=== PATIENT | male | born 1950 | race Hispanic/Latino ===

== ENCOUNTER 2019-08-28 11:42 | Inpatient (IN) | payer OTHER ==
[~2019-08-28] VITALS: Ht 180.3 cm; Wt 104.3 kg
--- OUTSIDE RECORDS SUMMARY | 2019-08-28 11:45 | XMS REPORT ---
[facility] Address Unknown Phone Unavailable Care Team Providers Care [employer] Supervisor Name Role Phone Unavailable Unavailable Payers Payer Name Policy Type Policy Number Effective Date Expiration Date Problems This patient has no known problems. Allergies, Adverse Reactions, Alerts Allergy Name Allergy Type Status Severity Reaction(s) Onset Date Inactive Date Treating Clinician Comments No Known Allergies DA Active U 2018-10-13 00:00:00 No Known Allergies DA Active U 2017-11-03 00:00:00 Medications This patient has no known medications. Encounters Start Date/Time End Date/Time Encounter Type Admission Type Attending Clinicians Care Facility Care Department Encounter ID 2019-06-16 07:40:00 2019-06-16 07:40:00 [place] [facility] [id number] 2019-02-12 07:07:00 2019-02-12 07:07:00 Outpatient [facility] [id number] Results Test Description Test Time Test Comments Text Results Atomic Results Result Comments CBC W/MANUAL DIFF 2018-10-20 21:42:00 WHITE BLOOD CELL (test code=WBC) 4.0 K/mm3 4.5-12.5 RED BLOOD CELL (test code=RBC) 3.63 mill/mm3 4.0-5.8 HEMOGLOBIN (test code=HGB) 11.3 gram/dL 13.0-17.5 HEMATOCRIT (test code=HCT) 34.0 % 42.0-52.0 MEAN CELL VOLUME (test code=MCV) 93.7 fL 80-98 MEAN CELL HGB (test code=MCH) 31.1 picogram 27.0-33.0 MEAN CELL HGB CONCETRATION (test code=MCHC) 33.2 gram/dL 33.0-36.0 RED CELL DISTRIBUTION WIDTH (test code=RDW) 17.5 % 11.6-16.2 RED CELL DISTRIBUTION WIDTH SD (test code=RDW-SD) 59.5 fL 37.0-51.0 PLATELET COUNT (test code=PLT) 57 K/mm3 150-450 MEAN PLATELET VOLUME (test code=MPV) 13.3 fL 6.7-11.0 IMMATURE GRANULOCYTE % (test code=IG%) 3.2 % 0.0-5.0 NUCLEATED RBC % (test code=NRBC%) 0.0 % 0-0 NEUTROPHIL # (test code=NT#) 2.45 K/mm3 1.8-7.7 IMMATURE GRANULOCYTE # (test code=IG#) 0.13 x10 3/uL 0-0.03 LYMPHOCYTE # (test code=LY#) 0.93 K/mm3 1.0-5.0 MONOCYTE # (test code=MO#) 0.45 K/mm3 0-0.8 EOSINOPHIL # (test code=EO#) 0.05 K/mm3 0.0-0.5 BASOPHIL # (test code=BA#) 0.02 K/mm3 0.0-0.2 NUCLEATED RBC # (test code=NRBC#) 0.00 K/mm3 0.0-0.1 MANUAL DIFF REQUIRED (test code=MDIFF) YES STAIN ACCEPTABILITY (test code=STN ACCEPTABLE) STAIN ACCEPTABLE TOTAL CELLS COUNTED (test code=TCC) 115 #CELLS SEGMENTED NEUTROPHILS (test code=SEG) 71.3 % 39-69 BAND NEUTROPHIL (test code=BAND) 5.2 % 0-10 LYMPHOCYTE (test code=LYMPH) 11.3 % 25-55 REACTIVE LYMPH (test code=RELYMPH) 0 % MONOCYTE (test code=MON) 6.9 % 0-10 EOSINOPHIL (test code=EOS) 0 % 0.0-5.0 BASOPHIL (test code=BASO) 0 % 0-1.0 METAMYELOCYTE (test code=META) 2.6 % 0-0 MYELOCYTE (test code=MYELO) 0.9 % 0.0-0.0 PROMYELOCYTE (test code=PROM) 0.9 % 0-0 PLASMA CELL (test code=LELE) 0.9 0.0-0.0 POLYCHROMASIA (test code=POLC) 1+ ANISOCYTOSIS (test code=ANISO) 1+ MACROCYTOSIS (test code=MACR) 1+ PLATELET ESTIMATE (test code=PLTEST) DECREASED PLATELET MORPHOLOGY (test code=PLTMORPH) NORMAL IMMATURE FORMS (test code=IMMAT) 0 % 0-0 PATHOLOGISTS [id number] 21:42:00* Test Item Value Reference Range Comments PATHOLOGISTS FINDINGS (test code=PATH) PATH NOTES LEFT SHIFT GRANULOCYTES, LYMPHOPENIA WITH A FEW REACTIVE LYPHOCYTES SEEN. NORMOCYTIC ANEMIA, THRMBOCYTOPENIA.REVIEWED BY OSMAN HOOPER M.D.10/20/18 CBC W/MANUAL [id number] 05:37:00* Test Item Value Reference Range Comments WHITE BLOOD CELL (test code=WBC) 4.0 K/mm3 4.5-12.5 RED BLOOD CELL (test code=RBC) 3.63 mill/mm3 4.0-5.8 HEMOGLOBIN (test code=HGB) 11.3 gram/dL 13.0-17.5 HEMATOCRIT (test code=HCT) 34.0 % 42.0-52.0 MEAN CELL VOLUME (test code=MCV) 93.7 fL 80-98 MEAN CELL HGB (test code=MCH) 31.1 picogram 27.0-33.0 MEAN CELL HGB CONCETRATION (test code=MCHC) 33.2 gram/dL 33.0-36.0 RED CELL DISTRIBUTION WIDTH (test code=RDW) 17.5 % 11.6-16.2 RED CELL DISTRIBUTION WIDTH SD (test code=RDW-SD) 59.5 fL 37.0-51.0 PLATELET COUNT (test code=PLT) 57 K/mm3 150-450 MEAN PLATELET VOLUME (test code=MPV) 13.3 fL 6.7-11.0 IMMATURE GRANULOCYTE % (test code=IG%) 3.2 % 0.0-5.0 NUCLEATED RBC % (test code=NRBC%) 0.0 % 0-0 NEUTROPHIL # (test code=NT#) 2.45 K/mm3 1.8-7.7 IMMATURE GRANULOCYTE # (test code=IG#) 0.13 x10 3/uL 0-0.03 LYMPHOCYTE # (test code=LY#) 0.93 K/mm3 1.0-5.0 MONOCYTE # (test code=MO#) 0.45 K/mm3 0-0.8 EOSINOPHIL # (test code=EO#) 0.05 K/mm3 0.0-0.5 BASOPHIL # (test code=BA#) 0.02 K/mm3 0.0-0.2 NUCLEATED RBC # (test code=NRBC#) 0.00 K/mm3 0.0-0.1 MANUAL DIFF REQUIRED (test code=MDIFF) YES STAIN ACCEPTABILITY (test code=STN ACCEPTABLE) STAIN ACCEPTABLE TOTAL CELLS COUNTED (test code=TCC) 115 #CELLS SEGMENTED NEUTROPHILS (test code=SEG) 71.3 % 39-69 BAND NEUTROPHIL (test code=BAND) 5.2 % 0-10 LYMPHOCYTE (test code=LYMPH) 11.3 % 25-55 REACTIVE LYMPH (test code=RELYMPH) 0 % MONOCYTE (test code=MON) 6.9 % 0-10 EOSINOPHIL (test code=EOS) 0 % 0.0-5.0 BASOPHIL (test code=BASO) 0 % 0-1.0 METAMYELOCYTE (test code=META) 2.6 % 0-0 MYELOCYTE (test code=MYELO) 0.9 % 0.0-0.0 PROMYELOCYTE (test code=PROM) 0.9 % 0-0 PLASMA CELL (test code=LELE) 0.9 0.0-0.0 POLYCHROMASIA (test code=POLC) 1+ ANISOCYTOSIS (test code=ANISO) 1+ MACROCYTOSIS (test code=MACR) 1+ PLATELET ESTIMATE (test code=PLTEST) DECREASED PLATELET MORPHOLOGY (test code=PLTMORPH) NORMAL IMMATURE FORMS (test code=IMMAT) 0 % 0-0 PATHOLOGISTS [id number] 05:37:00* Test Item Value Reference Range Comments PATHOLOGISTS FINDINGS (test code=PATH) PATH NOTES CBC W/MANUAL [id number] 05:33:00* Test Item Value Reference Range Comments WHITE BLOOD CELL (test code=WBC) 4.0 K/mm3 4.5-12.5 RED BLOOD CELL (test code=RBC) 3.63 mill/mm3 4.0-5.8 HEMOGLOBIN (test code=HGB) 11.3 gram/dL 13.0-17.5 HEMATOCRIT (test code=HCT) 34.0 % 42.0-52.0 MEAN CELL VOLUME (test code=MCV) 93.7 fL 80-98 MEAN CELL HGB (test code=MCH) 31.1 picogram 27.0-33.0 MEAN CELL HGB CONCETRATION (test code=MCHC) 33.2 gram/dL 33.0-36.0 RED CELL DISTRIBUTION WIDTH (test code=RDW) 17.5 % 11.6-16.2 RED CELL DISTRIBUTION WIDTH SD (test code=RDW-SD) 59.5 fL 37.0-51.0 PLATELET COUNT (test code=PLT) 57 K/mm3 150-450 MEAN PLATELET VOLUME (test code=MPV) 13.3 fL 6.7-11.0 IMMATURE GRANULOCYTE % (test code=IG%) 3.2 % 0.0-5.0 NUCLEATED RBC % (test code=NRBC%) 0.0 % 0-0 NEUTROPHIL # (test code=NT#) 2.45 K/mm3 1.8-7.7 IMMATURE GRANULOCYTE # (test code=IG#) 0.13 x10 3/uL 0-0.03 LYMPHOCYTE # (test code=LY#) 0.93 K/mm3 1.0-5.0 MONOCYTE # (test code=MO#) 0.45 K/mm3 0-0.8 EOSINOPHIL # (test code=EO#) 0.05 K/mm3 0.0-0.5 BASOPHIL # (test code=BA#) 0.02 K/mm3 0.0-0.2 NUCLEATED RBC # (test code=NRBC#) 0.00 K/mm3 0.0-0.1 MANUAL DIFF REQUIRED (test code=MDIFF) YES STAIN ACCEPTABILITY (test code=STN ACCEPTABLE) TOTAL CELLS COUNTED (test code=TCC) #CELLS SEGMENTED NEUTROPHILS (test code=SEG) % 39-69 LYMPHOCYTE (test code=LYMPH) % 25-55 MONOCYTE (test code=MON) % 0-10 MORPHOLOGY COMMENT (test code=MOC) PLATELET ESTIMATE (test code=PLTEST) PLATELET MORPHOLOGY (test code=PLTMORPH) PATHOLOGISTS [id number] 05:33:00* Test Item Value Reference Range Comments PATHOLOGISTS FINDINGS (test code=PATH) PATH NOTES CBC W/MANUAL [id number] 05:03:00* Test Item Value Reference Range Comments WHITE BLOOD CELL (test code=WBC) 4.0 K/mm3 4.5-12.5 RED BLOOD CELL (test code=RBC) 3.63 mill/mm3 4.0-5.8 HEMOGLOBIN (test code=HGB) 11.3 gram/dL 13.0-17.5 HEMATOCRIT (test code=HCT) 34.0 % 42.0-52.0 MEAN CELL VOLUME (test code=MCV) 93.7 fL 80-98 MEAN CELL HGB (test code=MCH) 31.1 picogram 27.0-33.0 MEAN CELL HGB CONCETRATION (test code=MCHC) 33.2 gram/dL 33.0-36.0 RED CELL DISTRIBUTION WIDTH (test code=RDW) 17.5 % 11.6-16.2 RED CELL DISTRIBUTION WIDTH SD (test code=RDW-SD) 59.5 fL 37.0-51.0 PLATELET COUNT (test code=PLT) 57 K/mm3 150-450 MEAN PLATELET VOLUME (test code=MPV) 13.3 fL 6.7-11.0 IMMATURE GRANULOCYTE % (test code=IG%) 3.2 % 0.0-5.0 NUCLEATED RBC % (test code=NRBC%) 0.0 % 0-0 NEUTROPHIL # (test code=NT#) 2.45 K/mm3 1.8-7.7 IMMATURE GRANULOCYTE # (test code=IG#) 0.13 x10 3/uL 0-0.03 LYMPHOCYTE # (test code=LY#) 0.93 K/mm3 1.0-5.0 MONOCYTE # (test code=MO#) 0.45 K/mm3 0-0.8 EOSINOPHIL # (test code=EO#) 0.05 K/mm3 0.0-0.5 BASOPHIL # (test code=BA#) 0.02 K/mm3 0.0-0.2 NUCLEATED RBC # (test code=NRBC#) 0.00 K/mm3 0.0-0.1 MANUAL DIFF REQUIRED (test code=MDIFF) YES STAIN ACCEPTABILITY (test code=STN ACCEPTABLE) TOTAL CELLS COUNTED (test code=TCC) #CELLS SEGMENTED NEUTROPHILS (test code=SEG) % 39-69 LYMPHOCYTE (test code=LYMPH) % 25-55 MONOCYTE (test code=MON) % 0-10 EOSINOPHIL (test code=EOS) % 0.0-5.0 CABOT RINGS (test code=CAB) MORPHOLOGY COMMENT (test code=MOC) PLATELET ESTIMATE (test code=PLTEST) PLATELET MORPHOLOGY (test code=PLTMORPH) CBC W/MANUAL [id number] 05:03:00* Test Item Value Reference Range Comments WHITE BLOOD CELL (test code=WBC) 4.0 K/mm3 4.5-12.5 RED BLOOD CELL (test code=RBC) 3.63 mill/mm3 4.0-5.8 HEMOGLOBIN (test code=HGB) 11.3 gram/dL 13.0-17.5 HEMATOCRIT (test code=HCT) 34.0 % 42.0-52.0 MEAN CELL VOLUME (test code=MCV) 93.7 fL 80-98 MEAN CELL HGB (test code=MCH) 31.1 picogram 27.0-33.0 MEAN CELL HGB CONCETRATION (test code=MCHC) 33.2 gram/dL 33.0-36.0 RED CELL DISTRIBUTION WIDTH (test code=RDW) 17.5 % 11.6-16.2 RED CELL DISTRIBUTION WIDTH SD (test code=RDW-SD) 59.5 fL 37.0-51.0 PLATELET COUNT (test code=PLT) 57 K/mm3 150-450 MEAN PLATELET VOLUME (test code=MPV) 13.3 fL 6.7-11.0 IMMATURE GRANULOCYTE % (test code=IG%) 3.2 % 0.0-5.0 NUCLEATED RBC % (test code=NRBC%) 0.0 % 0-0 NEUTROPHIL # (test code=NT#) 2.45 K/mm3 1.8-7.7 IMMATURE GRANULOCYTE # (test code=IG#) 0.13 x10 3/uL 0-0.03 LYMPHOCYTE # (test code=LY#) 0.93 K/mm3 1.0-5.0 MONOCYTE # (test code=MO#) 0.45 K/mm3 0-0.8 EOSINOPHIL # (test code=EO#) 0.05 K/mm3 0.0-0.5 BASOPHIL # (test code=BA#) 0.02 K/mm3 0.0-0.2 NUCLEATED RBC # (test code=NRBC#) 0.00 K/mm3 0.0-0.1 MANUAL DIFF REQUIRED (test code=MDIFF) YES STAIN ACCEPTABILITY (test code=STN ACCEPTABLE) TOTAL CELLS COUNTED (test code=TCC) #CELLS SEGMENTED NEUTROPHILS (test code=SEG) % 39-69 LYMPHOCYTE (test code=LYMPH) % 25-55 MONOCYTE (test code=MON) % 0-10 EOSINOPHIL (test code=EOS) % 0.0-5.0 MORPHOLOGY COMMENT (test code=MOC) PLATELET ESTIMATE (test code=PLTEST) PLATELET MORPHOLOGY (test code=PLTMORPH) CBC W/MANUAL [id number] 05:03:00* Test Item Value Reference Range Comments WHITE BLOOD CELL (test code=WBC) 4.0 K/mm3 4.5-12.5 RED BLOOD CELL (test code=RBC) 3.63 mill/mm3 4.0-5.8 HEMOGLOBIN (test code=HGB) 11.3 gram/dL 13.0-17.5 HEMATOCRIT (test code=HCT) 34.0 % 42.0-52.0 MEAN CELL VOLUME (test code=MCV) 93.7 fL 80-98 MEAN CELL HGB (test code=MCH) 31.1 picogram 27.0-33.0 MEAN CELL HGB CONCETRATION (test code=MCHC) 33.2 gram/dL 33.0-36.0 RED CELL DISTRIBUTION WIDTH (test code=RDW) 17.5 % 11.6-16.2 RED CELL DISTRIBUTION WIDTH SD (test code=RDW-SD) 59.5 fL 37.0-51.0 PLATELET COUNT (test code=PLT) 57 K/mm3 150-450 MEAN PLATELET VOLUME (test code=MPV) 13.3 fL 6.7-11.0 IMMATURE GRANULOCYTE % (test code=IG%) 3.2 % 0.0-5.0 NUCLEATED RBC % (test code=NRBC%) 0.0 % 0-0 NEUTROPHIL # (test code=NT#) 2.45 K/mm3 1.8-7.7 IMMATURE GRANULOCYTE # (test code=IG#) 0.13 x10 3/uL 0-0.03 LYMPHOCYTE # (test code=LY#) 0.93 K/mm3 1.0-5.0 MONOCYTE # (test code=MO#) 0.45 K/mm3 0-0.8 EOSINOPHIL # (test code=EO#) 0.05 K/mm3 0.0-0.5 BASOPHIL # (test code=BA#) 0.02 K/mm3 0.0-0.2 NUCLEATED RBC # (test code=NRBC#) 0.00 K/mm3 0.0-0.1 MANUAL DIFF REQUIRED (test code=MDIFF) YES STAIN ACCEPTABILITY (test code=STN ACCEPTABLE) TOTAL CELLS COUNTED (test code=TCC) #CELLS SEGMENTED NEUTROPHILS (test code=SEG) % 39-69 LYMPHOCYTE (test code=LYMPH) % 25-55 MONOCYTE (test code=MON) % 0-10 MORPHOLOGY COMMENT (test code=MOC) PLATELET ESTIMATE (test code=PLTEST) PLATELET MORPHOLOGY (test code=PLTMORPH) CBC W/MANUAL [id number] 05:02:00* Test Item Value Reference Range Comments WHITE BLOOD CELL (test code=WBC) 4.0 K/mm3 4.5-12.5 RED BLOOD CELL (test code=RBC) 3.63 mill/mm3 4.0-5.8 HEMOGLOBIN (test code=HGB) 11.3 gram/dL 13.0-17.5 HEMATOCRIT (test code=HCT) 34.0 % 42.0-52.0 MEAN CELL VOLUME (test code=MCV) 93.7 fL 80-98 MEAN CELL HGB (test code=MCH) 31.1 picogram 27.0-33.0 MEAN CELL HGB CONCETRATION (test code=MCHC) 33.2 gram/dL 33.0-36.0 RED CELL DISTRIBUTION WIDTH (test code=RDW) 17.5 % 11.6-16.2 RED CELL DISTRIBUTION WIDTH SD (test code=RDW-SD) 59.5 fL 37.0-51.0 PLATELET COUNT (test code=PLT) 57 K/mm3 150-450 MEAN PLATELET VOLUME (test code=MPV) 13.3 fL 6.7-11.0 IMMATURE GRANULOCYTE % (test code=IG%) 3.2 % 0.0-5.0 NUCLEATED RBC % (test code=NRBC%) 0.0 % 0-0 NEUTROPHIL # (test code=NT#) 2.45 K/mm3 1.8-7.7 IMMATURE GRANULOCYTE # (test code=IG#) 0.13 x10 3/uL 0-0.03 LYMPHOCYTE # (test code=LY#) 0.93 K/mm3 1.0-5.0 MONOCYTE # (test code=MO#) 0.45 K/mm3 0-0.8 EOSINOPHIL # (test code=EO#) 0.05 K/mm3 0.0-0.5 BASOPHIL # (test code=BA#) 0.02 K/mm3 0.0-0.2 NUCLEATED RBC # (test code=NRBC#) 0.00 K/mm3 0.0-0.1 MANUAL DIFF REQUIRED (test code=MDIFF) YES STAIN ACCEPTABILITY (test code=STN ACCEPTABLE) TOTAL CELLS COUNTED (test code=TCC) #CELLS SEGMENTED NEUTROPHILS (test code=SEG) % 39-69 LYMPHOCYTE (test code=LYMPH) % 25-55 MONOCYTE (test code=MON) % 0-10 EOSINOPHIL (test code=EOS) % 0.0-5.0 CABOT RINGS (test code=CAB) MORPHOLOGY COMMENT (test code=MOC) PLATELET ESTIMATE (test code=PLTEST) PLATELET MORPHOLOGY (test code=PLTMORPH) CBC W/MANUAL [id number] 05:02:00* Test Item Value Reference Range Comments WHITE BLOOD CELL (test code=WBC) 4.0 K/mm3 4.5-12.5 RED BLOOD CELL (test code=RBC) 3.63 mill/mm3 4.0-5.8 HEMOGLOBIN (test code=HGB) 11.3 gram/dL 13.0-17.5 HEMATOCRIT (test code=HCT) 34.0 % 42.0-52.0 MEAN CELL VOLUME (test code=MCV) 93.7 fL 80-98 MEAN CELL HGB (test code=MCH) 31.1 picogram 27.0-33.0 MEAN CELL HGB CONCETRATION (test code=MCHC) 33.2 gram/dL 33.0-36.0 RED CELL DISTRIBUTION WIDTH (test code=RDW) 17.5 % 11.6-16.2 RED CELL DISTRIBUTION WIDTH SD (test code=RDW-SD) 59.5 fL 37.0-51.0 PLATELET COUNT (test code=PLT) 57 K/mm3 150-450 MEAN PLATELET VOLUME (test code=MPV) 13.3 fL 6.7-11.0 IMMATURE GRANULOCYTE % (test code=IG%) 3.2 % 0.0-5.0 NUCLEATED RBC % (test code=NRBC%) 0.0 % 0-0 NEUTROPHIL # (test code=NT#) 2.45 K/mm3 1.8-7.7 IMMATURE GRANULOCYTE # (test code=IG#) 0.13 x10 3/uL 0-0.03 LYMPHOCYTE # (test code=LY#) 0.93 K/mm3 1.0-5.0 MONOCYTE # (test code=MO#) 0.45 K/mm3 0-0.8 EOSINOPHIL # (test code=EO#) 0.05 K/mm3 0.0-0.5 BASOPHIL # (test code=BA#) 0.02 K/mm3 0.0-0.2 NUCLEATED RBC # (test code=NRBC#) 0.00 K/mm3 0.0-0.1 MANUAL DIFF REQUIRED (test code=MDIFF) YES STAIN ACCEPTABILITY (test code=STN ACCEPTABLE) TOTAL CELLS COUNTED (test code=TCC) #CELLS SEGMENTED NEUTROPHILS (test code=SEG) % 39-69 LYMPHOCYTE (test code=LYMPH) % 25-55 MONOCYTE (test code=MON) % 0-10 EOSINOPHIL (test code=EOS) % 0.0-5.0 CABOT RINGS (test code=CAB) MORPHOLOGY COMMENT (test code=MOC) PLATELET ESTIMATE (test code=PLTEST) PLATELET MORPHOLOGY (test code=PLTMORPH) PROCALCITONIN (PCT)2018-10-19 20:00:00* Test Item Value Reference Range Comments PROCALCITONIN (PCT) (test code=PROCAL) 2.75 ng/ml Concentration Interpretation (ng/mL) <0.51 Sepsis is not likely. Local bacterial infection is possible. (LOW RISK for progression to Sepsis) 0.51 - 2.00 Sepsis is possible, but other conditions are known to elevate PCT as well. (MODERATE RISK for progression to Sepsis) > 2.00 Sepsis is likely, unless other causes are known. (HIGH RISK for progression to Severe Sepsis or Septic Shock) 10.00 High likelihood of Severe Sepsis or Septic or higher Shock. *Increased PCT levels may not always be related to systemic bacterial infection.*Low PCT levels do not automatically exclude the presence of bacterial infection.*All results should be interpreted taking into account the patients history. CBC W/MANUAL [id number] 05:03:00* Test Item Value Reference Range Comments WHITE BLOOD CELL (test code=WBC) 2.7 K/mm3 4.5-12.5 RED BLOOD CELL (test code=RBC) 3.78 mill/mm3 4.0-5.8 HEMOGLOBIN (test code=HGB) 12.0 gram/dL 13.0-17.5 HEMATOCRIT (test code=HCT) 35.7 % 42.0-52.0 MEAN CELL VOLUME (test code=MCV) 94.4 fL 80-98 MEAN CELL HGB (test code=MCH) 31.7 picogram 27.0-33.0 MEAN CELL HGB CONCETRATION (test code=MCHC) 33.6 gram/dL 33.0-36.0 RED CELL DISTRIBUTION WIDTH (test code=RDW) 17.5 % 11.6-16.2 RED CELL DISTRIBUTION WIDTH SD (test code=RDW-SD) 61.1 fL 37.0-51.0 PLATELET COUNT (test code=PLT) 35 K/mm3 150-450 Results called to [id number] by MALIA 10/17/18 [id number] results verified and read back by Nurse? YPREVIOUS HISTORY MEAN PLATELET VOLUME (test code=MPV) 13.7 fL 6.7-11.0 IMMATURE GRANULOCYTE % (test code=IG%) 1.9 % 0.0-5.0 NUCLEATED RBC % (test code=NRBC%) 0.0 % 0-0 NEUTROPHIL # (test code=NT#) 2.00 K/mm3 1.8-7.7 IMMATURE GRANULOCYTE # (test code=IG#) 0.05 x10 3/uL 0-0.03 LYMPHOCYTE # (test code=LY#) 0.42 K/mm3 1.0-5.0 MONOCYTE # (test code=MO#) 0.18 K/mm3 0-0.8 EOSINOPHIL # (test code=EO#) 0.03 K/mm3 0.0-0.5 BASOPHIL # (test code=BA#) 0.01 K/mm3 0.0-0.2 NUCLEATED RBC # (test code=NRBC#) 0.00 K/mm3 0.0-0.1 MANUAL DIFF REQUIRED (test code=MDIFF) YES STAIN ACCEPTABILITY (test code=STN ACCEPTABLE) STAIN ACCEPTABLE TOTAL CELLS COUNTED (test code=TCC) 113 #CELLS SEGMENTED NEUTROPHILS (test code=SEG) 75.2 % 39-69 BAND NEUTROPHIL (test code=BAND) 4.4 % 0-10 LYMPHOCYTE (test code=LYMPH) 6.2 % 25-55 REACTIVE LYMPH (test code=RELYMPH) 7.1 % MONOCYTE (test code=MON) 4.4 % 0-10 EOSINOPHIL (test code=EOS) 0 % 0.0-5.0 BASOPHIL (test code=BASO) 2.7 % 0-1.0 METAMYELOCYTE (test code=META) 0 % 0-0 MYELOCYTE (test code=MYELO) 0 % 0.0-0.0 PROMYELOCYTE (test code=PROM) 0 % 0-0 ANISOCYTOSIS (test code=ANISO) 1+ PLATELET ESTIMATE (test code=PLTEST) DECREASED PLATELET MORPHOLOGY (test code=PLTMORPH) NORMAL IMMATURE FORMS (test code=IMMAT) 0 % 0-0 BASIC METABOLIC [id number] 04:54:00* Test Item Value Reference Range Comments SODIUM (test code=NA) 133 mmol/L 136-145 POTASSIUM (test code=K) 3.9 mmol/L 3.5-5.1 CHLORIDE (test code=CL) 101.0 mmol/L 98-107 CARBON DIOXIDE (test code=CO2) 23.0 mmol/L 21-32 ANION GAP (test code=GAP) 12.9 10-20 GLUCOSE (test code=GLU) 104 mg/dL 74-106 BLOOD UREA NITROGEN (test code=BUN) 24 mg/dL 7-18 GLOMERULAR FILTRATION RATE (test code=GFR) 55 mL/min >=60 Estimated GFR by using Modified MDRD formula.Chronic kidney disease is defined as either kidney damageor GFR <60 mL/min/1.73 m2 for >3 months. CREATININE (test code=CREAT) 1.30 mg/dL 0.7-1.3 BUN/CREATININE RATIO (test code=BUN/CREA) 18.5 10-20 CALCIUM (test code=CA) 7.6 mg/dL 8.5-10.1 CBC W/MANUAL [id number] 04:44:00* Test Item Value Reference Range Comments WHITE BLOOD CELL (test code=WBC) 2.7 K/mm3 4.5-12.5 RED BLOOD CELL (test code=RBC) 3.78 mill/mm3 4.0-5.8 HEMOGLOBIN (test code=HGB) 12.0 gram/dL 13.0-17.5 HEMATOCRIT (test code=HCT) 35.7 % 42.0-52.0 MEAN CELL VOLUME (test code=MCV) 94.4 fL 80-98 MEAN CELL HGB (test code=MCH) 31.7 picogram 27.0-33.0 MEAN CELL HGB CONCETRATION (test code=MCHC) 33.6 gram/dL 33.0-36.0 RED CELL DISTRIBUTION WIDTH (test code=RDW) 17.5 % 11.6-16.2 RED CELL DISTRIBUTION WIDTH SD (test code=RDW-SD) 61.1 fL 37.0-51.0 PLATELET COUNT (test code=PLT) 35 K/mm3 150-450 Results called to [id number] by MALIA 10/17/18 0441Critical results verified and read back by Nurse? YPREVIOUS HISTORY MEAN PLATELET VOLUME (test code=MPV) 13.7 fL 6.7-11.0 IMMATURE GRANULOCYTE % (test code=IG%) 1.9 % 0.0-5.0 NUCLEATED RBC % (test code=NRBC%) 0.0 % 0-0 NEUTROPHIL # (test code=NT#) 2.00 K/mm3 1.8-7.7 IMMATURE GRANULOCYTE # (test code=IG#) 0.05 x10 3/uL 0-0.03 LYMPHOCYTE # (test code=LY#) 0.42 K/mm3 1.0-5.0 MONOCYTE # (test code=MO#) 0.18 K/mm3 0-0.8 EOSINOPHIL # (test code=EO#) 0.03 K/mm3 0.0-0.5 BASOPHIL # (test code=BA#) 0.01 K/mm3 0.0-0.2 NUCLEATED RBC # (test code=NRBC#) 0.00 K/mm3 0.0-0.1 MANUAL DIFF REQUIRED (test code=MDIFF) YES STAIN ACCEPTABILITY (test code=STN ACCEPTABLE) TOTAL CELLS COUNTED (test code=TCC) #CELLS SEGMENTED NEUTROPHILS (test code=SEG) % 39-69 LYMPHOCYTE (test code=LYMPH) % 25-55 MONOCYTE (test code=MON) % 0-10 EOSINOPHIL (test code=EOS) % 0.0-5.0 CABOT RINGS (test code=CAB) MORPHOLOGY COMMENT (test code=MOC) PLATELET ESTIMATE (test code=PLTEST) PLATELET MORPHOLOGY (test code=PLTMORPH) CBC W/MANUAL [id number] 04:44:00* Test Item Value Reference Range Comments WHITE BLOOD CELL (test code=WBC) 2.7 K/mm3 4.5-12.5 RED BLOOD CELL (test code=RBC) 3.78 mill/mm3 4.0-5.8 HEMOGLOBIN (test code=HGB) 12.0 gram/dL 13.0-17.5 HEMATOCRIT (test code=HCT) 35.7 % 42.0-52.0 MEAN CELL VOLUME (test code=MCV) 94.4 fL 80-98 MEAN CELL HGB (test code=MCH) 31.7 picogram 27.0-33.0 MEAN CELL HGB CONCETRATION (test code=MCHC) 33.6 gram/dL 33.0-36.0 RED CELL DISTRIBUTION WIDTH (test code=RDW) 17.5 % 11.6-16.2 RED CELL DISTRIBUTION WIDTH SD (test code=RDW-SD) 61.1 fL 37.0-51.0 PLATELET COUNT (test code=PLT) 35 K/mm3 150-450 Results called to LEELEE/[id number] by MALIA 10/17/18 0441Critical results verified and read back by Nurse? YPREVIOUS HISTORY MEAN PLATELET VOLUME (test code=MPV) 13.7 fL 6.7-11.0 IMMATURE GRANULOCYTE % (test code=IG%) 1.9 % 0.0-5.0 NUCLEATED RBC % (test code=NRBC%) 0.0 % 0-0 NEUTROPHIL # (test code=NT#) 2.00 K/mm3 1.8-7.7 IMMATURE GRANULOCYTE # (test code=IG#) 0.05 x10 3/uL 0-0.03 LYMPHOCYTE # (test code=LY#) 0.42 K/mm3 1.0-5.0 MONOCYTE # (test code=MO#) 0.18 K/mm3 0-0.8 EOSINOPHIL # (test code=EO#) 0.03 K/mm3 0.0-0.5 BASOPHIL # (test code=BA#) 0.01 K/mm3 0.0-0.2 NUCLEATED RBC # (test code=NRBC#) 0.00 K/mm3 0.0-0.1 MANUAL DIFF REQUIRED (test code=MDIFF) YES STAIN ACCEPTABILITY (test code=STN ACCEPTABLE) TOTAL CELLS COUNTED (test code=TCC) #CELLS SEGMENTED NEUTROPHILS (test code=SEG) % 39-69 LYMPHOCYTE (test code=LYMPH) % 25-55 MONOCYTE (test code=MON) % 0-10 EOSINOPHIL (test code=EOS) % 0.0-5.0 CABOT RINGS (test code=CAB) MORPHOLOGY COMMENT (test code=MOC) PLATELET ESTIMATE (test code=PLTEST) PLATELET MORPHOLOGY (test code=PLTMORPH) CBC W/MANUAL [id number] 04:44:00* Test Item Value Reference Range Comments WHITE BLOOD CELL (test code=WBC) 2.7 K/mm3 4.5-12.5 RED BLOOD CELL (test code=RBC) 3.78 mill/mm3 4.0-5.8 HEMOGLOBIN (test code=HGB) 12.0 gram/dL 13.0-17.5 HEMATOCRIT (test code=HCT) 35.7 % 42.0-52.0 MEAN CELL VOLUME (test code=MCV) 94.4 fL 80-98 MEAN CELL HGB (test code=MCH) 31.7 picogram 27.0-33.0 MEAN CELL HGB CONCETRATION (test code=MCHC) 33.6 gram/dL 33.0-36.0 RED CELL DISTRIBUTION WIDTH (test code=RDW) 17.5 % 11.6-16.2 RED CELL DISTRIBUTION WIDTH SD (test code=RDW-SD) 61.1 fL 37.0-51.0 PLATELET COUNT (test code=PLT) 35 K/mm3 150-450 Results called to LEELEE/[id number] by [email or web address] 10/17/18 0441Critical results verified and read back by Nurse? YPREVIOUS HISTORY MEAN PLATELET VOLUME (test code=MPV) 13.7 fL 6.7-11.0 IMMATURE GRANULOCYTE % (test code=IG%) 1.9 % 0.0-5.0 NUCLEATED RBC % (test code=NRBC%) 0.0 % 0-0 NEUTROPHIL # (test code=NT#) 2.00 K/mm3 1.8-7.7 IMMATURE GRANULOCYTE # (test code=IG#) 0.05 x10 3/uL 0-0.03 LYMPHOCYTE # (test code=LY#) 0.42 K/mm3 1.0-5.0 MONOCYTE # (test code=MO#) 0.18 K/mm3 0-0.8 EOSINOPHIL # (test code=EO#) 0.03 K/mm3 0.0-0.5 BASOPHIL # (test code=BA#) 0.01 K/mm3 0.0-0.2 NUCLEATED RBC # (test code=NRBC#) 0.00 K/mm3 0.0-0.1 MANUAL DIFF REQUIRED (test code=MDIFF) YES STAIN ACCEPTABILITY (test code=STN ACCEPTABLE) TOTAL CELLS COUNTED (test code=TCC) #CELLS SEGMENTED NEUTROPHILS (test code=SEG) % 39-69 LYMPHOCYTE (test code=LYMPH) % 25-55 MONOCYTE (test code=MON) % 0-10 EOSINOPHIL (test code=EOS) % 0.0-5.0 MORPHOLOGY COMMENT (test code=MOC) PLATELET ESTIMATE (test code=PLTEST) PLATELET MORPHOLOGY (test code=PLTMORPH) CBC W/MANUAL [id number] 04:44:00* Test Item Value Reference Range Comments WHITE BLOOD CELL (test code=WBC) 2.7 K/mm3 4.5-12.5 RED BLOOD CELL (test code=RBC) 3.78 mill/mm3 4.0-5.8 HEMOGLOBIN (test code=HGB) 12.0 gram/dL 13.0-17.5 HEMATOCRIT (test code=HCT) 35.7 % 42.0-52.0 MEAN CELL VOLUME (test code=MCV) 94.4 fL 80-98 MEAN CELL HGB (test code=MCH) 31.7 picogram 27.0-33.0 MEAN CELL HGB CONCETRATION (test code=MCHC) 33.6 gram/dL 33.0-36.0 RED CELL DISTRIBUTION WIDTH (test code=RDW) 17.5 % 11.6-16.2 RED CELL DISTRIBUTION WIDTH SD (test code=RDW-SD) 61.1 fL 37.0-51.0 PLATELET COUNT (test code=PLT) 35 K/mm3 150-450 Results called to LEELEE/[id number] by MALIA 10/17/18 0441Critical results verified and read back by Nurse? YPREVIOUS HISTORY MEAN PLATELET VOLUME (test code=MPV) 13.7 fL 6.7-11.0 IMMATURE GRANULOCYTE % (test code=IG%) 1.9 % 0.0-5.0 NUCLEATED RBC % (test code=NRBC%) 0.0 % 0-0 NEUTROPHIL # (test code=NT#) 2.00 K/mm3 1.8-7.7 IMMATURE GRANULOCYTE # (test code=IG#) 0.05 x10 3/uL 0-0.03 LYMPHOCYTE # (test code=LY#) 0.42 K/mm3 1.0-5.0 MONOCYTE # (test code=MO#) 0.18 K/mm3 0-0.8 EOSINOPHIL # (test code=EO#) 0.03 K/mm3 0.0-0.5 BASOPHIL # (test code=BA#) 0.01 K/mm3 0.0-0.2 NUCLEATED RBC # (test code=NRBC#) 0.00 K/mm3 0.0-0.1 MANUAL DIFF REQUIRED (test code=MDIFF) YES STAIN ACCEPTABILITY (test code=STN ACCEPTABLE) TOTAL CELLS COUNTED (test code=TCC) #CELLS SEGMENTED NEUTROPHILS (test code=SEG) % 39-69 LYMPHOCYTE (test code=LYMPH) % 25-55 MONOCYTE (test code=MON) % 0-10 MORPHOLOGY COMMENT (test code=MOC) PLATELET ESTIMATE (test code=PLTEST) PLATELET MORPHOLOGY (test code=PLTMORPH) CBC W/MANUAL [id number] 04:44:00* Test Item Value Reference Range Comments WHITE BLOOD CELL (test code=WBC) 2.7 K/mm3 4.5-12.5 RED BLOOD CELL (test code=RBC) 3.78 mill/mm3 4.0-5.8 HEMOGLOBIN (test code=HGB) 12.0 gram/dL 13.0-17.5 HEMATOCRIT (test code=HCT) 35.7 % 42.0-52.0 MEAN CELL VOLUME (test code=MCV) 94.4 fL 80-98 MEAN CELL HGB (test code=MCH) 31.7 picogram 27.0-33.0 MEAN CELL HGB CONCETRATION (test code=MCHC) 33.6 gram/dL 33.0-36.0 RED CELL DISTRIBUTION WIDTH (test code=RDW) 17.5 % 11.6-16.2 RED CELL DISTRIBUTION WIDTH SD (test code=RDW-SD) 61.1 fL 37.0-51.0 PLATELET COUNT (test code=PLT) 35 K/mm3 150-450 Results called to [id number] by MALIA 10/17/18 0441Critical results verified and read back by Nurse? YPREVIOUS HISTORY MEAN PLATELET VOLUME (test code=MPV) 13.7 fL 6.7-11.0 IMMATURE GRANULOCYTE % (test code=IG%) 1.9 % 0.0-5.0 NUCLEATED RBC % (test code=NRBC%) 0.0 % 0-0 NEUTROPHIL # (test code=NT#) 2.00 K/mm3 1.8-7.7 IMMATURE GRANULOCYTE # (test code=IG#) 0.05 x10 3/uL 0-0.03 LYMPHOCYTE # (test code=LY#) 0.42 K/mm3 1.0-5.0 MONOCYTE # (test code=MO#) 0.18 K/mm3 0-0.8 EOSINOPHIL # (test code=EO#) 0.03 K/mm3 0.0-0.5 BASOPHIL # (test code=BA#) 0.01 K/mm3 0.0-0.2 NUCLEATED RBC # (test code=NRBC#) 0.00 K/mm3 0.0-0.1 MANUAL DIFF REQUIRED (test code=MDIFF) YES STAIN ACCEPTABILITY (test code=STN ACCEPTABLE) TOTAL CELLS COUNTED (test code=TCC) #CELLS SEGMENTED NEUTROPHILS (test code=SEG) % 39-69 LYMPHOCYTE (test code=LYMPH) % 25-55 MONOCYTE (test code=MON) % 0-10 EOSINOPHIL (test code=EOS) % 0.0-5.0 CABOT RINGS (test code=CAB) MORPHOLOGY COMMENT (test code=MOC) PLATELET ESTIMATE (test code=PLTEST) PLATELET MORPHOLOGY (test code=PLTMORPH) PROCALCITONIN (PCT)2018-10-17 01:28:00* Test Item Value Reference Range Comments PROCALCITONIN (PCT) (test code=PROCAL) 1.61 ng/ml Concentration Interpretation (ng/mL) <0.51 Sepsis is not likely. Local bacterial infection is possible. (LOW RISK for progression to Sepsis) 0.51 - 2.00 Sepsis is possible, but other conditions are known to elevate PCT as well. (MODERATE RISK for progression to Sepsis) > 2.00 Sepsis is likely, unless other causes are known. (HIGH RISK for progression to Severe Sepsis or Septic Shock) 10.00 High likelihood of Severe Sepsis or Septic or higher Shock. *Increased PCT levels may not always be related to systemic bacterial infection.*Low PCT levels do not automatically exclude the presence of bacterial infection.*All results should be interpreted taking into account the patients history. BASIC METABOLIC [id number] 15:57:00* Test Item Value Reference Range Comments SODIUM (test code=NA) 133 mmol/L 136-145 POTASSIUM (test code=K) 4.0 mmol/L 3.5-5.1 CHLORIDE (test code=CL) 100.0 mmol/L 98-107 CARBON DIOXIDE (test code=CO2) 25.0 mmol/L 21-32 ANION GAP (test code=GAP) 12.0 10-20 GLUCOSE (test code=GLU) 112 mg/dL 74-106 BLOOD UREA NITROGEN (test code=BUN) 21 mg/dL 7-18 GLOMERULAR FILTRATION RATE (test code=GFR) > 60 mL/min >=60 Estimated GFR by using Modified MDRD formula.Chronic kidney disease is defined as either kidney damageor GFR <60 mL/min/1.73 m2 for >3 months. CREATININE (test code=CREAT) 1.10 mg/dL 0.7-1.3 BUN/CREATININE RATIO (test code=BUN/CREA) 19.1 10-20 CALCIUM (test code=CA) 8.1 mg/dL 8.5-10.1 BASIC METABOLIC [id number] 15:51:00* Test Item Value Reference Range Comments SODIUM (test code=NA) 133 mmol/L 136-145 POTASSIUM (test code=K) 4.0 mmol/L 3.5-5.1 CHLORIDE (test code=CL) 100.0 mmol/L 98-107 CARBON DIOXIDE (test code=CO2) mmol/L 21-32 ANION GAP (test code=GAP) 10-20 GLUCOSE (test code=GLU) mg/dL 74-106 BLOOD UREA NITROGEN (test code=BUN) mg/dL 7-18 GLOMERULAR FILTRATION RATE (test code=GFR) mL/min >=60 CREATININE (test code=CREAT) mg/dL 0.7-1.3 BUN/CREATININE RATIO (test code=BUN/CREA) 10-20 CALCIUM (test code=CA) 8.1 mg/dL 8.5-10.1 VANCOMYCIN [id number] 05:46:00* Test Item Value Reference Range Comments VANCOMYCIN TROUGH (test code=VANCT) 10.7 ug/mL 10-20 SPECIMEN COMMENTS: PLEASE DRAW AT 04:30 TIMED STUDYPROCALCITONIN (PCT)2018-10-15 15:22:00* Test Item Value Reference Range Comments PROCALCITONIN (PCT) (test code=PROCAL) 0.78 ng/ml Concentration Interpretation (ng/mL) <0.51 Sepsis is not likely. Local bacterial infection is possible. (LOW RISK for progression to Sepsis) 0.51 - 2.00 Sepsis is possible, but other conditions are known to elevate PCT as well. (MODERATE RISK for progression to Sepsis) > 2.00 Sepsis is likely, unless other causes are known. (HIGH RISK for progression to Severe Sepsis or Septic Shock) 10.00 High likelihood of Severe Sepsis or Septic or higher Shock. *Increased PCT levels may not always be related to systemic bacterial infection.*Low PCT levels do not automatically exclude the presence of bacterial infection.*All results should be interpreted taking into account the patients history. CREATININE W ESTIMATED [id number] 15:16:00* Test Item Value Reference Range Comments GLOMERULAR FILTRATION RATE (test code=GFR) 60 mL/min >=60 Estimated GFR by using Modified MDRD formula.Chronic kidney disease is defined as either kidney damageor GFR <60 mL/min/1.73 m2 for >3 months. CREATININE (test code=CREAT) 1.20 mg/dL 0.7-1.3 - CT ABD PELVIS W/O [id number] 18:51:00 Name: CRISTOPHER WALTON [facility] : 1950 Age/S: 68 / M [address] Unit #: [id number] Loc: [place] [address] Phys: Jason Singleton MD Acct: [id number] Dis Date: Status: ADM IN PHONE #: [phone] Exam Date: 10/14/2018 1756 FAX #: [phone] Reason: fever EXAMS: CPT CODE: [id number] CT ABD PELVIS W/O CONT 12277 HISTORY: Pneumonia and metastatic cancer and fever. COMPARISON: CT abdomen and pelvis from November 03, 2017. CT abdomen and pelvis: Stone protocol. Automated exposure control. CT ABDOMEN: Noncontrast liver is without discrete mass or lesions. The liver is measuring 17 cm in length. Gallbladder is contracted and without radiopaque stones. Contour of the liver is small. No splenomegaly. No varices. Stomach distends incompletely however it is normal in appearance. Wall is thickened in the gastric antrum region. Mild thickening of the duodenum as well. Correlate for gastritis and duodenitis. Noncontrast pancreas and adrenals are unremarkable. Kidneys are free from hydroureteronephrosis and calyceal stones. No pathologic adenopathy. Unremarkable unopacified vasculature with atherosclerotic change. No bowel obstruction. Right hemicolectomy with anastomotic sutures at the proximal transverse colon and the small bowel which appears unremarkable. Small bowel loops unremarkable. Alexa mesentery with nonspecific inflammation along the root of the mesentery. CT PELVIS: Pelvic bowel loops are unobstructed. Patient is post right hemicolectomy. Unremarkable urinary bladder. The prostate is not enlarged. Patulous fa t-containing inguinal canals bilaterally. No free fluid or free air. No pelvic pathologic adenopathy. Subcutaneous tissues and the muscula ture are normal in appearance. No lytic or blastic lesions are noted with in the bony skeleton. Posterior central disc osteophyte at L4-5 level wit h moderate canal and foraminal stenosis. IMPRESSION: PAGE 1 Signed Report (CONTINU ED) Name: CRISTOPHER WALTON [facility] : 1950 Age/S: 68 / M [address] Unit #: [id number] Loc: [place] [address] Phys: Jason Singleton MD Acct: [id number] Dis Date: Status: ADM IN PHONE #: [phone] Exam Date: 10/14/20181755 FAX #: Reason: fever EXAMS: CPT CODE: [id number] CT ABD PE LVIS W/O CONT 09936 <Continued> Patient is post right hemicolectomy with anastomotic sutures of the small bowel which appears unremarkable and unchanged from previous exam. No intra-abdominal metastatic disease visible. Alexa m esentery noted with nonspecific inflammation along the root of the mesen desmond. Mild thickening of the duodenum and the gastric antrum is nonspec ific. Correlate for gastritis and duodenitis. at 1851 Reported and signed by: Zacarias Fernandez M.D. CC: Jason Singleton MD; Huong De Anda MD Technologist:Maria Esther Saeed RT(R),CT; CTDI: DLP: Trnscb Date/Time: 10/14/2018 (1850) [email or web address] Orig Print D/T: S: 10/14/2018 (1854) PAGE 2 Signed Report - CT CHEST W/O CONTRAST 2018-10-14 18:24:00 Name: CRISTOPHER WALTON [facility] : 1950 Age/S: 68 / M [address] [facility] Unit #: [id number] Loc: [place] [address] Phys: Jason Singleton MD Acct: [id number] Dis Date: Status: ADM IN PHONE #: [phone] Exam Date: 10/14/2018 175 FAX #: [phone] Reason: fever EXAMS: CPT CODE: [id number] CT CHEST W/O CONTRAST 51614 HISTORY: Fever. COMPARISON: Chest CT from March 10, 2007. CT chest without contrast: Automated exposure control. Innumerable noncalcified lung nodules are new from 2006 measuring up to 2 cm, greater on the right side. These are suspicious for malignancy. Metastases should be considered. No effusion or congestion is noted. Ill-defined mass as well in the left apex measuring 3.8 cm. No infiltrates either. No bronchiectasis, honeycombing or fibrosis or endobronchial lesions. Lingular subsegmental atelectasis. Aneurysmal ascending aorta at 3.7 cm. Descending aorta is aneurysmal at 3 cm. Normal caliber unopacified pulmonary arteries. The thyroid glands are unremarkable. No pathologic adenopathy. Esophageal wall is not thickened. Cardiac silhouette is mildly enlarged. No pericardial effusion. Visualized upper abdomen is unremarkable. The subcutaneous tissues and the musculature are normal in appearance. No lytic or blastic lesions are noted within the bony skeleton. IMPRESSION: Innumerable bilateral noncalcified lung nodules, greater on the right. The largest nodule measured up to 2 cm in the right lower lobe anteriorly. Ill-defined mass in the left apex measuri ng 3.8 cm. Biopsy recommended for tissue diagnosis. Malignancy/metasta ses suspected. Aneurysmal ascending aorta at 3.7 cm an d descending aorta is borderline aneurysmal at 3 cm. N o acute infiltrates, effusion or congestion. at 1823 Reported and s igned by: Zacarias Fernandez M.D. PAGE 1 Signed Repor t (CONTINUED) Name: CRISTOPHER WALTON [facility] : 1950 Age/S: 68 / M [address] Unit #: [id number] Loc: [place], [place] [address] Phys: Jason Singleton MD Acct: [id number] Dis Date: Status: ADM IN PHONE #: [phone] Exam Date: 10/14/2018 1756 FAX #: [phone] Reason: fever EXAMS: CPT CODE: [id number] CT CHEST W/O CONTRAST 40822 < Continued> CC: Jason Singleton MD; Huong De Anda MD Technologist:Maria Esther Saeed RT(R),CT; CTDI: DLP: Trnscb Date/Time: 10/14/2018 (1823) [email or web address] Orig Print D/T: S: 10/14/2018 (1827) PAGE 2 Signed Report URINALYSIS [id number] 17:21:00* Test Item Value Reference Range Comments UA COLOR (test code=COLU) YELLOW YELLOW UA APPEARANCE (test code=APPU) CLEAR CLEAR UA GLUCOSE DIPSTICK (test code=DGLUU) NEGATIVE mg/dL NEGATIVE UA BILIRUBIN DIPSTICK (test code=BILU) NEGATIVE mg/dL NEGATIVE UA KETONE DIPSTICK (test code=KETU) NEGATIVE mg/dL NEGATIVE UA SPECIFIC GRAVITY (test code=SGU) 1.034 1.001-1.035 UA BLOOD DIPSTICK (test code=NIGHAT) Negative mg/dL NEGATIVE UA PH DIPSTICK (test code=DEON) 6.5 5.0-8.0 UA PROTEIN DIPSTICK (test code=PROU) 30 (1+) mg/dL NEGATIVE UA UROBILINIOGEN DIPSTICK (test code=URO) 4.0 (2+) mg/dL NEGATIVE UA NITRITE DIPSTICK (test code=CHARLES) NEGATIVE NEGATIVE UA LEUKOCYTE ESTERASE W REFLEX (test code=LEUUR) NEGATIVE Yariel/uL NEGATIVE UA WBC (test code=WBCU) 0-5 per HPF 0-5 UA RBC (test code=RBCU) 0-2 #/HPF 0-5 UA EPITHELIAL CELLS (test code=EPIU) FEW per HPF FEW UA BACTERIA (test code=BACU) FEW #/HPF NONE UA MUCUS (test code=MUCU) FEW #/LPF FEW Urine Source? Clean CatchURINALYSIS [id number] 17:20:00* Test Item Value Reference Range Comments UA COLOR (test code=COLU) YELLOW YELLOW UA APPEARANCE (test code=APPU) CLEAR CLEAR UA GLUCOSE DIPSTICK (test code=DGLUU) NEGATIVE mg/dL NEGATIVE UA BILIRUBIN DIPSTICK (test code=BILU) NEGATIVE mg/dL NEGATIVE UA KETONE DIPSTICK (test code=KETU) NEGATIVE mg/dL NEGATIVE UA SPECIFIC GRAVITY (test code=SGU) 1.034 1.001-1.035 UA BLOOD DIPSTICK (test code=NIGHAT) Negative mg/dL NEGATIVE UA PH DIPSTICK (test code=DEON) 6.5 5.0-8.0 UA PROTEIN DIPSTICK (test code=PROU) 30 (1+) mg/dL NEGATIVE UA UROBILINIOGEN DIPSTICK (test code=URO) 4.0 (2+) mg/dL NEGATIVE UA NITRITE DIPSTICK (test code=CHARLES) NEGATIVE NEGATIVE UA LEUKOCYTE ESTERASE W REFLEX (test code=LEUUR) NEGATIVE Yariel/uL NEGATIVE UA WBC (test code=WBCU) per HPF 0-5 UA RBC (test code=RBCU) per HPF 0-5 UA EPITHELIAL CELLS (test code=EPIU) per HPF Few UA BACTERIA (test code=BACU) per HPF NONE Urine Source? Clean CatchPROCALCITONIN (PCT)2018-10-13 17:10:00* Test Item Value Reference Range Comments PROCALCITONIN (PCT) (test code=PROCAL) 0.27 ng/ml Concentration Interpretation (ng/mL) <0.51 Sepsis is not likely. Local bacterial infection is possible. (LOW RISK for progression to Sepsis) 0.51 - 2.00 Sepsis is possible, but other conditions are known to elevate PCT as well. (MODERATE RISK for progression to Sepsis) > 2.00 Sepsis is likely, unless other causes are known. (HIGH RISK for progression to Severe Sepsis or Septic Shock) 10.00 High likelihood of Severe Sepsis or Septic or higher Shock. *Increased PCT levels may not always be related to systemic bacterial infection.*Low PCT levels do not automatically exclude the presence of bacterial infection.*All results should be interpreted taking into account the patients history. - XR CHEST 1 [id number] 16:28:00 FAX: Judd Ryan DO [place]: B St: REG Name: CRISTOPHER SCHNEIDER [facility] : [birth year] Age/S: 68/M [address] [facility] Unit #: [id number] Loc: [place] [address] Phys: Judd Ryan DO Acct: [id number] Dis Date: Status: REG ER PHONE #: [phone] Exam Date: 10/13/2018 1606 FAX #: [phone] Reason: CODE SEPSIS EXAMS: CPT CODE: [id number] XR CHEST 1 V 97087 REASON FOR EXAM: CODE SEPSIS EXAM ORDER DATE: 10/13/2018 3:39 PM Ordering Carey.: Judd Ryan DO PROCEDURE: - XR CHEST 1 V COMPAR JAYNE: 11/03/2017 FINDINGS: Portable AP frontal view of the chest o btained at 4:06 PM shows patchy opacity of the right base. There is no leighton dence of effusion. The heart size is minimally enlarged. Stable appearanc e of the right IJ Port-A-Cath. Pulmonary vasculatures are unremarkable. IMPRESSION: Patchy right lower lobe atelectasis Elect ronically Signed by Sharon Ross on 10/13/2018 at 1409 R eported and signed by: Umair Ross M.D. CC: Judd Ryan DO Technologist: Jesse Mcallister(R; ... Trnscrd Date/Time/By: 10/13/2018 (0882) : By: Mara VTL Orig Print D/T: S: 10/13/2018 (0513) PAGE 1 Signed Report LACTIC ACID 2018-10-13 16:24:00* Test Item Value Reference Range Comments LACTIC ACID (test code=LACT) 1.8 mmol/L 0.4-1.9 BASIC METABOLIC [id number] 16:07:00* Test Item Value Reference Range Comments SODIUM (test code=NA) 135 mmol/L 136-145 POTASSIUM (test code=K) 4.0 mmol/L 3.5-5.1 CHLORIDE (test code=CL) 100.0 mmol/L 98-107 CARBON DIOXIDE (test code=CO2) 26.0 mmol/L 21-32 ANION GAP (test code=GAP) 13.0 10-20 GLUCOSE (test code=GLU) 130 mg/dL 74-106 BLOOD UREA NITROGEN (test code=BUN) 16 mg/dL 7-18 GLOMERULAR FILTRATION RATE (test code=GFR) 50 mL/min >=60 Estimated GFR by using Modified MDRD formula.Chronic kidney disease is defined as either kidney damageor GFR <60 mL/min/1.73 m2 for >3 months. CREATININE (test code=CREAT) 1.40 mg/dL 0.7-1.3 BUN/CREATININE RATIO (test code=BUN/CREA) 11.4 10-20 CALCIUM (test code=CA) 8.2 mg/dL 8.5-10.1 HEPATIC FUNCTION [id number] 16:07:00* Test Item Value Reference Range Comments TOTAL PROTEIN (test code=PROT) 6.6 gram/dL 6.4-8.2 ALBUMIN (test code=ALB) 3.9 g/dL 3.4-5.0 GLOBULIN (test code=GLOB) 2.7 gram/dL 2.7-4.2 ALBUMIN/GLOBULIN RATIO (test code=A/G) 1.4 0.75-1.50 BILIRUBIN TOTAL (test code=BILT) 1.60 mg/dL 0.0-1.0 BILIRUBIN DIRECT (test code=BILD) 0.45 mg/dL 0.0-0.20 SGOT/AST (test code=AST) 34 IUnit/L 15-37 SGPT/ALT (test code=ALT) 36 IUnit/L 12-78 ALKALINE PHOSPHATASE TOTAL (test code=ALKP) 82 IUnit/L 45-117 Note change in reference range due to change in reagent. CBC W/AUTO [id number] 16:07:00* Test Item Value Reference Range Comments WHITE BLOOD CELL (test code=WBC) 3.5 K/mm3 4.5-12.5 RED BLOOD CELL (test code=RBC) 4.45 mill/mm3 4.0-5.8 HEMOGLOBIN (test code=HGB) 14.1 gram/dL 13.0-17.5 HEMATOCRIT (test code=HCT) 42.8 % 42.0-52.0 MEAN CELL VOLUME (test code=MCV) 96.2 fL 80-98 MEAN CELL HGB (test code=MCH) 31.7 picogram 27.0-33.0 MEAN CELL HGB CONCETRATION (test code=MCHC) 32.9 gram/dL 33.0-36.0 RED CELL DISTRIBUTION WIDTH (test code=RDW) 16.8 % 11.6-16.2 RED CELL DISTRIBUTION WIDTH SD (test code=RDW-SD) 58.9 fL 37.0-51.0 PLATELET COUNT (test code=PLT) 102 K/mm3 150-450 MEAN PLATELET VOLUME (test code=MPV) 10.0 fL 6.7-11.0 NEUTROPHIL % (test code=NT%) 78.5 % 39.0-69.0 IMMATURE GRANULOCYTE % (test code=IG%) 2.3 % 0.0-5.0 LYMPHOCYTE % (test code=LY%) 8.7 % 25.0-55.0 MONOCYTE % (test code=MO%) 9.6 % 0.0-10.0 EOSINOPHIL % (test code=EO%) 0.0 % 0.0-5.0 BASOPHIL % (test code=BA%) 0.9 % 0.0-1.0 NUCLEATED RBC % (test code=NRBC%) 0.0 % 0-0 NEUTROPHIL # (test code=NT#) 2.71 K/mm3 1.8-7.7 IMMATURE GRANULOCYTE # (test code=IG#) 0.08 x10 3/uL 0-0.03 LYMPHOCYTE # (test code=LY#) 0.30 K/mm3 1.0-5.0 MONOCYTE # (test code=MO#) 0.33 K/mm3 0-0.8 EOSINOPHIL # (test code=EO#) 0.00 K/mm3 0.0-0.5 BASOPHIL # (test code=BA#) 0.03 K/mm3 0.0-0.2 NUCLEATED RBC # (test code=NRBC#) 0.00 K/mm3 0.0-0.1 MANUAL DIFF REQUIRED (test code=MDIFF) NO
[2019-08-28] MEDS ORDERED: SODIUM CHLORIDE 0.9% 1000ML 1,000 ML IV STA (11:53)
[2019-08-28] MEDS ORDERED: PANTOPRAZOLE 40 MG 10ML VIAL IV STA (11:53)
[2019-08-28] MEDS ORDERED: ONDANSETRON HCL INJ 2MG/ML 2ML 2 MG/ML VIAL IV STA (11:53)
[2019-08-28 12:21] LABS: BASOPHILS % 0.5 % (0.0-1.0); EOSINOPHILS # (AUTO) 0.2 (0.0-0.4); EOSINOPHILS % 3.4 % (0.0-6.0); HEMATOCRIT 36.2 % (38.2-49.6); HEMOGLOBIN 11.3 g/dL (14.0-18.0); LYMPHOCYTES % 22.3 % (18.0-39.1); MEAN CORPUSCULAR HEMOGLOBIN 28.8 pg (28-32); MEAN CORPUSCULAR HGB CONC 31.2 g/dL (31-35); MEAN CORPUSCULAR VOLUME 92.3 fL (81-99); MONOCYTES # (AUTO) 0.6 (0.2-0.8); MONOCYTES % 12.6 % (4.4-11.3); NEUTROPHILS # (AUTO) 2.7 (2.1-6.9); NEUTROPHILS % 60.7 % (38.7-80.0); PLATELET COUNT 129 x10e3/uL (140-360); RED BLOOD COUNT 3.92 x10e6/uL (4.3-5.7); RED CELL DISTRIBUTION WIDTH 19.1 % (11.7-14.4)
[2019-08-28 12:44] LABS: ALANINE AMINOTRANSFERASE 12 IU/L (0-55); ALBUMIN/GLOBULIN RATIO 1.4 (0.8-2.0); ALKALINE PHOSPHATASE 85 IU/L (40-150); ANION GAP 10.2 mmol/L (8-16); BLOOD UREA NITROGEN 11 mg/dL (7-26); BUN/CREATININE RATIO 11 (6-25); CALCIUM 8.6 mg/dL (8.4-10.2); CARBON DIOXIDE 27 mmol/L (22-29); CHLORIDE 105 mmol/L (98-107); CREATINE KINASE 42 IU/L (30-200); CREATININE, SERUM 1.01 mg/dL (0.72-1.25); EST GLOMERULAR FILTRATION RATE > 60 ML/MIN (60-); GLUCOSE 109 mg/dL (74-118); LIPASE 4 U/L (8-78); POTASSIUM 4.2 mmol/L (3.5-5.1); SODIUM 138 mmol/L (136-145)
--- NOTE | 2019-08-28 15:06 | Diagnostic Imaging Report ---
EXAMINATION: CT of the abdomen and pelvis with contrast. TECHNIQUE: Spiral CT images of the abdomen and pelvis were performed from the lung bases to the lesser trochanters after the intravenous administration of 100 cc of Isovue 370 and the oral administration of water. Coronal and sagittal reformatted images were obtained. COMPARISON: None. CLINICAL HISTORY:Abdominal bloating, pain and diarrhea for 3 weeks starting after receiving chemotherapy. History of lung cancer DISCUSSION: ABDOMEN/PELVIS: LOWER THORAX:Innumerable bilateral pulmonary nodules are identified in the lung bases, ranging in size from 0.2-2.3 cm. Some of the nodules (for example series 2, image 2, in the right middle lobe) have central lucency, which are suspicious for early cavitation. No pulmonary masses. HEPATOBILIARY: Normal hepatic contour. Linear hypodensity in the left hepatic lobe (series 2, image 22) consistent with portal vein thrombus. No other focal hepatic lesions. No intra or extrahepatic biliary ductal dilation. GALLBLADDER: No radio-opaque stones or sludge. No wall thickening. SPLEEN: Mild to moderate splenomegaly, measuring 16.2 cm in AP diameter PANCREAS: No focal masses or ductal dilatation. ADRENALS: No adrenal nodules. KIDNEYS/URETERS: No hydronephrosis, stones, or solid mass lesions. PELVIC ORGANS/BLADDER: Bladder is unremarkable. Dystrophic calcification in the prostate. Seminal vesicles are normal. PERITONEUM/RETROPERITONEUM: Moderate intra-abdominal and pelvic ascites which measures simple fluid density. No definite peritoneal nodules are identified. LYMPH NODES: Enlarged portacaval/celiac axis node measuring 1.3 cm in short axis (series 2, image 35) disease. No other intra-abdominal or any retroperitoneal, pelvic or inguinal adenopathy. VESSELS: The celiac trunk,superior and inferior mesenteric and bilateral renal arteries are patent . Intraluminal filling defect in the main portal vein extending from the confluence into the right and left portal veins (series 2, images 27-36 and coronal images 71-77 and sagittal image 61). Questionable filling defect in the most proximal aspect of the SMV versus mixing artifact (series 2, image 43 and 44). Splenic vein is patent, without filling defects. GI TRACT: No bowel dilation or evidence of obstruction. Anastomotic sutures in the right abdomen and, with evidence of right hemicolectomy. Mild wall thickening in the distal transverse as well as in the descending colon (for example series 2, images 39-53). Mild wall thickening is also noted in the (series 2, image 53) and multiple jejunal loops (for example series 2, image 40 and coronal image 57) Stomach is grossly unremarkable. BONES AND SOFT TISSUE: No aggressive lytic lesions. No suspicious focal sclerotic lesions. Degenerated disks at L5-S1. Bilateral fat and fluid containing inguinal hernias, right greater than left. IMPRESSION: 1. Portal vein thrombus extending from the confluence to both right and left portal veins. Questionable extension into the most proximal aspect of the SMV. A linear hypodensity in the left hepatic lobe likely represents thrombus in segment II portal vein branch. 2. Mild to moderate splenomegaly, without evidence of collateral circulation or cirrhotic features, and moderate ascites, likely sequela of portal vein thrombus. 3. Mild wall thickening in the duodenum and proximal jejunum, distal transverse as well as in the descending colon may reflect enterotoxicity due to recent chemotherapy. An infectious enteritis is another consideration, particularly the patient is immunocompromised. 4. Enlarged portacaval/celiac axis node, which may be metastatic. 5. Innumerable metastatic pulmonary nodules, some of which have faint central lucency suggesting early cavitation. 6. Findings discussed with Dr. Crawley in the ER August 28, 2019 at 1450 hours Signed by: Dr. Dawson Ribera M.D. on 08/28/2019 3:03 PM
[2019-08-28] MEDS ORDERED: ONDANSETRON HCL INJ 2MG/ML 2ML 2 MG/ML VIAL IV PRN (15:15)
[2019-08-28] MEDS ORDERED: MORPHINE SULFATE INJ 4 MG/ML INJ 1ML IV PRN (15:15)
[2019-08-28] MEDS: ENOXAPARIN SODIUM INJ 100 MG/ML SYR SC SCH (16:07)
[2019-08-28 17:45] LABS: INR 1.31; PROTHROMBIN TIME 17.2 seconds (11.9-14.5)
[2019-08-28] MEDS: WARFARIN SOD 2.5 MG TAB PO SCH (18:25)
--- NOTE | 2019-08-28 19:14 | NUR ---
WALKING ROUNDS PERFORMED, RECEIVED PT LAYING SEMI FOWLERS IN BED, AAOX3, RR EVEN AND NON-LABORED, ON ROOM AIR. NO S/SX OF DISTRESS NOTED. LEFT PT LAYING SEMI FOWLERS IN BED, BED IN LOW LOCKED POSITION, SIDE RAILS UPX2, CALL LIGHT AND PHONE WITHIN REACH.
[2019-08-28 19:29] VITALS: BP 151/75
[2019-08-28 20:00] VITALS: BP 160/85
[2019-08-28] MEDS ORDERED: IOPAMIDOL 370 MG/ML 200 ML INFUS..BTL INJ ONE (20:26)
[2019-08-28] MEDS ORDERED: SODIUM CHLORIDE 0.9% 50ML 50 ML ONE (20:26)
[2019-08-28 21:24] VITALS: BP 160/85
[2019-08-29] VITALS (10 sets, daily range): BP systolic 138–157; BP diastolic 72–79
[2019-08-29] MEDS: ENOXAPARIN SODIUM INJ 100 MG/ML SYR SC SCH ×2 (03:10→16:49)
[2019-08-29 05:47] LABS: BASOPHILS % 0.3 % (0.0-1.0); EOSINOPHILS # (AUTO) 0.2 (0.0-0.4); EOSINOPHILS % 5.7 % (0.0-6.0); HEMATOCRIT 32.3 % (38.2-49.6); HEMOGLOBIN 10.1 g/dL (14.0-18.0); LYMPHOCYTES # (AUTO) 0.9 (1.0-3.2); LYMPHOCYTES % 26.9 % (18.0-39.1); MEAN CORPUSCULAR HEMOGLOBIN 29.1 pg (28-32); MEAN CORPUSCULAR HGB CONC 31.3 g/dL (31-35); MEAN CORPUSCULAR VOLUME 93.1 fL (81-99); MONOCYTES # (AUTO) 0.5 (0.2-0.8); MONOCYTES % 16.1 % (4.4-11.3); NEUTROPHILS # (AUTO) 1.7 (2.1-6.9); NEUTROPHILS % 50.4 % (38.7-80.0); PLATELET COUNT 107 x10e3/uL (140-360); RED BLOOD COUNT 3.47 x10e6/uL (4.3-5.7); RED CELL DISTRIBUTION WIDTH 19.1 % (11.7-14.4)
[2019-08-29 06:02] LABS: INR 1.37; PROTHROMBIN TIME 17.8 seconds (11.9-14.5)
[2019-08-29 06:13] LABS: ALANINE AMINOTRANSFERASE 10 IU/L (0-55); ALBUMIN 2.6 g/dL (3.5-5.0); ALBUMIN/GLOBULIN RATIO 1.2 (0.8-2.0); ALKALINE PHOSPHATASE 72 IU/L (40-150); ANION GAP 10.5 mmol/L (8-16); BLOOD UREA NITROGEN 11 mg/dL (7-26); BUN/CREATININE RATIO 11 (6-25); CALCIUM 8.2 mg/dL (8.4-10.2); CARBON DIOXIDE 26 mmol/L (22-29); CHLORIDE 106 mmol/L (98-107); CREATININE, SERUM 1.04 mg/dL (0.72-1.25); EST GLOMERULAR FILTRATION RATE > 60 ML/MIN (60-); GLUCOSE 85 mg/dL (74-118); POTASSIUM 4.5 mmol/L (3.5-5.1); SODIUM 138 mmol/L (136-145)
--- NOTE | 2019-08-29 11:24 | History and Physical ---
CONSULTANTS: 1. Dr. Gomez. 2. Dr. Sheikh. 3. Dr. Cristobal Panchal. CHIEF COMPLAINT: Abdominal ascites, abdominal pain. HISTORY: A 69-year-old male with advanced colon cancer with metastasis, has an oncologist outpatient, which the patient could not recall the name. His previous primary care physician is Dr. Rene Sepulveda, but recently changed. He could not make an appointment of his new PCP, came to the hospital for abdominal pain and abdominal distention, found to have portal vein thrombosis associated with abdominal ascites and metastatic colon cancer as already known from previously. The patient is otherwise stable. He feels comfortable. No chest pain. No recent shortness of breath. Progressive abdominal pain. PAST MEDICAL HISTORY: Colon cancer with previous surgical intervention and then subsequently chemotherapy, the patient getting every two weeks. Abdominal ascites, abdominal distention, increasing abdominal pain. SOCIAL HISTORY: The patient does not smoke or use alcohol, no regular drug. ALLERGIES: NO KNOWN ALLERGIES. HOME MEDICATIONS: List is reviewed chemotherapy, which the patient is a poor historian overall. PHYSICAL EXAMINATION: VITAL SIGNS: Temperature 98, blood pressure 142/79, pulse rate 69, respirations 18. GENERAL: The patient is not in acute distress. He is ambulatory. No nausea or vomiting. HEENT: Normocephalic and atraumatic. He is anicteric. NECK: Supple grossly. PULMONARY: Clear. CARDIOVASCULAR: Regular rate and rhythm. ABDOMEN: Abdominal ascites and distention with generalized tenderness without any guarding or rebound tenderness. EXTREMITIES: No cyanosis or edema. NEUROLOGIC: No focal deficit. CT scan abdomen showed portal vein thrombosis extending from the confluence of both right and left portal veins. There is moderate splenomegaly. Wall thickening of the duodenum, proximal jejunum, distal transverse as well as descending colon from chemotherapy most likely. Enlarged portal cava, celiac axis note, which consistent with metastasis given patient's history. Innumerable metastatic pulmonary nodules. Left hepatic lobe thrombus. LABORATORY STUDIES: Sodium is 138, potassium 4.5, chloride 106, bicarb 26, BUN 11, creatinine 1.04, glucose 85. WBC 3.5, hemoglobin 10.1, hematocrit 32.3, and platelets 107. IMPRESSION: Portal vein thrombosis secondary to malignancy, metastatic colon cancer, advanced with metastasis abdomen and chest associated with also malignant ascites. PLAN: Continue with anticoagulant therapy. Pain control as needed. Resume home medication. We will get in contact with the patient's spouse to find out patient primary care physician and also his oncologist. MD AXEL Johnson/MODNikolay /[id number]
--- NOTE | 2019-08-29 11:59 | Consultation ---
DATE OF CONSULTATION: 08/28/[address] Crawley. HISTORY OF PRESENT ILLNESS: Mr. Jacob is a 69-year-old male, who presents with abdominal pain. Subsequently, he was found to have portal vein thrombosis, ascites, history of past illness history of being treated for metastatic cancer of the colon by Dr. David Arguelles. I will call her at [phone] to inform her that the patient is here. SOCIAL HISTORY: Noncontributory. FAMILY HISTORY: Noncontributory. ALLERGIES: REPORTED NONE. MEDICATIONS: At this time: 1. Lovenox. 2. Coumadin. 3. Morphine. REVIEW OF SYSTEMS: HEENT: Normal. CARDIAC: Normal. RESPIRATORY: Lung metastases. GI: Colon cancer. : Normal. MUSCULOSKELETAL: Normal. SKIN AND BREASTS: Normal. NEUROENDOCRINE: Normal. PHYSICAL EXAMINATION: GENERAL: A moderately built male. Anemic. LYMPH NODES: No palpable adenopathy. HEART: Within normal limits. LUNGS: Clear. ABDOMEN: Obese. RECTAL: Deferred. CENTRAL NERVOUS SYSTEM: Essentially normal. EXTREMITIES: Essentially normal. LABORATORY DATA: Sodium of 138, potassium 4.2, chloride is 105, CO2 27, BUN 11, and creatinine 1.01. Glucose 109. Hemoglobin 11.3, hematocrit 35.2, white count 4400, platelets 129,000. Bilirubin 1.2, SGOT 18, SGPT 12, and alkaline phosphatase 85. CAT scan of the abdomen shows the patient to have portal vein thrombosis, splenomegaly, ascites, possible SMV thrombosis, and pulmonary nodules. IMPRESSION: 1. Anemia of chronic disease with a hemoglobin of 11.3. 2. Hypoproteinemia of 5.2. 3. Hypoalbuminemia of 3.0. 4. 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 5. 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 6. Portal vein thrombosis. 7. Splenomegaly. 8. Ascites. 9. Portacaval lymphadenopathy. 10. Questionable SMV thrombosis. 11. Pulmonary nodules. 12. Systemic chemotherapy by Dr. David Arguelles, treated for colon cancer. PLAN, COMMENTS AND SUGGESTIONS: Suggest CEA, suggest anticoagulation, and suggest CT scan of the chest. I will personally communicate with Dr. Arguelles for his care here. After seeing him in the emergency room on 08/27, I found out today that the patient has [facility]. I will step down as there is a medical oncologist for [employer]. I have communicated this with Dr. Mckeon. MD SHILOH Mckeon/KRISTAL /[id number] cc: MD DR. ZONIA Hoffmann
--- NOTE | 2019-08-29 12:20 | NUR ---
ASSESSMENT: No concerns Pt dis not express emotions/spiritual concerns at this time. Pt finds enjoyment though fishing. Intervention: Provided hospitality. Provided information on how to reach behavioral geneticist, if needed. Outcome: No need to follow at this time. Pt expressed appreciation for visit. SANDI MARTINEZ [employer] Spiritual Care Department O: [phone]
[2019-08-29] MEDS: WARFARIN SOD 2.5 MG TAB PO SCH (16:49)
--- NOTE | 2019-08-29 19:30 | NUR ---
BSSR RECEIVED FROM MADDISON MCDANIEL PATIENT AWAKE ALERT, NO DISTRESS NOTED, NO C/O PAIN OR DISCOMFORT AT THIS TIME, TOILETING OFFERED AT THIS TIME, REFUSED, CALL LIGHT WITHIN REACH, REEDUCATED [employer] LIGHT USE FOR SAFETY, BED IN LOWEST POSITION, REMAIN ON STANDARD PRECAUTIONS
--- NOTE | 2019-08-29 21:47 | NUR ---
PATIENT USED CALL LIGHT TO REQUEST PAIN MEDICATION, PAIN ASSESSMENT COMPLETED, PATIENT C/O PAIN LEVEL 8/10 IN RIGHT MID QUADRANT OF ABDMEN, PRN PAIN MEDICATION GIVEN VIA IV, TOLERATED WELL, EFFECTIVE RESTING COMFORTABLY
[2019-08-29] MEDS ORDERED: FUROSEMIDE INJ 10 MG/ML 2 ML VIAL IV ONE (22:30)
[2019-08-30] VITALS (11 sets, daily range): BP systolic 126–164; BP diastolic 65–74
--- NOTE | 2019-08-30 04:41 | NUR ---
LAB HAND DELIVERED CEA RESULTS 16.0, RESULT PUT IN CHART, NOTIFIED
[2019-08-30 05:42] LABS: BASOPHILS % 0.6 % (0.0-1.0); EOSINOPHILS # (AUTO) 0.2 (0.0-0.4); EOSINOPHILS % 6.1 % (0.0-6.0); HEMATOCRIT 35.5 % (38.2-49.6); HEMOGLOBIN 11.3 g/dL (14.0-18.0); LYMPHOCYTES # (AUTO) 0.8 (1.0-3.2); LYMPHOCYTES % 22.8 % (18.0-39.1); MEAN CORPUSCULAR HGB CONC 31.8 g/dL (31-35); MEAN CORPUSCULAR VOLUME 91.3 fL (81-99); MONOCYTES # (AUTO) 0.7 (0.2-0.8); MONOCYTES % 19.8 % (4.4-11.3); NEUTROPHILS # (AUTO) 1.7 (2.1-6.9); NEUTROPHILS % 50.1 % (38.7-80.0); PLATELET COUNT 142 x10e3/uL (140-360); RED BLOOD COUNT 3.89 x10e6/uL (4.3-5.7); RED CELL DISTRIBUTION WIDTH 19.6 % (11.7-14.4)
[2019-08-30 06:03] LABS: ALANINE AMINOTRANSFERASE 11 IU/L (0-55); ALBUMIN 2.8 g/dL (3.5-5.0); ALBUMIN/GLOBULIN RATIO 1.2 (0.8-2.0); ALKALINE PHOSPHATASE 85 IU/L (40-150); ANION GAP 7.8 mmol/L (8-16); BLOOD UREA NITROGEN 11 mg/dL (7-26); BUN/CREATININE RATIO 12 (6-25); CALCIUM 8.3 mg/dL (8.4-10.2); CARBON DIOXIDE 27 mmol/L (22-29); CHLORIDE 104 mmol/L (98-107); CREATININE, SERUM 0.91 mg/dL (0.72-1.25); EST GLOMERULAR FILTRATION RATE > 60 ML/MIN (60-); GLUCOSE 89 mg/dL (74-118); POTASSIUM 3.8 mmol/L (3.5-5.1); SODIUM 135 mmol/L (136-145)
--- NOTE | 2019-08-30 08:45 | NUR ---
Patient states "My fluids were stopped yesterday by due to leg swelling." Called Dr.Haddad Cordon for clarification of orders Addendum: 08/30/19 at 1248 by LEATHA MCKINNON RN error
[2019-08-30] MEDS ORDERED: SPIRONOLACTONE 25 MG TAB PO SCH (09:00)
[2019-08-30] MEDS ORDERED: FUROSEMIDE 20 MG TAB PO SCH (09:00)
--- NOTE | 2019-08-30 14:05 | NUR ---
Patient back from paracentesis. Dressing to right abdomen clean, dry, and intact. Denies pain
--- NOTE | 2019-08-30 14:37 | Diagnostic Imaging Report ---
Procedure: Ultrasound-guided paracentesis graining operator: Jayson Arredondo M.D. Pre-operative diagnosis: Ascites Post-operative diagnosis: Ascites Conscious Sedation: None. The patient's heart rate and pulse oximetry were continuously monitored by the IR nurse. Additional Medications: Lidocaine 1% for local anesthesia Estimated blood loss: Less than 1 cc. Specimen: 2500 cc of milky yellow fluid Implants: None TECHNIQUE/FINDINGS: Informed consent was obtained from the patient and documented in the medical record. The patient was placed in the supine position. Initial ultrasound demonstrated ascites. The right lower abdomen was prepped and draped in standard sterile fashion. 1% lidocaine was infiltrated into the skin and subcutaneous tissues for local anesthesia. Then under continuous sonographic guidance, a 5 Fr catheter was advanced into the peritoneal space. The catheter was connected to vacuum bottle with subsequent evacuation of 2500 cc of serous fluid. The catheter was removed and sterile dressing was applied. Sample was sent to the lab. The patient tolerated the procedure well. IMPRESSION: Successful ultrasound-guided paracentesis. Signed by: Jayson Arredondo on 08/30/2019 2:34 PM
[2019-08-30 14:54] LABS: BODY FLUID APPEARANCE TURBID; BODY FLUID TYPE PERITONEAL
[2019-08-30 15:33] LABS: RBC,BODY FLUID 23 cells/uL; WBC,BODY FLUID 86 cells/uL
[2019-08-30 16:56] LABS: LYMPHOCYTES,BODY FLUID 42 %; MONO/MACROPHG,BODY FLUID 21 %; NEUTROPHILS,BODY FLUID 37 %
--- NOTE | 2019-08-30 19:10 | NUR ---
Report given to oncoming nurse of patient's status. Resting in bed, side rails upx2, call light within reach. AAOX3 to time, person, place, situation. Respirations even and unlabored. Dressing to right abdomen clean,dry, and intact.
--- NOTE | 2019-08-30 19:12 | NUR ---
BSSR RECEIVED FROM LEATHA WASHBURN, PATIENT AWAKE ALERT, SITTING IN SEMI-FOWLERS POSITION, PATIENT S/P PARACENTESIS TODAY, DRESSING TO RIGHT LATERAL SIDE OF STOMACH C/D/I , PT Denies pain OR DISCOMFORT AT THIS TIME, STATES " I FEEL SO MUCH BETTER"
[2019-08-31 00:37] VITALS: BP 129/64
[2019-08-31 00:57] VITALS: BP 129/64
[2019-08-31 04:30] VITALS: BP 125/63
[2019-08-31 04:42] VITALS: BP 125/63
[2019-08-31 06:50] LABS: INR 1.22; PROTHROMBIN TIME 16.2 seconds (11.9-14.5)
[2019-08-31 08:04] VITALS: BP 135/63
[2019-08-31 08:17] VITALS: BP 135/63
[2019-08-31] MEDS ORDERED: FUROSEMIDE 40 MG TAB PO SCH (09:00)
[2019-08-31] MEDS ORDERED: SPIRONOLACTONE 25 MG TAB PO SCH (09:00)
[2019-08-31] MEDS ORDERED: ENOXAPARIN SODIUM INJ 100 MG/ML SYR SC SCH (09:30)
[2019-08-31] MEDS ORDERED: ONDANSETRON HCL 4 MG ORAL DISINTEGRATING TAB PO PRN (09:45)
--- NOTE | 2019-08-31 09:48 | Discharge Summary ---
CONSULTANTS: 1. Dr. Karin Boucher. 2. Dr. Cristobal Panchal. FINAL DIAGNOSES: 1. Metastatic colon cancer with lung metastasis, on current chemotherapy. 2. Portal vein thrombosis known, was on aspirin outpatient, started on Lovenox and subsequently now on Eliquis, and discharged due to risk of bleeding. 3. Ascites, had a paracentesis. 4. Baseline liver cirrhosis known, known splenomegaly, portal hypertension, and thrombocytopenia. SUMMARY: The patient is a 69-year-old male, who came in with abdominal pain and distension. He has abdominal ascites. He is status post paracentesis. The patient has extensive chronic multiple medical problem as mentioned above. The patient is stable today. He will go home. Followup with his oncologist as an outpatient. Appreciate Dr. Boucher's consultation and management. The patient will be discharged home with Lasix 40 mg daily, Eliquis 2.5 mg b.i.d., spironolactone 50 mg daily, and pantoprazole 40 mg p.o. daily. Prescriptions already written. The patient is otherwise stable. He will go home today. He will need to follow up with his primary care physician and his oncologist. We will continue to manage his medical problem. The patient is otherwise stable. Discharged home today. MD AXEL Johnson/AMIRAHL /[id number]
[2019-08-31] MEDS ORDERED: FUROSEMIDE40 MG PO (09:55)
[2019-08-31] MEDS ORDERED: ELIQUIS2.5 MG PO (09:56)
[2019-08-31] MEDS ORDERED: SPIRONOLACTONE25 MG PO (09:57)
[2019-08-31] MEDS ORDERED: PANTOPRAZOLE SO40 MG PO (10:04)
--- NOTE | 2019-08-31 10:50 | NUR ---
Left AC IV discontinued. No signs of infiltration noted. 2x2 gauze and coban placed. Refused to be taken via wheelchair to personal car. Accompanied by PCT to personal car. AAOX4 to time, person, place, situation. Respirations even and unlabored. Denies pain. Discharge instructions, rx, and all personal belongings taken with patient.
== END 2019-08-31 10:50 | disposition home or self-care (01) | DRG 374 ==
LOC: ER 11:42 → ERHOLD 15:04 → MED/SURG 17:36
PROVIDERS: ADMIT Internal Medicine; ATTEND Internal Medicine
PROC: 0W9G3ZZ Drainage of Peritoneal Cavity, Percutaneous Approach (ICD-10-PCS; principal; 2019-08-30)
DX: C18.9 Malignant neoplasm of colon, unspecified (principal); I81 Portal vein thrombosis; C78.00 Secondary malignant neoplasm of unspecified lung; K76.6 Portal hypertension; D80.1 Nonfamilial hypogammaglobulinemia; R18.8 Other ascites; K74.60 Unspecified cirrhosis of liver; R16.1 Splenomegaly, not elsewhere classified; D69.6 Thrombocytopenia, unspecified; E77.8 Other disorders of glycoprotein metabolism
CPT/HCPCS: 36415; 49083; 74177; 74470; 80053; 82105; 82150; 82378; 82550; 82553; 83615; 83690; 83880; 84157; 84484; 85025; 85379; 85610; 87070; 87205; 88112; 88305; 89051; 99284; C1729; J1650; J1940; J2405; J7030; Q9967

== ENCOUNTER 2019-11-11 12:05 | Observation (INO) | payer OTHER ==
[~2019-11-11] VITALS: Ht 180.3 cm; Wt 104.3 kg
[~2019-11-11 12:05] MED LIST: ELIQUIS2.5 MG PO; FUROSEMIDE40 MG PO; PANTOPRAZOLE SO40 MG PO; SPIRONOLACTONE25 MG PO
--- OUTSIDE RECORDS SUMMARY | 2019-11-11 12:07 | XMS REPORT | Summary of Care ---
Author Author [facility] Organization [facility] Address Unknown Phone Unavailable Encounter HQ Kelin(FIDEL) [id number] Date(s): 08/07/15 - 08/10/15 [facility] [address] [employer] provided by [facility] [place] [address]- Discharge Disposition: Home Attending Physician: Mercedes Urena MD Admitting Physician: Mercedes Urena MD Referring Physician: Louis Trejo MD Vital Signs 1 2 3 Most recent to oldest [Reference Range]: 177.8 cm (08/07/15 10:36 PM) 177.8 cm (08/07/15 10:48 AM) 177.8 cm (07/28/15 2:42 PM) Height 97.8 DegF (08/10/15 8:07 AM) 98.1 DegF (08/10/15 3:00 AM) 97.9 DegF (08/09/15 11:00 PM) Temperature Oral [96.4-99.1 DegF] 139/66 mmHg (08/10/15 8:07 AM) 160/73 mmHg *HI* (08/10/15 3:00 AM) 149/73 mmHg *HI* (08/09/15 11:00 PM) Blood Pressure [90-140/60-90 mmHg] 16 BRMIN (08/10/15 8:07 AM) 18 BRMIN (08/10/15 3:00 AM) 18 BRMIN (08/09/15 11:00 PM) Respiratory Rate [14-20 BRMIN] 49 bpm *LOW* (08/10/15 8:07 AM) 59 bpm *LOW* (08/10/15 3:00 AM) 63 bpm (08/09/15 11:00 PM) Peripheral Pulse Rate [60-100 bpm] 103.636 kg (08/07/15 10:36 PM) 102.727 kg (08/07/15 10:48 AM) 103.182 kg (07/28/15 2:42 PM) Weight 32.78 m2 (08/07/15 10:36 PM) 32.5 m2 (08/07/15 10:48 AM) 32.64 m2 (07/28/15 2:42 PM) Body Mass Index Problem List Condition Effective Dates Status Health Status Informan t Cancer of Active colon(Confirmed) Allergies, Adverse Reactions, Alerts Substance Reaction Severity Status NKDA Active Medications D5W 1/2NS + KCL 20mEq/L 1000ml (Premix) 1,000 mL 1,000 mL, Rate: 50 ml/hr, Infuse over: 20 hr, Route: IV, Dosing Weight 103.636 k g, Total Volume: 1,000, Start date: 08/09/15 10:18:00, Stop date: 09/08/15 10:17 :00 Notes: PREMIX IV - Do Not AlterWASTE: F/P - Sink; E - Municipal Trash Bin Start Date: 08/09/15 Stop Date: 08/10/15 Status: Discontinued Entereg 12 mg, 1 cap, Route: PO, Drug form: CAP, ONCE, Start date: 08/07/15 10:01:00, St op date: 08/07/15 10:01:00 Notes: Same as: EnteregMaximum of 15 doses Alert Restricted medication Alvimopa n (Entergen) order form must be completed prior to dispensing. Start Date: 08/07/15 Stop Date: 08/07/15 Status: Completed Entereg 12 mg, 1 cap, Route: PO, Drug form: CAP, BID, Start date: 08/08/15 9:00:00, Dura tion: 7 day, Stop date: 08/14/15 17:00:00 Notes: Same as: EnteregMaximum of 15 doses Alert Restricted medication Alvimopa n (Entergen) order form must be completed prior to dispensing. Start Date: 08/08/15 Stop Date: 08/10/15 Status: Discontinued Exparel 20 mL, Route: InFILtration(local), Drug Form: INJ, Dosing Weight 102.727, kg, ON CE, STAT, Start date: 08/07/15 18:42:00, Stop date: 08/07/15 18:42:00 Notes: (Same as: Exparel) NOT FOR IV use Postoperative analgesia: Infi ltration (local): Dose is based on surgical site and volume required to cover th e area (in general, the maximum total dose is 266 mg).Bunionectomy: 7 mL into th e tissues surrounding the osteotomy and 1 mL into the subcutaneous tissue of the surgical site (total dose = 8 mL [106 mg])Hemorrhoidectomy: 30 mL (20 mL vial d iluted with 10 mL NS) divided and administered as 6 injections of 5 mL each (tot al dose = 30 mL [266 mg]) Start Date: 08/07/15 Stop Date: 08/07/15 Status: Ordered famotidine 20 mg, 2 mL, Route: IV, Drug form: INJ, Q12H, Dosing Weight 102.727, kg, Start d ate: 08/07/15 21:00:00, Duration: 30 day, Stop date: 09/06/15 9:00:00 Notes: (Same as: Pepcid)Can be dilute in 5-10cc NS IVP: Slow IV push over at le ast 2 minutes. Start Date: 08/07/15 Stop Date: 08/10/15 Status: Discontinued ferrous sulfate 325 mg oral enteric coated tablet 325 mg = 1 tab, PO, Daily, # 30 tab, 0 Refill(s) Start Date: 07/28/15 Stop Date: 08/10/15 Status: Discontinued Fish Oil PO, Daily, 0 Refill(s) Start Date: 07/28/15 Status: Ordered flumazenil 0.2 mg, 2 mL, Route: IVP, Drug form: INJ, PRN, Dosing Weight 102.727, kg, PRN Be nzodiazepine Reversal, Initial dose, Start date: 08/07/15 17:03:00, Duration: 30 day, Stop date: 09/06/15 18:02:00 Notes: (Same as: Romazicon) Start Date: 08/07/15 Stop Date: 08/10/15 Status: Discontinued hydromorphone 0.5 mg, 0.25 mL, Route: IVP, Drug form: INJ, Q5Min, Dosing Weight 102.727, kg, P RN Pain Score 7-10, Start date: 08/07/15 17:03:00, Duration: 4 doses or times, S top date: 08/08/15 0:00:00 Notes: Same as: Dilaudid Start Date: 08/07/15 Stop Date: 08/07/15 Status: Completed HYDROmorphone 0.5mg/mL FIELD HEALTH OFFICER (15mg/30 mL) 15 mg 15 mg, 30 mL, Route: IV, Initial Loading Dose: 0 mg, FIELD HEALTH OFFICER Dose: 0.2 mg, FIELD HE[employer] OFFICER Locko ut: 12 minutes, Continuous Basal Rate: 0 mg, 4 Hour Limit (In MG): 3, Drug Form: INJ, Continuous, Start date: 08/07/15 17:00:00, Duration: 30 day, Stop date: 17:5... Notes: (Same as: Dilaudid) conc = 0.5 mg/mlHydromorphone FIELD HEALTH OFFICER Dose: ;Tanja y: ;Basal: Start Date: 08/07/15 Stop Date: 08/10/15 Status: Discontinued INVanz 1 gm, Route: IV, Drug form: INJ, PRE OP, Start date: 08/07/15 4:00:00, Duration: 1 day, Stop date: 08/08/15 3:59:00 Notes: (Same as: INVanz) Refrigerate. NOT COMPATIBLE WITH D5W.Stable in refrige rator for 24 hours MEDICATION WASTE Product Size: 1000 mgProduct Wasted : ___ mg Start Date: 08/07/15 Stop Date: 08/10/15 Status: Discontinued ketOROLAC 15 mg/mL injectable solution 15 mg, 1 mL, Route: IV, Drug form: INJ, Q6H, Dosing Weight 103.636, kg, Start da te: 08/08/15 6:00:00, Duration: 3 day, Stop date: 08/11/15 0:00:00 Notes: (Same as:Toradol) IV bolus must be given >15 seconds. Give IM administration slowly and deeply into the muscle. Not for use > 4 days. Start Date: 08/08/15 Stop Date: 08/08/15 Status: Discontinued labetalol 10 mg, 2 mL, Route: IVP, Drug form: INJ, Q5Min, Dosing Weight 102.727, kg, PRN E levated BP, Start date: 08/07/15 17:03:00, Duration: 5 doses or times, Stop date : 08/08/15 0:00:00 Start Date: 08/07/15 Stop Date: 08/08/15 Status: Completed Lactated Ringers Injection IV 1,000 mL 1,000 mL, Rate: 100 ml/hr, Infuse over: 10 hr, Route: IV, Dosing Weight 102.727 kg, Total Volume: 1,000, Start date: 08/07/15 16:59:00, Stop date: 09/06/15 16:5 8:00 Start Date: 08/07/15 Stop Date: 08/09/15 Status: Discontinued Lovenox 40 mg, 0.4 mL, Route: SUB-Q, Drug form: INJ, [id number], Dosing Weight 102.727, kg , Start date: 08/08/15 9:00:00, Duration: 30 day, Stop date: 09/06/15 9:00:00 Notes: (Same as: Lovenox) Start Date: 08/08/15 Stop Date: 08/10/15 Status: Discontinued morphine Sulfate 2 mg, 1 mL, Route: IVP, Drug form: INJ, Q4H, Dosing Weight 103.636, kg, PRN Pain Score 7-10, Start date: 08/10/15 8:09:00, Duration: 30 day, Stop date: 09/09/15 8:08:00 Notes: (Same as:MORPhine Sulfate) Start Date: 08/10/15 Stop Date: 08/10/15 Status: Discontinued naloxone 0.04 mg, 0.1 mL, Route: IVP, Drug form: INJ, Q2MIN, Dosing Weight 102.727, kg, P RN Narcotic Reversal, Start date: 08/07/15 16:59:00, Duration: 30 day, Stop date : 09/06/15 17:58:00 Notes: Same as Narcan Start Date: 08/07/15 Stop Date: 08/10/15 Status: Discontinued naloxone 0.04 mg, 0.1 mL, Route: IVP, Drug form: INJ, Q2MIN, Dosing Weight 102.727, kg, P RN Narcotic Reversal, Start date: 08/07/15 17:03:00, Duration: 8 doses or times, Stop date: 08/08/15 0:00:00 Notes: Same as Narcan Start Date: 08/07/15 Stop Date: 08/08/15 Status: Completed [place] 10/325 oral tablet 1 tab, PO, Q4H, PRN Pain Score 4-6, 0 Refill(s) Start Date: 08/10/15 Status: Ordered [place] 10/325 oral tablet 2 tab, Route: PO, Drug Form: TAB, Dosing Weight 103.636, kg, Q4H, PRN Pain Score 4-6, Start date: 08/10/15 8:08:00, Duration: 30 day, Stop date: 09/09/15 8:07:00 Notes: Do not exceed 4gm/day of acetaminophen. (Same as: [place] 325/10) Start Date: 08/10/15 Stop Date: 08/10/15 Status: Discontinued [place] 10/325 oral tablet 1 tab, Route: PO, Drug Form: TAB, Dosing Weight 103.636, kg, Q4H, PRN Pain Score 1-3, Start date: 08/10/15 8:07:00, Duration: 30 day, Stop date: 09/09/15 8:06:00 Notes: Do not exceed 4gm/day of acetaminophen. (Same as: [place] 325/10) Start Date: 08/10/15 Stop Date: 08/10/15 Status: Discontinued Ofirmev 1,000 mg, 100 mL, Route: IV, Drug form: INJ, Q6H, Dosing Weight 102.727, kg, for > or = 50 kg, Start date: 08/07/15 18:00:00, Duration: 30 day, Stop date: 09/06/15 16:00:00 Notes: Infuse over 15 minutesDo not exceed 4gm/day of acetaminophen MEDICAT ION WASTE Product Size: 1000 mgProduct Wasted: ___ mg Start Date: 08/07/15 Stop Date: 08/10/15 Status: Discontinued ondansetron 4 mg, 2 mL, Route: IVP, Drug form: INJ, Q6H, Dosing Weight 102.727, kg, PRN Naus ea & Vomiting, Start date: 08/07/15 16:59:00, Duration: 30 day, Stop date: 09/06/15 16:58:00 Notes: (Same as: Mando) MEDICATION WASTE Product Size: 4 mgProduct Was ayde: ___ mg Start Date: 08/07/15 Stop Date: 08/10/15 Status: Discontinued ondansetron 4 mg, 2 mL, Route: IVP, Drug form: INJ, ONCE, Dosing Weight 102.727, kg, PRN Aquiles sea & Vomiting, Start date: 08/07/15 17:03:00 Notes: (Same as: Mando) MEDICATION WASTE Product Size: 4 mgProduct Was ayde: ___ mg Start Date: 08/07/15 Stop Date: 08/10/15 Status: Discontinued Vitamin B-12 500 mcg oral tablet 500 microgram = 1 tab, PO, Daily, # 30 tab, 0 Refill(s) Start Date: 07/28/15 Status: Ordered Vitamin D3 2000 intl units oral capsule 2,000 IntlUnit = 1 cap, PO, Daily, # 100 cap, 3 Refill(s) Start Date: 07/28/15 Status: Ordered Results BLOOD BANK RESULTS 1 2 3 Most recent to oldest [Reference Range]: O POS *Unknown* (08/07/15 9:35 AM) ABO/Rh Negative (08/07/15 9:35 AM) Antibody Scrn ELECTROLYTES 1 2 3 Most recent to oldest [Reference Range]: 141 mEq/L (08/08/15 4:51 AM) 141 mEq/L (07/28/15 2:20 PM) Sodium Lvl [135-145 mEq/L] 4.0 mEq/L (08/08/15 4:51 AM) 5.0 mEq/L (07/28/15 2:20 PM) Potassium Lvl [3.5-5.1 mEq/L] 107 mEq/L (08/08/15 4:51 AM) 104 mEq/L (07/28/15 2:20 PM) Chloride Lvl [95-109 mEq/L] 26 mEq/L (08/08/15 4:51 AM) 31 mEq/L (07/28/15 2:20 PM) CO2 [24-32 mEq/L] 12.0 mEq/L (08/08/15 4:51 AM) 11.0 mEq/L (07/28/15 2:20 PM) AGAP [10.0-20.0 mEq/L] CHEM PANEL 1 2 3 Most recent to oldest [Reference Range]: 0.89 mg/dL (08/08/15 4:51 AM) 1.03 mg/dL (07/28/15 2:20 PM) Creatinine Lvl [0.50-1.40 mg/dL] 88 mL/min/1.73m2 1 *NA* (08/08/15 4:51 AM) 75 mL/min/1.73m2 2 *NA* (07/28/15 2:20 PM) eGFR 13 mg/dL (08/08/15 4:51 AM) 14 mg/dL (07/28/15 2:20 PM) BUN [7-22 mg/dL] 14 (07/28/15 2:20 PM) B/C Ratio [6-25] 100 mg/dL *HI* (08/08/15 4:51 AM) 73 mg/dL (07/28/15 2:20 PM) Glucose Lvl [70-99 mg/dL] 7.1 g/dL (07/28/15 2:20 PM) Total Protein [6.4-8.4 g/dL] 4.0 g/dL (07/28/15 2:20 PM) Albumin Lvl [3.5-5.0 g/dL] 3.1 g/dL (07/28/15 2:20 PM) Globulin [2.0-4.0 g/dL] 1.3 (07/28/15 2:20 PM) A/G Ratio [0.7-1.6] 8.4 mg/dL *LOW* (08/08/15 4:51 AM) 8.8 mg/dL (07/28/15 2:20 PM) Calcium Lvl [8.5-10.5 mg/dL] 3.5 mg/dL (08/08/15 4:51 AM) Phosphorus [2.5-4.5 mg/dL] 1.8 mg/dL (08/08/15 4:51 AM) Magnesium Lvl [1.8-2.4 mg/dL] 25 unit/L (07/28/15 2:20 PM) ALT [0-65 unit/L] 17 unit/L (07/28/15 2:20 PM) AST [0-37 unit/L] 95 unit/L (07/28/15 2:20 PM) Alk Phos [39-136 unit/L] 0.9 mg/dL (07/28/15 2:20 PM) Bili Total [0.2-1.3 mg/dL] 1Result Comment: The eGFR is calculated using the CKD-EPI formula. In most young, healthy individuals the eGFR will be >90 mL/min/1.73m2. The eGFR declines with age. An eGFR of 60-89 may be normal in some populations, particularly the elderly, for whom the CKD-EPI formula has not been extensively validated. Use of the eGFR is not recommended in the following populations: Individuals with unstable creatinine concentrations, including patients and those with serious co-morbid conditions. Patients with extremes in muscle mass or diet. The data above are obtained from the National Kidney Disease Education Program ( NKDEP) which additionally recommends that when the eGFR is used in patients with extremes of body mass index for purposes of drug dosing, the eGFR should be mul tiplied by the estimated BMI. 2Result Comment: The eGFR is calculated using the CKD-EPI formula. In most young, healthy individuals the eGFR will be >90 mL/min/1.73m2. The eGFR declines with age. An eGFR of 60-89 may be normal in some populations, particularly the elderly, for whom the CKD-EPI formula has not been extensively validated. Use of the eGFR is not recommended in the following populations: Individuals with unstable creatinine concentrations, including patients and those with serious co-morbid conditions. Patients with extremes in muscle mass or diet. The data above are obtained from the National Kidney Disease Education Program ( NKDEP) which additionally recommends that when the eGFR is used in patients with extremes of body mass index for purposes of drug dosing, the eGFR should be mul tiplied by the estimated BMI. URINE AND STOOL 1 2 3 Most recent to oldest [Reference Range]: Clear (07/28/15 2:20 PM) UA Turbidity [Clear] Yellow *NA* (07/28/15 2:20 PM) UA Color [Yellow] 7.0 (07/28/15 2:20 PM) UA pH [5.0-8.0] 1.015 (07/28/15 2:20 PM) UA Spec Grav [<=1.030] Negative mg/dL *NA* (07/28/15 2:20 PM) UA Glucose [Negative mg/dL] Negative (07/28/15 2:20 PM) UA Blood [Negative] Negative mg/dL *NA* (07/28/15 2:20 PM) UA Ketones [Negative mg/dL] Negative mg/dL (07/28/15 2:20 PM) UA Protein [Negative mg/dL] <=1.0 mg/dL *NA* (07/28/15 2:20 PM) UA Urobilinogen [0.1-1.0 mg/dL] Negative *NA* (07/28/15 2:20 PM) UA Bili [Negative] Negative (07/28/15 2:20 PM) UA Leuk Est [Negative] Negative (07/28/15 2:20 PM) UA Nitrite [Negative] 1 /HPF (07/28/15 2:20 PM) UA WBC [0-5 /HPF] Occasional /HPF *NA* (07/28/15 2:20 PM) UA Bacteria [None Seen /HPF] None Seen *NA* (07/28/15 2:20 PM) UA Sq Epi Few /LPF *NA* (07/28/15 2:20 PM) UA Mucus [None Seen /LPF] HEMATOLOGY 1 2 3 Most recent to oldest [Reference Range]: 10.6 K/CMM *HI* (08/09/15 4:43 AM) 8.5 K/CMM (08/08/15 4:51 AM) 8.4 K/CMM (07/28/15 2:20 PM) WBC [3.7-10.4 K/CMM] 4.17 M/CMM *LOW* (08/09/15 4:43 AM) 4.42 M/CMM *LOW* (08/08/15 4:51 AM) 4.81 M/CMM (07/28/15 2:20 PM) RBC [4.70-6.10 M/CMM] 10.6 g/dL *LOW* (08/09/15 4:43 AM) 11.5 g/dL *LOW* (08/08/15 4:51 AM) 12.2 g/dL *LOW* (07/28/15 2:20 PM) Hgb [14.0-18.0 g/dL] 33.8 % *LOW* (08/09/15 4:43 AM) 35.7 % *LOW* (08/08/15 4:51 AM) 38.1 % *LOW* (07/28/15 2:20 PM) Hct [42.0-54.0 %] 80.9 fL (08/09/15 4:43 AM) 80.6 fL (08/08/15 4:51 AM) 79.1 fL *LOW* (07/28/15 2:20 PM) MCV [80.0-94.0 fL] 25.3 pg *LOW* (08/09/15 4:43 AM) 26.1 pg *LOW* (08/08/15 4:51 AM) 25.3 pg *LOW* (07/28/15 2:20 PM) MCH [27.0-31.0 pg] 31.3 g/dL *LOW* (08/09/15 4:43 AM) 32.3 g/dL (08/08/15 4:51 AM) 32.0 g/dL (07/28/15 2:20 PM) MCHC [32.0-36.0 g/dL] 27.0 % *HI* (08/09/15 4:43 AM) 27.0 % *HI* (08/08/15 4:51 AM) 31.4 % *HI* (07/28/15 2:20 PM) RDW [11.5-14.5 %] 220 K/CMM (08/09/15 4:43 AM) 216 K/CMM (08/08/15 4:51 AM) 232 K/CMM (07/28/15 2:20 PM) Platelet [133-450 K/CMM] 8.6 fL (08/09/15 4:43 AM) 9.0 fL (08/08/15 4:51 AM) 9.3 fL (07/28/15 2:20 PM) MPV [7.4-10.4 fL] 74.1 % (08/09/15 4:43 AM) 70.9 % (08/08/15 4:51 AM) 62.9 % (07/28/15 2:20 PM) Segs [45.0-75.0 %] 12.3 % *LOW* (08/09/15 4:43 AM) 16.3 % *LOW* (08/08/15 4:51 AM) 23.6 % (07/28/15 2:20 PM) Lymphocytes [20.0-40.0 %] 9.4 % (08/09/15 4:43 AM) 11.8 % (08/08/15 4:51 AM) 8.0 % (07/28/15 2:20 PM) Monocytes [2.0-12.0 %] 3.7 % (08/09/15 4:43 AM) 0.6 % (08/08/15 4:51 AM) 5.0 % *HI* (07/28/15 2:20 PM) Eosinophils [0.0-4.0 %] 0.5 % (08/09/15 4:43 AM) 0.4 % (08/08/15 4:51 AM) 0.5 % (07/28/15 2:20 PM) Basophils [0.0-1.0 %] 7.8 K/CMM (08/09/15 4:43 AM) 6.1 K/CMM (08/08/15 4:51 AM) 5.3 K/CMM (07/28/15 2:20 PM) Segs-Bands # [1.5-8.1 K/CMM] 1.3 K/CMM (08/09/15 4:43 AM) 1.4 K/CMM (08/08/15 4:51 AM) 2.0 K/CMM (07/28/15 2:20 PM) Lymphocytes # [1.0-5.5 K/CMM] 1.0 K/CMM *HI* (08/09/15 4:43 AM) 1.0 K/CMM *HI* (08/08/15 4:51 AM) 0.7 K/CMM (07/28/15 2:20 PM) Monocytes # [0.0-0.8 K/CMM] 0.4 K/CMM (08/09/15 4:43 AM) 0.1 K/CMM (08/08/15 4:51 AM) 0.4 K/CMM (07/28/15 2:20 PM) Eosinophils # [0.0-0.5 K/CMM] 0.1 K/CMM (08/09/15 4:43 AM) Basophils # [0.0-0.2 K/CMM] 2+ *ABN* (08/09/15 4:43 AM) 2+ *ABN* (08/08/15 4:51 AM) 3+ *NA* (07/28/15 2:20 PM) Anisocyte [None Seen] 1+ *ABN* (07/28/15 2:20 PM) Microcyte [None Seen] Normal (08/09/15 4:43 AM) Normal (07/28/15 2:20 PM) Plt Morph 15.2 seconds *HI* (07/28/15 2:20 PM) PT [12.0-14.7 seconds] 1.17 (07/28/15 2:20 PM) INR [0.85-1.17] 30.6 seconds (07/28/15 2:20 PM) PTT [22.9-35.8 seconds] Immunizations No data available for this section Procedures Procedure Date Related Diagnosis Body Site Tonsillectomy and adenoidectomy Social History Social History Type Response Smoking Status Former smoker; Exposure to Tobacco Smoke None; Cigarette Smoking Last 365 Days No; Reg Smoking Cessation Counseli ng No Assessment and Plan Extracted from: Title: Colon and Rectal Surgery Author: Andreas Smart MD Date: 08/10/15 Admitting Physician: Mercedes Urena MD Date of Admission: 08/07/15 Date of Discharge: 08/10/15 Admission Diagnosis: Right colon cancer Secondary Diagnosis: Anemia of chronic disease Discharge Diagnosis: Right colon cancer (pathology pending) Anemia of chronic disease Consultations: Physical therapy Operative Procedures: 08/07/15- Robotic assisted laparoscopic ex tended right hemicolectomy History: 65 year old man with recently diagnosed right colon cancer in April 2015, who presented to our clinic for surgical evaluation. This mass was found in the hepatic flexure and biopsied on screening colonoscopy. The biopsy revealed adenocarcinoma. Metastatic disease workup was negative. He was therefore scheduled for surgery. Hospital Course: The patient underwent the above stated procedure and tolerated it well. He had return on bowel function on POD #2, so his diet was advanced slowly. He was weaned off IV pain medications and started on PO medications on POD #3. By day of discharge, he was tolerating a soft diet, ambulating, urinating spontaneously, his pain controlled on PO pain medications, and having bowel function. Physical Exam: AAO x 3, NAD RRR CTAB soft, less tender, mild distention, + bowel sounds x 4, all incisions clean and dry BLE without edema Discharge Instructions Activity: No heavy lifting > 15 lbs x 4 weeks, no driving while taking pain medications, no water immersion x 2 weeks, may shower and wash all incisions with soap and water. Diet: Soft diet Medications (name, dose, route, frequency): [place] 10/325 1 tab PO q 4 hrs prn pain Follow-Up: [address] Urena for a post-operat quan visit Extracted from: Title: Colon and Rectal Surgery Author: Andreas Smart MD Date: 08/10/15 Interval History: No acute events overni ght. Pain controlled with TIANA block and FIELD HE[employer] OFFICER. Denies nausea or vomiting with clear liquids. OOB x 7. Passing some flatus and had two BM's. Physical Exam: Tm: 98.5 General Appearance: AAO x 3, NAD RRR CTAB soft, less TTP, mild distention, positive bowel sounds incisions clean BLE w/o edema Total Outputs: UOP: 825 cc Interval Laboratory Results: None Assessment: POD # 3 s/p robotic assisted laparoscopic extended right hemicolectomy for a right colon adenocarcinoma Plan Advance to soft diet Decrease IVF to 50 cc/hr D/C Entereg and FI[employer] HE[employer] OFFICER Start prn [place] If patient tolerates a soft diet, he could possibly go home later this afternoon or evening
--- OUTSIDE RECORDS SUMMARY | 2019-11-11 12:07 | XMS REPORT | Summary of Care ---
Author Author [facility] Organization [facility] Address Unknown Phone Unavailable Encounter HQ Kelin(FIDEL) [id number] Date(s): 11/12/17 - 11/12/17 [facility] [address] [place] [address]- [phone] Discharge Disposition: Home or Self Care Attending Physician: Lovely Childs MD Referring Physician: Lovely Childs MD Vital Signs No data available for this section Problem List Condition Effective Dates Status Health Status Informan t Cancer of Active colon(Confirmed) Iron deficiency Resolved anemia(Confirmed) Allergies, Adverse Reactions, Alerts Substance Reaction Severity Status NKDA Active Medications No data available for this section Results No data available for this section Immunizations No data available for this section Procedures Procedure Date Related Diagnosis Body Site Status Right hemicolectomy 08/07/15 Completed Tonsillectomy and adenoidectomy Completed Social History Social History Type Response Substance Abuse Use: None. Alcohol Current, Type Beer. Freque ncy: 3-5 times per week. Smoking Status Former smoker; Ready to shahnaz nge: No; Concerns about tobacco use in household: No; Exposure to Tobacco Smok e None; Cigarette Smoking Last 365 Days Yes; Reg Smoking Cessation Padded Products Finisher ing Yes; Stopped at age: 64; entered on: 08/13/16 Assessment and Plan No data available for this section
--- OUTSIDE RECORDS SUMMARY | 2019-11-11 12:07 | XMS REPORT | Summary of Care ---
Author Author [facility] Organization [facility] Address Unknown Phone Unavailable Encounter HQ Nancy_susan(FIN) [id number] Date(s): 05/03/17 - 05/03/17 [facility] [place] [address] [place] [address]- [phone] Discharge Disposition: Home or Self Care Attending Physician: Rene Sepulveda DO Vital Signs No data available for this [...] Procedures Procedure Date Related Diagnosis Body Site Right hemicolectomy 08/07/15 Tonsillectomy and adenoidectomy Social History Social History Type Response Substance Abuse Use: None. Alcohol Current, Type Beer. Freque ncy: 3-5 times per week. Smoking Status Former smoker; Ready to shahnaz nge: No; Concerns about tobacco use in household: No; Exposure to Tobacco Smok e None; Cigarette Smoking Last 365 Days Yes; Reg Smoking Cessation Conflict Resolution Professional ing Yes; Stopped at age: 64; Assessment and Plan No data available for this section
--- OUTSIDE RECORDS SUMMARY | 2019-11-11 12:07 | XMS REPORT | Clinical Summary ---
Author Author [facility] Organization [facility] Address Unknown Phone Unavailable Care Team Providers Care Operational Risk Consultant Name Role Phone Rene Sepulveda DO PCP Allergies No Known Allergies Medications Not on file Active Problems Not on file Family History Medical History Relation Name Comments No Known Problems Father Hypertension Mother Relation Name Status Comments Father Mother Social History Date Tobacco Use Types Packs/Day Years Used Quit: 1999 Former Smoker Cigarettes 0.02 10 Smokeless Tobacco: Never Used Drinks/Week oz/Week Comments Alcohol Use No Sex Assigned at Date Recorded Not on file Industry Job Start Date Occupation Not on file Not on file Not on file Travel End Travel History Travel Start No recent travel history available. 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
--- OUTSIDE RECORDS SUMMARY | 2019-11-11 12:07 | XMS REPORT | Summary of Care ---
Author Author [facility] Organization [facility] Address Unknown Phone Unavailable Encounter HQ Kelin(FIDEL) [id number] Date(s): 04/21/17 - 04/21/[address] 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
--- OUTSIDE RECORDS SUMMARY | 2019-11-11 12:07 | XMS REPORT | Summary of Care ---
Author Author [facility] Organization [facility] Address Unknown Phone Unavailable Encounter MULUGETA Neville(FIDEL) [id number] Date(s): 10/24/19 - 10/24/19 [facility] [address] [place] [address]- Discharge Disposition: Non-Emergent Attending Physician: Ricky Neff MD Vital Signs Most recent to 1 oldest [Reference Range]: Temperature Oral 98 DegF [96.4-99.1 DegF] (10/24/19 4:01 PM) Blood Pressure 133/68 mmHg [90-140/60-90 mmHg] (10/24/19 4:01 PM) Respiratory Rate 20 BRMIN [14-20 BRMIN] (10/24/19 4:01 PM) Peripheral Pulse 85 bpm Rate [60-100 bpm] (10/24/19 4:01 PM) Weight 86.364 kg (10/24/19 4:01 PM) Problem List Condition Effective Dates Status Health Status Informan t Cancer of Active colon(Confirmed) Iron deficiency Resolved anemia(Confirmed) Allergies, Adverse Reactions, Alerts No Known Medication Allergies Medications No data available for this section Results No data available for this section Immunizations No data available for this section Procedures Procedure Date Related Diagnosis Body Site Status Right hemicolectomy 08/07/15 Completed Tonsillectomy and adenoidectomy Completed Social History Social History Type Response Alcohol Current, Type Beer. Freque ncy: 3-5 times per week. Substance Abuse Use: None. 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
--- OUTSIDE RECORDS SUMMARY | 2019-11-11 12:07 | XMS REPORT | Continuity of Care Document ---
Author Author Marika MeshApp CRISTOPHER Dexter [employer] Address Unknown Phone Unavailable Care Team Providers Care Ocean Import Representative Name Role Phone [employer] Unavailable Un available Problems Problem Status Onset Date Classification Date Reported Comments Source TESTICLE PAIN Active 10/24/2019 [facility] DX: C78.02=SECONDARY MALIGNANT NEOPLASM Active 10/22/2019 [facility] C18.2-MALIGNANT NEOPLASM OF ASCENDING CO Active 06/12/2019 [facility] DX: 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 ASCENDIN Active 02/06/2019 [facility] C18.2 Active 10/28/2017 [facility] Malignant neoplasm of ascending colon 07/05/2017 10/06/2017 [facility] 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 Active 04/11/2017 [facility] UNK Active 0 08/04/2016 [facility] BACTERMIA Active 11/19/2015 [facility] MALIGNANT NEOPLASM OF ASCENDING COLON Active 09/10/2015 [facility] COLON CANCER Active 07/08/2015 [facility] N/A Active 0 07/08/2015 [facility] Malignant tumor of colon (disorder) Active Problem [facility], O PID Charlie,[facility] Iron deficiency anemia (disorder) Resolved Problem OPID [place], [place] Other nonspecific abnormal finding of lung field 10/06/2017 [facility] MALIGNANT NEOPLASM OF SIGMOID COLON Active [facility] BACTEREMIA Active [facility] MALIGNANT NEOPLASM OF ASCENDING COLON Active [facility] Medications Medication Details Route Status Patient Instructions Ordering Provider Order Date Source Omnipaque 300 injectable solution Notes: (Same as:Omnipaque 300). WASTE: F/P - Black; E - Municipal Trash Bin No Longer Active 02/12/2019 [facility] cefTRIAXone 2 g injection 2 gm , IV, Q24H, X 28 day, # 28 inj, 0 Refill(s), given to patient Active 11/24/2015 [facility] Fish Oil Notes: (Same as: Case GARCES Ingalls 3 fish oil ) Non-Formulary Drug Inactive 11/24/2015 [facility] Lidocaine 25 MG/ML / Prilocaine 25 MG/ML Topical Cream [EMLA] Notes: Apply to desired area 2 hrs prior to needle insertion. (Same as: Emla) Inactive 11/22/2015 [facility] Vitamin D3 2000 intl units oral tablet Notes: Same as : Vitamin D3 No Longer Active 11/21/2015 [facility] Fish Oil 1,000 mg, PO, Daily, 0 Refill(s) Active 11/21/2015 [facility] Ceftriaxone Notes: (Same As: Jesse branch). Use with 100 mL NS and infuse over 30 min MEDICATION WASTE Product Size: 2000 mg Product Wasted: ___ mg No Longer Active 11/20/2015 [facility] ferrous sulfate Notes: Give wi th food. "Do Not Crush" No Longer Active 11/20/2015 [facility] Vitamin B12 Notes: (Same As: V itamin B12) No Longer Active 11/20/2015 [facility] Protonix Notes: Tablet should not be chewed or crushed. (Same as: Protonix) No Longer Active 11/20/2015 [facility] Fish Oil Notes: (Same as: Case GARCES, Ingalls 3 fish oil ) Non-Formulary Drug No Longer Active 11/20/2015 [facility] Metoprolol Notes: (Same as: Lo pressor) Push over 2 minutes No Longer Active 11/20/2015 [facility] Nitroglycerin 0.4 MG Sublingual Tablet [Nitrostat] Notes: (Same as:Nitroquick, Nitrostat) "Do Not Crush" Sublingual tablet No Longer Active 11/20/2015 [facility] Morphine Notes: (Same as:MORPh ine Sulfate) No Longer Active 11/20/2015 [facility] Hydralazine Notes: (Same as: A presoline) Push over 5 minutes No Longer Active 11/20/2015 [facility] RN-Bring pt's own FISH OIL to pharmacy for label RN-Bring pt's own FISH OIL to pharmacy for label, Attn:RN, Drug form: MISC, Route: MISC, QSHIFT, 11/20/15 11:00:00 CDT, Duration: 30 day, Stop date: 12/20/15 8:00:00 CDT Inactive 11/20/2015 [facility] Enoxaparin Notes: (Same as: Lo venox) No Longer Active 11/20/2015 [facility] Aspirin 325 MG Oral Tablet Not es: Take with food. No Longer Active 11/20/2015 [facility] Zofran Notes: (Same as: Zofran ) MEDICATION WASTE Product Size: 4 mg Product Wasted: ___ mg No Longer Active 11/20/2015 [facility] docusate sodium 100 mg oral capsule Notes: (Same as: Colace) (Do Not Crush) No Longer Active 11/20/2015 [facility] tramadol hydrochloride 50 MG Oral Tablet Notes: Not to exceed 400mg/day. (Same As: Ultram) No Longer Active 11/20/2015 [facility] Acetaminophen Notes: Do not ex ceed 4 gm/day. (Same as: Tylenol) No Longer Active 11/20/2015 [facility] cefpodoxime 200 mg oral tablet 200 mg = 1 tab, PO, BID, 0 Refill(s) No Longer Active 11/20/2015 [facility] Fish Oil 1000 mg oral capsule 1,000 mg = 1 cap, PO, TID, 0 Refill(s) Inactive 11/20/2015 [facility] ferrous sulfate 325 mg oral enteric coated tablet 325 mg = 1 tab, PO, BID, 0 Refill(s) Active 11/20/2015 [facility] Vitamin D3 2000 intl units oral tablet 2,000 IntlUnit = 1 tab, PO, Daily, 0 Refill(s) Active 11/20/2015 [facility] Vitamin B12 500 mcg oral tablet 500 microgram = 1 tab, PO, BID, 0 Refill(s) Active 11/20/2015 [facility] Acetaminophen Notes: Do not ex ceed 4 gm/day. (Same as: Tylenol) No Longer Active 11/20/2015 [facility] Docusate Notes: (Same as: Cola ce) (Do Not Crush) No Longer Active 11/20/2015 [facility] Ondansetron Notes: (Same as: [place]) MEDICATION WASTE Product Size: 4 mg Product Wasted: ___ mg No Longer Active 11/20/2015 [facility] Rocephin Notes: (Same As: Roce phin). Use with 100 mL NS and infuse over 30 min MEDICATION WASTE Product Size: 2000 mg Product Wasted: ___ mg Inactive 11/19/2015 [facility] Aspirin 325 MG Oral Tablet See Instructions, PRN Pain, 1 tab PO Q4H 10 day, 0 Refill(s) Active 09/16/2015 [facility] Acetaminophen 325 MG / Hydrocodone Dusty trate 10 MG Oral Tablet [[place] 10/325] 1 tab, PO, Q4H, PRN Pain Score 4-6, 0 Re fill(s) Active 08/10/2015 [facility] Morphine Notes: (Same as:MORPh ine Sulfate) Inactive 08/10/2015 [facility] Acetaminophen 325 MG / Hydrocodone Dusty trate 10 MG Oral Tablet [[place] 10/325] Notes: Do not exceed 4gm/day of acetamin ophen. (Same as: [place] 325/10) Inactive 08/10/2015 [facility] Acetaminophen 325 MG / Hydrocodone Dusty trate 10 MG Oral Tablet [[place] 10/325] Notes: Do not exceed 4gm/day of acetamin ophen. (Same as: [place] 325/10) Inactive 08/10/2015 [facility] D5W 1/2NS + KCL 20mEq/L 1000ml (Premix) 1,000 mL Notes: PREMIX IV - Do Not Alter WASTE: F/P - Sink; E - Municipal Trash Bin No Longer Active 08/09/2015 [facility] Lovenox Notes: (Same as: Loven ox) No Longer Active 08/08/2015 [facility] Entereg Notes: Same as: Entere g Maximum of 15 doses Alert Restricted medication Alvimopan (Entergen) order form must be completed prior to dispensing. No Longer Active 08/08/2015 [facility] nter ketOROLAC 15 mg/mL injectable solution 4 days. Inactive 08/08/2015 [facility] Famotidine Notes: (Same as: Pe pcid) Can be dilute in 5- 10cc NS IVP: Slow IV push over at least 2 minutes. No Longer Active 08/08/2015 [facility] Exparel Notes: (Same as: Yvonne el) NOT FOR IV use Postoperative analgesia: Infiltration (local): Dose is based on surgical site and volume required to cover the area (in general, the maximum total dose is 266 mg). Bunionectomy: 7 mL into the tissues surrounding the osteotomy and 1 mL into the subcutaneous tissue of the surgical site (total dose = 8 mL [106 mg]) Hemorrhoidectomy: 30 mL (20 mL vial diluted with 10 mL NS) divided and administered as 6 injections of 5 mL each (total dose = 30 mL [266 mg]) Inactive 08/08/2015 [facility] Ofirmev Notes: Infuse over 15 minutes Do not exceed 4gm/day of acetaminophen MEDICATION WASTE Product Size: 1000 mg Product Wasted: ___ mg No Longer Active 08/08/2015 [facility] nter Naloxone Notes: Same as Narcan No Longer Active 08/07/2015 [facility] Flumazenil Notes: (Same as: Ro mazicon) No Longer Active 08/07/2015 [facility] Hydromorphone Notes: Same as: Dilaudid Inactive 08/07/2015 [facility] Ondansetron Notes: (Same as: [place]) MEDICATION WASTE Product Size: 4 mg Product Wasted: ___ mg No Longer Active 08/07/2015 [facility] Labetalol 10 mg, 2 mL, Route: IVP, Drug form: INJ, Q5Min, Dosing Weight 102.727, kg, PRN Elevated BP, Start date: 08/07/15 17:03:00, Duration: 5 doses or times, Stop date: 08/08/15 0:00:00 No Longer Active 08/07/2015 [facility] Hydromorphone Notes: (Same as: Dilaudid) conc = 0.5 mg/ml Hydromorphone TOBACCO [employer] Dose: ;Delay: ;Basal: No Longer Active 08/07/2015 [facility] Naloxone Notes: Same as Narcan No Longer Active 08/07/2015 [facility] Calcium Chloride 0.0014 MEQ/ML / Potassi um Chloride 0.004 MEQ/ML / Sodium Chloride 0.103 MEQ/ML / Sodium Lactate 0.028 MEQ/ML Injectable Solution 1,000 mL, Rate: 100 ml/hr, Infuse over: 10 hr, Route: IV, Dosing Weight 102.727 kg, Total Volume: 1,000, Start date: 08/07/15 16:59:00, Stop date: 09/06/15 16:58:00 No Longer Active 08/07/2015 [facility] nter Ondansetron Notes: (Same as: [place]) MEDICATION WASTE Product Size: 4 mg Product Wasted: ___ mg No Longer Active 08/07/2015 [facility] Entereg Notes: Same as: Marya lemus Maximum of 15 doses Alert Restricted medication Alvimopan (Entergen) order form must be completed prior to dispensing. Inactive 08/07/2015 [facility] INVanz Notes: (Same as: INVanz ) Refrigerate. NOT COMPATIBLE WITH D5W. Stable in refrigerator for 24 hours MEDICATION WASTE Product Size: 1000 mg Product Wasted: ___ mg No Longer Active 08/07/2015 [facility] ferrous sulfate 325 mg oral enteric coated tablet 325 mg = 1 tab, PO, Daily, # 30 tab, 0 Refill(s) No Longer Active 07/28/2015 [facility] nter Vitamin D3 2000 intl units oral capsule 2,000 IntlUnit = 1 cap, PO, Daily, # 100 cap, 3 Refill(s) Active 07/28/2015 [facility] nter Vitamin B-12 500 mcg oral tablet 500 microgram = 1 tab, PO, Daily, # 30 tab, 0 Refill(s) Active 07/28/2015 [facility] nter Fish Oil PO, Daily, 0 Refill(s) Active 07/28/2015 [facility] Allergies, Adverse Reactions, Alerts Substance Category Reaction Severity Reaction type Status Date Reported Comments Source No Known Medication Allergies Assertion Drug aller gy [facility] Immunizations No Data Provided for This Section Results Order Name Results Value Reference Range Date Interpretation Comments Source CHEM PANEL POC Creatinine 1.2 0.5 - 1.4 10/25/2019 [facility] CHEM PANEL eGFR 60 10/25/2019 Result Comment: The eGFR is calculated using the [...] from the National Kidney Disease Education Program (NKDEP) which additionally recommends that when the eGFR is used in patients with extremes of body mass index for purposes of drug dosing, the eGFR should be multiplied by the estimated BMI. [facility] CHEM [facility] POC Creatinine 1.0 0.5 - 1.4 06/16/2019 [facility] CHEM PANEL eGFR 75 06/16/2019 Result Comment: The eGFR is calculated using the [...] from the National Kidney Disease Education Program (NKDEP) which additionally recommends that when the eGFR is used in patients with extremes of body mass index for purposes of drug dosing, the eGFR should be multiplied by the estimated BMI. [facility] CHEM [facility] POC Creatinine 0.9 0.5 - 1.4 02/12/2019 [facility] CHEM [facility] eGFR 86 02/12/2019 Result Comment: The eGFR is calculated using the [...] from the National Kidney Disease Education Program (NKDEP) which additionally recommends that when the eGFR is used in patients with extremes of body mass index for purposes of drug dosing, the eGFR should be multiplied by the estimated BMI. [facility] CHEM PANEL Lipase Lvl 183 73 - 393 11/23/2015 [facility] CHEM PANEL Lipase Lvl 165 73 - 393 11/22/2015 [facility] CHEM PANEL Glucose Lvl 81 70 - 99 11/22/2015 [facility] CHEM PANEL BUN 14 7 - 22 11/22/2015 [facility] CHEM PANEL Calcium Lvl 8.6 8.5 - 10.5 11/22/2015 [facility] CHEM PANEL Creatinine Lvl 0.95 0.50 - 1.40 11/22/2015 [facility] CHEM PANEL Sodium Lvl 137 135 - 145 11/22/2015 [facility] CHEM PANEL Potassium Lvl 3.9 3.5 - 5.1 11/22/2015 [facility] CHEM PANEL Chloride Lvl 103 95 - 109 11/22/2015 [facility] CHEM PANEL CO2 27 24 - 32 11/22/2015 [facility] CHEM PANEL eGFR 82 11/22/2015 Result Comment: The eGFR is calculated using the [...] from the National Kidney Disease Education Program (NKDEP) which additionally recommends that when the eGFR is used in patients with extremes of body mass index for purposes of drug dosing, the eGFR should be multiplied by the estimated BMI. [facility] CHEM PANEL AGAP 10.9 10.0 - 20.0 11/22/2015 [facility] HEMATOLOGY Monocytes # 0.8 0.0 - 0.8 11/22/2015 [facility] HEMATOLOGY Lymphocytes # 1.8 1.0 - 5.5 11/22/2015 [facility] HEMATOLOGY Eosinophils # 0.3 0.0 - 0.5 11/22/2015 [facility] HEMATOLOGY Anisocyte 3+ (11/22/15 4:46 AM) None Seen 11/22/2015 [facility] HEMATOLOGY Basophils # 0.1 0.0 - 0.2 11/22/2015 [facility] HEMATOLOGY Hypochrom 1+ (11/22/15 4:46 AM) None Seen 11/22/2015 [facility] HEMATOLOGY Eosinophils 5.8 0.0 - 4.0 11/22/2015 [facility] HEMATOLOGY Segs-Bands # 2.5 1.5 - 8.1 11/22/2015 [facility] HEMATOLOGY Basophils 1.1 0.0 - 1.0 11/22/2015 [facility] HEMATOLOGY Monocytes 14.8 2.0 - 12.0 11/22/[address] [facility] Lymphocytes 32.8 20.0 - 40.0 11/22/[address] [facility] Plt Morph Dalia l (11/22/15 4:46 AM) 11/22/[address] [facility] RBC Morph See N ote (11/22/15 4:46 AM) 11/22/[address] [facility] Segs 45.5 45.0 - 75.0 11/22/[address] [facility] MCHC 31.6 32.0 - 36.0 11/22/[address] [facility] Platelet 153 133 - 450 11/22/[address] [facility] MPV 8.4 7.4 - 10.4 11/22/[address] [facility] MCH 27.7 27.0 - 31.0 11/22/[address] [facility] RDW 32.6 11.5 - 14.5 11/22/[address] [facility] WBC 5.4 3.7 - 10.4 11/22/[address] [facility] RBC 4.56 4.70 - 6.10 11/22/[address] [facility] Hgb 12.6 14.0 - 18.0 11/22/[address] [facility] Hct 39.9 42.0 - 54.0 11/22/[address] [facility] MCV 87.6 80.0 - 94.0 11/22/2015 [facility] CHEM PANEL Lipase Lvl 168 73 - 393 11/21/2015 [facility] CHEM PANEL Alk Phos 102 39 - 136 11/21/2015 [facility] CHEM PANEL ALT 26 0 - 65 11/21/2015 [facility] CHEM PANEL AST 19 0 - 37 11/21/2015 [facility] CHEM PANEL A/G Ratio 1.0 0.7 - 1.6 11/21/2015 [facility] CHEM PANEL Globulin 3.1 2.0 - 4.0 11/21/2015 [facility] CHEM PANEL Albumin Lvl 3.0 3.5 - 5.0 11/21/2015 [facility] CHEM PANEL Total Protein 6.1 6.4 - 8.4 11/21/2015 [facility] CHEM PANEL Bili Indirect 0.3 0.0 - 1.0 11/21/2015 [facility] CHEM PANEL Bili Total 0.4 0.2 - 1.3 11/21/2015 [facility] CHEM PANEL Bili Direct 0.1 0.0 - 0.3 11/21/2015 [facility] ELECTROLYTES AGAP 14.2 10.0 - 20.0 11/21/2015 [facility] ELECTROLYTES CO2 24 24 - 32 11/21/2015 [facility] ELECTROLYTES Calcium Lvl 8.6 8.5 - 10.5 11/21/2015 [facility] ELECTROLYTES Chloride Lvl 106 95 - 109 11/21/2015 [facility] ELECTROLYTES Sodium Lvl 140 135 - 145 11/21/2015 [facility] ELECTROLYTES Glucose Lvl 91 70 - 99 11/21/2015 [facility] ELECTROLYTES BUN 14 7 - 22 11/21/2015 [facility] ELECTROLYTES Potassium Lvl 4.2 3.5 - 5.1 11/21/2015 [facility] ELECTROLYTES Creatinine Lvl 0.9 9 0.50 - 1.40 11/21/2015 [facility] ELECTROLYTES eGFR 78 11/21/2015 Result Comment: The eGFR is calculated using the [...] from the National Kidney Disease Education Program (NKDEP) which additionally recommends that when the eGFR is used in patients with extremes of body mass index for purposes of drug dosing, the eGFR should be multiplied by the estimated BMI. [facility] HEMATOLOGY Eosinophils # 0.3 0.0 - 0.5 11/21/2015 [facility] HEMATOLOGY Monocytes # 0.8 0.0 - 0.8 11/21/2015 [facility] HEMATOLOGY Lymphocytes # 1.6 1.0 - 5.5 11/21/2015 [facility] HEMATOLOGY Monocytes 15.4 2.0 - 12.0 11/21/2015 [facility] HEMATOLOGY Lymphocytes 29.9 20.0 - 40.0 11/21/2015 [facility] HEMATOLOGY Basophils 0.8 0.0 - 1.0 11/21/2015 [facility] HEMATOLOGY Eosinophils 5.6 0.0 - 4.0 11/21/2015 [facility] HEMATOLOGY Segs 48.3 45.0 - 75.0 11/21/[address] [facility] Segs-Bands # 2.6 1.5 - 8.1 11/21/[address] [facility] Platelet 161 133 - 450 11/21/[address] [facility] Hgb 12.9 14.0 - 18.0 11/21/[address] [facility] RBC 4.63 4.70 - 6.10 11/21/[address] [facility] MCV 87.1 80.0 - 94.0 11/21/[address] [facility] MCH 27.8 27.0 - 31.0 11/21/[address] [facility] MCHC 32.0 32.0 - 36.0 11/21/[address] [facility] RDW 32.9 11.5 - 14.5 11/21/[address] [facility] Hct 40.3 42.0 - 54.0 11/21/[address] [facility] MPV 8.6 7.4 - 10.4 11/21/[address] [facility] WBC 5.5 3.7 - 10.4 11/21/2015 [facility] CARDIAC ENZYMES BNP 52 <=100 pg/mL 11/20/2015 [facility] CHEM PANEL Phosphorus 4.2 2.5 - 4.5 11/20/2015 [facility] CHEM PANEL Magnesium Lvl 2.3 1.8 - 2.4 11/20/2015 [facility] CHEM PANEL Phosphorus 4.0 2.5 - 4.5 11/20/2015 [facility] CHEM PANEL Magnesium Lvl 2.2 1.8 - 2.4 11/20/2015 [facility] CHEM PANEL eGFR 76 11/20/2015 Result Comment: The eGFR is calculated using the [...] from the National Kidney Disease Education Program (NKDEP) which additionally recommends that when the eGFR is used in patients with extremes of body mass index for purposes of drug dosing, the eGFR should be multiplied by the estimated BMI. [facility] CHEM PANEL Bili Total 0.5 0.2 - 1.3 11/20/2015 [facility] CHEM PANEL Alk Phos 93 39 - 136 11/20/2015 [facility] CHEM PANEL Glucose Lvl 79 70 - 99 11/20/2015 [facility] CHEM PANEL Chloride Lvl 103 95 - 109 11/20/2015 [facility] CHEM PANEL BUN 15 7 - 22 11/20/2015 [facility] CHEM PANEL Creatinine Lvl 1.02 0.50 - 1.40 11/20/2015 [facility] CHEM PANEL Sodium Lvl 142 135 - 145 11/20/2015 [facility] CHEM PANEL Potassium Lvl 4.1 3.5 - 5.1 11/20/2015 [facility] CHEM PANEL AGAP 16.1 10.0 - 20.0 11/20/2015 [facility] CHEM PANEL Calcium Lvl 8.8 8.5 - 10.5 11/20/2015 [facility] CHEM PANEL Total Protein 5.9 6.4 - 8.4 11/20/2015 [facility] CHEM PANEL Globulin 2.6 2.0 - 4.0 11/20/2015 [facility] CHEM PANEL CO2 27 24 - 32 11/20/2015 [facility] CHEM PANEL B/C Ratio 15 6 - 25 11/20/2015 [facility] CHEM PANEL Albumin Lvl 3.3 3.5 - 5.0 11/20/2015 [facility] CHEM PANEL AST 20 0 - 37 11/20/2015 [facility] CHEM PANEL A/G Ratio 1.3 0.7 - 1.6 11/20/2015 [facility] CHEM PANEL ALT 27 0 - 65 11/20/2015 [facility] CHEM PANEL Uric Acid 4.9 3.8 - 8.0 11/20/2015 [facility] CHEM PANEL Vitamin D, 25-OH, Total 3 3 30 - 100 11/20/2015 [facility] HEMATOLOGY Eosinophils 5.0 0.0 - 4.0 11/20/2015 [facility] HEMATOLOGY Monocytes 16.9 2.0 - 12.0 11/20/2015 [facility] HEMATOLOGY Lymphocytes 33.4 20.0 - 40.0 11/20/2015 [facility] HEMATOLOGY Lymphocytes # 1.7 1.0 - 5.5 11/20/2015 [facility] HEMATOLOGY Segs-Bands # 2.2 1.5 - 8.1 11/20/2015 [facility] HEMATOLOGY Basophils 0.9 0.0 - 1.0 11/20/2015 [facility] HEMATOLOGY Segs 43.8 45.0 - 75.0 11/20/2015 [facility] HEMATOLOGY Monocytes # 0.9 0.0 - 0.8 11/20/2015 [facility] HEMATOLOGY Eosinophils # 0.3 0.0 - 0.5 11/20/2015 [facility] HEMATOLOGY RDW 33.0 11.5 - 14.5 11/20/2015 [facility] HEMATOLOGY MCHC 31.6 32.0 - 36.0 11/20/2015 [facility] HEMATOLOGY MCH 27.4 27.0 - 31.0 11/20/2015 [facility] HEMATOLOGY MCV 86.5 80.0 - 94.0 11/20/2015 [facility] HEMATOLOGY MPV 8.8 7.4 - 10.4 11/20/2015 [facility] HEMATOLOGY Platelet 165 133 - 450 11/20/2015 [facility] HEMATOLOGY WBC 5.1 3.7 - 10.4 11/20/2015 [facility] HEMATOLOGY Hct 39.9 42.0 - 54.0 11/20/2015 [facility] HEMATOLOGY Hgb 12.6 14.0 - 18.0 11/20/2015 [facility] HEMATOLOGY RBC 4.61 4.70 - 6.10 11/20/2015 [facility] IMMUNOLOGY Homocyst Tot 11.6 3.7 - 13.9 11/20/2015 [facility] LIPIDS VLDL 46 11/20/2015 [facility] LIPIDS LDL (Calculated) 78 <=99 mg/dL 11/20/2015 [facility] LIPIDS HDL 35 >=61 mg/dL 11/20/2015 [facility] LIPIDS Trig 231 <=149 mg/dL 11/20/2015 [facility] LIPIDS Chol 159 <=199 mg/dL 11/20/2015 [facility] LIPIDS CHD Risk 4.54 4.00 - 7.30 11/20/2015 [facility] SPECIAL CHEMISTRY Hgb A1C 5.6 <=5.6 % 11/20/2015 [facility] CHEM PANEL Lactic Acid Lvl 1.8 0.5 - 2.2 11/20/2015 [facility] CHEM PANEL Lactic Acid Lvl 2.1 0.5 - 2.2 11/19/2015 [facility] CHEM PANEL ALT 33 0 - 65 11/19/2015 [facility] CHEM PANEL Albumin Lvl 3.4 3.5 - 5.0 11/19/2015 [facility] CHEM PANEL Total Protein 6.7 6.4 - 8.4 11/19/2015 [facility] CHEM PANEL Bili Total 0.5 0.2 - 1.3 11/19/2015 [facility] CHEM PANEL Alk Phos 98 39 - 136 11/19/2015 [facility] CHEM PANEL AST 23 0 - 37 11/19/2015 [facility] CHEM PANEL A/G Ratio 1.0 0.7 - 1.6 11/19/2015 [facility] CHEM PANEL Globulin 3.3 2.0 - 4.0 11/19/2015 [facility] CHEM PANEL B/C Ratio 13 6 - 25 11/19/2015 [facility] HEMATOLOGY Basophils # 0.1 0.0 - 0.2 11/19/2015 [facility] HEMATOLOGY Macrocyte 1+ *ABN* (11/19/15 6:18 PM) None Seen 11/19/2015 [facility] HEMATOLOGY Hypochrom 2+ (11/19/15 6:18 PM) None Seen 11/19/2015 [facility] HEMATOLOGY Microcyte 2+ *ABN* (11/19/15 6:18 PM) None Seen 11/19/2015 [facility] HEMATOLOGY Anisocyte 3+ (11/19/15 6:18 PM) None Seen 11/19/2015 [facility] HEMATOLOGY Plt Morph Dalia l (11/19/15 6:18 PM) 11/19/2015 [facility] URINE AND STOOL UA Urobilinogen <=1.0 mg/dL 0.1 - 1.0 11/19/2015 [facility] URINE AND STOOL UA Sq Epi None Seen 11/19/2015 [facility] URINE AND STOOL UA pH 5.0 5.0 - 8.0 11/19/2015 [facility] URINE AND STOOL UA Blood Negative (11/19/15 9:14 AM) Negative 11/19/2015 [facility] URINE AND STOOL UA Glucose Negative mg/dL Negative mg/dL 11/19/2015 [facility] URINE AND STOOL UA Protein Negative mg/dL Negative mg/dL 11/19/[address] [facility] [address] URINE AND STOOL UA Ketones Negative mg/dL Negative mg/dL 11/19/2015 [facility] URINE AND STOOL UA Bili Negative *NA* (11/19/15 9:14 AM) Negative 11/19/2015 [facility] URINE AND STOOL UA Spec Grav 1.020 <=1.030 11/19/2015 [facility] URINE AND STOOL UA Leuk Est Negative (11/19/15 9:14 AM) Negative 11/19/2015 [facility] URINE AND STOOL UA Nitrite Negative (11/19/15 9:14 AM) Negative 11/19/2015 [facility] URINE AND STOOL UA RBC <1 0 - 2 11/19/2015 [facility] URINE AND STOOL UA WBC <1 0 - 5 11/19/2015 [facility] URINE AND STOOL UA Turbidity Clear (11/19/15 9:14 AM) Clear 11/19/2015 [facility] URINE AND STOOL UA Color Yellow *NA* (11/19/15 9:14 AM) Yellow 11/19/2015 [facility] HEMATOLOGY MPV 8.6 7.4 - 10.4 08/09/2015 [facility] HEMATOLOGY Platelet 220 133 - 450 08/09/2015 [facility] HEMATOLOGY RDW 27.0 11.5 - 14.5 08/09/2015 [facility] HEMATOLOGY MCHC 31.3 32.0 - 36.0 08/09/2015 [facility] HEMATOLOGY MCH 25.3 27.0 - 31.0 08/09/2015 [facility] HEMATOLOGY MCV 80.9 80.0 - 94.0 08/09/2015 [facility] HEMATOLOGY Hct 33.8 42.0 - 54.0 08/09/2015 [facility] HEMATOLOGY Hgb 10.6 14.0 - 18.0 08/09/2015 [facility] HEMATOLOGY RBC 4.17 4.70 - 6.10 08/09/2015 [facility] HEMATOLOGY WBC 10.6 3.7 - 10.4 08/09/2015 [facility] HEMATOLOGY Eosinophils 3.7 0.0 - 4.0 08/09/2015 [facility] HEMATOLOGY Segs 74.1 45.0 - 75.0 08/09/2015 [facility] HEMATOLOGY Monocytes 9.4 2.0 - 12.0 08/09/2015 [facility] HEMATOLOGY Lymphocytes 12.3 20.0 - 40.0 08/09/2015 [facility] HEMATOLOGY Basophils 0.5 0.0 - 1.0 08/09/2015 [facility] HEMATOLOGY Plt Morph Dalia l (08/09/15 4:43 AM) 08/09/2015 [facility] HEMATOLOGY Basophils # 0.1 0.0 - 0.2 08/09/2015 [facility] HEMATOLOGY Eosinophils # 0.4 0.0 - 0.5 08/09/2015 [facility] HEMATOLOGY Anisocyte 2+ *ABN* (08/09/15 4:43 AM) None Seen 08/09/2015 [facility] HEMATOLOGY Segs-Bands # 7.8 1.5 - 8.1 08/09/2015 [facility] HEMATOLOGY Monocytes # 1.0 0.0 - 0.8 08/09/2015 [facility] HEMATOLOGY Lymphocytes # 1.3 1.0 - 5.5 08/09/2015 [facility] CHEM PANEL Magnesium Lvl 1.8 1.8 - 2.4 08/08/2015 [facility] CHEM PANEL Phosphorus 3.5 2.5 - 4.5 08/08/2015 [facility] ELECTROLYTES AGAP 12.0 10.0 - 20.0 08/08/2015 [facility] ELECTROLYTES eGFR 88 08/08/2015 Result Comment: The eGFR is calculated using the [...] from the National Kidney Disease Education Program (NKDEP) which additionally recommends that when the eGFR is used in patients with extremes of body mass index for purposes of drug dosing, the eGFR should be multiplied by the estimated BMI. [facility] ELECTROLYTES Calcium Lvl 8.4 8.5 - 10.5 08/08/2015 [facility] ELECTROLYTES Potassium Lvl 4.0 3.5 - 5.1 08/08/2015 [facility] ELECTROLYTES Chloride Lvl 107 95 - 109 08/08/2015 [facility] ELECTROLYTES CO2 26 24 - 32 08/08/2015 [facility] ELECTROLYTES BUN 13 7 - 22 08/08/2015 [facility] ELECTROLYTES Creatinine Lvl 0.8 9 0.50 - 1.40 08/08/2015 [facility] ELECTROLYTES Glucose Lvl 100 70 - 99 08/08/2015 [facility] ELECTROLYTES Sodium Lvl 141 135 - 145 08/08/2015 [facility] HEMATOLOGY Eosinophils # 0.1 0.0 - 0.5 08/08/2015 [facility] HEMATOLOGY Anisocyte 2+ *ABN* (08/08/15 4:51 AM) None Seen 08/08/2015 [facility] HEMATOLOGY Monocytes # 1.0 0.0 - 0.8 08/08/2015 [facility] HEMATOLOGY Monocytes 11.8 2.0 - 12.0 08/08/2015 [facility] HEMATOLOGY Lymphocytes 16.3 20.0 - 40.0 08/08/2015 [facility] HEMATOLOGY Segs 70.9 45.0 - 75.0 08/08/2015 [facility] HEMATOLOGY Basophils 0.4 0.0 - 1.0 08/08/2015 [facility] HEMATOLOGY Eosinophils 0.6 0.0 - 4.0 08/08/2015 [facility] HEMATOLOGY Lymphocytes # 1.4 1.0 - 5.5 08/08/2015 [facility] HEMATOLOGY Segs-Bands # 6.1 1.5 - 8.1 08/08/2015 [facility] HEMATOLOGY RBC 4.42 4.70 - 6.10 08/08/2015 [facility] HEMATOLOGY MCH 26.1 27.0 - 31.0 08/08/2015 [facility] HEMATOLOGY MCV 80.6 80.0 - 94.0 08/08/2015 [facility] HEMATOLOGY MCHC 32.3 32.0 - 36.0 08/08/2015 [facility] HEMATOLOGY Hgb 11.5 14.0 - 18.0 08/08/2015 [facility] HEMATOLOGY Hct 35.7 42.0 - 54.0 08/08/2015 [facility] HEMATOLOGY MPV 9.0 7.4 - 10.4 08/08/2015 [facility] HEMATOLOGY Platelet 216 133 - 450 08/08/2015 [facility] HEMATOLOGY RDW 27.0 11.5 - 14.5 08/08/2015 [facility] HEMATOLOGY WBC 8.5 3.7 - 10.4 08/08/2015 [facility] BLOOD BANK RESULTS Antibody Scrn Negative (08/07/15 9:35 AM) 08/07/2015 [facility] BLOOD BANK RESULTS ABO/Rh O POS 08/07/2015 [facility] CHEM PANEL B/C Ratio 14 6 - 25 07/28/2015 [facility] CHEM PANEL Globulin 3.1 2.0 - 4.0 07/28/2015 [facility] CHEM PANEL A/G Ratio 1.3 0.7 - 1.6 07/28/2015 [facility] CHEM PANEL AGAP 11.0 10.0 - 20.0 07/28/2015 [facility] CHEM PANEL eGFR 75 07/28/2015 Result Comment: The eGFR is calculated using the [...] from the National Kidney Disease Education Program (NKDEP) which additionally recommends that when the eGFR is used in patients with extremes of body mass index for purposes of drug dosing, the eGFR should be multiplied by the estimated BMI. [facility] CHEM PANEL AST 17 0 - 37 07/28/2015 [facility] CHEM PANEL Bili Total 0.9 0.2 - 1.3 07/28/2015 [facility] CHEM PANEL Alk Phos 95 39 - 136 07/28/2015 [facility] CHEM PANEL Total Protein 7.1 6.4 - 8.4 07/28/2015 [facility] CHEM PANEL Albumin Lvl 4.0 3.5 - 5.0 07/28/2015 [facility] CHEM PANEL ALT 25 0 - 65 07/28/2015 [facility] CHEM PANEL Calcium Lvl 8.8 8.5 - 10.5 07/28/2015 [facility] CHEM PANEL Chloride Lvl 104 95 - 109 07/28/2015 [facility] CHEM PANEL CO2 31 24 - 32 07/28/2015 [facility] CHEM PANEL Potassium Lvl 5.0 3.5 - 5.1 07/28/2015 [facility] CHEM PANEL Sodium Lvl 141 135 - 145 07/28/2015 [facility] CHEM PANEL Creatinine Lvl 1.03 0.50 - 1.40 07/28/2015 [facility] CHEM PANEL BUN 14 7 - 22 07/28/2015 [facility] CHEM PANEL Glucose Lvl 73 70 - 99 07/28/2015 [facility] HEMATOLOGY WBC 8.4 3.7 - 10.4 07/28/2015 [facility] HEMATOLOGY RBC 4.81 4.70 - 6.10 07/28/2015 [facility] HEMATOLOGY Hgb 12.2 14.0 - 18.0 07/28/2015 [facility] HEMATOLOGY MCV 79.1 80.0 - 94.0 07/28/2015 [facility] HEMATOLOGY MCH 25.3 27.0 - 31.0 07/28/2015 [facility] HEMATOLOGY Hct 38.1 42.0 - 54.0 07/28/2015 [facility] HEMATOLOGY MPV 9.3 7.4 - 10.4 07/28/2015 [facility] HEMATOLOGY RDW 31.4 11.5 - 14.5 07/28/2015 [facility] HEMATOLOGY Platelet 232 133 - 450 07/28/2015 [facility] HEMATOLOGY MCHC 32.0 32.0 - 36.0 07/28/2015 [facility] HEMATOLOGY PTT 30.6 22.9 - 35.8 07/28/2015 [facility] HEMATOLOGY INR 1.17 0.85 - 1.17 07/28/2015 [facility] HEMATOLOGY PT 15.2 12.0 - 14.7 07/28/2015 [facility] HEMATOLOGY Anisocyte 3+ *NA* (07/28/15 2:20 PM) None Seen 07/28/2015 [facility] HEMATOLOGY Monocytes # 0.7 0.0 - 0.8 07/28/2015 [facility] HEMATOLOGY Segs-Bands # 5.3 1.5 - 8.1 07/28/2015 [facility] HEMATOLOGY Eosinophils # 0.4 0.0 - 0.5 07/28/2015 [facility] HEMATOLOGY Lymphocytes # 2.0 1.0 - 5.5 07/28/2015 [facility] HEMATOLOGY Microcyte 1+ *ABN* (07/28/15 2:20 PM) None Seen 07/28/2015 [facility] HEMATOLOGY Basophils 0.5 0.0 - 1.0 07/28/2015 [facility] HEMATOLOGY Monocytes 8.0 2.0 - 12.0 07/28/2015 [facility] HEMATOLOGY Eosinophils 5.0 0.0 - 4.0 07/28/2015 [facility] HEMATOLOGY Segs 62.9 45.0 - 75.0 07/28/2015 [facility] HEMATOLOGY Lymphocytes 23.6 20.0 - 40.0 07/28/2015 [facility] HEMATOLOGY Plt Morph Dalia l (07/28/15 2:20 PM) 07/28/2015 [facility] URINE AND STOOL UA Urobilinogen <=1.0 mg/dL 0.1 - 1.0 07/28/2015 [facility] URINE AND STOOL UA Sq Epi None Seen 07/28/2015 [facility] URINE AND STOOL UA Mucus Few /LPF None Seen /LPF 07/28/2015 [facility] URINE AND STOOL UA Leuk Est Negative (07/28/15 2:20 PM) Negative 07/28/2015 [facility] URINE AND STOOL UA Bacteria Occasional /HPF None Seen /HPF 07/28/2015 [facility] URINE AND STOOL UA WBC 1 0 - 5 07/28/2015 [facility] URINE AND STOOL UA Protein Negative mg/dL Negative mg/dL 07/28/2015 [facility] URINE AND STOOL UA Nitrite Negative (07/28/15 2:20 PM) Negative 07/28/2015 [facility] URINE AND STOOL UA pH 7.0 5.0 - 8.0 07/28/2015 [facility] URINE AND STOOL UA Glucose Negative mg/dL Negative mg/dL 07/28/2015 [facility] URINE AND STOOL UA Ketones Negative mg/dL Negative mg/dL 07/28/2015 [facility] URINE AND STOOL UA Spec Grav 1.015 <=1.030 07/28/2015 [facility] URINE AND STOOL UA Turbidity Clear (07/28/15 2:20 PM) Clear 07/28/2015 [facility] URINE AND STOOL UA Blood Negative (07/28/15 2:20 PM) Negative 07/28/2015 [facility] URINE AND STOOL UA Bili Negative *NA* (07/28/15 2:20 PM) Negative 07/28/2015 [facility] URINE AND STOOL UA Color Yellow *NA* (07/28/15 2:20 PM) Yellow 07/28/2015 [facility] Pathology Reports No Data Provided for This Section Diagnostic Reports Report Value Date Source Chest/Abdomen/Pelvis w IV contrast CT Radiation Dose CTDIVOL = 0 (mGy): DLP = 460.1 (mGy-cm) PROCEDURE INFORMATION: Exam: CT Chest With Contrast Exam date and time: 10/25/2019 10:25 AM Age: 69 years old 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 Radiation optimization: All CT scans at this facility use at least one of these dose optimization techniques: automated exposure control; mA and/or kV adjustment per patient size (includes targeted exams where dose is matched to clinical indication); or iterative reconstruction. Contrast material: OMNI; Contrast volume: 80 ml; Contrast route: IV; Other contrast: Oral, omni, 50; COMPARISON: CHEST ABDOMEN PELVIS W CONTRAST CT 06/16/2019 9:21 AM RADIATION DOSE METRICS: Total DLP: 460.1 mGy-cm FINDINGS: Tubes, catheters and devices: Right internal jugular Port-A-Cath terminates at the caval atrial junction. Lungs: Emphysema with interstitial scarring. Innumerable bilateral pulmonary metastases, many increased in size and many with central cavitation, consistent with metastatic disease. For example, dominant right lower lobe nodule 1.8 x 2.5 cm, increased from 1.6 x 2.2 cm, ser ies 4, image 171. Right lower lobe nodule series 4, image 184, 1 x 1.2 cm as compared with 0.8 x 1 cm previously. No endobronchial obstructing lesion or pneumonia. Pleural space: Chronic pleural and parenchymal scarring anterior left upper lobe. No pleural effusion. Heart: Heart normal. No pericardial effusion. Aorta: Aortic atherosclerosis. Lymph nodes: No hilar or mediastinal adenopathy. Bones/joints: Unremarkable skeleton. Soft tissues: Unremarkable. 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 Radiation optimization: All CT scans at this facility use at least one of these dose optimization techniques: automated exposure control; mA and/or kV adjustment per patient size (includes targeted exams where dose is matched to clinical indication); or iterative reconstruction. Contrast material: OMNI; Contrast volume: 80 ml; Contrast route: IV; Other contrast: Oral, omni, 50; COMPARISON: CHEST ABDOMEN PELVIS W CONTRAST CT 06/16/2019 9:21 AM RADIATION DOSE METRICS: Total DLP: 460.1 mGy-cm FINDINGS: Liver: Cirrhotic liver. Stable small low-attenuation lateral segment left lobe lesion. Gallbladder and bile ducts: Gallbladder and common duct normal. Pancreas: Pancreas normal. Spleen: Splenomegaly. Adrenals: Adrenals normal. Kidneys and ureters: No renal mass, calculus, hydronephrosis or perinephric stranding. Stomach and bowel: Post ascending colectomy with unremarkable anastomosis. No other intestinal lesion. Appendix: No evidence of appendicitis. Intraperitoneal space: Moderate ascites, increased in volume. Vasculature: Portal hypertension with varices. Moderate atherosclerosis. Lymph nodes: Stable mild retroperitoneal adenopathy. Bladder: Small volume urinary bladder not remarkable. Reproductive: Prostate normal. Bones/joints: Minor spondylosis. Soft tissues: Small bilateral fluid-filled inguinal hernias. IMPRESSION: CT Chest With Contrast 1. Progressive bilateral pulmonary metas tases. 2. Emphysema with scarring. CT Abdomen And Pelvis With Contrast 1. Progressive ascites. 2. Cirrhosis with stable small left lobe lesion. 3. Portal hypertension, varices and sple nomegaly unchanged. 4. Post ascending colectomy. 5. Stable mild retroperitoneal adenopath y. 6. Bilateral inguinal hernias now contai collin fluid. Adonay Prieto MD On 10/26/2019 09:21:46; [id number] 10/25/2019 [facility] Chest/Abdomen/Pelvis w IV contrast CT Radiation Dose CTDIVOL = 0 (mGy): DLP = 1132 (mGy-cm) PROCEDURE INFORMATION: Exam: CT Chest With Contrast Exam date and time: 06/16/2019 9:21 AM Age: 69 years old Clinical indication: Condition or disease; Additional info: /colon cancer. Patient states he's been in treatment for his cancer. CT for follow up. TECHNIQUE: Imaging protocol: Computed tomography of the chest with intravenous contrast. Total DLP: 1132 mGy-cm Radiation optimization: All CT scans at this facility use at least one of these dose optimization techniques: automated exposure control; mA and/or kV adjustment per patient size (includes targeted exams where dose is matched to clinical indication); or iterative reconstruction. Contrast material: OMNI; Contrast volume: 100 ml; Contrast route: IV; COMPARISON: CHEST ABDOMEN PELVIS W CONTRAST CT 02/12/2019 8:17 AM FINDINGS: Lungs: Numerous bilateral pulmonary nodules are redemonstrated. Cavitary right upper lobe pulmonary nodule on series 4, image 77 measures 2.2 cm, increased in size compared to prior study (1.2 cm). 8 mm left lower lobe pulmonary nodule on series 4, image 91 measured 5 mm previously. Majority of the pulmonary nodules are however unchanged compared to prior study. No new pulmonary nodules confidently identified. Pleural space: No pneumothorax. No pleural effusion. Heart: No cardiomegaly. No pericardial effusion. Pulmonary arteries: Main pulmonary artery is normal in caliber. Aorta: Within normal limits. No aortic aneurysm. Lymph nodes: No threshold enlarged lymph nodes visualized. Bones/joints: No acute osseous abnormalities. No suspicious lytic or blastic osseous lesions. Soft tissues: No mass or fluid collection. IMPRESSION: The chest impression is included in the impression of the abdomen and pelvis. PROCEDURE INFORMATION: Exam: CT Abdomen And Pelvis With Contrast Exam date and time: 06/16/2019 9:21 AM Age: 69 years old Clinical indication: Condition or disease; Additional info: /colon cancer. Patient states he's been in treatment for his cancer. CT for follow up. TECHNIQUE: Imaging protocol: Computed tomography of the abdomen and pelvis with intravenous contrast. Total DLP: 1132 mGy-cm Radiation optimization: All CT scans at this facility use at least one of these dose optimization techniques: automated exposure control; mA and/or kV adjustment per patient size (includes targeted exams where dose is matched to clinical indication); or iterative reconstruction. Contrast material: OMNI; Contrast volume: 100 ml; Contrast route: IV; COMPARISON: CHEST ABDOMEN PELVIS W CONTRAST CT 02/12/2019 8:17 AM FINDINGS: Liver: Hypodensity in the lower posterior left hepatic lobe on series 3, image 92 measures approximately 1.5 cm, simila r to prior study. No other focal hepatic lesions identified. Liver contour is nodular. There is enlargement of the caudate and left hepatic lobes, suggestive of cirrhosis. Gallbladder and bile ducts: No gross abnormalities. No biliary ductal dilatation. Pancreas: Within normal limits. No ductal dilation. Spleen: Spleen measures up to 13.6 cm in craniocaudal dimension. Adrenals: Within normal limits. No nodule. Kidneys and ureters: No hydroureteronephrosis or urolithiasis. No focal renal lesions. Stomach and bowel: Oral contrast reaches the rectum.Small bowel and colon are nondilated. Appendix: No evidence of appendicitis. Intraperitoneal space: Moderate amount of fat stranding and edema in the central mesenteric root is similar to prior study. Small volume of perihepatic ascites is noted. Vasculature: Portal venous thrombosis extends into the right and left portal veins and branches. No complete occlusion confidently identified. Lymph nodes: Cavoatrial lymph node on series 3, image 124 measures 1.4 cm, similar to prior study. No new or enlarging periaortic, retroperitoneal, or mesenteric lymph nodes identified. Bladder: No gross abnormalities. Reproductive: Unremarkable as visualized. Bones/joints: No acute osseous abnormalities. No suspicious lytic or blastic osseous lesions. Soft tissues: Small bilateral fat containing inguinal hernias are redemonstrated. IMPRESSION: Multiple bilateral pulmonary nodules are consistent with known metastatic disease. A majority of the pulmonary nodules are similar to or slightly increased in size compared to prior study, suggestive of mild disease progression. No new pulmonary nodules confidently identified. Unchanged posterior right hepatic lobe hypodensity is poorly assessed on this single phase contrast-enhanced study. This could represent a metastasis or hepatocellular carcinoma. MRI with IV contrast would be helpful for further assessment of this is of clinical significance. Portal venous thrombosis extending into the right and left intrahepatic portal veins, new compared to prior study. Stable small periaortic/retroperitoneal lymph nodes. Mild splenomegaly. Adonay Falcon MD On 06/16/2019 13:02:08; [id number] 06/16/2019 [facility] Chest/Abdomen/Pelvis w IV contrast CT CT CHEST ABDOMEN PELVIS WITH CONTRAST: HISTORY: Colon carcinoma, follow-up. TECHNIQUE: Multislice axial acquisitions were done through the chest, abdomen and pelvis with IV contrast. Oral contrast was also administered. Sagittal and coronal reformatted images were also obtained. DLP 1136 mGycm. FINDINGS: There are multiple small nodules in both lungs developing since the PET/CT on 11/12/2017, ranging in size from a few millimeters up to 2 cm in the right lower lobe. There is linear stellate opacity in the region of a previously demonstrated right upper lobe nodule which may be due to posttreatment changes, although underlying residual disease is not excluded. There is increased size of the pre-existing nodule in the left upper lobe, also with some linear changes suggesting previous treatment. There are no pleural abnormalities. There is no significant mediastinal or hilar lymph node enlargement. There are some small vague low-attenuation areas in the liver, not definitely seen on the previous PET/CT. Mild cirrhotic morphology of the liver is again noted with splenomegaly, unchanged from the previous CT. There is no evidence of ascites. The portal venous system is patent without visible varices. Right colectomy is again noted. There is no visible mass in the residual colon. There are no other significant gastrointestinal tract abnormalities. There is a mildly enlarged lymph node in the right lower quadrant mesentery not seen on the previous study. There is hazy attenuation in the mesentery without other significant lymph node enlargement. There is mild lymph node enlargement in the left para-aortic region developing since the PET/CT, without other significant lymph node enlargement in the retroperitoneum. Atherosclerotic calcification is noted throughout the regional vasculature without acute vascular abnormalities. A right jugular Port-A-Cath is seen in good position. No definite lytic or blastic osseous lesions are demonstrated. Degenerative changes in the thoracic and lumbar spine. IMPRESSION: 1. Progressive pulmonary metastases sinc e 11/12/2017. 2. Probable liver metastases. 3. Mild mesenteric and retroperitoneal l ymph node enlargement developing since 11/12/2017, consistent with metastatic disease. 4. Cirrhosis with splenomegaly. 5. No other acute CT abnormalities in ch est, abdomen or pelvis. SL [id number] 02/12/[address] [facility] [address] Colorectal CA restaging Patient Name: CRISTOPHER WALTON : 1950; Age: 67 years Male MR: [id number] Study: PET CT Colorectal CA restaging 11/12/2017 11:00 AM CDT Clinical Indication: C18.2 Malignant neoplasm of ascending colon--Restaging. Dose: DLP = 1221.94mGy*cm ; CTDIvol = 11.83 mGy COMPARISON: None PET CT TECHNIQUE: Positron emission tomography imaging is performed 45 minutes after intravenous administration of 15.2 mCi of F-18 labeled FDG, from the skull base to the mid thigh region. PET images were reviewed in the axial, coronal and sagittal orthogonal projections. Non-contrast enhanced CT imaging was for performed for attenuation correction, localization and limited diagnostic purposes. INJECTION SITE: Right hand Serum glucose: 112 mg/dL. FINDINGS: NECK: There are no foci of abnormal metabolic activity. CHEST: Right upper lobe pulmonary nodule, image 87, measures 14 mm x 12 mm. This compares to 10 mm x 9 mm. The SUV measures 3.0 versus 2.3. Left upper lobe pulmonary nodule, image 78, measures 7 mm versus 6 mm. The SUV measures 0.4 versus 0.4. Small bilateral axillary lymph nodes SUVs measure up to 1.1 cm similar to the prior exam. Cardiomegaly with coronary artery calcifications. ABDOMEN: There are no foci of abnormal metabolic activity. Slight gallbladder wall thickening. Splenomegaly. PELVIS: There are no foci of abnormal metabolic activity. Right colonic anastomosis similar to the prior exam. BONES: There are no foci of abnormal metabolic activity. Physiologic F-18 labeled FDG distribution is noted in the brain, heart, liver, spleen, gastrointestinal and genitourinary tracts. IMPRESSION: 1. Increased size and activity to the r ight upper lobe presumed pulmonary metastasis. 2. Increased size to the left upper lob e presumed pulmonary metastasis. 3. Slight gallbladder wall thickening. If there is concern for gallbladder pathology, ultrasound is recommended to further evaluate. 4. Splenomegaly. FDG PET is known to show little to no uptake in malignant disease with low metabolic activity including bronchoalveolar carcinoma (renamed adenocarcinoma in situ, minimally invasive adenocarcinoma) or carcinoid. There are studies showing malignant pleural mesothelioma with SUV values ranging from less than 1 to greater than 12 depending on metabolic activity of the tumor. SL: [id number] 11/12/[address] [facility] PET CT Colorectal CA restaging EXAM: PET CT HISTORY: Colorectal cancer, restaging. Chemotherapy May 2017. No radiation therapy. Right hemicolectomy. COMPARISON: PET/CT 04/21/2017, 07/08/2016 TECHNIQUE: 13 mCi F-18 FDG given intravenously. Images obtained from the mid skull through the thighs approximately [address] is used for anatomic correlation. Blood glucose 81. DLP 2494. CTDIvol 14.5 FINDINGS: HEAD/NECK: No suspicious activity. CHEST: 11 mm lung nodule right upper lobe previously measured 8 mm and has SUV of 1.6. 6 mm lung nodule left upper lobe, image 66 is not hypermetabolic and stable compared with 04/21/2017 but larger compared with 07/08/2016. New mild opacities posterior right upper lobe. ABDOMEN AND PELVIS: No new suspicious activity is seen. Stable right hemicolectomy. Patchy fatty change of the liver. A small hypermetabolic focus in the left hepatic lobe, image 115 has SUV of 4.7 and is new. MUSCULOSKELETAL: No suspicious activity. IMPRESSION: 1. Increased size of two lung nodules co mpatible with metastasis. 2. Small hypermetabolic focus in the lef t hepatic lobe may be physiological, metastasis is not excluded. An MRI abdomen/liver without and with contrast can further evaluate. SL 13 06/30/2017 [facility] Shoulder series DX Exam: Righ t shoulder x-ray, 3 views Reason for Exam: - right shoulder pain Comparison Exam: None Discussion: No acute bony abnormality seen of the right shoulder. The glenohumeral joint is intact. The acromioclavicular joint and visualized portions of the scapula are unremarkable. No suspicious osteoblastic or osteolytic lesions. The visualized portions of the right rib cage and right lung are unremarkable. Right-sided chest port is noted. Impression: 1. Unremarkable right shoulder xray 05/03/2017 [facility] Wrist complete DX Exam: Left w rist x-ray, 3 views Reason for Exam: - left wrist pain Comparison Exam: None Discussion: No acute bony abnormalities seen within the left wrist. The distance between the scaphoid and lunate bones are slightly widened. Correlate for possible scapholunate ligament injury. No intraosseous lesions. No radiopaque foreign bodies. Impression: 1. No acute bony abnormalities seen wit hin the left wrist. The distance between the scaphoid and lunate bones are slightly widened. Correlate for possible scapholunate ligament injury. 05/03/[address] [facility] Colorectal CA restaging PET CT Colorectal CA restaging TECHNIQUE: 15.7 mCis of FDG were administered intravenously and a series of overlapping images were obtained from the skull base to the proximal thighs utilizing a PET/CT hybrid device. The CT was utilized for attenuation correction and anatomic correlation and not as an independent diagnostic study. BLOOD GLUCOSE: 73 mg/dl COMPARISON: 07/08/2016 CLINICAL HISTORY: C18.2 Malignant neoplasm of ascending colon - DLP= 1184.78 mGy-cm, CTDIvol= 11.47 mGy; FINDINGS: HEAD AND NECK: No abnormal activity is visualized. CHEST: 8 mm soft tissue density nodule is visualized in the right upper lobe. On retrospect this small nodule was present on the previous study but smaller in size. The nodule appears to be mildly larger than the previous study but this may be related to slice selection. Maximum SUV is 1.0 on image 87. Stable cardiomegaly. ABDOMEN AND PELVIS: Stable postoperative changes. No abnormal activity is noted at the bowel anastomotic site in the right mid to lower abdomen. Stable hepatosplenomegaly. Physiologic activity is visualized in the solid organs, genitourinary tract and gastrointestinal tract. MUSCULOSKELETAL: No abnormal activity is visualized IMPRESSION: Stable postoperative changes right lower abdomen. No PET/CT evidence to suggest residual or recurrent neoplasm. 8 mm soft tissue density nodule without any significant increase in metabolic activity. Likelihood of metastatic disease is low but this possibility cannot be entirely excluded. If there are any prior CT scans of the chest, these would be helpful in comparison. 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 PET images were reviewed in the axial, coronal and sagittal orthogonal projections. Non- contrast enhanced CT imaging was for performed for attenuation correction, localization and limited diagnostic purposes. Right antecubital injection site. Serum glucose: 91 mg/dL. FINDINGS: NECK: There are no foci of abnormal metabolic activity. CHEST: There are no foci of abnormal metabolic activity. Cardiomegaly with coronary artery calcifications. There is annuloaortic ectasia. Small bilateral axillary lymph nodes without abnormal activity. ABDOMEN: There are no foci of abnormal metabolic activity. The liver and spleen are enlarged. There is physiologic activity in the pancreas, adrenal glands and kidneys. The gallbladder is visualized. PELVIS: There are no foci of abnormal metabolic activity. Right colon anastomosis. No abnormal activity in the visualized small and large bowel. Small bilateral fat-containing inguinal hernias. The bladder is underdistended. Left gluteal sebaceous cyst. BONES: There are no foci of abnormal metabolic activity. IMPRESSION: 1. Postoperative anastomosis of the rig ht colon without abnormal activity. 2. Hepatosplenomegaly. 3. Cardiomegaly with coronary artery ca lcifications. 4. Annuloaortic ectasia. SL: [id number] 07/08/2016 [facility] Ext Upper Venous Doppler Unilat US Study: Right upper extremity Doppler venous ultrasound Clinical Indication: Right upper extremity pain Comparison: None FINDINGS: Multiple sonographic images of the right upper extremity were acquired. The visualized and compressible portions of the right internal jugular, subclavian, axillary, brachial, basilic, and cephalic veins demonstrate normal compressibility and flow without filling defect. IMPRESSION: No evidence of deep venous thrombosis of the right upper extremity. SL: [id number] 11/21/2015 [facility] Chest 2 views DX CHEST RADIOGR [facility] 2 VIEWS INDICATION: Cough and fever, history of colon cancer COMPARISON: Chest radiograph 06/13/2015 IMPRESSION: The lungs are underinflated. A right IJ chest port is in satisfactory position. Cardiac silhouette appears prominent, without radiographic evidence of acute congestive failure. There is stable mild atelectasis or scarring of the left lung base. Grossly, no consolidation, pleural effusion, or pneumothorax are visible. Scalloping of the right hemidiaphragm is incidentally noted. SL:16 11/19/2015 [facility] CVC insert tunnel w/-w/o port/pump age 5+ yrs VR Portacatheter placement, 09/16/2015 9:06 AM CDT Ordering Physician: Nancy Cruz MD CLINICAL HISTORY: Colorectal cancer COMPARISON: None PROCEDURE: Informed consent was obtained from the patient, after which the patient was brought into the examination suite and placed in a supine position on the fluoroscopy table. Right internal jugular vein with scanned with ultrasound and found to be compressible and patent. Right side of the neck and upper chest were prepped and draped utilizing all elements of maximal barrier sterile technique. Lidocaine 1% was injected into the skin and deeper soft tissues overlying the internal jugular vein. 21-gauge micropuncture needle was advanced under sonographic guidance to achieve the tip within the internal jugular vein. Sonographic image of right jugular venipuncture was placed in the patient's EMR. [place] mandril wire was advanced through the needle and into the SVC. Needle was exchanged for a 5-Andorran conversion sheath. Utilizing the cope mandril wire, the right atrial/SVC junction level was fluoroscopically visualized and marked to measure the intravascular length of the catheter. Microguidewire was exchanged for a 0.035 inch J-wire. Lidocaine 1% was injected into the skin in an infraclavicular location and superiorly and linearly up to the venotomy site through the potential tract of the catheter from the port. 3 cm horizontal incision was made in the infraclavicular soft tissues, after which a small subcutaneous pocket created with blunt dissection. The port pocket was irrigated with normal saline. The catheter was tunneled from the port pocket incision site superiorly to exit out of the venotomy site. The port and catheter were connected and the port was buried into the pocket. Catheter was trimmed to the appropriate length. Peel-away sheath was advanced over the J-wire and into the SVC. J-wire was removed.. Catheter was advanced through the peel-away catheter and appropriately positioned within the patient under fluoroscopic visualization. Port catheter was easily aspirateable and flushable. Port catheter was packed with 500 units of heparin. 2-0 Vicryl suture was used to deeply close the port pocket and the venotomy site in an interrupted fashion. 3-0 Vicryl suture was used to close the port pocket incision in a subcuticular fashion. Dermabond and Steri-Strips were used for final closure of the port pocket incision. Final chest radiograph demonstrated appropriately positioned right IJ port catheter with the tip of the right atrial/SVC junction. Patient was taken back to recovery stable fashion. COMPLICATIONS: None ANESTHESIA: Lidocaine 1%, subcutaneous; moderate conscious sedation utilizing intravenous 2 mg Versed and 100 mcg fentanyl, for a total uhwi-ly-kimb sedation time 38 minutes WAGON DRIVER: Dr. Walters FLUOROSCOPY TIME: 0.4 minutes IMPRESSION: Successful right internal jugular venous port catheter placement, which is now ready for use. SL: [id number] 09/16/2015 [facility] Chest 2 views DX CHEST PA AND LATERAL History: 65-year-old physical exam. Comparison: None. Findings: The lungs are partial expanded and no infiltrate, mass or pleural effusion seen. The anterior right hemidiaphragm is mild elevated. Fine densities in lower lung zones are likely atelectasis related to partial lung expansion. The perihilar vessels are mild prominent. The cardiomediastinal structures are within normal limits. Osseous structures show mild shoulder acromioclavicular joint arthritis.. IMPRESSION: There is no active cardio pulmonary abnormality. 06/13/2015 [facility] Consultation Notes No Data Provided for This Section Discharge Summaries No Data Provided for This Section History and Physicals No Data Provided for This Section Vital Signs Vital Sign Value Date Comments Source Weight 86.364 10/24/2019 [facility] Systolic (mm Hg) 133 10/24/2019 [facility] Diastolic (mm Hg) 68 10/24/2019 [facility] Heart Rate 85 10/24/2019 [facility] Respitory Rate 20 10/24/2019 [facility] Temperature Oral (F) 98 F 10/24/2019 [facility] Systolic (mm Hg) 121 11/24/2015 [facility] Diastolic (mm Hg) 63 11/24/2015 [facility] Respitory Rate 18 11/24/2015 [facility] Heart Rate 67 11/24/2015 [facility] Temperature Oral (F) 97.9 F 11/24/2015 [facility] Systolic (mm Hg) 117 11/24/2015 [facility] Diastolic (mm Hg) 77 11/24/2015 [facility] Respitory Rate 18 11/24/2015 [facility] Temperature Oral (F) 97.6 F 11/24/2015 [facility] Heart Rate 66 11/24/2015 [facility] Temperature Oral (F) 97.2 F 11/24/2015 [facility] Respitory Rate 18 11/24/2015 [facility] Systolic (mm Hg) 132 11/24/2015 [facility] Diastolic (mm Hg) 83 11/24/2015 [facility] Heart Rate 56 11/24/2015 [facility] Weight 99.091 11/20/2015 [facility] Height 177.8 cm 11/20/2015 [facility] Height 177.8 cm 11/20/2015 [facility] BMI Calculated 31.63 11/20/2015 [facility] Weight 100 11/20/2015 [facility] Height 177.8 cm 11/19/2015 [facility] BMI Calculated 31.63 11/19/2015 [facility] Weight 100 11/19/2015 [facility] Height 177.8 cm 09/16/2015 [facility] BMI Calculated 31.63 09/16/2015 [facility] Weight 100 09/16/2015 [facility] Systolic (mm Hg) 139 08/10/2015 [facility] Diastolic (mm Hg) 66 08/10/2015 [facility] Temperature Oral (F) 97.8 F 08/10/2015 [facility] Respitory Rate 16 08/10/2015 [facility] Heart Rate 49 08/10/2015 [facility] Temperature Oral (F) 98.1 F 08/10/2015 [facility] Systolic (mm Hg) 160 08/10/2015 [facility] Diastolic (mm Hg) 73 08/10/2015 [facility] Respitory Rate 18 08/10/2015 [facility] Heart Rate 59 08/10/2015 [facility] Temperature Oral (F) 97.9 F 08/10/2015 [facility] Respitory Rate 18 08/10/2015 [facility] Heart Rate 63 08/10/2015 [facility] Systolic (mm Hg) 149 08/10/2015 [facility] Diastolic (mm Hg) 73 08/10/2015 [facility] Weight 103.636 08/08/2015 [facility] BMI Calculated 32.78 08/08/2015 [facility] Height 177.8 cm 08/08/2015 [facility] Height 177.8 cm 08/07/2015 [facility] BMI Calculated 32.5 08/07/2015 [facility] Weight 102.727 08/07/2015 [facility] Height 177.8 cm 07/28/2015 [facility] BMI Calculated 32.64 07/28/2015 [facility] Weight 103.182 07/28/2015 [facility] Encounters Location Location Details Encounter Type Encounter Number Reason For Visit Attending Provider ADM Date DC Date Status Source [facility] [place] [facility] Di[facility] Services [id number] Rene Sepulveda 06/13/2015 06/14/2015 [facility] Inpatient [id number] Louis Marteln 08/07/2015 08/10/2015 [facility] Outpatient [id number] Nancy Gonzalesdanny 09/16/2015 09/17/2015 [facility] Inpatient [id number] Vanessa Cabraliq 11/19/2015 11/24/2015 [facility] Outpatient [id number] Nancy Cruz 07/08/2016 07/09/2016 [facility] Outpatient [id number] David Arguelles 04/21/2017 04/22/2017 [facility] - [place] Out[facility] Diag Services [id number] Rene Sepulveda 05/03/2017 05/04/2017 [facility] Out[facility] [id number] Lovely Childs 06/30/2017 07/01/2017 [facility] Outpatient [id number] Lovely Childs 11/12/2017 11/13/2017 [facility] Outpatient [id number] David Arguelles 02/12/2019 02/13/2019 [facility] Outpatient [id number] David Arguelles 06/16/2019 06/17/2019 [facility] Emergency [id number] Ricky Tawanda 10/24/2019 10/24/2019 [facility] Outpatient [id number] David Arguleles 10/25/2019 10/26/2019 [facility] Procedures Procedure Code Date Perfomer Comments Source Right hemicolectomy [id number] 08/07/2015 [facility] Tonsillectomy and adenoidectomy [id number] [facility], MANOJ Garcia ,[facility] Assessment and Plan Assessment and Plan Date Source Extracted from:Title: Clinical Document Author: Alyssa Wilkerson Date: 11/24/15 Internal Medicine Progress Note [facility] SUBJECTIVE No acute events. Pt denies TREVINO, dizziness, dysphagia, neck stiffness, CP, SOB, hemoptysis, N/V/D/C, hematemesis, hematochezia, hematuria, dysuria, skin rash. OBJECTIVE Vital Signs (last 24 hrs) Last Charted Temp Oral 97.9 DegF (NOV 23 16:00) Heart Rate Peripheral 67 bpm (NOV 23 16:00) Resp Rate 18 BRMIN (NOV 23 16:00) SBP 121 mmHg (NOV 23 16:00) DBP 63 mmHg (NOV 23 16:00) SpO2 98 % (NOV 23 16:00) Labs (Last four charted values) WBC 5.4 (MARIAH 18) 5.5 (MARIAH 17) 5.1 (MARIAH 16) 6.0 (MARIAH 15) Hgb L 12.6 (MARIAH 18) L 12.9 (MARIAH 17) L 12.6 (MARIAH 16) L 13.1 (MARIAH 15) Hct L 39.9 (MARIAH 18) L 40.3 (MARIAH 17) L 39.9 (MARIAH 16) L 40.3 (MARIAH 15) Plt 153 (MARIAH 18) 161 (MARIAH 17) 165 (MARIAH 16) 177 (MARIAH 15) Na 137 (MARIAH 18) 140 (MARIAH 17) 142 (MARIAH 16) 140 (MARIAH 15) K 3.9 (MARIAH 18) 4.2 (MARIAH 17) 4.1 (MARIAH 16) 4.2 (MARIAH 15) CO2 27 (MARIAH 18) 24 (MARIAH 17) 27 (MARIAH 16) 28 (MARIAH 15) Cl 103 (MARIAH 18) 106 (MARIAH 17) 103 (MARIAH 16) 104 (MARIAH 15) Cr 0.95 (MARIAH 18) 0.99 (MARIAH 17) 1.02 (MARIAH 16) 1.26 (MARIAH 15) BUN 14 (MARIAH 18) 14 (MARIAH 17) 15 (MARIAH 16) 17 (MARIAH 15) Glucose Random 81 (MARIAH 18) 91 (MARIAH 17) 79 (MARIAH 16) H 120 (MARIAH 15) Mg 2.2 (MARIAH 16) 2.3 (MARIAH 16) Phos 4.0 (MARIAH 16) 4.2 (MARIAH 16) Ca 8.6 (MARIAH 18) 8.6 (MARIAH 17) 8.8 (MARIAH 16) 8.7 (MARIAH 15) Medications (19) Active Scheduled Meds (8): 11/20/15 aspirin (aspirin buffered 325 m g oral tablet) 325 mg PO Daily 11/20/15 cefTRIAXone + sodium chloride 0 .9% INJ 100 mL 2 gm IVPB [id number] 200 ml/hr 11/21/15 cholecalciferol (Vitamin D3 200 0 intl units oral tablet) 2,000 IntlUnit PO Daily 11/20/15 cyanocobalamin (Vitamin B12) 50 0 microgram PO BID 11/20/15 enoxaparin 40 mg SUB-Q [id number] 11/20/15 ferrous sulfate 325 mg PO BID-M eals 11/24/15 omega-3 polyunsaturated fatty a cids (Fish Oil) 1,000 mg PO Daily 11/20/15 pantoprazole (Protonix) 40 mg P O Before Dinner Unscheduled Meds: None PRN Meds (11): 11/20/15 acetaminophen 650 mg PO Q4H 11/20/15 acetaminophen 650 mg PO Q6H 11/20/15 docusate 100 mg PO BID 11/20/15 docusate (docusate sodium 100 m g oral capsule) 100 mg PO BID 11/20/15 hydrALAZINE 10 mg IV Q4H 11/20/15 metoprolol (metoprolol 5 mg/5 m l INJ) 5 mg IV Q2H 11/20/15 morphine Sulfate 2 mg IVP Q2H 11/20/15 nitroglycerin (Nitrostat 0.4 mg sublingual tablet) 0.4 mg SL Q5Min 11/20/15 ondansetron 4 mg IVP Q6H 11/20/15 ondansetron (Zofran) 4 mg IV Q8 H 11/20/15 tramadol (tramadol 50 mg oral t ablet) 50 mg PO Q6H One Time Meds: None Continuous Infusions: None Physical Exam Gen: Pt resting comfortably, A&Ox3, NAD HEENT: PERRLA, EOMI, normocephalic, atraumatic, no thyromegaly, no neck stiffness Chest: RRR, no M/R/G, CTAB, no rhonchi wheezes or rales Abd: Bowel sounds present in 4 quads, soft, ND, NTTP Ext: No cyanosis or edema Skin: No rash noted ASSESSMENT and PLAN 1. Bacteremia - Per the emergency room note, the outside cultures were positive for strep gordonii. 2. Adenocarcinoma of the right colon, s tage IIIB, Hx hemicolectomy. 3. 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 4. Anemia of chronic disease and chemot herapy. 5. Obesity, BMI 31. 11/18 - CXR without significant findings 11/19 - TTE without significant findings 11/19 - Dopp UE neg for DVT 11/23 - Blood Cx neg x 4 days Blood Cx still neg. Ok to d/c on IV abx, f/u with PCP and onc next week. 11/24/2015 [facility] Extracted from:Title: Colon and Rectal S urgery Author: Andreas Smart MD Date: 08/10/15 Admitting [...] Soft diet Medications (name, dose, route, frequency): [place] 10/325 1 tab PO q 4 hrs prn pain Follow-Up: [address] Urena for a post-operat quan visit Extracted from:Title: Colon and Rectal Surgery Author: Andreas Smart MD Date: 3/6/16 Interval History: No acute events overnight. Pain controlled with TIANA block and TOBACCO WAREHOUSE AGENT. Denies nausea or vomiting with clear liquids. [...] IVF to 50 cc/hr D/C Entereg and TOBACCO WAREHOUSE AGENT Start prn [place] If patient tolerates a soft diet, he could possibly go home later this afternoon or evening 08/10/2015 [facility] Plan of Care No Data Provided for This Section Social History Social History Date Source Social History TypeResponse Substance Abuse Use: None. Alcohol Current, Type Beer. Frequency: 3-5 times per week. Smoking Status Former smoker; Ready to change: No; Concerns about tobacco use in household: No; Exposure to Tobacco Smoke None; Cigarette Smoking Last 365 Days Yes; Reg Smoking Cessation Counseling Yes; Stopped at age: 64; 08/09/2016 [facility] Social History TypeResponse Alcohol Current, Type Beer. Frequency: 3-5 times per week. Substance Abuse Use: None. Smoking Status Former smoker; Ready to change: No; Concerns about tobacco use in household: No; Exposure to Tobacco Smoke None; Cigarette Smoking Last 365 Days Yes; Reg Smoking Cessation Counseling Yes; Stopped at age: 64; entered on: 08/13/16 08/09/2016 [place] Social History TypeResponse Smoking Status Former smoker; Exposure to Tobacco Smoke None; Cigarette Smoking Last 365 Days No; Reg Smoking Cessation Counseling No 08/08/2015 [facility] Family History No Data Provided for This Section Advance Directives No Data Provided for This Section Functional Status No Data Provided for This Section
--- OUTSIDE RECORDS SUMMARY | 2019-11-11 12:07 | XMS REPORT | Summary of Care ---
Author Author [facility] Organization [facility] Address Unknown Phone Unavailable Encounter MULUGETA Neville(FIDEL) [id number] Date(s): 11/19/15 - 11/24/15 [facility] [address] [place] [address]- Discharge Disposition: Home Attending Physician: Vanessa Vicente MD Admitting Physician: Vanessa Vicente MD Vital Signs 1 2 3 Most recent to oldest [Reference Range]: 177.8 cm (11/20/15 3:30 AM) 177.8 cm (11/20/15 3:23 AM) 177.8 cm (11/19/15 5:59 PM) Height 99.176 kg (11/20/15 3:30 AM) Current Weight 97.9 DegF (11/24/15 4:00 PM) 97.6 DegF (11/24/15 11:00 AM) 97.2 DegF (11/24/15 8:00 AM) Temperature Oral [96.4-99.1 DegF] 121/63 mmHg (11/24/15 4:00 PM) 117/77 mmHg (11/24/15 11:00 AM) 132/83 mmHg (11/24/15 8:00 AM) Blood Pressure [90-140/60-90 mmHg] 18 BRMIN (11/24/15 4:00 PM) 18 BRMIN (11/24/15 11:00 AM) 18 BRMIN (11/24/15 8:00 AM) Respiratory Rate [14-20 BRMIN] 67 bpm (11/24/15 4:00 PM) 66 bpm (11/24/15 11:00 AM) 56 bpm *LOW* (11/24/15 8:00 AM) Peripheral Pulse Rate [60-100 bpm] 99.091 kg (6/16/16 11:25 AM) 100 kg (11/20/15 3:23 AM) 100 kg (11/19/15 5:59 PM) Weight 31.63 m2 (11/20/15 3:23 AM) 31.63 m2 (11/19/15 5:59 PM) Body Mass Index Problem List Condition Effective Dates Status Health Status Informan t Cancer of Active colon(Confirmed) Iron deficiency Resolved anemia(Confirmed) Allergies, Adverse Reactions, Alerts Substance Reaction Severity Status NKDA Active Medications RN-Bring pt's own FISH OIL to pharmacy for label RN-Bring pt's own FISH OIL to pharmacy for label, Attn:RN, Drug form: MISC, Route: MISC, QSHIFT, 11/20/15 11:00:00 CDT, Duration: 30 day, Stop date: 8:00:00 CDT Start Date: 11/20/15 Stop Date: 11/20/15 Status: Deleted acetaminophen 650 mg, 2 tab, Route: PO, Drug form: TAB, Q4H, Dosing Weight 100, kg, PRN Pain 1 -3/Temp > 100.4 F, Start date: 11/20/15 2:40:00 CDT, Duration: 30 day, Stop date: 12/20/15 2:39:00 CDT Notes: Do not exceed 4 gm/day. (Same as: Tylenol) Start Date: 11/20/15 Stop Date: 11/24/15 Status: Discontinued acetaminophen 650 mg, 2 tab, Route: PO, Drug form: TAB, Q6H, Dosing Weight 100, kg, PRN Pain 1 -3/Temp > 99.5 F, Start date: 11/20/15 10:11:00 CDT, Duration: 30 day, Stop date: 12/20/15 10:10:00 CDT Notes: Do not exceed 4 gm/day. (Same as: Tylenol) Start Date: 11/20/15 Stop Date: 11/24/15 Status: Discontinued aspirin buffered 325 mg oral tablet 325 mg, 1 tab, Route: PO, Drug form: TAB, Daily, Dosing Weight 100, kg, Start da te: 11/20/15 10:30:00 CDT, Duration: 30 day, Stop date: 12/20/15 9:00:00 CDT Notes: Take with food. Start Date: 11/20/15 Stop Date: 11/24/15 Status: Discontinued cefpodoxime 200 mg oral tablet 200 mg = 1 tab, PO, BID, 0 Refill(s) Start Date: 11/20/15 Stop Date: 11/24/15 Status: Discontinued cefTRIAXone + sodium chloride 0.9% INJ 100 mL 2 gm, Route: IVPB, [id number], Dosing Weight 99.091, kg, Start date: 11/20/15 17:00 :00 CDT, Duration: 30 day, Stop date: 12/19/15 21:00:00 CDT Notes: (Same As: Rocephin).Use with 100 mL NS and infuse over 30 min MEDICA TION WASTE Product Size: 2000 mgProduct Wasted: ___ mg Start Date: 11/20/15 Stop Date: 11/24/15 Status: Discontinued cefTRIAXone 2 g injection 2 gm, IV, Q24H, X 28 day, # 28 inj, 0 Refill(s), given to patient Start Date: 11/24/15 Stop Date: 12/22/15 Status: Ordered docusate 100 mg, 1 cap, Route: PO, Drug form: CAP, BID, Dosing Weight 100, kg, PRN Consti pation, Start date: 11/20/15 2:40:00 CDT, Duration: 30 day, Stop date: 12/20/15 2:39:00 CDT Notes: (Same as: Colace) (Do Not Crush) Start Date: 11/20/15 Stop Date: 11/24/15 Status: Discontinued docusate sodium 100 mg oral capsule 100 mg, 1 cap, Route: PO, Drug form: CAP, BID, Dosing Weight 100, kg, PRN Consti pation, Start date: 11/20/15 10:12:00 CDT, Duration: 30 day, Stop date: 12/20/15 10:11:00 CDT Notes: (Same as: Colace) (Do Not Crush) Start Date: 11/20/15 Stop Date: 11/24/15 Status: Discontinued Emla topical cream 1 appl, Route: TOP, ONCE, Drug form: CRM, Start date: 11/21/15 22:00:00 CDT, Sto p date: 11/21/15 22:00:00 CDT Notes: Apply to desired area 2 hrs prior to needle insertion. (Same as: Emla) Start Date: 11/21/15 Stop Date: 11/21/15 Status: Completed enoxaparin 40 mg, 0.4 mL, Route: SUB-Q, Drug form: INJ, [id number], Dosing Weight 100, kg, St art date: 11/20/15 11:00:00 CDT, Duration: 30 day, Stop date: 12/19/15 11:00:00 CDT Notes: (Same as: Lovenox) Start Date: 11/20/15 Stop Date: 11/24/15 Status: Discontinued ferrous sulfate 325 mg, 1 tab, Route: PO, Drug form: ECTAB, BID-Meals, Dosing Weight 100, kg, St art date: 11/20/15 17:00:00 CDT, Duration: 30 day, Stop date: 12/20/15 8:00:00 C DT Notes: Give with food. "Do Not Crush" Start Date: 11/20/15 Stop Date: 11/24/15 Status: Discontinued ferrous sulfate 325 mg oral enteric coated tablet 325 mg = 1 tab, PO, BID, 0 Refill(s) Start Date: 11/20/15 Status: Ordered Fish Oil 1,000 mg, PO, Daily, 0 Refill(s) Start Date: 11/20/15 Status: Ordered Fish Oil 1,000 mg, 1 cap, Route: PO, Drug form: CAP, TID, Dosing Weight 100, kg, Start da te: 11/20/15 13:00:00 CDT, Duration: 30 day, Stop date: 12/20/15 9:00:00 CDT Notes: (Same as: MaxEPA, [place] 3 fish oil )Non-Formulary Drug Start Date: 11/20/15 Stop Date: 11/23/15 Status: Discontinued Fish Oil 1,000 mg, 1 cap, Route: PO, Drug form: CAP, Daily, Dosing Weight 99.091, kg, Sta rt date: 11/24/15 9:00:00 CDT, Duration: 30 day, Stop date: 12/23/15 9:00:00 CDT Notes: (Same as: MaxEPA, [place] 3 fish oil )Non-Formulary Drug Start Date: 11/24/15 Stop Date: 11/24/15 Status: Discontinued Fish Oil 1000 mg oral capsule 1,000 mg = 1 cap, PO, TID, 0 Refill(s) Start Date: 11/20/15 Stop Date: 11/20/15 Status: Discontinued hydrALAZINE 10 mg, 0.5 mL, Route: IV, Drug form: INJ, Q4H, Dosing Weight 100, kg, PRN Hypert ension, Start date: 11/20/15 11:22:00 CDT, Duration: 30 day, Stop date: 12/20/15 11:21:00 CDT Notes: (Same as: Apresoline)Push over 5 minutes Start Date: 11/20/15 Stop Date: 11/24/15 Status: Discontinued metoprolol 5 mg/5 ml INJ 5 mg, 5 mL, Route: IV, Drug form: INJ, Q2H, Dosing Weight 100, kg, PRN Tachycard ia, Start date: 11/20/15 11:22:00 CDT, Duration: 30 day, Stop date: 12/20/15 11: 21:00 CDT Notes: (Same as: Lopressor)Push over 2 minutes Start Date: 11/20/15 Stop Date: 11/24/15 Status: Discontinued morphine Sulfate 2 mg, 1 mL, Route: IVP, Drug form: INJ, Q2H, Dosing Weight 100, kg, PRN Chest Pa in, Start date: 11/20/15 11:22:00 CDT, Duration: 30 day, Stop date: 12/20/15 11: 21:00 CDT Notes: (Same as:MORPhine Sulfate) Start Date: 11/20/15 Stop Date: 11/24/15 Status: Discontinued Nitrostat 0.4 mg sublingual tablet 0.4 mg, 1 tab, Route: SL, Drug form: TAB, Q5Min, Dosing Weight 100, kg, PRN Ches t Pain, Start date: 11/20/15 11:22:00 CDT, Duration: 3 doses or times, Stop date : Limited # of times Notes: (Same as:Nitroquick, Nitrostat)"Do Not Crush" Sublingual tablet Start Date: 11/20/15 Stop Date: 11/24/15 Status: Discontinued ondansetron 4 mg, 2 mL, Route: IVP, Drug form: INJ, Q6H, Dosing Weight 100, kg, PRN Nausea & Vomiting, Start date: 11/20/15 2:40:00 CDT, Duration: 30 day, Stop date: 2:39:00 CDT Notes: (Same as: Mando) MEDICATION WASTE Product Size: 4 mgProduct Was ayde: ___ mg Start Date: 11/20/15 Stop Date: 11/24/15 Status: Discontinued Protonix 40 mg, 1 tab, Route: PO, Drug form: ECTAB, Before Dinner, Dosing Weight 100, kg, Start date: 11/20/15 16:30:00 CDT, Duration: 30 day, Stop date: 12/19/15 16:30: 00 CDT Notes: Tablet should not be chewed or crushed.(Same as: Protonix) Start Date: 11/20/15 Stop Date: 11/24/15 Status: Discontinued Rocephin + sodium chloride 0.9% INJ 100 mL 2 gm, Route: IVPB, ONCE, Dosing Weight 100, kg, Priority: STAT, Start date: 11/04 10/19 17:52:00 CDT, Stop date: 11/19/15 17:52:00 CDT Notes: (Same As: Rocephin).Use with 100 mL NS and infuse over 30 min MEDICA TION WASTE Product Size: 2000 mgProduct Wasted: ___ mg Start Date: 11/19/15 Stop Date: 11/19/15 Status: Completed tramadol 50 mg oral tablet 50 mg, 1 tab, Route: PO, Drug form: TAB, Q6H, Dosing Weight 100, kg, PRN Pain Sc ore 4-6, Start date: 11/20/15 10:11:00 CDT, Duration: 30 day, Stop date: 6 10:10:00 CDT Notes: Not to exceed 400mg/day. (Same As: Ultram) Start Date: 11/20/15 Stop Date: 11/24/15 Status: Discontinued Vitamin B12 500 microgram, 1 tab, Route: PO, Drug form: TAB, BID, Dosing Weight 100, kg, Sta rt date: 11/20/15 17:00:00 CDT, Duration: 30 day, Stop date: 12/20/15 9:00:00 CD T Notes: (Same As: Vitamin B12) Start Date: 11/20/15 Stop Date: 11/24/15 Status: Discontinued Vitamin B12 500 mcg oral tablet 500 microgram = 1 tab, PO, BID, 0 Refill(s) Start Date: 11/20/15 Status: Ordered Vitamin D3 2000 intl units oral tablet 2,000 IntlUnit, 2 tab, Route: PO, Drug form: TAB, Daily, Dosing Weight 100, kg, Start date: 11/21/15 9:00:00 CDT, Duration: 30 day, Stop date: 12/20/15 9:00:00 CDT Notes: Same as : Vitamin D3 Start Date: 11/21/15 Stop Date: 11/24/15 Status: Discontinued Vitamin D3 2000 intl units oral tablet 2,000 IntlUnit = 1 tab, PO, Daily, 0 Refill(s) Start Date: 11/20/15 Status: Ordered Zofran 4 mg, 2 mL, Route: IV, Drug form: INJ, Q8H, Dosing Weight 100, kg, PRN Nausea, S tart date: 11/20/15 10:12:00 CDT, Duration: 30 day, Stop date: 12/20/15 10:11:00 CDT Notes: (Same as: Zofran) MEDICATION WASTE Product Size: 4 mgProduct Was ayde: ___ mg Start Date: 11/20/15 Stop Date: 11/24/15 Status: Discontinued Results ELECTROLYTES 1 2 3 Most recent to oldest [Reference Range]: 137 mEq/L (11/22/15 4:46 AM) 140 mEq/L (11/21/15 4:06 AM) 142 mEq/L (11/20/15 4:33 AM) Sodium Lvl [135-145 mEq/L] 3.9 mEq/L (11/22/15 4:46 AM) 4.2 mEq/L (11/21/15 4:06 AM) 4.1 mEq/L (11/20/15 4:33 AM) Potassium Lvl [3.5-5.1 mEq/L] 103 mEq/L (11/22/15 4:46 AM) 106 mEq/L (11/21/15 4:06 AM) 103 mEq/L (11/20/15 4:33 AM) Chloride Lvl [95-109 mEq/L] 27 mEq/L (11/22/15 4:46 AM) 24 mEq/L (11/21/15 4:06 AM) 27 mEq/L (11/20/15 4:33 AM) CO2 [24-32 mEq/L] 10.9 mEq/L (11/22/15 4:46 AM) 14.2 mEq/L (11/21/15 4:06 AM) 16.1 mEq/L (11/20/15 4:33 AM) AGAP [10.0-20.0 mEq/L] CHEM PANEL 1 2 3 Most recent to oldest [Reference Range]: 0.95 mg/dL (11/22/15 4:46 AM) 0.99 mg/dL (11/21/15 4:06 AM) 1.02 mg/dL (11/20/15 4:33 AM) Creatinine Lvl [0.50-1.40 mg/dL] 82 mL/min/1.73m2 1 *NA* (11/22/15 4:46 AM) 78 mL/min/1.73m2 2 *NA* (11/21/15 4:06 AM) 76 mL/min/1.73m2 3 *NA* (11/20/15 4:33 AM) eGFR 14 mg/dL (11/22/15 4:46 AM) 14 mg/dL (11/21/15 4:06 AM) 15 mg/dL (11/20/15 4:33 AM) BUN [7-22 mg/dL] 15 (11/20/15 4:33 AM) 13 (11/19/15 6:18 PM) B/C Ratio [6-25] 81 mg/dL (11/22/15 4:46 AM) 91 mg/dL (11/21/15 4:06 AM) 79 mg/dL (11/20/15 4:33 AM) Glucose Lvl [70-99 mg/dL] 4.9 mg/dL (11/20/15 4:33 AM) Uric Acid [3.8-8.0 mg/dL] 6.1 g/dL *LOW* (11/21/15 4:06 AM) 5.9 g/dL *LOW* (11/20/15 4:33 AM) 6.7 g/dL (11/19/15 6:18 PM) Total Protein [6.4-8.4 g/dL] 3.0 g/dL *LOW* (11/21/15 4:06 AM) 3.3 g/dL *LOW* (11/20/15 4:33 AM) 3.4 g/dL *LOW* (11/19/15 6:18 PM) Albumin Lvl [3.5-5.0 g/dL] 3.1 g/dL (11/21/15 4:06 AM) 2.6 g/dL (11/20/15 4:33 AM) 3.3 g/dL (11/19/15 6:18 PM) Globulin [2.0-4.0 g/dL] 1.0 (11/21/15 4:06 AM) 1.3 (11/20/15 4:33 AM) 1.0 (11/19/15 6:18 PM) A/G Ratio [0.7-1.6] 8.6 mg/dL (11/22/15 4:46 AM) 8.6 mg/dL (11/21/15 4:06 AM) 8.8 mg/dL (11/20/15 4:33 AM) Calcium Lvl [8.5-10.5 mg/dL] 4.2 mg/dL (11/20/15 4:33 AM) 4.0 mg/dL (11/20/15 4:33 AM) Phosphorus [2.5-4.5 mg/dL] 2.3 mg/dL (11/20/15 4:33 AM) 2.2 mg/dL (11/20/15 4:33 AM) Magnesium Lvl [1.8-2.4 mg/dL] 26 unit/L (11/21/15 4:06 AM) 27 unit/L (11/20/15 4:33 AM) 33 unit/L (11/19/15 6:18 PM) ALT [0-65 unit/L] 19 unit/L (11/21/15 4:06 AM) 20 unit/L (11/20/15 4:33 AM) 23 unit/L (11/19/15 6:18 PM) AST [0-37 unit/L] 102 unit/L (11/21/15 4:06 AM) 93 unit/L (11/20/15 4:33 AM) 98 unit/L (11/19/15 6:18 PM) Alk Phos [39-136 unit/L] 0.4 mg/dL (11/21/15 4:06 AM) 0.5 mg/dL (11/20/15 4:33 AM) 0.5 mg/dL (11/19/15 6:18 PM) Bili Total [0.2-1.3 mg/dL] 0.1 mg/dL (11/21/15 4:06 AM) Bili Direct [0.0-0.3 mg/dL] 0.3 mg/dL (11/21/15 4:06 AM) Bili Indirect [0.0-1.0 mg/dL] 183 unit/L (11/23/15 6:26 AM) 165 unit/L (11/22/15 4:46 AM) 168 unit/L (11/21/15 4:06 AM) Lipase Lvl [73-393 unit/L] 1.8 mMol/L (11/20/15 3:00 AM) 2.1 mMol/L (11/19/15 6:18 PM) Lactic Acid Lvl [0.5-2.2 mMol/L] 33 ng/mL (11/20/15 4:33 AM) Vitamin D, 25-OH, Total [30-100 ng/mL] 1Result Comment: The eGFR is calculated using [...] be mul tiplied by the estimated BMI. 3Result Comment: The eGFR is calculated using the [...] be mul tiplied by the estimated BMI. CARDIAC ENZYMES 1 2 3 Most recent to oldest [Reference Range]: 52 pg/mL (11/20/15 4:33 AM) BNP [<=100 pg/mL] LIPIDS 1 2 3 Most recent to oldest [Reference Range]: 4.54 (11/20/15 4:33 AM) CHD Risk [4.00-7.30] 159 mg/dL (11/20/15 4:33 AM) Chol [<=199 mg/dL] 231 mg/dL *HI* (11/20/15 4:33 AM) Trig [<=149 mg/dL] 35 mg/dL *LOW* (11/20/15 4:33 AM) HDL [>=61 mg/dL] 78 mg/dL (11/20/15 4:33 AM) LDL (Calculated) [<=99 mg/dL] 46 *NA* (11/20/15 4:33 AM) VLDL SPECIAL CHEMISTRY 1 2 3 Most recent to oldest [Reference Range]: 5.6 % (11/20/15 4:33 AM) Hgb A1C [<=5.6 %] URINE AND STOOL 1 2 3 Most recent to oldest [Reference Range]: Clear (11/19/15 9:14 AM) UA Turbidity [Clear] Yellow *NA* (11/19/15 9:14 AM) UA Color [Yellow] 5.0 (11/19/15 9:14 AM) UA pH [5.0-8.0] 1.020 (11/19/15 9:14 AM) UA Spec Grav [<=1.030] Negative mg/dL *NA* (11/19/15 9:14 AM) UA Glucose [Negative mg/dL] Negative (11/19/15 9:14 AM) UA Blood [Negative] Negative mg/dL *NA* (11/19/15 9:14 AM) UA Ketones [Negative mg/dL] Negative mg/dL (11/19/15 9:14 AM) UA Protein [Negative mg/dL] <=1.0 mg/dL *NA* (11/19/15 9:14 AM) UA Urobilinogen [0.1-1.0 mg/dL] Negative *NA* (11/19/15 9:14 AM) UA Bili [Negative] Negative (11/19/15 9:14 AM) UA Leuk Est [Negative] Negative (11/19/15 9:14 AM) UA Nitrite [Negative] <1 /HPF (11/19/15 9:14 AM) UA WBC [0-5 /HPF] <1 /HPF (11/19/15 9:14 AM) UA RBC [0-2 /HPF] None Seen *NA* (11/19/15 9:14 AM) UA Sq Epi IMMUNOLOGY 1 2 3 Most recent to oldest [Reference Range]: 11.6 uMol/L (11/20/15 4:33 AM) Homocyst Tot [3.7-13.9 uMol/L] HEMATOLOGY 1 2 3 Most recent to oldest [Reference Range]: 5.4 K/CMM (11/22/15 4:46 AM) 5.5 K/CMM (11/21/15 4:06 AM) 5.1 K/CMM (11/20/15 4:33 AM) WBC [3.7-10.4 K/CMM] 4.56 M/CMM *LOW* (11/22/15 4:46 AM) 4.63 M/CMM *LOW* (11/21/15 4:06 AM) 4.61 M/CMM *LOW* (11/20/15 4:33 AM) RBC [4.70-6.10 M/CMM] 12.6 g/dL *LOW* (11/22/15 4:46 AM) 12.9 g/dL *LOW* (11/21/15 4:06 AM) 12.6 g/dL *LOW* (11/20/15 4:33 AM) Hgb [14.0-18.0 g/dL] 39.9 % *LOW* (11/22/15 4:46 AM) 40.3 % *LOW* (11/21/15 4:06 AM) 39.9 % *LOW* (11/20/15 4:33 AM) Hct [42.0-54.0 %] 87.6 fL (11/22/15 4:46 AM) 87.1 fL (11/21/15 4:06 AM) 86.5 fL (11/20/15 4:33 AM) MCV [80.0-94.0 fL] 27.7 pg (11/22/15 4:46 AM) 27.8 pg (11/21/15 4:06 AM) 27.4 pg (11/20/15 4:33 AM) MCH [27.0-31.0 pg] 31.6 g/dL *LOW* (11/22/15 4:46 AM) 32.0 g/dL (11/21/15 4:06 AM) 31.6 g/dL *LOW* (11/20/15 4:33 AM) MCHC [32.0-36.0 g/dL] 32.6 % *HI* (11/22/15 4:46 AM) 32.9 % *HI* (11/21/15 4:06 AM) 33.0 % *HI* (11/20/15 4:33 AM) RDW [11.5-14.5 %] 153 K/CMM (11/22/15 4:46 AM) 161 K/CMM (11/21/15 4:06 AM) 165 K/CMM (11/20/15 4:33 AM) Platelet [133-450 K/CMM] 8.4 fL (11/22/15 4:46 AM) 8.6 fL (11/21/15 4:06 AM) 8.8 fL (11/20/15 4:33 AM) MPV [7.4-10.4 fL] 45.5 % (11/22/15 4:46 AM) 48.3 % (11/21/15 4:06 AM) 43.8 % *LOW* (11/20/15 4:33 AM) Segs [45.0-75.0 %] 32.8 % (11/22/15 4:46 AM) 29.9 % (11/21/15 4:06 AM) 33.4 % (11/20/15 4:33 AM) Lymphocytes [20.0-40.0 %] 14.8 % *HI* (11/22/15 4:46 AM) 15.4 % *HI* (11/21/15 4:06 AM) 16.9 % *HI* (11/20/15 4:33 AM) Monocytes [2.0-12.0 %] 5.8 % *HI* (11/22/15 4:46 AM) 5.6 % *HI* (11/21/15 4:06 AM) 5.0 % *HI* (11/20/15 4:33 AM) Eosinophils [0.0-4.0 %] 1.1 % *HI* (11/22/15 4:46 AM) 0.8 % (11/21/15 4:06 AM) 0.9 % (11/20/15 4:33 AM) Basophils [0.0-1.0 %] 2.5 K/CMM (11/22/15 4:46 AM) 2.6 K/CMM (11/21/15 4:06 AM) 2.2 K/CMM (11/20/15 4:33 AM) Segs-Bands # [1.5-8.1 K/CMM] 1.8 K/CMM (11/22/15 4:46 AM) 1.6 K/CMM (11/21/15 4:06 AM) 1.7 K/CMM (11/20/15 4:33 AM) Lymphocytes # [1.0-5.5 K/CMM] 0.8 K/CMM (11/22/15 4:46 AM) 0.8 K/CMM (11/21/15 4:06 AM) 0.9 K/CMM *HI* (11/20/15 4:33 AM) Monocytes # [0.0-0.8 K/CMM] 0.3 K/CMM (11/22/15 4:46 AM) 0.3 K/CMM (11/21/15 4:06 AM) 0.3 K/CMM (11/20/15 4:33 AM) Eosinophils # [0.0-0.5 K/CMM] 0.1 K/CMM (11/22/15 4:46 AM) 0.1 K/CMM (11/19/15 6:18 PM) Basophils # [0.0-0.2 K/CMM] See Note (11/22/15 4:46 AM) RBC Morph 3+ (11/22/15 4:46 AM) 3+ (11/19/15 6:18 PM) Anisocyte [None Seen] 1+ (11/22/15 4:46 AM) 2+ (11/19/15 6:18 PM) Hypochrom [None Seen] 1+ *ABN* (11/19/15 6:18 PM) Macrocyte [None Seen] 2+ *ABN* (11/19/15 6:18 PM) Microcyte [None Seen] Normal (11/22/15 4:46 AM) Normal (11/19/15 6:18 PM) Plt Morph Immunizations No data available for this section Procedures Procedure Date Related Diagnosis Body Site Right hemicolectomy 08/07/15 Tonsillectomy and adenoidectomy Social History Social History Type Response Alcohol Past Smoking Status Former smoker; Stopped at a ge: 64; Ready to change: No; Concerns about tobacco use in household: No; Exposure to Tobacco Smoke None; Cigarette Smoking Last 365 Days Yes; Reg Smoking Cessation Counseling Yes Assessment and Plan Extracted from: Title: Clinical Document Author: Alyssa Wilkerson Date: 11/24/15 [facility] Internal Medicine Progress Note [facility] SUBJECTIVE No acute events. Pt denies TREVINO, dizziness, dysphagia, neck stiffness, CP, SOB, hemoptysis, N/V/D/C, hematemesis, hematochezia, hematuria, dysuria, skin rash. OBJECTIVE Vital Signs (last 24 hrs) Last Charted Temp Oral97.9 DegF (NOV 23 16:00) Heart Rate [id number] bpm (NOV 23 16:00) Resp Rate 18 BRMIN (NOV 23 16:00) MEY358 mmHg (NOV 23 16:00) DBP63 mmHg (NOV 23 16:00) TzN230 % (NOV 23 16:00) Labs (Last four charted values) WBC 5.4(MARIAH 18)5.5(MARIAH 17)5.1(MARIAH 16)6.0(MARIAH 15) Hgb L 12.6(MARIAH 18)L 12.9(MARIAH 17)L 12.6(MARIAH 16)L 13.1(MARIAH 15) Hct L 39.9(MARIAH 18)L 40.3(MARIAH 17)L 39.9(MARIAH 16)L 40.3(MARIAH 15) Plt 153(MARIAH 18)161(MARIAH 17)165(MARIAH 16)177(MARIAH 15) Na 137(MARIAH 18)140(MARIAH 17)142(MARIAH 16)140(MARIAH 15) K 3.9(MARIAH 18)4.2(MARIAH 17)4.1(MARIAH 16)4.2(MARIAH 15) CO2 27(MARIAH 18)24(MARIAH 17)27(MARIAH 16)28(MARIAH 15) Cl 103(MARIAH 18)106(MARIAH 17)103(MARIAH 16)104(MARIAH 15) Cr 0.95(MARIAH 18)0.99(MARIAH 17)1.02(MARIAH 16)1.26(MARIAH 15) BUN 14(MARIAH 18)14(MARIAH 17)15(MARIAH 16)17(MARIAH 15) Glucose Random 81(MARIAH 18)91(MARIAH 17)79(MARIAH 16)H 120(MARIAH 15) Mg 2.2(NOV 19)2.3(NOV 19) Phos 4.0(NOV 19)4.2(NOV 19) Ca 8.6(NOV 21)8.6(NOV 20)8.8(NOV 19)8.7(NOV 18) Medications (19) Active Scheduled Meds (8): 11/20/15 aspirin (aspirin buffered 325 m g oral tablet) 325 mg PO Daily 11/20/15 cefTRIAXone + sodium chloride 0 .9% INJ 100 mL 2 gm IVPB [id number] 200 ml/hr 11/21/15 cholecalciferol (Vitamin D3 200 0 intl units oral tablet) 2,000 IntlUnit PO Daily 11/20/15 cyanocobalamin (Vitamin B12) 50 0 microgram PO BID 11/20/15 enoxaparin 40 mg SUB-Q [id number] 11/20/15 ferrous sulfate 325 mg PO BID-M [...] or edema Skin: No rash noted ASSESSMENT & PLAN 1. Bacteremia - Per the emergency [...]
--- OUTSIDE RECORDS SUMMARY | 2019-11-11 12:07 | XMS REPORT | Summary of Care ---
Author Author [facility] Address Unknown Phone Unavailable Encounter HQ Kelin(FIDEL) [id number] Date(s): 07/08/16 - 07/08/16 [facility] [address] [place] [address]- Discharge Disposition: Home or Self Care Attending Physician: Nancy Cruz MD Referring Physician: Nancy Cruz MD Vital Signs No data available for [...] Smoking Cessation Counseling Yes Assessment and Plan No data available for this section
--- OUTSIDE RECORDS SUMMARY | 2019-11-11 12:07 | XMS REPORT | Summary of Care ---
Author Author [facility] Organization [facility] Address Unknown Phone Unavailable Encounter HQ Encntr_alias(FIN) [id number] Date(s): 06/13/15 - 06/13/15 [facility] - [place] [address] [place] [address]- [facility] [phone] Discharge Disposition: Home Attending Physician: Rene Sepulveda DO Vital Signs No data available for this section Problem List No data available for this section Allergies, Adverse Reactions, Alerts No data available for this section Medications No data available for this section Results No data available for this section Immunizations No data available for this section Procedures No data available for this section Social History No data available for this section Assessment and Plan No data available for this section
--- OUTSIDE RECORDS SUMMARY | 2019-11-11 12:07 | XMS REPORT | Summary of Care ---
Author Author [facility] Organization [facility] Address Unknown Phone Unavailable Encounter MULUGETA Neville(FIDEL) [id number] Date(s): 06/16/19 - 06/16/19 [facility] [address] [place] [address]- Discharge Disposition: Home or Self Care Attending Physician: David Arguelles MD Referring Physician: David Arguelles MD Vital Signs No data available for this section Problem List Condition Effective Dates Status Health Status Informan t Cancer of Active colon(Confirmed) Iron deficiency Resolved anemia(Confirmed) Allergies, Adverse Reactions, Alerts No Known Medication Allergies Medications No data available for this section Results Most recent to 1 oldest [Reference Range]: eGFR 75 mL/min/1.73m2 1 *NA* (06/16/19 9:10 AM) POC Creatinine 1.0 mg/dL [0.5-1.4 mg/dL] (06/16/19 9:10 AM) 1Result Comment: The eGFR is calculated using [...] be mul tiplied by the estimated BMI. 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
--- OUTSIDE RECORDS SUMMARY | 2019-11-11 12:07 | XMS REPORT | Summary of Care ---
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
--- OUTSIDE RECORDS SUMMARY | 2019-11-11 12:07 | XMS REPORT | Summary of Care ---
Author Author [facility] Organization [facility] Address Unknown Phone Unavailable Encounter MULUGETA Neville(FIDEL) [id number] Date(s): 09/16/15 - 09/16/15 [facility] [address] [place] [address]- [phone] Discharge Disposition: Home Attending Physician: Nancy Cruz MD Referring Physician: Nancy Cruz MD Vital Signs Most recent to 1 oldest [Reference Range]: Height 177.8 cm (09/16/15 9:51 AM) Weight 100 kg (09/16/15 9:51 AM) Body Mass Index 31.63 m2 (09/16/15 9:51 AM) Problem List Condition Effective Dates Status Health Status Informan t Cancer of Active colon(Confirmed) Iron deficiency Resolved anemia(Confirmed) Allergies, Adverse Reactions, Alerts Substance Reaction Severity Status NKDA Active Medications aspirin buffered 325 mg oral tablet See Instructions, PRN Pain, 1 tab PO Q4H 10 day, 0 Refill(s) Start Date: 09/16/15 Status: Ordered Results No data available for this section Immunizations No data available for this section Procedures Procedure Date Related Diagnosis Body Site Right hemicolectomy 08/07/15 Tonsillectomy and adenoidectomy Social History Social History Type Response Smoking Status Former smoker; Stopped at a ge: 64; Ready to change: No; Concerns about tobacco use in household: No; Exposure to Tobacco Smoke None; Cigarette Smoking Last 365 Days Yes; Reg Smoking Cessation Counseling Yes Assessment and Plan No data available for this section
--- OUTSIDE RECORDS SUMMARY | 2019-11-11 12:08 | XMS REPORT | Continuity of Care Document ---
Author Author [facility] t Organization [facility] Address [facility] [place] [address] Phone Unavailable Care Team Providers Care Dry Heat Cabinet Attendant Name Role Phone NO, PCP PCP Unavailable David Arguelles Attphys Ricky Neff Attphys WILSON MONREAL Attphys Unavailable Celso Childs Attphys Clint Sepulveda Attphys Tosha Cruz Attphys Jules, Severino Adnan Attphys Andreea Urena Attphys [phone] WILSON MONREAL Admphys Unavailable Jules, Severino Adnan Admphys Andreea Urena Admphys [phone] Payers Payer Name Policy Type Policy Number Effective Date Expiration Date Celso Hector Plus [id number] 2019 00:00:00 JOY Hilliard [facility] Problems Condition Name Condition Details Condition Category Status Onset Date Resolution Date Last Treatment Date Treating Clinician Comments Source TESTICLE PAIN TEST ICLE PAIN Active 10/24/2019 [facility] Active 2019-10-24 00:00:00 2019-10-24 16:12:00 Marika Garay DX: C78.02=SECONDARY MALIGNANT NEOPLASM DX: C78.02=SECONDARY MALIGNANT NEOPLASM Active 10/22/2019 [facility] Active 2019-10-22 00:00:00 2019-10-25 08:20:00 [facility] C18.2-MALIGNANT NEOPLASM OF ASCENDING CO C18.2-MALIGNANT NEOPLASM OF ASCENDING CO Active 06/12/2019 [facility] Ac tive 2019-06-12 00:00:00 2019-06-16 07:49[facility] DX: 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 ASCENDIN DX: 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 ASCENDIN Active 02/06/2019 [facility] Active 2019-02-06 00:00:00 2019-02-12 07:17:00 [facility] C18.2 C18. 2 Active 10/28/2017 [facility] Active 2017-10-28 00:00:00 2017-11-12 09:53:00 [facility] Jarrod 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 Active 04/11/2017 [facility] Ac tive 2017-04-11 00:00:00 2017-04-21 13:06:00 [facility] UNK UNK Active 08/04/2016 [facility] Active 2016-08-04 00:00:00 2016-08-13 07:14:00 [facility] BACTERMIA BACT ERMIA Active 11/19/2015 [facility] Active 2015-11-19 00:00:00 2015-11-28 22:05:00 [facility] COLON CANCER COLO N CANCER Active 07/08/2015 [facility] Diagnosis Active 2015-07-08 00:00:00 2015-08-08 12:39:00 [facility] N/A N/A Active 07/08/2015 [facility] Diagnosis Active 2015-07-08 00:00:00 2015-07-16 15:49:00 [facility] Jarrod Other nonspecific abnormal finding of lung field Other nonspecific abnormal finding of lung field 10/06/2017 [facility] Problem 2017-10-06 16:16:07 Marika [facility] catrina Iron deficiency anemia (disorder) Iron deficiency anemia (disorder) Resolved Problem 10/27/2019 MANOJ Gacria [facility] Problem Resolved 2019-10-27 22:33:44 Ariadna Garay Malignant tumor of colon (disorder) Malignant tumor of colon (disorder) Active Problem 10/27/2019 [facility], OPID [place], [place] Problem Active 2019-10-27 22:33:44 Marika Garay 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 Active [facility] Active 201 11-08-11 08:52:00 Marika Garay BACTEREMIA BACT EREMIA Active [facility] Active 2015-11-28 22:05:00 Memor destiny Garay MALIGNANT NEOPLASM OF ASCENDING COLON MALIGNANT NEOPLASM OF ASCENDING COLON Active [facility], [facility] Diagnosis Active 2017-06-30 09:16:00 Marika Garay Malignant neoplasm of ascending colon Malignant neoplasm of ascending colon 07/05/2017 10/06/2017 [facility] Problem 2017-07-05 05:12:57 2017-10-06 16:16:07 2017-10-06 16:16:07 Neris Garay Allergies, Adverse Reactions, Alerts Allergy Name Allergy Type Status Severity Reaction(s) Onset Date Inacti ve Date Treating Clinician Comments Source No Known Allergies DA Active U 2018-10-13 00:00:00 [facility] No Known Allergies DA Active U 2017-11-03 00:00:00 [facility] No Known Medication Allergies No Known Medication Allergies Active Marika Garay Family History Family Member Diagnosis Comments Start Date Stop Date Source Natural father No Known Problems Jovanna Singh Natural mother Hypertension Jamarcus Singh Social History Social Habit Start Date Stop Date Quantity Comments Source History of tobacco use Current smoker Jamarcus Singh Sex Assigned At Jovanna Singh Cigarettes smoked current (pack per day) - Reported 00:00:00 2017-08-10 00:00:00 Jamarcus Singh Cigarette pack-years 2017-08-10 00:00:00 2017-08-10 00:00:00 Jamarcus Singh Alcohol intake 2017-08-10 00:00:00 2017-08-10 00:00:00 Current non-drinker of alcohol (finding) Jamarcus Jew Social History 2016-08-09 20:26:27 2016-08-09 20:26:27 Marika Garay Smoking Status Start Date Stop Date Source Social History 2015-08-08 04:43:59 2015-08-08 04:43:59 Marika Garay Medications Ordered Medication Name Filled Medication Name Start Date Stop Da te Current Medication? Ordering Clinician Indication Dosage Frequency Signature (SIG) Comments Components Source Omnipaque 300 injectable solution 2019-02-12 15:00:00 No Notes: (Same as:Omnipaque 300). WASTE: F/P - Black; E - Municipal Trash Bin Marika Garay cefTRIAXone 2 g injection 2015-11-24 20:49:00 Yes 2 gm, IV, Q24H, X 28 day, # 28 inj, 0 Refill(s), given to patient Marika Garay Fish Oil 2015-11-24 14:00:00 No Notes: (Same as: MaxEPA, [place] 3 fish oil ) Non-Formulary Drug Marika Garay Lidocaine 25 MG/ML / Prilocaine 25 MG/ML Topical Cream [EMLA ] 2015-11-22 03:00:00 No Notes: Eun ly to desired area 2 hrs prior to needle insertion. (Same as: Emla) Marika fritz Vitamin D3 2000 intl units oral tablet 2015-11-21 14:00:00 No Notes: Same as : Vitamin D3 Marika Garay Fish Oil 2015-11-21 00:20:00 Yes 1,0 00 mg, PO, Daily, 0 Refill(s) Marika Garay Ceftriaxone 2015-11-20 22:00:00 No Notes: (Same As: Rocephin). Use with 100 mL NS and infuse over 30 min MEDICATION WASTE Product Size: 2000 mg Product Wasted: ___ mg Marika Garay ferrous sulfate 2015-11-20 22:00:00 No Notes: Give with food. "Do Not Crush" Marika Garay Vitamin B12 2015-11-20 22:00:00 No Notes: (Same As: Vitamin B12) Marika Garay Protonix 2015-11-20 21:30:00 No Notes: Tablet should not be chewed or crushed. (Same as: Protonix) Marika Garay Fish Oil 2015-11-20 18:00:00 No Notes: (Same as: MaxEPA, [place] 3 fish oil ) Non-Formulary Drug Marika Garay Metoprolol 2015-11-20 16:22:00 No Notes: (Same as: Lopressor) Push over 2 minutes Marika Garay Nitroglycerin 0.4 MG Sublingual Tablet [Nitrostat] 2015-11-05 6 16:22:00 No Notes: (Same as:Nitroquick, Nitr ostat) "Do Not Crush" Sublingual tablet [facility] Morphine 2015-11-20 16:22:00 No Not es: (Same as:MORPhine Sulfate) [facility] Jarrod Hydralazine 2015-11-20 16:22:00 No Notes: (Same as: Apresoline) Push over 5 minutes [facility] [place] RN-Bring pt's own FISH OIL to pharmacy for label 2015-11-20 16:00:00 No RN-Bring pt's own FISH OIL to pharmacy for label, Attn:RN, Drug form: MISC, Route: MISC, QSHIFT, 11/20/15 11:00:00 CDT, Duration: 30 day, Stop date: 12/20/15 8:00:00 CDT [facility] Neftaly velasco Enoxaparin 2015-11-20 16:00:00 No Notes: (S cara as: Lovenox) Marika [facility]amann Aspirin 325 MG Oral Tablet 2015-11-20 15:30:00 No Notes: Take with food. Marika Higginbothamann Zofran 2015-11-20 15:12:00 No Notes: (Same as: Zofran) MEDICATION WASTE Product Size: 4 mg Product Wasted: ___ mg Marika Garay docusate sodium 100 mg oral capsule 2015-11-20 15:12:00 No Notes: (Same as: Colace) (Do Not Crush) Cheli flynn Jarrod tramadol hydrochloride 50 MG Oral Tablet 2015-11-20 15:11:00 No Notes: Not to exceed 400mg/day. (Same As: Ultram) [facility] Acetaminophen 2015-11-20 15:11:00 No Notes: Do not exceed 4 gm/day. (Same as: Tylenol) [facility] [place] cefpodoxime 200 mg oral tablet 2015-11-20 08:46:00 No 200 mg = 1 tab, PO, BID, 0 Refill(s) Marika Higginbothammarvin grimes Fish Oil 1000 mg oral capsule 2015-11-20 08:46:00 No 1,000 mg = 1 cap, PO, TID, 0 Refill(s) [facility] Jennifer nn ferrous sulfate 325 mg oral enteric coated tablet 2015-11-20 08:46:00 Yes 325 mg = 1 tab, PO, BID, 0 Refill(s) Marika Garay Vitamin D3 2000 intl units oral tablet 2015-11-20 08:46:00 Yes 2,000 IntlUnit = 1 tab, PO, Daily, 0 Refill(s) Marika Garay Vitamin B12 500 mcg oral tablet 2015-11-20 08:46:00 Yes 500 microgram = 1 tab, PO, BID, 0 Refill(s) Marika Garay Acetaminophen 2015-11-20 07:40:00 No Notes: Do not exceed 4 gm/day. (Same as: Tylenol) Marika Garay Docusate 2015-11-20 07:40:00 No Notes: (Same as: Colace) (Do Not Crush) Marika Garay Ondansetron 2015-11-20 07:40:00 No Notes: (Same as: Zofran) MEDICATION WASTE Product Size: 4 mg Product Wasted: ___ mg Marika Garay Rocephin 2015-11-19 22:52:00 No Notes: (Same As: Rocephin). Use with 100 mL NS and infuse over 30 min MEDICATION WASTE Product Size: 2000 mg Product Wasted: ___ mg Marika Garay Aspirin 325 MG Oral Tablet 2015-09-16 14:07:00 Yes See Instructions, PRN Pain, 1 tab PO Q4H 10 day, 0 Refill(s) Marika Garay Acetaminophen 325 MG / Hydrocodone Bitartrate 10 MG Or al Tablet [Bryce 10/325] 2015-08-10 15:58:00 Yes 1 ta b, PO, Q4H, PRN Pain Score 4-6, 0 Refill(s) Marika Garay Morphine 2015-08-10 14:09:00 No Not es: (Same as:MORPhine Sulfate) [facility] Jarrod Acetaminophen 325 MG / Hydrocodone Bitartrate 10 MG Or al Tablet [Bryce 10/325] 2015-08-10 14:08:00 No Note s: Do not exceed 4gm/day of acetaminophen. (Same as: Bryce 325/10) [facility] Acetaminophen 325 MG / Hydrocodone Bitartrate 10 MG Or al Tablet [Bryce 10/325] 2015-08-10 14:07:00 No Note s: Do not exceed 4gm/day of acetaminophen. (Same as: Bryce 325/10) Marika Garay D5W 1/2NS + KCL 20mEq/L 1000ml (Premix) 1,000 mL 2015-08-09 16:1 8:00 No Notes: PREMIX IV - Do Not Alter WASTE: F/P - Sink; E - Municipal Trash Bin Marika Garay Lovenox 2015-08-08 15:00:00 No Notes: (Same as: Lovenox) Marika Garay Entereg 2015-08-08 15:00:00 No Notes: Same as: Entereg Maximum of 15 doses Alert Restricted medication Alvimopan (Entergen) order form must be completed prior to dispensing. Marika Garay ketOROLAC 15 mg/mL injectable solution 2015-08-08 12:00:00 No 4 days. Marika Garay Famotidine 2015-08-08 03:00:00 No Notes: (Same as: Pepcid) Can be dilute in 5-10cc NS IVP: Slow IV push over at least 2 minutes. Marika Garay Exparel 2015-08-08 00:42:00 Yes Notes: (Same as: Exparel) NOT FOR IV use Postoperative analgesia: Infiltration [...] (total dose = 30 mL [266 mg]) Marika Garay [facility] 2015-08-08 00:00:00 No Notes: Infuse over 15 minutes Do not exceed 4gm/day of acetaminophen MEDICATION WASTE Product Size: 1000 mg Product Wasted: ___ mg [facility] Naloxone 2015-08-07 23:03:00 No Notes: Same as Narcan [facility] Jarrod Flumazenil 2015-08-07 23:03:00 No Notes: (S cara as: Romazicon) [facility] Hydromorphone 2015-08-07 23:03:00 No Notes: Same as: Dilaudid [facility] Ondansetron 2015-08-07 23:03:00 No Notes: (Same as: Mando) MEDICATION WASTE Product Size: 4 mg Product Wasted: ___ mg Marika Garay Labetalol 2015-08-07 23:03:00 No 10 mg, 2 mL, Route: IVP, Drug form: INJ, Q5Min, Dosing Weight 102.727, kg, PRN Elevated BP, Start date: 08/07/15 17:03:00, Duration: 5 doses or times, Stop date: 08/08/15 0:00:00 [facility] Hydromorphone 2015-08-07 23:00:00 No Notes: (Same as: Dilaudid) conc = 0.5 mg/ml Hydromorphone PROCUREMENT FORESTER Dose: ;Delay: ;Basal: Marika Garay Naloxone 2015-08-07 22:59:00 No Notes: Same as Cindy Garay Calcium Chloride 0.0014 MEQ/ML / Potassi um Chloride 0.004 MEQ/ML / Sodium Chloride 0.103 MEQ/ML / Sodium Lactate 0.028 MEQ/ML Injectable Solution 2015-08-07 22:59:00 No 1,000 mL, Rate: 100 ml/hr, Infuse over: 10 hr, Route: IV, Dosing Weight 102.727 kg, Total Volume: 1,000, Start date: 08/07/15 16:59:00, Stop date: 09/06/15 16:58:00 M emorihoracio Jarrod Ondansetron 2015-08-07 22:59:00 No Notes: (Same as: Mando) MEDICATION WASTE Product Size: 4 mg Product Wasted: ___ mg [facility] Entereg 2015-08-07 16:01:00 No Notes: Same as: Entereg Maximum of 15 doses Alert Restricted medication Alvimopan (Entergen) order form must be completed prior to dispensing. Marika Garay INVanz 2015-08-07 10:00:00 No Notes: (Same as: Breana) Refrigerate. NOT COMPATIBLE WITH D5W. Stable in refrigerator for 24 hours MEDICATION WASTE Product Size: 1000 mg Product Wasted: ___ mg [facility] ferrous sulfate 325 mg oral enteric coated tablet 2015-07-28 19:08:00 No 325 mg = 1 tab, PO, Daily, # 30 tab, 0 Refill(s ) Marika Garay Vitamin D3 2000 intl units oral capsule 2015-07-28 19:08:00 Yes 2,000 IntlUnit = 1 cap, PO, Daily, # 100 cap, 3 Refill(s) Marika Garay Vitamin B-12 500 mcg oral tablet 2015-07-28 19:08:00 Yes 500 microgram = 1 tab, PO, Daily, # 30 tab, 0 Refill(s) Marika Garay Fish Oil 2015-07-28 19:08:00 Yes PO, Daily, 0 Refill(s) [facility] [place] Apixaban (Eliquis) 2.5 Mg Tablet Apixaban (Eliquis) 2.5 Mg Tablet Yes 2.5 Twice A Day [facility] Furosemide 40 Mg Tablet Furosemide 40 Mg Tablet Yes 40 Daily [facility] Pantoprazole Sodium (Protonix) 40 Mg Tablet. Pantopr azole Sodium (Protonix) 40 Mg Tablet. Yes 40 Daily [facility] Spironolactone 25 Mg Tablet Spironolactone 25 Mg Tablet Yes 50 Daily [facility] Vital Signs Vital Name Observation Time Observation Value Comments Source Weight 2019-10-24 21:01:00 [facility] [place] [facility] Systolic (mm Hg) 2019-10-24 21:01:00 [facility] [place] Diastolic (mm Hg) 2019-10-24 21:01:00 Mem [facility] Heart Rate 2019-10-24 21:01:00 [facility] [place] Respitory Rate 2019-10-24 21:01:00 Memori al [place] Temperature Oral (F) 2019-10-24 21:01:00 98 F [facility] Systolic (mm Hg) 2015-11-24 21:00:00 [facility] [place] Diastolic (mm Hg) 2015-11-24 21:00:00 [facility] [place] Respitory Rate 2015-11-24 21:00:00 Memori al [facility] Heart Rate 2015-11-24 21:00:00 [facility] Temperature Oral (F) 2015-11-24 21:00:00 97.9 F [facility] [place] Systolic (mm Hg) 2015-11-24 16:00:00 [facility] [place] Diastolic (mm Hg) 2015-11-24 16:00:00 Mem orial [place] Respitory Rate 2015-11-24 16:00:00 [facility] [place] Temperature Oral (F) 2015-11-24 16:00:00 97.6 F [facility] Heart Rate 2015-11-24 16:00:00 [facility] Temperature Oral (F) 2015-11-24 13:00:00 97.2 F [facility] [place] Respitory Rate 2015-11-24 13:00:00 Memori al [place] Systolic (mm Hg) 2015-11-24 13:00:00 [facility] [place] Diastolic (mm Hg) 2015-11-24 13:00:00 Mem [facility] [place] Heart Rate 2015-11-24 13:00:00 [facility] [place] Weight 2015-11-20 16:25:00 [facility] [place] Height 2015-11-20 08:30:00 177.8 cm [facility] Height 2015-11-20 08:23:00 177.8 cm [facility] [place] BMI Calculated 2015-11-20 08:23:00 Memori al [place] Weight 2015-11-20 08:23:00 [facility] [place] Height 2015-11-19 22:59:00 177.8 cm [facility] [place] BMI Calculated 2015-11-19 22:59:00 [facility] [place] Weight 2015-11-19 22:59:00 [facility] [place] Height 2015-09-16 14:51:00 177.8 cm [facility] [place] BMI Calculated 2015-09-16 14:51:00 [facility] [place] Weight 2015-09-16 14:51:00 [facility] [place] Systolic (mm Hg) 2015-08-10 14:07:00 [facility] [place] Diastolic (mm Hg) 2015-08-10 14:07:00 Mem [facility] [place] Temperature Oral (F) 2015-08-10 14:07:00 97.8 F [facility] [place] Respitory Rate 2015-08-10 14:07:00 [facility] [place] Heart Rate 2015-08-10 14:07:00 [facility] [place] Temperature Oral (F) 2015-08-10 09:00:00 98.1 F [facility] [place] Systolic (mm Hg) 2015-08-10 09:00:00 [facility] [place] Diastolic (mm Hg) 2015-08-10 09:00:00 Mem [facility] [place] Respitory Rate 2015-08-10 09:00:00 Memori al [place] Heart Rate 2015-08-10 09:00:00 [facility] [place] Temperature Oral (F) 2015-08-10 05:00:00 97.9 F [facility] [place] Respitory Rate 2015-08-10 05:00:00 Memori al [place] Heart Rate 2015-08-10 05:00:00 [facility] [place] Systolic (mm Hg) 2015-08-10 05:00:00 [facility] [place] Diastolic (mm Hg) 2015-08-10 05:00:00 [facility] [place] Weight 2015-08-08 04:36:00 [facility] [place] BMI Calculated 2015-08-08 04:36:00 Memori al [place] Height 2015-08-08 04:36:00 177.8 cm [facility] [place] Height 2015-08-07 16:48:00 177.8 cm [facility] BMI Calculated 2015-08-07 16:48:00 Memori al [place] Weight 2015-08-07 16:48:00 [facility] [place] Height 2015-07-28 20:42:00 177.8 cm [facility] [place] BMI Calculated 2015-07-28 20:42:00 [facility] [place] Weight 2015-07-28 20:42:00 [facility] [place] Procedures Procedure Date / Time Performed Performing Clinician [facility] US guided paracentesis 2019-08-30 00:00:00 WILSON MONREAL [facility] Computed tomography of abdomen and pelvis with contrast 2019 00:00:00 JAYSON KUMAR [facility] Right hemicolectomy 2015-08-07 06:00:00 [facility] adenoide[facility] Plan of Care Planned Activity Planned Date Details Comments Source Future Scheduled Test 2026-08-13 00:00:00 COLONOSCOPY SCREEN ING [code = COLONOSCOPY SCREENING] [facility] Scheduled Test 2020-01-05 00:00:00 INFLUENZA VACCINE [code = INFLUENZA VACCINE] [facility] Scheduled Test 2013-01-19 00:00:00 65+ PNEUMOCOCCAL V ACCINE (1 of 2 - PCV13) [code = 65+ PNEUMOCOCCAL VACCINE (1 of 2 - PCV13)] [facility] Scheduled Test 1998-01-19 00:00:00 SHINGLES VACCINES (#1) [code = SHINGLES VACCINES (#1)] [facility] Encounters Start Date/Time End Date/Time Encounter Type Admission Type Attendi [facility] Care Department Encounter ID Source 2019-10-25 08:12:00 2019-10-25 23:59:00 Outpatient David Arguelles [facility] [id number] 2019-10-25 08:12:00 2019-10-25 08:12:00 Outpatient MHSE [id number] 2019-10-24 15:56:05 2019-10-24 16:08:00 Outpatient Radha Neff [facility] [id number] 2019-08-28 15:04:00 2019-08-31 10:50:00 Discharged Inpatient 1 WILSON MONREAL [facility] [id number] [facility] 2019-06-16 07:40:00 2019-06-16 23:59:00 Outpatient David Arguelles [facility] [id number] 2019-06-16 07:40:00 2019-06-16 07:40:00 Outpatient MHSE [facility] [id number] [facility] 2019-02-12 07:07:00 2019-02-12 23:59:00 Outpatient David Arguelles [facility] [id number] 2019-02-12 07:07:00 2019-02-12 07:07:00 Outpatient MHSE [id number] [facility] 2017-11-12 09:53:00 2017-11-12 23:59:00 Outpatient Lovely Childs HSE [facility] [id number] 2017-06-30 09:14:00 2017-06-30 23:59:00 Outpatient Lovely Childs HSE [facility] [id number] 2017-05-03 12:27:00 2017-05-03 23:59:00 Outpatient Adam Sepulveda [facility]IP [facility] [id number] 2017-04-21 12:59:00 2017-04-21 23:59:00 Outpatient David Arguelles [facility] [id number] 2016-07-08 09:37:00 2016-07-08 23:59:00 Outpatient Nancy Cruz [facility] [id number] 2015-11-19 17:48:00 2015-11-24 18:30:00 Outpatient Irwin Vicente [facility] [id number] 2015-09-16 08:52:00 2015-09-16 23:59:00 Outpatient Nancy Cruz [facility] [id number] 2015-08-07 07:42:00 2015-08-10 14:40:[address] [facility] [id number] 2015-06-13 10:27:00 2015-06-13 23:59:00 [facility] [id number] Results Test Description Test Time Test Comments Results Result Comments Source CHEM PANEL 2019-10-25 14:12:00 1.2 Memor destiny Garay CHEM PANEL 2019-10-25 14:12:00 60 Memkin Garay Prothrombin Time 2019-08-31 06:52:00 Test Item Prothrombin Time (test code = 5902-2) 16.2 [facility].5 [facility] International Ratio 2019-08-31 06:52:00* Test Item Value Reference Range Interpretation Comments Prothromb Time International Ratio (test code = 6301-6) 1.22 Oral Anticoagulant Therapy INR Values:1. Low Intensity Therapy 1.5 - 2.02 . Moderate Intensity Therapy 2.0 - 3.03. High Intensity Therapy(1) 2.5 - 3. 54. High Intensity Therapy(2) 3.0 - 4.05. Panic Value INR > 5.0 [facility] [id number] 16:56:00 * Test Item Value Reference Range Interpretation Comments Body Fluid Neutrophils (test code = 08814-1) 37 [facility] [id number] 16:56:00 * Test Item Value Reference Range Interpretation Comments Body Fluid Lymphocytes (test code = 87324665) 42 [facility] [id number] 16:56:00* Test Item Value Reference Range Interpretation Comments Body Fluid Monocytes (test code = 42966-1) 21 [facility] Total Cells [id number] 16:56:00* Test Item Value Reference Range Interpretation Comments Body Fluid Total Cells Counted (test code = 92499-1) 100 [facility] Fluid Total [id number] 15:45:00* Test Item Value Reference Range Interpretation Comments Body Fluid Total Protein (test code = 2881-1) 1.8 [facility] Lactate Dehydrogenase 2019-08-30 15:45:00* Test Item Value Reference Range Interpretation Comments Body Fluid Lactate Dehydrogenase (test code = 298487318) 52 No reference range has been established for this specimen type.[facility] [id number] 15:33:00* Test Item Value Reference Range Interpretation Comments Body Fluid WBC (test code = 6743-9) 86 [facility] [id number] 15:33:00* Test Item Value Reference Range Interpretation Comments Body Fluid RBC (test code = 6741-3) 23 [facility] [id number] 14:54:00* Test Item Value Reference Range Interpretation Comments Body Fluid Type (test code = 38829-0) PERITONEAL [facility] [id number] 14:54:00* Test Item Value Reference Range Interpretation Comments Body Fluid Color (test code = 6824-7) WHITE [facility] [id number] 14:54:00 * Test Item Value Reference Range Interpretation Comments Body Fluid Appearance (test code = 9335-1) TURBID [facility] G[facility] [id number] 14:33:00 [facility] [address] [address] Patient Name: CRISTOPHER JACOB MR #: [id number] : 1950 Age/Sex: 69/M Req #: [id number] Adm Physician: WILSON MONREAL MD Ordered by: WILSON MONREAL MD Report #: [id number] Location: MED/SURG R oom/Bed: 107-1 Procedure: [id number] US/US G UIDED PARACENTESIS Exam Date: 08/30/19 Exam Time: 13 52 REPORT STATUS: Signed Procedu re: Ultrasound-guided paracentesis dicer operator: Jayson Arredondo M.D. Pre-operative diagnosis: Ascites Post-operative diagnosis: Ascites Con scious Sedation: None. The patient's heart rate and pulse oximetry were contin uously monitored by the IR nurse. Additional Medications: Lidocaine 1% f or local anesthesia Estimated blood loss: Less than 1 cc. Specimen: 25 00 cc of milky yellow fluid Implants: None TECHNIQUE/FINDINGS: Infor med consent was obtained from the patient and documented in the medical record . The patient was placed in the supine position. Initial ultrasound demonstrat ed ascites. The right lower abdomen was prepped and draped in standard steril e fashion. 1% lidocaine was infiltrated into the skin and subcutaneous tissues for local anesthesia. Then under continuous sonographic guidance, a 5 Fr cath eter was advanced into the peritoneal space. The catheter was connected to vac uum bottle with subsequent evacuation of 2500 cc of serous fluid. The cathete r was removed and sterile dressing was applied. Sample was sent to the lab. Th e patient tolerated the procedure well. IMPRESSION: Successful ultrasound -guided paracentesis. Signed by: Jayson Arredondo on 08/30/2019 2:34 PM Dictated By: JAYSON ARREDONDO MD 33 COPY TO: WILSON MONREAL MD Lactate Wnqjnibsnijdc4634-01-87 06:25:00* Test Item Value Reference Range Interpretation Comments Lactate Dehydrogenase (test code = 161525573) 168 125-220 [facility]odium Hfnyu9083-33-43 06:10:00* Test Item Value Reference Range Interpretation Comments Sodium Level (test code = 2951-2) 135 136-145 L [facility]viewPotassium Ybzeh6181-27-32 06:10:00* Test Item Value Reference Range Interpretation Comments Potassium Level (test code = 2823-3) 3.8 3.5-5.1 [facility]viewChloride Prqkm6115-97-13 06:10:00* Test Item Value Reference Range Interpretation Comments Chloride Level (test code = 2075-0) 104 98-107 [facility]viewCarbon Dioxide Zwhxu7262-63-04 06:10:00* Test Item Value Reference Range Interpretation Comments Carbon Dioxide Level (test code = 2028-9) 27 22-29 [facility]viewAnion Kzr4996-70-04 06:10:00* Test Item Value Reference Range Interpretation Comments Anion Gap (test code = 56114-7) 7.8 8-16 L [facility]viewBlood Urea Vjrefbsu3981-25-30 06:10:00* Test Item Value Reference Range Interpretation Comments Blood Urea Nitrogen (test code = 3094-0) 11 - [facility]viewCreatinine2020-03-26 06:10:00* Test Item Value Reference Range Interpretation Comments Creatinine (test code = 2160-0) 0.91 0.72-1.25 [facility]viewBUN/Creatinine Pefrs9165-20-41 06:10:00* Test Item Value Reference Range Interpretation Comments BUN/Creatinine Ratio (test code = 3097-3) 12 - [facility] PlainviewEstimat Glomerular Filtration Rate 2019-08-30 06:10:00* Test Item Value Reference Range Interpretation Comments Estimat Glomerular Filtration Rate (test code = 751516205) > 60 >60 Ranges were taken from the National Kidney Disease Education Program and the [employer] literature.Reference ranges:60 or greater: Csvhla61-95 ( for 3 consecutive months): Chronic kidney disease 15 or less: Kidney failureCovenant Health PlainviewGlucose Hybgr9303-17-01 06:10:00* Test Item Value Reference Range Interpretation Comments Glucose Level (test code = NQL2571) 89 74-118 [facility]viewCalcium Vjaew3862-55-72 06:10:00* Test Item Value Reference Range Interpretation Comments Calcium Level (test code = 81733-9) 8.3 8.4-10.2 L [facility]viewTotal Ncqybwtch6487-37-67 06:10:00* Test Item Value Reference Range Interpretation Comments Total Bilirubin (test code = 1975-2) 1.0 0.2-1.2 [facility]viewAspartate Amino Transf (AST/SGOT) 2019-08-30 06:10:00* Test Item Value Reference Range Interpretation Comments Aspartate Amino Transf (AST/SGOT) (test code = Aspartate Amino Transf (AST/SGOT)) 16 5-34 [facility]viewAlanine Aminotransferase (ALT/SGPT) 2019-08-30 06:10:00* Test Item Value Reference Range Interpretation Comments Alanine Aminotransferase (ALT/SGPT) (test code = 1742-6) 11 0-55 [facility]viewTotal Chrjhwt6546-32-02 06:10:00* Test Item Value Reference Range Interpretation Comments Total Protein (test code = 2885-2) 5.2 6.5-8.1 L [facility]viewAlbumin2020-03-26 06:10:00* Test Item Value Reference Range Interpretation Comments Albumin (test code = 1751-7) 2.8 3.5-5.0 L [facility]viewGlobulin2020-03-26 06:10:00* Test Item Value Reference Range Interpretation Comments Globulin (test code = 02310-2) 2.4 2.3-3.5 [facility]viewAlbumin/Globulin Gxaez9315-72-87 06:10:00 * Test Item Value Reference Range Interpretation Comments Albumin/Globulin Ratio (test code = 1759-0) 1.2 0.8-2.0 [facility]viewAlkaline Tncdozlmnqg3919-70-34 06:10:00* Test Item Value Reference Range Interpretation Comments Alkaline Phosphatase (test code = 6768-6) 85 40-150 [facility]viewWhite Blood Kadwy8411-37-47 05:45:00* Test Item Value Reference Range Interpretation Comments White Blood Count (test code = 6690-2) 3.29 4.8-10.8 L [facility]viewRed Blood Rdksq2535-10-32 05:45:00* Test Item Value Reference Range Interpretation Comments Red Blood Count (test code = 789-8) 3.89 4.3-5.7 L [facility]viewHemoglobin2020-03-26 05:45:00* Test Item Value Reference Range Interpretation Comments Hemoglobin (test code = 42367-2) 11.3 14.0-18.0 L [facility]viewHematocrit2020-03-26 05:45:00* Test Item Value Reference Range Interpretation Comments Hematocrit (test code = 4544-3) 35.5 38.2-49.6 L [facility]viewMean Corpuscular Auhcgp6837-22-50 05:45:00* Test Item Value Reference Range Interpretation Comments Mean Corpuscular Volume (test code = 787-2) 91.3 81-99 [facility]viewMean Corpuscular Dqvelxqjeq3186-85-59 05:45:00* Test Item Value Reference Range Interpretation Comments Mean Corpuscular Hemoglobin (test code = 785-6) 29.0 28-32 [facility]viewMean Corpuscular Hemoglobin Concent 2019-08-30 05:45:00* Test Item Value Reference Range Interpretation Comments Mean Corpuscular Hemoglobin Concent (test code = 786-4) 31.8 31-35 [facility]viewRed Cell Distribution Dyqqj5903-77-96 05:45:00* Test Item Value Reference Range Interpretation Comments Red Cell Distribution Width (test code = 42205-0) 19.6 11.7 -14.4 H [facility]viewPlatelet Vzuyo2555-55-02 05:45:00* Test Item Value Reference Range Interpretation Comments Platelet Count (test code = 777-3) 142 140-360 [facility]viewNeutrophils (%) (Auto)2019-08-30 05:45:00 * Test Item Value Reference Range Interpretation Comments Neutrophils (%) (Auto) (test code = 16254-9) 50.1 38.7-80.0 [facility]viewLymphocytes (%) (Auto)2019-08-30 05:45:00 * Test Item Value Reference Range Interpretation Comments Lymphocytes (%) (Auto) (test code = 736-9) 22.8 18.0-39.1 [facility]viewMonocytes (%) (Auto)2019-08-30 05:45:00* Test Item Value Reference Range Interpretation Comments Monocytes (%) (Auto) (test code = 5905-5) 19.8 4.4-11.3 H [facility]viewEosinophils (%) (Auto)2019-08-30 05:45:00 * Test Item Value Reference Range Interpretation Comments Eosinophils (%) (Auto) (test code = 713-8) 6.1 0.0-6.0 H [facility]viewBasophils (%) (Auto)2019-08-30 05:45:00* Test Item Value Reference Range Interpretation Comments Basophils (%) (Auto) (test code = 706-2) 0.6 0.0-1.0 [facility]viewIM GRANULOCYTES %2019-08-30 05:45:00* Test Item Value Reference Range Interpretation Comments IM GRANULOCYTES % (test code = IM GRANULOCYTES %) 0.6 0.0- 1.0 [facility]viewNeutrophils # (Auto)2019-08-30 05:45:00* Test Item Value Reference Range Interpretation Comments Neutrophils # (Auto) (test code = 751-8) 1.7 2.1-6.9 L [facility]viewLymphocytes # (Auto)2019-08-30 05:45:00* Test Item Value Reference Range Interpretation Comments Lymphocytes # (Auto) (test code = 83118-8) 0.8 1.0-3.2 L [facility]viewMonocytes # (Auto)2019-08-30 05:45:00* Test Item Value Reference Range Interpretation Comments Monocytes # (Auto) (test code = 742-7) 0.7 0.2-0.8 [facility]viewEosinophils # (Auto)2019-08-30 05:45:00* Test Item Value Reference Range Interpretation Comments Eosinophils # (Auto) (test code = 711-2) 0.2 0.0-0.4 [facility]viewBasophils # (Auto)2019-08-30 05:45:00* Test Item Value Reference Range Interpretation Comments Basophils # (Auto) (test code = 704-7) 0.0 0.0-0.1 [facility] PlainviewAbsolute Immature Granulocyte (auto 2019-08-30 05:45:00* Test Item Value Reference Range Interpretation Comments Absolute Immature Granulocyte (auto (salazar t code = Absolute Immature Granulocyte (auto) 0.02 0-0.1 [facility] PlainviewCarcinoembryonic Rmqxors0131-45-76 05:08:00* Test Item Value Reference Range Interpretation Comments Carcinoembryonic Antigen (test code = 2039-6) 16.0 0.0-4.7 H Nonsmokers <3.9 Smokers <5.6[employer] Electrochemiluminescence Immunoassay(ECLIA)Values obtained with different assay methods or kitscannot be used interchangeably. Results cannot beinterpreted as absolute evidence of the presence orabsence of malignant disease.Performed at: [facility] [address] [id number] Director: Anderson Reich MD, Phone: [phone] Health PlainviewAlpha Bdyjxuewbpa4933-16-10 13:53:00* Test Item Value Reference Range Interpretation Comments Alpha Fetoprotein (test code = 30250-3) 2.0 0.0-8.3 [employer] Electrochemiluminescence Immunoassay(ECLIA)Values obtained wit h different assay methods or kits cannotbe used interchangeably. Results cannot be interpreted asabsolute evidence of the presence or absence of malignantdisea se.This test is not interpretable in females.Performed at: [facility] [address] [id number] Director: Anderson Reich MD, Phone: [phone] [facility] HospitalD-Dimer Quantitative (PE/DVT)2019-08-28 18:01:00* Test Item Value Reference Range Interpretation Comments D-Dimer Quantitative (PE/DVT) (test code = 48333-2) 3.37 0. 00-0.45 H [facility] PlainviewAmylase Fgfuc4396-48-60 17:43:00* Test Item Value Reference Range Interpretation Comments Amylase Level (test code = 1798-8) 24 25-125 L [facility] PlainviewCT ABDOMEN/PELVIS [id number] 14:32:00 [facility] [address] [address] Patient Name: CRISTOPHER JACOB MR #: [id number] : 1950 Age/Sex: 69/M Req #: [id number] Adm Physician: Ordered by: JAYSON KUMAR TITLE [employer] Report #: [id number] Location: ER Room/Bed: Procedure: [id number] CT /CT ABDOMEN/PELVIS W Exam Date: 08/28/19 Exam Time: 1400 REPORT STATUS: Signed EXAMI NATION: CT of the abdomen and pelvis with contrast. TECHNIQUE: Spiral CT images of the abdomen and pelvis were performed from the lung bases to the le sser trochanters after the intravenous administration of 100 cc of Isovue 370 and the oral administration of water. Coronal and sagittal reformatted images were obtained. COMPARISON: None. CLINICAL HISTORY:Abdominal bloating, pain and diarrhea for 3 weeks starting after receiving chemotherapy. History of lung cancer DISCUSSION: ABDOMEN/PELVIS: LOWER THORAX:Inn umerable bilateral pulmonary nodules are identified in the lung bases, ranging in size from 0.2-2.3 cm. Some of the nodules (for example series 2, image 2, in the right middle lobe) have central lucency, which are suspicious for early cavitation. No pulmonary masses. HEPATOBILIARY: Normal hepatic contour. Linear hypodensity in the left hepatic lobe (series 2, image 22) consistent wi th portal vein thrombus. No other focal hepatic lesions. No intra or extrahep atic biliary ductal dilation. GALLBLADDER: No radio-opaque stones or sludge . No wall thickening. SPLEEN: Mild to moderate splenomegaly, measuring 16. 2 cm in AP diameter PANCREAS: No focal masses or ductal dilatation. A DRENALS: No adrenal nodules. KIDNEYS/URETERS: No hydronephrosis, stones, or solid mass lesions. PELVIC ORGANS/BLADDER: Bladder is unremarkable. Dystro phic calcification in the prostate. Seminal vesicles are normal. PERITONE UM/RETROPERITONEUM: Moderate intra-abdominal and pelvic ascites which measures simple fluid density. No definite peritoneal nodules are identified. LYMPH NODES: Enlarged portacaval/celiac axis node measuring 1.3 cm in short axis (s eries 2, image 35) disease. No other intra-abdominal or any retroperitoneal, p elvic or inguinal adenopathy. VESSELS: The celiac trunk,superior and inferi or mesenteric and bilateral renal arteries are patent . Intraluminal fillin g defect in the main portal vein extending from the confluence into the right and left portal veins (series 2, images 27-36 and coronal images 71-77 and sag ittal image 61). Questionable filling defect in the most proximal aspect of th e SMV versus mixing artifact (series 2, image 43 and 44). Splenic vein is pa tent, without filling defects. GI TRACT: No bowel dilation or evidence of o bstruction. Anastomotic sutures in the right abdomen and, with evidence of rig ht hemicolectomy. Mild wall thickening in the distal transverse as well as in the descending colon (for example series 2, images 39-53). Mild wall thickenin g is also noted in the (series 2, image 53) and multiple jejunal loops (for ex ample series 2, image 40 and coronal image 57) Stomach is grossly unremarkable . BONES AND SOFT TISSUE: No aggressive lytic lesions. No suspicious focal sclerotic lesions. Degenerated disks at L5-S1. Bilateral fat and fluid conta ining inguinal hernias, right greater than left. IMPRESSION: 1. 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 Questionable extension into the most proximal aspect of the SMV. A linear hypodensity in the left hepatic lobe likely represents thrombus in segment II portal vein branch. 2. Mild to moderate splenomegaly, without evidence of c ollateral circulation or cirrhotic features, and moderate ascites, likely sequ martinez of portal vein thrombus. 3. Mild wall thickening in the duodenum and proximal jejunum, distal transverse as well as in the descending colon may ref lect enterotoxicity due to recent chemotherapy. An infectious enteritis is ano ther consideration, particularly the patient is immunocompromised. 4. Enl arged portacaval/celiac axis node, which may be metastatic. 5. Innumerable metastatic pulmonary nodules, some of which have faint central lucency suggest ing early cavitation. 6. Findings discussed with Dr. Monreal in the ER August 052019 at 1450 hours Signed by: Dr. Dawson Dalton M.D. on 08/28/2019 3 :03 PM Dictated By: DAWSON DALTON MD 1503 Transcribed By: HERIBERTO on 08/28/19 1503 COPY TO: JAYSON KUMAR NP B-Type Natriuretic Cjjpgah4996-67-58 12:56:00* Test Item Value Reference Range Interpretation Comments B-Type Natriuretic Peptide (test code = 92140-5) 56.2 0-100 [facility]viewCreatine Kinase [id number] 12:56:00* Test Item Value Reference Range Interpretation Comments Creatine Kinase MB (test code = 43295-5) 1.10 0-5.0 [facility]viewTroponin [id number] 12:56:00* Test Item Value Reference Range Interpretation Comments Troponin I (test code = CID9172) 0.001 0-0.300 [facility]viewCreatine Phiriu4468-74-98 12:47:00* Test Item Value Reference Range Interpretation Comments Creatine Kinase (test code = 2157-6) 42 30-200 [facility] PlainviewLipase2020-03-24 12:47:00* Test Item Value Reference Range Interpretation Comments Lipase (test code = 3040-3) 4 8-78 L [facility] HospitalCHEM [id number] 15:10:001.0[facility]annCHEM [id number] 15:10:0075[facility]annCHEM GJIKE6684-84-67 13:54:000.9[facility]annCHEM [id number] 13:54:0086[facility]annCBC W/MANUAL [id number] 21:42:00* Test Item Value Reference Range Interpretation Comments WHITE BLOOD CELL (test code = WBC) 4.0 K/mm3 4.5-12.5 L RED BLOOD CELL (test code = RBC) 3.63 mill/mm3 4.0-5.8 L HEMOGLOBIN (test code = HGB) 11.3 gram/dL 13.0-17.5 L HEMATOCRIT (test code = HCT) 34.0 % 42.0-52.0 L MEAN CELL VOLUME (test code = MCV) 93.7 fL 80-98 N MEAN CELL HGB (test code = MCH) 31.1 picogram 27.0-33.0 N MEAN CELL HGB CONCETRATION (test code = MCHC) 33.2 gram/dL 33.0-36. 0 N RED CELL DISTRIBUTION WIDTH (test code = RDW) 17.5 % 11.6-16. 2 H RED CELL DISTRIBUTION WIDTH SD (test code = RDW-SD) 59.5 fL 37 .0-51.0 H PLATELET COUNT (test code = PLT) 57 K/mm3 150-450 L MEAN PLATELET VOLUME (test code = MPV) 13.3 fL 6.7-11.0 H IMMATURE GRANULOCYTE % (test code = IG%) 3.2 % 0.0-5.0 N NUCLEATED RBC % (test code = NRBC%) 0.0 % 0-0 N NEUTROPHIL # (test code = NT#) 2.45 K/mm3 1.8-7.7 N IMMATURE GRANULOCYTE # (test code = IG#) 0.13 x10 3/uL 0-0.03 H LYMPHOCYTE # (test code = LY#) 0.93 K/mm3 1.0-5.0 L MONOCYTE # (test code = MO#) 0.45 K/mm3 0-0.8 N EOSINOPHIL # (test code = EO#) 0.05 K/mm3 0.0-0.5 N BASOPHIL # (test code = BA#) 0.02 K/mm3 0.0-0.2 N NUCLEATED RBC # (test code = NRBC#) 0.00 K/mm3 0.0-0.1 N MANUAL DIFF REQUIRED (test code = MDIFF) YES STAIN ACCEPTABILITY (test code = STN ACCEPTABLE) STAIN ACCEPTABLE TOTAL CELLS COUNTED (test code = TCC) 115 #CELLS SEGMENTED NEUTROPHILS (test code = SEG) 71.3 % 39-69 H BAND NEUTROPHIL (test code = BAND) 5.2 % 0-10 N LYMPHOCYTE (test code = LYMPH) 11.3 % 25-55 L REACTIVE LYMPH (test code = RELYMPH) 0 % MONOCYTE (test code = MON) 6.9 % 0-10 N EOSINOPHIL (test code = EOS) 0 % 0.0-5.0 N BASOPHIL (test code = BASO) 0 % 0-1.0 N METAMYELOCYTE (test code = META) 2.6 % 0-0 H MYELOCYTE (test code = MYELO) 0.9 % 0.0-0.0 H PROMYELOCYTE (test code = PROM) 0.9 % 0-0 H PLASMA CELL (test code = LELE) 0.9 0.0-0.0 H POLYCHROMASIA (test code = POLC) 1+ ANISOCYTOSIS (test code = ANISO) 1+ MACROCYTOSIS (test code = MACR) 1+ PLATELET ESTIMATE (test code = PLTEST) DECREASED PLATELET MORPHOLOGY (test code = PLTMORPH) NORMAL IMMATURE FORMS (test code = IMMAT) 0 % 0-0 N PATHOLOGISTS [id number] 21:42:00* Test Item Value Reference Range Interpretation Comments PATHOLOGISTS FINDINGS (test code = PATH) PATH NOTES LEFT SHIFT GRANULOCYTES, LYMPHOPENIA WITH A FEW REACTIVE LYPHOCYTES SEEN. NORMOCYTIC ANEMIA, THRMBOCYTOPENIA.REVIEWED BY OSMAN HOOPER M.D.10/20/18 CBC W/MANUAL [id number] 05:37:00* Test Item Value Reference Range Interpretation Comments WHITE BLOOD CELL (test code = WBC) 4.0 K/mm3 4.5-12.5 L RED BLOOD CELL (test code = RBC) 3.63 mill/mm3 4.0-5.8 L HEMOGLOBIN (test code = HGB) 11.3 gram/dL 13.0-17.5 L HEMATOCRIT (test code = HCT) 34.0 % 42.0-52.0 L MEAN CELL VOLUME (test code = MCV) 93.7 fL 80-98 N MEAN CELL HGB (test code = MCH) 31.1 picogram 27.0-33.0 N MEAN CELL HGB CONCETRATION (test code = MCHC) 33.2 gram/dL 33.0-36. 0 N RED CELL DISTRIBUTION WIDTH (test code = RDW) 17.5 % 11.6-16. 2 H RED CELL DISTRIBUTION WIDTH SD (test code = RDW-SD) 59.5 fL 37 .0-51.0 H PLATELET COUNT (test code = PLT) 57 K/mm3 150-450 L MEAN PLATELET VOLUME (test code = MPV) 13.3 fL 6.7-11.0 H IMMATURE GRANULOCYTE % (test code = IG%) 3.2 % 0.0-5.0 N NUCLEATED RBC % (test code = NRBC%) 0.0 % 0-0 N NEUTROPHIL # (test code = NT#) 2.45 K/mm3 1.8-7.7 N IMMATURE GRANULOCYTE # (test code = IG#) 0.13 x10 3/uL 0-0.03 H LYMPHOCYTE # (test code = LY#) 0.93 K/mm3 1.0-5.0 L MONOCYTE # (test code = MO#) 0.45 K/mm3 0-0.8 N EOSINOPHIL # (test code = EO#) 0.05 K/mm3 0.0-0.5 N BASOPHIL # (test code = BA#) 0.02 K/mm3 0.0-0.2 N NUCLEATED RBC # (test code = NRBC#) 0.00 K/mm3 0.0-0.1 N MANUAL DIFF REQUIRED (test code = MDIFF) YES STAIN ACCEPTABILITY (test code = STN ACCEPTABLE) STAIN ACCEPTABLE TOTAL CELLS COUNTED (test code = TCC) 115 #CELLS SEGMENTED NEUTROPHILS (test code = SEG) 71.3 % 39-69 H BAND NEUTROPHIL (test code = BAND) 5.2 % 0-10 N LYMPHOCYTE (test code = LYMPH) 11.3 % 25-55 L REACTIVE LYMPH (test code = RELYMPH) 0 % MONOCYTE (test code = MON) 6.9 % 0-10 N EOSINOPHIL (test code = EOS) 0 % 0.0-5.0 N BASOPHIL (test code = BASO) 0 % 0-1.0 N METAMYELOCYTE (test code = META) 2.6 % 0-0 H MYELOCYTE (test code = MYELO) 0.9 % 0.0-0.0 H PROMYELOCYTE (test code = PROM) 0.9 % 0-0 H PLASMA CELL (test code = LELE) 0.9 0.0-0.0 H POLYCHROMASIA (test code = POLC) 1+ ANISOCYTOSIS (test code = ANISO) 1+ MACROCYTOSIS (test code = MACR) 1+ PLATELET ESTIMATE (test code = PLTEST) DECREASED PLATELET MORPHOLOGY (test code = PLTMORPH) NORMAL IMMATURE FORMS (test code = IMMAT) 0 % 0-0 N PATHOLOGISTS [id number] 05:37:00* Test Item Value Reference Range Interpretation Comments PATHOLOGISTS FINDINGS (test code = PATH) PATH NOTES CBC W/MANUAL [id number] 05:33:00* Test Item Value Reference Range Interpretation Comments WHITE BLOOD CELL (test code = WBC) 4.0 K/mm3 4.5-12.5 L RED BLOOD CELL (test code = RBC) 3.63 mill/mm3 4.0-5.8 L HEMOGLOBIN (test code = HGB) 11.3 gram/dL 13.0-17.5 L HEMATOCRIT (test code = HCT) 34.0 % 42.0-52.0 L MEAN CELL VOLUME (test code = MCV) 93.7 fL 80-98 N MEAN CELL HGB (test code = MCH) 31.1 picogram 27.0-33.0 N MEAN CELL HGB CONCETRATION (test code = MCHC) 33.2 gram/dL 33.0-36. 0 N RED CELL DISTRIBUTION WIDTH (test code = RDW) 17.5 % 11.6-16. 2 H RED CELL DISTRIBUTION WIDTH SD (test code = RDW-SD) 59.5 fL 37 .0-51.0 H PLATELET COUNT (test code = PLT) 57 K/mm3 150-450 L MEAN PLATELET VOLUME (test code = MPV) 13.3 fL 6.7-11.0 H IMMATURE GRANULOCYTE % (test code = IG%) 3.2 % 0.0-5.0 N NUCLEATED RBC % (test code = NRBC%) 0.0 % 0-0 N NEUTROPHIL # (test code = NT#) 2.45 K/mm3 1.8-7.7 N IMMATURE GRANULOCYTE # (test code = IG#) 0.13 x10 3/uL 0-0.03 H LYMPHOCYTE # (test code = LY#) 0.93 K/mm3 1.0-5.0 L MONOCYTE # (test code = MO#) 0.45 K/mm3 0-0.8 N EOSINOPHIL # (test code = EO#) 0.05 K/mm3 0.0-0.5 N BASOPHIL # (test code = BA#) 0.02 K/mm3 0.0-0.2 N NUCLEATED RBC # (test code = NRBC#) 0.00 K/mm3 0.0-0.1 N MANUAL DIFF REQUIRED (test code = MDIFF) YES STAIN ACCEPTABILITY (test code = STN ACCEPTABLE) TOTAL CELLS COUNTED (test code = TCC) #CELLS SEGMENTED NEUTROPHILS (test code = SEG) % 39-69 LYMPHOCYTE (test code = LYMPH) % 25-55 MONOCYTE (test code = MON) % 0-10 MORPHOLOGY COMMENT (test code = MOC) PLATELET ESTIMATE (test code = PLTEST) PLATELET MORPHOLOGY (test code = PLTMORPH) PATHOLOGISTS [id number] 05:33:00* Test Item Value Reference Range Interpretation Comments PATHOLOGISTS FINDINGS (test code = PATH) PATH NOTES CBC W/MANUAL [id number] 05:03:00* Test Item Value Reference Range Interpretation Comments WHITE BLOOD CELL (test code = WBC) 4.0 K/mm3 4.5-12.5 L RED BLOOD CELL (test code = RBC) 3.63 mill/mm3 4.0-5.8 L HEMOGLOBIN (test code = HGB) 11.3 gram/dL 13.0-17.5 L HEMATOCRIT (test code = HCT) 34.0 % 42.0-52.0 L MEAN CELL VOLUME (test code = MCV) 93.7 fL 80-98 N MEAN CELL HGB (test code = MCH) 31.1 picogram 27.0-33.0 N MEAN CELL HGB CONCETRATION (test code = MCHC) 33.2 gram/dL 33.0-36. 0 N RED CELL DISTRIBUTION WIDTH (test code = RDW) 17.5 % 11.6-16. 2 H RED CELL DISTRIBUTION WIDTH SD (test code = RDW-SD) 59.5 fL 37 .0-51.0 H PLATELET COUNT (test code = PLT) 57 K/mm3 150-450 L MEAN PLATELET VOLUME (test code = MPV) 13.3 fL 6.7-11.0 H IMMATURE GRANULOCYTE % (test code = IG%) 3.2 % 0.0-5.0 N NUCLEATED RBC % (test code = NRBC%) 0.0 % 0-0 N NEUTROPHIL # (test code = NT#) 2.45 K/mm3 1.8-7.7 N IMMATURE GRANULOCYTE # (test code = IG#) 0.13 x10 3/uL 0-0.03 H LYMPHOCYTE # (test code = LY#) 0.93 K/mm3 1.0-5.0 L MONOCYTE # (test code = MO#) 0.45 K/mm3 0-0.8 N EOSINOPHIL # (test code = EO#) 0.05 K/mm3 0.0-0.5 N BASOPHIL # (test code = BA#) 0.02 K/mm3 0.0-0.2 N NUCLEATED RBC # (test code = NRBC#) 0.00 K/mm3 0.0-0.1 N MANUAL DIFF REQUIRED (test code = MDIFF) YES STAIN ACCEPTABILITY (test code = STN ACCEPTABLE) TOTAL CELLS COUNTED (test code = TCC) #CELLS SEGMENTED NEUTROPHILS (test code = SEG) % 39-69 LYMPHOCYTE (test code = LYMPH) % 25-55 MONOCYTE (test code = MON) % 0-10 EOSINOPHIL (test code = EOS) % 0.0-5.0 CABOT RINGS (test code = CAB) MORPHOLOGY COMMENT (test code = MOC) PLATELET ESTIMATE (test code = PLTEST) PLATELET MORPHOLOGY (test code = PLTMORPH) CBC W/MANUAL [id number] 05:03:00* Test Item Value Reference Range Interpretation Comments WHITE BLOOD CELL (test code = WBC) 4.0 K/mm3 4.5-12.5 L RED BLOOD CELL (test code = RBC) 3.63 mill/mm3 4.0-5.8 L HEMOGLOBIN (test code = HGB) 11.3 gram/dL 13.0-17.5 L HEMATOCRIT (test code = HCT) 34.0 % 42.0-52.0 L MEAN CELL VOLUME (test code = MCV) 93.7 fL 80-98 N MEAN CELL HGB (test code = MCH) 31.1 picogram 27.0-33.0 N MEAN CELL HGB CONCETRATION (test code = MCHC) 33.2 gram/dL 33.0-36. 0 N RED CELL DISTRIBUTION WIDTH (test code = RDW) 17.5 % 11.6-16. 2 H RED CELL DISTRIBUTION WIDTH SD (test code = RDW-SD) 59.5 fL 37 .0-51.0 H PLATELET COUNT (test code = PLT) 57 K/mm3 150-450 L MEAN PLATELET VOLUME (test code = MPV) 13.3 fL 6.7-11.0 H IMMATURE GRANULOCYTE % (test code = IG%) 3.2 % 0.0-5.0 N NUCLEATED RBC % (test code = NRBC%) 0.0 % 0-0 N NEUTROPHIL # (test code = NT#) 2.45 K/mm3 1.8-7.7 N IMMATURE GRANULOCYTE # (test code = IG#) 0.13 x10 3/uL 0-0.03 H LYMPHOCYTE # (test code = LY#) 0.93 K/mm3 1.0-5.0 L MONOCYTE # (test code = MO#) 0.45 K/mm3 0-0.8 N EOSINOPHIL # (test code = EO#) 0.05 K/mm3 0.0-0.5 N BASOPHIL # (test code = BA#) 0.02 K/mm3 0.0-0.2 N NUCLEATED RBC # (test code = NRBC#) 0.00 K/mm3 0.0-0.1 N MANUAL DIFF REQUIRED (test code = MDIFF) YES STAIN ACCEPTABILITY (test code = STN ACCEPTABLE) TOTAL CELLS COUNTED (test code = TCC) #CELLS SEGMENTED NEUTROPHILS (test code = SEG) % 39-69 LYMPHOCYTE (test code = LYMPH) % 25-55 MONOCYTE (test code = MON) % 0-10 EOSINOPHIL (test code = EOS) % 0.0-5.0 MORPHOLOGY COMMENT (test code = MOC) PLATELET ESTIMATE (test code = PLTEST) PLATELET MORPHOLOGY (test code = PLTMORPH) CBC W/MANUAL [id number] 05:03:00* Test Item Value Reference Range Interpretation Comments WHITE BLOOD CELL (test code = WBC) 4.0 K/mm3 4.5-12.5 L RED BLOOD CELL (test code = RBC) 3.63 mill/mm3 4.0-5.8 L HEMOGLOBIN (test code = HGB) 11.3 gram/dL 13.0-17.5 L HEMATOCRIT (test code = HCT) 34.0 % 42.0-52.0 L MEAN CELL VOLUME (test code = MCV) 93.7 fL 80-98 N MEAN CELL HGB (test code = MCH) 31.1 picogram 27.0-33.0 N MEAN CELL HGB CONCETRATION (test code = MCHC) 33.2 gram/dL 33.0-36. 0 N RED CELL DISTRIBUTION WIDTH (test code = RDW) 17.5 % 11.6-16. 2 H RED CELL DISTRIBUTION WIDTH SD (test code = RDW-SD) 59.5 fL 37 .0-51.0 H PLATELET COUNT (test code = PLT) 57 K/mm3 150-450 L MEAN PLATELET VOLUME (test code = MPV) 13.3 fL 6.7-11.0 H IMMATURE GRANULOCYTE % (test code = IG%) 3.2 % 0.0-5.0 N NUCLEATED RBC % (test code = NRBC%) 0.0 % 0-0 N NEUTROPHIL # (test code = NT#) 2.45 K/mm3 1.8-7.7 N IMMATURE GRANULOCYTE # (test code = IG#) 0.13 x10 3/uL 0-0.03 H LYMPHOCYTE # (test code = LY#) 0.93 K/mm3 1.0-5.0 L MONOCYTE # (test code = MO#) 0.45 K/mm3 0-0.8 N EOSINOPHIL # (test code = EO#) 0.05 K/mm3 0.0-0.5 N BASOPHIL # (test code = BA#) 0.02 K/mm3 0.0-0.2 N NUCLEATED RBC # (test code = NRBC#) 0.00 K/mm3 0.0-0.1 N MANUAL DIFF REQUIRED (test code = MDIFF) YES STAIN ACCEPTABILITY (test code = STN ACCEPTABLE) TOTAL CELLS COUNTED (test code = TCC) #CELLS SEGMENTED NEUTROPHILS (test code = SEG) % 39-69 LYMPHOCYTE (test code = LYMPH) % 25-55 MONOCYTE (test code = MON) % 0-10 MORPHOLOGY COMMENT (test code = MOC) PLATELET ESTIMATE (test code = PLTEST) PLATELET MORPHOLOGY (test code = PLTMORPH) CBC W/MANUAL [id number] 05:02:00* Test Item Value Reference Range Interpretation Comments WHITE BLOOD CELL (test code = WBC) 4.0 K/mm3 4.5-12.5 L RED BLOOD CELL (test code = RBC) 3.63 mill/mm3 4.0-5.8 L HEMOGLOBIN (test code = HGB) 11.3 gram/dL 13.0-17.5 L HEMATOCRIT (test code = HCT) 34.0 % 42.0-52.0 L MEAN CELL VOLUME (test code = MCV) 93.7 fL 80-98 N MEAN CELL HGB (test code = MCH) 31.1 picogram 27.0-33.0 N MEAN CELL HGB CONCETRATION (test code = MCHC) 33.2 gram/dL 33.0-36. 0 N RED CELL DISTRIBUTION WIDTH (test code = RDW) 17.5 % 11.6-16. 2 H RED CELL DISTRIBUTION WIDTH SD (test code = RDW-SD) 59.5 fL 37 .0-51.0 H PLATELET COUNT (test code = PLT) 57 K/mm3 150-450 L MEAN PLATELET VOLUME (test code = MPV) 13.3 fL 6.7-11.0 H IMMATURE GRANULOCYTE % (test code = IG%) 3.2 % 0.0-5.0 N NUCLEATED RBC % (test code = NRBC%) 0.0 % 0-0 N NEUTROPHIL # (test code = NT#) 2.45 K/mm3 1.8-7.7 N IMMATURE GRANULOCYTE # (test code = IG#) 0.13 x10 3/uL 0-0.03 H LYMPHOCYTE # (test code = LY#) 0.93 K/mm3 1.0-5.0 L MONOCYTE # (test code = MO#) 0.45 K/mm3 0-0.8 N EOSINOPHIL # (test code = EO#) 0.05 K/mm3 0.0-0.5 N BASOPHIL # (test code = BA#) 0.02 K/mm3 0.0-0.2 N NUCLEATED RBC # (test code = NRBC#) 0.00 K/mm3 0.0-0.1 N MANUAL DIFF REQUIRED (test code = MDIFF) YES STAIN ACCEPTABILITY (test code = STN ACCEPTABLE) TOTAL CELLS COUNTED (test code = TCC) #CELLS SEGMENTED NEUTROPHILS (test code = SEG) % 39-69 LYMPHOCYTE (test code = LYMPH) % 25-55 MONOCYTE (test code = MON) % 0-10 EOSINOPHIL (test code = EOS) % 0.0-5.0 CABOT RINGS (test code = CAB) MORPHOLOGY COMMENT (test code = MOC) PLATELET ESTIMATE (test code = PLTEST) PLATELET MORPHOLOGY (test code = PLTMORPH) CBC W/MANUAL [id number] 05:02:00* Test Item Value Reference Range Interpretation Comments WHITE BLOOD CELL (test code = WBC) 4.0 K/mm3 4.5-12.5 L RED BLOOD CELL (test code = RBC) 3.63 mill/mm3 4.0-5.8 L HEMOGLOBIN (test code = HGB) 11.3 gram/dL 13.0-17.5 L HEMATOCRIT (test code = HCT) 34.0 % 42.0-52.0 L MEAN CELL VOLUME (test code = MCV) 93.7 fL 80-98 N MEAN CELL HGB (test code = MCH) 31.1 picogram 27.0-33.0 N MEAN CELL HGB CONCETRATION (test code = MCHC) 33.2 gram/dL 33.0-36. 0 N RED CELL DISTRIBUTION WIDTH (test code = RDW) 17.5 % 11.6-16. 2 H RED CELL DISTRIBUTION WIDTH SD (test code = RDW-SD) 59.5 fL 37 .0-51.0 H PLATELET COUNT (test code = PLT) 57 K/mm3 150-450 L MEAN PLATELET VOLUME (test code = MPV) 13.3 fL 6.7-11.0 H IMMATURE GRANULOCYTE % (test code = IG%) 3.2 % 0.0-5.0 N NUCLEATED RBC % (test code = NRBC%) 0.0 % 0-0 N NEUTROPHIL # (test code = NT#) 2.45 K/mm3 1.8-7.7 N IMMATURE GRANULOCYTE # (test code = IG#) 0.13 x10 3/uL 0-0.03 H LYMPHOCYTE # (test code = LY#) 0.93 K/mm3 1.0-5.0 L MONOCYTE # (test code = MO#) 0.45 K/mm3 0-0.8 N EOSINOPHIL # (test code = EO#) 0.05 K/mm3 0.0-0.5 N BASOPHIL # (test code = BA#) 0.02 K/mm3 0.0-0.2 N NUCLEATED RBC # (test code = NRBC#) 0.00 K/mm3 0.0-0.1 N MANUAL DIFF REQUIRED (test code = MDIFF) YES STAIN ACCEPTABILITY (test code = STN ACCEPTABLE) TOTAL CELLS COUNTED (test code = TCC) #CELLS SEGMENTED NEUTROPHILS (test code = SEG) % 39-69 LYMPHOCYTE (test code = LYMPH) % 25-55 MONOCYTE (test code = MON) % 0-10 EOSINOPHIL (test code = EOS) % 0.0-5.0 CABOT RINGS (test code = CAB) MORPHOLOGY COMMENT (test code = MOC) PLATELET ESTIMATE (test code = PLTEST) PLATELET MORPHOLOGY (test code = PLTMORPH) PROCALCITONIN (PCT)2018-10-19 20:00:00* Test Item Value Reference Range Interpretation Comments PROCALCITONIN (PCT) (test code = PROCAL) 2.75 ng/ml Concentration Interpretation (ng/mL) <0.51 Sepsis [...] into account the patients history. CBC W/MANUAL [id number] 05:03:00* Test Item Value Reference Range Interpretation Comments WHITE BLOOD CELL (test code = WBC) 2.7 K/mm3 4.5-12.5 L RED BLOOD CELL (test code = RBC) 3.78 mill/mm3 4.0-5.8 L HEMOGLOBIN (test code = HGB) 12.0 gram/dL 13.0-17.5 L HEMATOCRIT (test code = HCT) 35.7 % 42.0-52.0 L MEAN CELL VOLUME (test code = MCV) 94.4 fL 80-98 N MEAN CELL HGB (test code = MCH) 31.7 picogram 27.0-33.0 N MEAN CELL HGB CONCETRATION (test code = MCHC) 33.6 gram/dL 33.0-36. 0 N RED CELL DISTRIBUTION WIDTH (test code = RDW) 17.5 % 11.6-16. 2 H RED CELL DISTRIBUTION WIDTH SD (test code = RDW-SD) 61.1 fL 37 .0-51.0 H PLATELET COUNT (test code = PLT) 35 K/mm3 150-450 LL Results called to [id number] by ARIELKNPayton 10/17/18 0441Critical results verified and read back by Nurse? YPREVIOUS HISTORY MEAN PLATELET VOLUME (test code = MPV) 13.7 fL 6.7-11.0 H IMMATURE GRANULOCYTE % (test code = IG%) 1.9 % 0.0-5.0 N NUCLEATED RBC % (test code = NRBC%) 0.0 % 0-0 N NEUTROPHIL # (test code = NT#) 2.00 K/mm3 1.8-7.7 N IMMATURE GRANULOCYTE # (test code = IG#) 0.05 x10 3/uL 0-0.03 H LYMPHOCYTE # (test code = LY#) 0.42 K/mm3 1.0-5.0 L MONOCYTE # (test code = MO#) 0.18 K/mm3 0-0.8 N EOSINOPHIL # (test code = EO#) 0.03 K/mm3 0.0-0.5 N BASOPHIL # (test code = BA#) 0.01 K/mm3 0.0-0.2 N NUCLEATED RBC # (test code = NRBC#) 0.00 K/mm3 0.0-0.1 N MANUAL DIFF REQUIRED (test code = MDIFF) YES STAIN ACCEPTABILITY (test code = STN ACCEPTABLE) STAIN ACCEPTABLE TOTAL CELLS COUNTED (test code = TCC) 113 #CELLS SEGMENTED NEUTROPHILS (test code = SEG) 75.2 % 39-69 H BAND NEUTROPHIL (test code = BAND) 4.4 % 0-10 N LYMPHOCYTE (test code = LYMPH) 6.2 % 25-55 L REACTIVE LYMPH (test code = RELYMPH) 7.1 % MONOCYTE (test code = MON) 4.4 % 0-10 N EOSINOPHIL (test code = EOS) 0 % 0.0-5.0 N BASOPHIL (test code = BASO) 2.7 % 0-1.0 H METAMYELOCYTE (test code = META) 0 % 0-0 N MYELOCYTE (test code = MYELO) 0 % 0.0-0.0 N PROMYELOCYTE (test code = PROM) 0 % 0-0 N ANISOCYTOSIS (test code = ANISO) 1+ PLATELET ESTIMATE (test code = PLTEST) DECREASED PLATELET MORPHOLOGY (test code = PLTMORPH) NORMAL IMMATURE FORMS (test code = IMMAT) 0 % 0-0 N BASIC METABOLIC [id number] 04:54:00* Test Item Value Reference Range Interpretation Comments SODIUM (test code = NA) 133 mmol/L 136-145 L POTASSIUM (test code = K) 3.9 mmol/L 3.5-5.1 N CHLORIDE (test code = CL) 101.0 mmol/L 98-107 N CARBON DIOXIDE (test code = CO2) 23.0 mmol/L 21-32 N ANION GAP (test code = GAP) 12.9 10-20 N GLUCOSE (test code = GLU) 104 mg/dL 74-106 N BLOOD UREA NITROGEN (test code = BUN) 24 mg/dL 7-18 H GLOMERULAR FILTRATION RATE (test code = GFR) 55 mL/min >=60 Estimated GFR by using Modified MDRD formula.Chronic kidney disease is defined as either kidney damageor GFR <60 mL/min/1.73 m2 for >3 months. CREATININE (test code = CREAT) 1.30 mg/dL 0.7-1.3 N BUN/CREATININE RATIO (test code = BUN/CREA) 18.5 10-20 N CALCIUM (test code = CA) 7.6 mg/dL 8.5-10.1 L CBC W/MANUAL [id number] 04:44:00* Test Item Value Reference Range Interpretation Comments WHITE BLOOD CELL (test code = WBC) 2.7 K/mm3 4.5-12.5 L RED BLOOD CELL (test code = RBC) 3.78 mill/mm3 4.0-5.8 L HEMOGLOBIN (test code = HGB) 12.0 gram/dL 13.0-17.5 L HEMATOCRIT (test code = HCT) 35.7 % 42.0-52.0 L MEAN CELL VOLUME (test code = MCV) 94.4 fL 80-98 N MEAN CELL HGB (test code = MCH) 31.7 picogram 27.0-33.0 N MEAN CELL HGB CONCETRATION (test code = MCHC) 33.6 gram/dL 33.0-36. 0 N RED CELL DISTRIBUTION WIDTH (test code = RDW) 17.5 % 11.6-16. 2 H RED CELL DISTRIBUTION WIDTH SD (test code = RDW-SD) 61.1 fL 37 .0-51.0 H PLATELET COUNT (test code = PLT) 35 K/mm3 150-450 LL Results called to [id number] by ARIELKNPayton 10/17/18 0441Critical results verified and read back by Nurse? YPREVIOUS HISTORY MEAN PLATELET VOLUME (test code = MPV) 13.7 fL 6.7-11.0 H IMMATURE GRANULOCYTE % (test code = IG%) 1.9 % 0.0-5.0 N NUCLEATED RBC % (test code = NRBC%) 0.0 % 0-0 N NEUTROPHIL # (test code = NT#) 2.00 K/mm3 1.8-7.7 N IMMATURE GRANULOCYTE # (test code = IG#) 0.05 x10 3/uL 0-0.03 H LYMPHOCYTE # (test code = LY#) 0.42 K/mm3 1.0-5.0 L MONOCYTE # (test code = MO#) 0.18 K/mm3 0-0.8 N EOSINOPHIL # (test code = EO#) 0.03 K/mm3 0.0-0.5 N BASOPHIL # (test code = BA#) 0.01 K/mm3 0.0-0.2 N NUCLEATED RBC # (test code = NRBC#) 0.00 K/mm3 0.0-0.1 N MANUAL DIFF REQUIRED (test code = MDIFF) YES STAIN ACCEPTABILITY (test code = STN ACCEPTABLE) TOTAL CELLS COUNTED (test code = TCC) #CELLS SEGMENTED NEUTROPHILS (test code = SEG) % 39-69 LYMPHOCYTE (test code = LYMPH) % 25-55 MONOCYTE (test code = MON) % 0-10 EOSINOPHIL (test code = EOS) % 0.0-5.0 CABOT RINGS (test code = CAB) MORPHOLOGY COMMENT (test code = MOC) PLATELET ESTIMATE (test code = PLTEST) PLATELET MORPHOLOGY (test code = PLTMORPH) CBC W/MANUAL [id number] 04:44:00* Test Item Value Reference Range Interpretation Comments WHITE BLOOD CELL (test code = WBC) 2.7 K/mm3 4.5-12.5 L RED BLOOD CELL (test code = RBC) 3.78 mill/mm3 4.0-5.8 L HEMOGLOBIN (test code = HGB) 12.0 gram/dL 13.0-17.5 L HEMATOCRIT (test code = HCT) 35.7 % 42.0-52.0 L MEAN CELL VOLUME (test code = MCV) 94.4 fL 80-98 N MEAN CELL HGB (test code = MCH) 31.7 picogram 27.0-33.0 N MEAN CELL HGB CONCETRATION (test code = MCHC) 33.6 gram/dL 33.0-36. 0 N RED CELL DISTRIBUTION WIDTH (test code = RDW) 17.5 % 11.6-16. 2 H RED CELL DISTRIBUTION WIDTH SD (test code = RDW-SD) 61.1 fL 37 .0-51.0 H PLATELET COUNT (test code = PLT) 35 K/mm3 150-450 LL Results called to [id number] by ARIELKNG1 10/17/18 0441Critical results verified and read back by Nurse? YPREVIOUS HISTORY MEAN PLATELET VOLUME (test code = MPV) 13.7 fL 6.7-11.0 H IMMATURE GRANULOCYTE % (test code = IG%) 1.9 % 0.0-5.0 N NUCLEATED RBC % (test code = NRBC%) 0.0 % 0-0 N NEUTROPHIL # (test code = NT#) 2.00 K/mm3 1.8-7.7 N IMMATURE GRANULOCYTE # (test code = IG#) 0.05 x10 3/uL 0-0.03 H LYMPHOCYTE # (test code = LY#) 0.42 K/mm3 1.0-5.0 L MONOCYTE # (test code = MO#) 0.18 K/mm3 0-0.8 N EOSINOPHIL # (test code = EO#) 0.03 K/mm3 0.0-0.5 N BASOPHIL # (test code = BA#) 0.01 K/mm3 0.0-0.2 N NUCLEATED RBC # (test code = NRBC#) 0.00 K/mm3 0.0-0.1 N MANUAL DIFF REQUIRED (test code = MDIFF) YES STAIN ACCEPTABILITY (test code = STN ACCEPTABLE) TOTAL CELLS COUNTED (test code = TCC) #CELLS SEGMENTED NEUTROPHILS (test code = SEG) % 39-69 LYMPHOCYTE (test code = LYMPH) % 25-55 MONOCYTE (test code = MON) % 0-10 EOSINOPHIL (test code = EOS) % 0.0-5.0 CABOT RINGS (test code = CAB) MORPHOLOGY COMMENT (test code = MOC) PLATELET ESTIMATE (test code = PLTEST) PLATELET MORPHOLOGY (test code = PLTMORPH) CBC W/MANUAL [id number] 04:44:00* Test Item Value Reference Range Interpretation Comments WHITE BLOOD CELL (test code = WBC) 2.7 K/mm3 4.5-12.5 L RED BLOOD CELL (test code = RBC) 3.78 mill/mm3 4.0-5.8 L HEMOGLOBIN (test code = HGB) 12.0 gram/dL 13.0-17.5 L HEMATOCRIT (test code = HCT) 35.7 % 42.0-52.0 L MEAN CELL VOLUME (test code = MCV) 94.4 fL 80-98 N MEAN CELL HGB (test code = MCH) 31.7 picogram 27.0-33.0 N MEAN CELL HGB CONCETRATION (test code = MCHC) 33.6 gram/dL 33.0-36. 0 N RED CELL DISTRIBUTION WIDTH (test code = RDW) 17.5 % 11.6-16. 2 H RED CELL DISTRIBUTION WIDTH SD (test code = RDW-SD) 61.1 fL 37 .0-51.0 H PLATELET COUNT (test code = PLT) 35 K/mm3 150-450 LL Results called to [id number] by ARIELKNPayton 10/17/18 0441Critical results verified and read back by Nurse? YPREVIOUS HISTORY MEAN PLATELET VOLUME (test code = MPV) 13.7 fL 6.7-11.0 H IMMATURE GRANULOCYTE % (test code = IG%) 1.9 % 0.0-5.0 N NUCLEATED RBC % (test code = NRBC%) 0.0 % 0-0 N NEUTROPHIL # (test code = NT#) 2.00 K/mm3 1.8-7.7 N IMMATURE GRANULOCYTE # (test code = IG#) 0.05 x10 3/uL 0-0.03 H LYMPHOCYTE # (test code = LY#) 0.42 K/mm3 1.0-5.0 L MONOCYTE # (test code = MO#) 0.18 K/mm3 0-0.8 N EOSINOPHIL # (test code = EO#) 0.03 K/mm3 0.0-0.5 N BASOPHIL # (test code = BA#) 0.01 K/mm3 0.0-0.2 N NUCLEATED RBC # (test code = NRBC#) 0.00 K/mm3 0.0-0.1 N MANUAL DIFF REQUIRED (test code = MDIFF) YES STAIN ACCEPTABILITY (test code = STN ACCEPTABLE) TOTAL CELLS COUNTED (test code = TCC) #CELLS SEGMENTED NEUTROPHILS (test code = SEG) % 39-69 LYMPHOCYTE (test code = LYMPH) % 25-55 MONOCYTE (test code = MON) % 0-10 EOSINOPHIL (test code = EOS) % 0.0-5.0 MORPHOLOGY COMMENT (test code = MOC) PLATELET ESTIMATE (test code = PLTEST) PLATELET MORPHOLOGY (test code = PLTMORPH) CBC W/MANUAL [id number] 04:44:00* Test Item Value Reference Range Interpretation Comments WHITE BLOOD CELL (test code = WBC) 2.7 K/mm3 4.5-12.5 L RED BLOOD CELL (test code = RBC) 3.78 mill/mm3 4.0-5.8 L HEMOGLOBIN (test code = HGB) 12.0 gram/dL 13.0-17.5 L HEMATOCRIT (test code = HCT) 35.7 % 42.0-52.0 L MEAN CELL VOLUME (test code = MCV) 94.4 fL 80-98 N MEAN CELL HGB (test code = MCH) 31.7 picogram 27.0-33.0 N MEAN CELL HGB CONCETRATION (test code = MCHC) 33.6 gram/dL 33.0-36. 0 N RED CELL DISTRIBUTION WIDTH (test code = RDW) 17.5 % 11.6-16. 2 H RED CELL DISTRIBUTION WIDTH SD (test code = RDW-SD) 61.1 fL 37 .0-51.0 H PLATELET COUNT (test code = PLT) 35 K/mm3 150-450 LL Results called to LEELEE/[id number] by MALIA 10/17/18 0441Critical results verified and read back by Nurse? YPREVIOUS HISTORY MEAN PLATELET VOLUME (test code = MPV) 13.7 fL 6.7-11.0 H IMMATURE GRANULOCYTE % (test code = IG%) 1.9 % 0.0-5.0 N NUCLEATED RBC % (test code = NRBC%) 0.0 % 0-0 N NEUTROPHIL # (test code = NT#) 2.00 K/mm3 1.8-7.7 N IMMATURE GRANULOCYTE # (test code = IG#) 0.05 x10 3/uL 0-0.03 H LYMPHOCYTE # (test code = LY#) 0.42 K/mm3 1.0-5.0 L MONOCYTE # (test code = MO#) 0.18 K/mm3 0-0.8 N EOSINOPHIL # (test code = EO#) 0.03 K/mm3 0.0-0.5 N BASOPHIL # (test code = BA#) 0.01 K/mm3 0.0-0.2 N NUCLEATED RBC # (test code = NRBC#) 0.00 K/mm3 0.0-0.1 N MANUAL DIFF REQUIRED (test code = MDIFF) YES STAIN ACCEPTABILITY (test code = STN ACCEPTABLE) TOTAL CELLS COUNTED (test code = TCC) #CELLS SEGMENTED NEUTROPHILS (test code = SEG) % 39-69 LYMPHOCYTE (test code = LYMPH) % 25-55 MONOCYTE (test code = MON) % 0-10 MORPHOLOGY COMMENT (test code = MOC) PLATELET ESTIMATE (test code = PLTEST) PLATELET MORPHOLOGY (test code = PLTMORPH) CBC W/MANUAL [id number] 04:44:00* Test Item Value Reference Range Interpretation Comments WHITE BLOOD CELL (test code = WBC) 2.7 K/mm3 4.5-12.5 L RED BLOOD CELL (test code = RBC) 3.78 mill/mm3 4.0-5.8 L HEMOGLOBIN (test code = HGB) 12.0 gram/dL 13.0-17.5 L HEMATOCRIT (test code = HCT) 35.7 % 42.0-52.0 L MEAN CELL VOLUME (test code = MCV) 94.4 fL 80-98 N MEAN CELL HGB (test code = MCH) 31.7 picogram 27.0-33.0 N MEAN CELL HGB CONCETRATION (test code = MCHC) 33.6 gram/dL 33.0-36. 0 N RED CELL DISTRIBUTION WIDTH (test code = RDW) 17.5 % 11.6-16. 2 H RED CELL DISTRIBUTION WIDTH SD (test code = RDW-SD) 61.1 fL 37 .0-51.0 H PLATELET COUNT (test code = PLT) 35 K/mm3 150-450 LL Results called to LEELEE/[id number] by MALIA 10/17/18 0441Critical results verified and read back by Nurse? YPREVIOUS HISTORY MEAN PLATELET VOLUME (test code = MPV) 13.7 fL 6.7-11.0 H IMMATURE GRANULOCYTE % (test code = IG%) 1.9 % 0.0-5.0 N NUCLEATED RBC % (test code = NRBC%) 0.0 % 0-0 N NEUTROPHIL # (test code = NT#) 2.00 K/mm3 1.8-7.7 N IMMATURE GRANULOCYTE # (test code = IG#) 0.05 x10 3/uL 0-0.03 H LYMPHOCYTE # (test code = LY#) 0.42 K/mm3 1.0-5.0 L MONOCYTE # (test code = MO#) 0.18 K/mm3 0-0.8 N EOSINOPHIL # (test code = EO#) 0.03 K/mm3 0.0-0.5 N BASOPHIL # (test code = BA#) 0.01 K/mm3 0.0-0.2 N NUCLEATED RBC # (test code = NRBC#) 0.00 K/mm3 0.0-0.1 N MANUAL DIFF REQUIRED (test code = MDIFF) YES STAIN ACCEPTABILITY (test code = STN ACCEPTABLE) TOTAL CELLS COUNTED (test code = TCC) #CELLS SEGMENTED NEUTROPHILS (test code = SEG) % 39-69 LYMPHOCYTE (test code = LYMPH) % 25-55 MONOCYTE (test code = MON) % 0-10 EOSINOPHIL (test code = EOS) % 0.0-5.0 CABOT RINGS (test code = CAB) MORPHOLOGY COMMENT (test code = MOC) PLATELET ESTIMATE (test code = PLTEST) PLATELET MORPHOLOGY (test code = PLTMORPH) PROCALCITONIN (PCT)2018-10-17 01:28:00* Test Item Value Reference Range Interpretation Comments PROCALCITONIN (PCT) (test code = PROCAL) 1.61 ng/ml Concentration Interpretation (ng/mL) <0.51 Sepsis [...] into account the patients history. BASIC METABOLIC [id number] 15:57:00* Test Item Value Reference Range Interpretation Comments SODIUM (test code = NA) 133 mmol/L 136-145 L POTASSIUM (test code = K) 4.0 mmol/L 3.5-5.1 N CHLORIDE (test code = CL) 100.0 mmol/L 98-107 N CARBON DIOXIDE (test code = CO2) 25.0 mmol/L 21-32 N ANION GAP (test code = GAP) 12.0 10-20 N GLUCOSE (test code = GLU) 112 mg/dL 74-106 H BLOOD UREA NITROGEN (test code = BUN) 21 mg/dL 7-18 H GLOMERULAR FILTRATION RATE (test code = GFR) > 60 mL/min >=60 Estimated GFR by using Modified MDRD formula.Chronic kidney disease is defined as either kidney damageor GFR <60 mL/min/1.73 m2 for >3 months. CREATININE (test code = CREAT) 1.10 mg/dL 0.7-1.3 N BUN/CREATININE RATIO (test code = BUN/CREA) 19.1 10-20 N CALCIUM (test code = CA) 8.1 mg/dL 8.5-10.1 L BASIC METABOLIC [id number] 15:51:00* Test Item Value Reference Range Interpretation Comments SODIUM (test code = NA) 133 mmol/L 136-145 L POTASSIUM (test code = K) 4.0 mmol/L 3.5-5.1 N CHLORIDE (test code = CL) 100.0 mmol/L 98-107 N CARBON DIOXIDE (test code = CO2) mmol/L 21-32 ANION GAP (test code = GAP) 10-20 GLUCOSE (test code = GLU) mg/dL 74-106 BLOOD UREA NITROGEN (test code = BUN) mg/dL 7-18 GLOMERULAR FILTRATION RATE (test code = GFR) mL/min >=60 CREATININE (test code = CREAT) mg/dL 0.7-1.3 BUN/CREATININE RATIO (test code = BUN/CREA) 10-20 CALCIUM (test code = CA) 8.1 mg/dL 8.5-10.1 L VANCOMYCIN [id number] 05:46:00* Test Item Value Reference Range Interpretation Comments VANCOMYCIN TROUGH (test code = VANCT) 10.7 ug/mL 10-20 N SPECIMEN COMMENTS: PLEASE DRAW AT 04:30 TIMED STUDYPROCALCITONIN (PCT)2018-10-15 15:22:00* Test Item Value Reference Range Interpretation Comments PROCALCITONIN (PCT) (test code = PROCAL) 0.78 ng/ml Concentration Interpretation (ng/mL) <0.51 Sepsis [...] account the patients history. CREATININE W ESTIMATED [id number] 15:16:00* Test Item Value Reference Range Interpretation Comments GLOMERULAR FILTRATION RATE (test code = GFR) 60 mL/min >=60 Estimated GFR by using Modified MDRD formula.Chronic kidney disease is defined as either kidney damageor GFR <60 mL/min/1.73 m2 for >3 months. CREATININE (test code = CREAT) 1.20 mg/dL 0.7-1.3 N - CT ABD PELVIS W/O [id number] 18:51:00 Name: CRISTOPHER JACOB [facility] : 1950 Age/S: 68 / M [address] [facility] Unit #: [id number] Loc: [place] [address] Phys: Jason Singleton MD Acct: [id number] Dis Date: Status: ADM IN PHONE #: [phone] Exam Date: 10/14/2018 1756 FAX #: [phone] Reason: fever EXAMS: CPT CODE: [id number] CT ABD PELVIS W/O CONT 74946 HISTORY: Pneumonia and metastatic cancer and fever. [...] 1 Signed Report (CONTINU ED) Name: CRISTOPHER JACOB [facility] : 1950 Age/S: 68 / M [address] [facility] Unit #: [id number] Loc: [place] [address] Phys: Jason Singleton MD Acct: [id number] Dis Date: Status: ADM IN PHONE #: [phone] Exam Date: 10/14/2018 175 FAX #: Reason: fever EXAMS: CPT CODE: [id number] CT ABD PE LVIS W/O CONT 43387 <Continued> Patient is post right hemicolectomy with [...] CT CHEST W/O CONTRAST 2018-10-14 18:24:00 Name: RCISTOPHER JACOB [facility] : 1950 Age/S: 68 / M [address] [facility]: [id number] Loc: [place] [address] Phys: Jason Singleton MD Acct: [id number] Dis Date: Status: ADM IN PHONE #: [phone] Exam Date: 10/14/2018 1756 FAX #: [phone] Reason: fever EXAMS: CPT CODE: [id number] CT CHEST W/O CONTRAST 23887 HISTORY: Fever. COMPARISON: Chest CT from March [...] o acute infiltrates, effusion or congestion. at 1824 Reported and s igned by: Zacarias Fernandez M.D. PAGE 1 Signed Repor t (CONTINUED) Name: CRISTOPHER JACOB [facility] : 1950 Age/S: 68 / M [address] Unit #: [id number] Loc: [place] [address] Phys: Jason Singleton MD Acct: [id number] Dis Date: Status: ADM IN PHONE #: [phone] Exam Date: 10/14/2018 1751 FAX #: [phone] Reason: fever EXAMS: CPT CODE: [id number] CT CHEST W/O CONTRAST 65082 < Continued> CC: Jason Singleton MD; Huong De Anda MD Technologist:Maria Esther Saeed RT(R),CT; CTDI: DLP: Trnscb Date/Time: 10/14/2018 (1823) [email or web address] Orig Print D/T: S: 10/14/2018 (1827) PAGE 2 Signed Report URINALYSIS [id number] 17:21:00* Test Item Value Reference Range Interpretation Comments UA COLOR (test code = COLU) YELLOW YELLOW UA APPEARANCE (test code = APPU) CLEAR CLEAR UA GLUCOSE DIPSTICK (test code = DGLUU) NEGATIVE mg/dL NEGATIVE UA BILIRUBIN DIPSTICK (test code = BILU) NEGATIVE mg/dL NEGATIVE UA KETONE DIPSTICK (test code = KETU) NEGATIVE mg/dL NEGATIVE UA SPECIFIC GRAVITY (test code = SGU) 1.034 1.001-1.035 UA BLOOD DIPSTICK (test code = NIGHAT) Negative mg/dL NEGATIVE UA PH DIPSTICK (test code = DEON) 6.5 5.0-8.0 UA PROTEIN DIPSTICK (test code = PROU) 30 (1+) mg/dL NEGATIVE A UA UROBILINIOGEN DIPSTICK (test code = URO) 4.0 (2+) mg/dL NEGATIVE A UA NITRITE DIPSTICK (test code = CHARLES) NEGATIVE NEGATIVE UA LEUKOCYTE ESTERASE W REFLEX (test code = LEUUR) NEGATIVE Yariel/uL NEGATIVE UA WBC (test code = WBCU) 0-5 per HPF 0-5 UA RBC (test code = RBCU) 0-2 #/HPF 0-5 UA EPITHELIAL CELLS (test code = EPIU) FEW per HPF FEW UA BACTERIA (test code = BACU) FEW #/HPF NONE A UA MUCUS (test code = MUCU) FEW #/LPF FEW Urine Source? Clean CatchURINALYSIS [id number] 17:20:00* Test Item Value Reference Range Interpretation Comments UA COLOR (test code = COLU) YELLOW YELLOW UA APPEARANCE (test code = APPU) CLEAR CLEAR UA GLUCOSE DIPSTICK (test code = DGLUU) NEGATIVE mg/dL NEGATIVE UA BILIRUBIN DIPSTICK (test code = BILU) NEGATIVE mg/dL NEGATIVE UA KETONE DIPSTICK (test code = KETU) NEGATIVE mg/dL NEGATIVE UA SPECIFIC GRAVITY (test code = SGU) 1.034 1.001-1.035 UA BLOOD DIPSTICK (test code = NIGHAT) Negative mg/dL NEGATIVE UA PH DIPSTICK (test code = DEON) 6.5 5.0-8.0 UA PROTEIN DIPSTICK (test code = PROU) 30 (1+) mg/dL NEGATIVE A UA UROBILINIOGEN DIPSTICK (test code = URO) 4.0 (2+) mg/dL NEGATIVE A UA NITRITE DIPSTICK (test code = CHARLES) NEGATIVE NEGATIVE UA LEUKOCYTE ESTERASE W REFLEX (test code = LEUUR) NEGATIVE Yariel/uL NEGATIVE UA WBC (test code = WBCU) per HPF 0-5 UA RBC (test code = RBCU) per HPF 0-5 UA EPITHELIAL CELLS (test code = EPIU) per HPF Few UA BACTERIA (test code = BACU) per HPF NONE Urine Source? Clean CatchPROCALCITONIN (PCT)2018-10-13 17:10:00* Test Item Value Reference Range Interpretation Comments PROCALCITONIN (PCT) (test code = PROCAL) 0.27 ng/ml Concentration Interpretation (ng/mL) <0.51 Sepsis [...] the patients history. - XR CHEST 1 [id number] 16:28:00 FAX: Judd Ryan DO [place]: B St: REG Name: [facility] : [birth year] Age/S: 68/M [address] [facility] Unit #: [id number] Loc: [place] [address] Phys: Judd Ryan DO Acct: [id number] Dis Date: Status: REG ER PHONE #: [phone] Exam Date: 10/13/2018 1606 FAX #: [phone] Reason: CODE SEPSIS EXAMS: CPT CODE: [id number] XR CHEST 1 V 44385 REASON FOR EXAM: CODE SEPSIS EXAM ORDER DATE: 10/13/2018 3:39 PM Ordering MSwetha: Judd Ryan DO PROCEDURE: - XR CHEST [...] Signed by Sharon Ross on 10/13/2018 at 8100 R eported and signed by: Umair Ross M.D. CC: Judd Ryan DO Technologist: Jesse McallisterR; ... Trnscrd Date/Time/By: 10/13/2018 (8198) : By: Mara QURESHI Orig Print D/T: S: 10/13/2018 (2279) PAGE 1 Signed Report LACTIC ACID 2018-10-13 16:24:00* Test Item Value Reference Range Interpretation Comments LACTIC ACID (test code = LACT) 1.8 mmol/L 0.4-1.9 N BASIC METABOLIC [id number] 16:07:00* Test Item Value Reference Range Interpretation Comments SODIUM (test code = NA) 135 mmol/L 136-145 L POTASSIUM (test code = K) 4.0 mmol/L 3.5-5.1 N CHLORIDE (test code = CL) 100.0 mmol/L 98-107 N CARBON DIOXIDE (test code = CO2) 26.0 mmol/L 21-32 N ANION GAP (test code = GAP) 13.0 10-20 N GLUCOSE (test code = GLU) 130 mg/dL 74-106 H BLOOD UREA NITROGEN (test code = BUN) 16 mg/dL 7-18 N GLOMERULAR FILTRATION RATE (test code = GFR) 50 mL/min >=60 Estimated GFR by using Modified MDRD formula.Chronic kidney disease is defined as either kidney damageor GFR <60 mL/min/1.73 m2 for >3 months. CREATININE (test code = CREAT) 1.40 mg/dL 0.7-1.3 H BUN/CREATININE RATIO (test code = BUN/CREA) 11.4 10-20 N CALCIUM (test code = CA) 8.2 mg/dL 8.5-10.1 L HEPATIC FUNCTION [id number] 16:07:00* Test Item Value Reference Range Interpretation Comments TOTAL PROTEIN (test code = PROT) 6.6 gram/dL 6.4-8.2 N ALBUMIN (test code = ALB) 3.9 g/dL 3.4-5.0 N GLOBULIN (test code = GLOB) 2.7 gram/dL 2.7-4.2 N ALBUMIN/GLOBULIN RATIO (test code = A/G) 1.4 0.75-1.50 N BILIRUBIN TOTAL (test code = BILT) 1.60 mg/dL 0.0-1.0 H BILIRUBIN DIRECT (test code = BILD) 0.45 mg/dL 0.0-0.20 H SGOT/AST (test code = AST) 34 IUnit/L 15-37 N SGPT/ALT (test code = ALT) 36 IUnit/L 12-78 N ALKALINE PHOSPHATASE TOTAL (test code = ALKP) 82 IUnit/L 45-117 N Note change in reference range due to change in reagent. CBC W/AUTO [id number] 16:07:00* Test Item Value Reference Range Interpretation Comments WHITE BLOOD CELL (test code = WBC) 3.5 K/mm3 4.5-12.5 L RED BLOOD CELL (test code = RBC) 4.45 mill/mm3 4.0-5.8 N HEMOGLOBIN (test code = HGB) 14.1 gram/dL 13.0-17.5 N HEMATOCRIT (test code = HCT) 42.8 % 42.0-52.0 N MEAN CELL VOLUME (test code = MCV) 96.2 fL 80-98 N MEAN CELL HGB (test code = MCH) 31.7 picogram 27.0-33.0 N MEAN CELL HGB CONCETRATION (test code = MCHC) 32.9 gram/dL 33.0-36. 0 L RED CELL DISTRIBUTION WIDTH (test code = RDW) 16.8 % 11.6-16. 2 H RED CELL DISTRIBUTION WIDTH SD (test code = RDW-SD) 58.9 fL 37 .0-51.0 H PLATELET COUNT (test code = PLT) 102 K/mm3 150-450 L MEAN PLATELET VOLUME (test code = MPV) 10.0 fL 6.7-11.0 N NEUTROPHIL % (test code = NT%) 78.5 % 39.0-69.0 H IMMATURE GRANULOCYTE % (test code = IG%) 2.3 % 0.0-5.0 N LYMPHOCYTE % (test code = LY%) 8.7 % 25.0-55.0 L MONOCYTE % (test code = MO%) 9.6 % 0.0-10.0 N EOSINOPHIL % (test code = EO%) 0.0 % 0.0-5.0 N BASOPHIL % (test code = BA%) 0.9 % 0.0-1.0 N NUCLEATED RBC % (test code = NRBC%) 0.0 % 0-0 N NEUTROPHIL # (test code = NT#) 2.71 K/mm3 1.8-7.7 N IMMATURE GRANULOCYTE # (test code = IG#) 0.08 x10 3/uL 0-0.03 H LYMPHOCYTE # (test code = LY#) 0.30 K/mm3 1.0-5.0 L MONOCYTE # (test code = MO#) 0.33 K/mm3 0-0.8 N EOSINOPHIL # (test code = EO#) 0.00 K/mm3 0.0-0.5 N BASOPHIL # (test code = BA#) 0.03 K/mm3 0.0-0.2 N NUCLEATED RBC # (test code = NRBC#) 0.00 K/mm3 0.0-0.1 N MANUAL DIFF REQUIRED (test code = MDIFF) NO CHEM OPIDS1897-87-56 11:26:10859Opwdyhrb HermannCHEM CGLJF2074-14-93 09:46:63218 [facility] KOHVM4846-23-01 09:46:0081[facility]annCHEM PANEL 2015-11-22 09:46:0014[facility]annCHE[facility] HNUJJ3231-98-12 09:46:008.6[facility]annCHEM TRQDU3082-13-69 09:46:000.95[facility]annCHEM NRJPE3265-19-16 09:46:62786Zkhuyovh HermannCHEM NYIFC8266-13-17 09:46:003.9[facility]annCHEM KWLKA5483-50-45 09:46:13738Nzzmfudb HermannCHEM UQCAV1701-90-13 09:46:0027 [facility]annCHE[facility] PDGTO7155-31-07 09:46:0082[facility]annCHEM PANEL 2015-11-22 09:46:0010.9[facility] LqynhwlWSCCWPZLOO0887-64-18 09:46:000.8[facility] AkfzdhfTZWOOTOHGY2116-70-80 09:46:001.8[facility] MgiegldRKLCUDLYXW7354-68-67 09:46:000.3[facility] DiibyidIYRKPABSNA5877-04-30 09:46:003+ (11/22/15 4:46 AM) [facility] PqhlnziCBKXFOTCUI3397-67-89 09:46:000.1[facility] HermannHEMATOLOGY 2015-11-22 09:46:001+ (11/22/15 4:46 AM)[facility] FatqtdfIEVKTEKCRA7505-72-30 09:46:005.8[facility] IpdgcrsFFZXVGHYSA8673-79-72 09:46:002.5[facility] GIBUAFKKZE7938-52-45 09:46:001.1[facility] DwywhopZMCZODPHRJ9257-28-07 09:46:00 14.8[facility] RsbvmbjSQFVVLQOKV1941-90-05 09:46:0032.8[facility] HermannHEMATOLOGY 2015-11-22 09:46:00Normal (11/22/15 4:46 AM)[facility] RzpespkXHYWDVOLJL8018-43-65 09:46:00See Note (11/22/15 4:46 AM)[facility] YnsixuxPYURJVMNMW0758-72-29 09:46:00 45.5[facility] FfpzpiuSERAYUSQSQ1292-03-00 09:46:0031.6[facility] HermannHEMATOLOGY 2015-11-22 09:46:42565Xrafqcxp OqmkpmwNDBKFHYKXR8543-08-28 09:46:008.4[facility] HuejqnmMXKPXUYABV8510-86-83 09:46:00* Test Item Value Reference Range Interpretation Comments MCH (test code = MCH) 27.7 pg 27.0-31.0 [facility] LhtfkbxGPLRTIWEJG3583-61-32 09:46:0032.6[facility] HermannHEMATOLOGY 2015-11-22 09:46:005.4[facility] FglkfifWXMCBVRKXT5298-50-99 09:46:004.56[facility] IidqkbgYAIQFRSJRZ6330-84-59 09:46:0012.6[facility] YrprvdbGEXAQMTQBI9079-60-83 09:46:0039.9[facility] IwysacrGJUDAPMEDL6656-39-06 09:46:0087.6[facility] [place] CHEM JNTCC6729-99-36 09:06:44694Cadwhyzg HermannCHEM QTWFH7969-29-91 09:06:04483 [facility]annCHEM PEHWI2143-77-17 09:06:0026[facility]annCHEM PANEL 2015-11-21 09:06:0019[facility]annCHEM PZVNB2120-10-21 09:06:001.0[facility]annCHEM AOLFL3194-63-26 09:06:003.1[facility]annCHEM WGOCS5838-45-30 09:06:003.0[facility]annCHEM HGGAK2233-48-11 09:06:006.1[facility]annCHEM IGWYE8673-44-48 09:06:000.3[facility]annCHEM CJXUE4981-28-84 09:06:000.4 [facility]annCHEM KOJEH1688-35-97 09:06:000.1[facility] HermannELECTROLYTES 2015-11-21 09:06:0014.2[facility] VysqwreLTXFZLCIVXGX0697-49-34 09:06:0024[facility] AtqkjnwPUNKJZVKHXSN4208-88-19 09:06:008.6[facility] WkwcrjySMVDOFBVXINL4117-91-02 09:06:43998Rwzzfvje HnoytmhXVJGNRPPWSNH0341-37-31 09:06:17173Bwqhxvxj [place] WCRAOXMOQJAO8868-93-07 09:06:0091[facility] VndicpdCMGVCUKAEWIW6047-54-20 09:06:00 14[facility] IystpmpLPQYADJGXRUM1418-25-40 09:06:004.2[facility] HermannELECTROLYTES 2015-11-21 09:06:000.99[facility] GqgqymgXFYDDLELTIYL4535-24-71 09:06:0078[facility] QahwwqgQDAIVMXZCI5406-34-09 09:06:000.3[facility] HljcqngOMAKMSMIUO8376-26-41 09:06:000.8[facility] UeunwtbATJXFXPIMX4374-84-61 09:06:001.6[facility] [place] ZVWGPOIXNE8794-14-02 09:06:0015.4[facility] XgqydxlLLOXNGMWJZ3593-41-87 09:06:00 29.9[facility] KeeebukEPCNRKXNWG1946-54-65 09:06:000.8[facility] HermannHEMATOLOGY 2015-11-21 09:06:005.6[facility] WrbblggMWOIFAFLIQ4727-06-44 09:06:0048.3[facility] KgmruntDIUIMROFSI8448-88-56 09:06:002.emorial BluiriyPRDDLHNZJW7400-61-74 09:06:43684Jiuhlktq XsaauirUVPIQLHNBU4339-29-06 09:06:0012.9[facility] [place] LKIBJSTGMT1096-56-12 09:06:004.63[facility] GddxugxSFKSIOUQHE8969-71-55 09:06:00 87.1[facility] EgdxubbITTMEDECVJ1277-76-78 09:06:00* Test Item Value Reference Range Interpretation Comments MCH (test code = MCH) 27.8 pg 27.0-31.0 [facility] XiynomqHDRFIMPMLQ5365-88-89 09:06:0032.0[facility] HermannHEMATOLOGY 2015-11-21 09:06:0032.9[facility] DuatmkaSKCEEBGLIW9377-37-04 09:06:0040.3[facility] CykavwcLDVAJHKPCV6476-56-33 09:06:008.6[facility] TcgtyqvSZTZVPNVDP6035-14-98 09:06:005.5[facility] HermannCARDIAC LREGXQN4531-72-90 09:33:0052[facility] [place] CHEM CLDIE1341-97-85 09:33:004.2[facility] HermannCHEM IGEYK9697-75-47 09:33:002.3 [facility]annCHEM QTIXM0189-12-20 09:33:004.0[facility] HermannCHEM PANEL 2015-11-20 09:33:002.2[facility] HermannCHEM HAPBL5493-02-08 09:33:0076[facility]annCHEM ERZPN2431-31-54 09:33:000.5[facility] HermannCHEM SHVLI5292-71-04 09:33:0093[facility]annCHEM NVEXE7313-20-16 09:33:0079[facility] HermannCHEM BOAUO3046-90-76 09:33:11055Deethmbo HermannCHEM HYBQT7716-95-97 09:33:0015 [facility]annCHEM KDGLB6096-81-67 09:33:001.02[facility] HermannCHEM PANEL 2015-11-20 09:33:13172Wrrwxrcf HermannCHEM YZZGZ8254-17-33 09:33:004.1[facility]annCHEM QTQHP2757-54-76 09:33:0016.1[facility]annCHEM DTMVB2788-58-49 09:33:008.8[facility] HermannCHEM RZJVD7505-49-64 09:33:005.9[facility]annCHEM WWWTM2125-74-93 09:33:002.6[facility] HermannCHEM FCULJ6200-66-20 09:33:0027 [facility]annCHEM DZMRP5508-17-67 09:33:0015[facility] HermannCHEM PANEL 2015-11-20 09:33:003.3[facility] HermannCHEM VDDUD0350-98-48 09:33:0020[facility]annCHEM CJGKK0182-03-28 09:33:001.3[facility] HermannCHEM IQDEQ1032-51-90 09:33:0027[facility] HermannCHEM BTJED9309-35-30 09:33:004.9[facility] HermannCHEM KWDKI3245-46-32 09:33:0033[facility] GyblmwsFICYCAXYRE0781-71-44 09:33:005.0 [facility] GutcajbIAWBPEHMRK1055-65-92 09:33:0016.9[facility] HermannHEMATOLOGY 2015-11-20 09:33:0033.4[facility] GuadgwoZCSUQCCXGS8471-83-37 09:33:001.7[facility] PbphecxZATMFPBYMK4651-81-16 09:33:002.2[facility] IimrlmqSYOHXNBROS6582-68-59 09:33:000.9[facility] WajrjeqPHUOAUFERN7015-31-60 09:33:0043.8[facility] [place] XHCQLVUEGL8734-48-14 09:33:000.9[facility] BbkdghbYNQDBODHSM6288-00-84 09:33:000.3 [facility] DspvzeaLNQDQZWUZK5705-21-15 09:33:0033.0[facility] HermannHEMATOLOGY 2015-11-20 09:33:0031.6[facility] AdvizlnHNVXACTUGM5772-97-32 09:33:00* Test Item Value Reference Range Interpretation Comments MCH (test code = MCH) 27.4 pg 27.0-31.0 [facility] JsgnbbtIUXWVQSVMI4767-14-77 09:33:0086.5[facility] HermannHEMATOLOGY 2015-11-20 09:33:008.8[facility] VatjxpsCWWRWKHYOP1517-31-05 09:33:72381Edqgjhmg YdpsknsCTLIZQYQZG2355-96-75 09:33:005.1[facility] DgbpfmfVMMEBQPZVV0130-76-94 09:33:0039.9[facility] HssluhoAZLALONAFA5237-31-66 09:33:0012.6[facility] WRRBGXMZJL2767-02-55 09:33:004.61[facility] ChwhyqaDKPZWFMLXC8047-30-59 09:33:00 11.6[facility] DqpxrefAEFMRO3402-15-97 09:33:0046[facility] ItnjkxuCTSYFX5007-07-02 09:33:0078[facility] FymhwpsICUTCX0292-35-12 09:33:0035[facility] HermannLIPIDS 2015-11-20 09:33:70646Xseoxfts NlmrkmnVPWTXY3061-97-07 09:33:83667Aidvkiod XoyzjwiQMYCRC7002-16-72 09:33:004.54[facility] HermannSPECIAL CEKANAYDH1998-73-56 09:33:005.6[facility] HermannCHEM QNHQS1369-46-07 08:00:001.8[facility] HermannCHEM GBDIH7981-27-21 23:18:002.1[facility] HermannCHEM IQFMG4014-22-52 23:18:0033 [facility]annCHEM BNFXO8943-77-47 23:18:003.4[facility] HermannCHEM PANEL 2015-11-19 23:18:006.7[facility] HermannCHEM SXSTG8963-76-12 23:18:000.5[facility] HermannCHEM COPXV5150-10-90 23:18:0098[facility] HermannCHEM UDWRY0318-70-96 23:18:0023[facility]annCHEM IDCQP3300-68-39 23:18:001.0[facility] HermannCHEM KYYJM2339-23-06 23:18:003.3[facility] HermannCHEM LLFXB9477-60-58 23:18:0013 [facility] OcbukqhZFGWVYOMXF5383-68-99 23:18:000.1[facility] HermannHEMATOLOGY 2015-11-19 23:18:001+ *ABN*(11/19/15 6:18 PM)[facility] FglklioQMCJOPRZRP2677-76-07 23:18:002+ (11/19/15 6:18 PM)[facility] WjlwvdwNFMDTIOJWN8928-10-85 23:18:002+ *ABN*(11/19/15 6:18 PM)[facility] BfobkknXRPIOSPPCS2035-69-16 23:18:003+ (11/19/15 6:18 PM)[facility] EvsrsxaEDJQESTDZI1281-32-06 23:18:00Normal (11/19/15 6:18 PM) [facility]annUR[facility] AND WAHVH7650-41-18 14:14:285.0[facility]annUR[facility] AND EPLFN3057-48-95 14:14:28Negative (11/19/15 9:14 AM)[facility] YRBQP1119-81-65 14:14:28Negative *NA*(11/19/15 9:14 AM)[facility] KJAEI0677-11-36 14:14:281.020[facility] AND KGKUY8853-57-80 14:14:28 Negative (11/19/15 9:14 AM)[facility] XVDEU3516-42-61 14:14:28 Negative (11/19/15 9:14 AM)[facility] BVXAG2668-72-04 14:14:28<1 [facility] WAGRP5107-10-53 14:14:28<1[facility] KEJGY6739-37-36 14:14:28Clear (11/19/15 9:14 AM)[facility] STOOL 2015-11-19 14:14:28Yellow *NA*(11/19/15 9:14 AM)[facility]annHEMATOLOGY 2015-08-09 10:43:008.6[facility] MdnrjooLIEBVXHFTO9358-81-03 10:43:24062Tbtmxhcq OjrkysaCYDUKLJUXI1402-90-20 10:43:0027.0[facility] EvwdlqsDAAYRKBWIS6104-96-10 10:43:0031.3[facility] NtsbdncYWMXEXPRZH1064-60-48 10:43:00* Test Item Value Reference Range Interpretation Comments MCH (test code = MCH) 25.3 pg 27.0-31.0 [facility] LyynhueFMHMFEQVKI1284-26-75 10:43:0080.9[facility] HermannHEMATOLOGY 2015-08-09 10:43:0033.8[facility] GqycmjsFFCSVVDCQI0600-45-80 10:43:0010.6[facility] AryphfcONYSLLTPIR2460-53-05 10:43:004.17[facility] DclqectQFOEXDYJKK6794-33-87 10:43:0010.6[facility] ZfcizpaWXYZCFCHKV3600-78-31 10:43:003.7[facility] GTDXXARRLG7704-64-73 10:43:0074.1[facility] SmxmuuqCLRPFPTNNC3324-07-76 10:43:00 9.4[facility] LmzdoddETCGJGWVNV1995-18-13 10:43:0012.3[facility] HermannHEMATOLOGY 2015-08-09 10:43:000.5[facility] PbjhtbdZQTUGESHYI9140-56-24 10:43:00Normal (08/09/15 4:43 AM)[facility] KydqwalGSTEZYDTWB6199-59-53 10:43:000.1[facility] ICCXURHVCG0033-57-24 10:43:000.4[facility] BybfgrhJXTZEAAIEJ5244-64-19 10:43:002+ *ABN*(08/09/15 4:43 AM)[facility] ArqroceCEKABWCGJU5515-16-08 10:43:007.8[facility] DdixexjLPENLCWXOM6807-45-17 10:43:001.0[facility] PfsaueyJBQNXZGKOK5499-30-37 10:43:001.3[facility] HermannCHEM HYJUA4315-81-06 10:51:001.8[facility] HermannCHEM WWKTM9546-27-57 10:51:003.5[facility] DdrxihsSVBOTSQECZEY7239-90-53 10:51:0012.0 [facility] TjcfljnIIENKQCKZJRQ3555-69-36 10:51:0088[facility] HermannELECTROLYTES 2015-08-08 10:51:008.4[facility] IxqnctcUVVEVWCVQDLQ7300-00-34 10:51:004.0[facility] AnxwzraKXROAJBQOKPA6676-61-42 10:51:13188Lnkmwtuv EcxoisxFLNMMIXLPYZV9482-94-66 10:51:0026[facility] PsnjkvpTAFZFTNSYWKI6613-65-58 10:51:0013[facility] HJTYSRGVNWKV5957-26-99 10:51:000.89[facility] CrxvzfrXHBJRNPEZKSV5387-79-71 10:51:27018Ycmlyexm CoocrbdQFYSVAJPIAYZ6138-60-68 10:51:66727Rxoprbfy [place] SLKFEAIWGA7307-38-43 10:51:000.1[facility] DbjfrafAMSEKOVUNH7913-12-19 10:51:002+ *ABN*(08/08/15 4:51 AM)[facility] PpynsljJBHDDLZOMD0495-19-50 10:51:001.0[facility] EanzcjdZQYJUDGJOL5428-16-35 10:51:0011.8[facility] McngqyjZCZAXQRQRY5982-68-76 10:51:0016.3[facility] RivytyuBDHEDNRYEH4105-36-99 10:51:0070.9[facility] [place] IMVVLLMXOP0518-97-66 10:51:000.4[facility] AfwzxhiTDWRJYJFZB1803-06-40 10:51:000.6 [facility] QjnureeZWLGZTUDTG7610-77-32 10:51:001.4[facility] HermannHEMATOLOGY 2015-08-08 10:51:006.1[facility] QmnuuixQTDCUYDJCD5041-26-45 10:51:004.42[facility] PckkjipZDJLVMBJUP8094-90-22 10:51:00* Test Item Value Reference Range Interpretation Comments MCH (test code = MCH) 26.1 pg 27.0-31.0 [facility] NisophkNWEHTWDVIV8371-68-34 10:51:0080.6[facility] HermannHEMATOLOGY 2015-08-08 10:51:0032.3[facility] AykemoiKGZRBFPAYX6885-41-46 10:51:0011.5[facility] AhqhalvHSVIEOQWOI7727-42-27 10:51:0035.7[facility] WlxlzvcRTPQGRLULF0940-10-41 10:51:009.0[facility] XqyboauDDMCAIXKSO0359-37-77 10:51:09137Tbxgqrde [place] IHCXMDLICD8262-97-34 10:51:0027.0[facility] RfvqoutCEEPWHMNEJ9155-55-18 10:51:00 8.5[facility] HermannBLOOD BANK AKOUOEE4558-04-08 15:35:00Negative (08/07/15 9:35 AM)[facility] HermannCHEM YWKID9901-92-07 20:20:0014[facility] HermannCHEM PANEL 2015-07-28 20:20:003.1[facility] HermannCHEM GBDAM1822-00-21 20:20:001.3[facility] HermannCHEM XUUCZ1884-99-75 20:20:0011.0[facility] HermannCHEM XZCAI3425-74-23 20:20:0075[facility]annCHEM SAXFT1806-27-96 20:20:0017[facility]annCHEM PUWTF4824-43-63 20:20:000.9[facility]annCHEM JMUBP6436-31-00 20:20:0095 [facility]annCHEM FNAKK7225-83-14 20:20:007.1[facility] HermannCHEM PANEL 2015-07-28 20:20:004.0[facility] HermannCHEM LWCVO1851-25-39 20:20:0025[facility]annCHEM GKNAC6458-84-59 20:20:008.8[facility] HermannCHEM LLZDR3287-54-61 20:20:79451Hlqmxsqw HermannCHEM ZLMDM6405-09-98 20:20:0031[facility]annCHEM UDVSR4323-48-47 20:20:005.0[facility] HermannCHEM XXDAF1403-10-29 20:20:92258 [facility]annCHEM NKWJN3237-55-02 20:20:001.03[facility] HermannCHEM PANEL 2015-07-28 20:20:0014[facility] HermannCHEM FWZZM7963-64-13 20:20:0073[facility] VmpiqymFKQMUTTGWA0715-98-27 20:20:008.4[facility] ZleplfoMNCNPAHGTS4699-26-33 20:20:004.81[facility] UjlqjwxKNLKXJBQRW6839-18-10 20:20:0012.2[facility] XQWHISTCFH7272-85-28 20:20:0079.1[facility] CfzkmnlOVOPMOMHDA2905-51-69 20:20:00* Test Item Value Reference Range Interpretation Comments MCH (test code = MCH) 25.3 pg 27.0-31.0 [facility] NxjnklpRLIZEQUWAD8806-63-73 20:20:0038.1[facility] HermannHEMATOLOGY 2015-07-28 20:20:009.3[facility] ZmseinuKYWVSLDMQU0151-94-45 20:20:0031.4[facility] QhbyuwxIOJVPQCKPX3093-51-42 20:20:54629Ljacrsrf TuehjguJHVDYQFLRL5553-26-56 20:20:0032.0[facility] NyshlaeWFPJPSKMKD2333-48-00 20:20:00* Test Item Value Reference Range Interpretation Comments PTT (test code = PTT) 30.6 s 22.9-35.8 [facility] PwcwaiiMGOHFWDBDA6836-15-62 20:20:001.17[facility] HermannHEMATOLOGY 2015-07-28 20:20:00* Test Item Value Reference Range Interpretation Comments PT (test code = PT) 15.2 s 12.0-14.7 [facility] MiwclsaKPHHCVZOKH9444-84-29 20:20:003+ *NA*(07/28/15 2:20 PM)[facility] ItrvsbzTFIMHLMVUE0281-70-34 20:20:000.7[facility] HiizpphXVWNGZZZDP9653-86-35 20:20:005.3[facility] SilgtewAAWDDZKYTF4251-99-16 20:20:000.4[facility] [place] VCLQTLRGBR9709-36-41 20:20:002.0[facility] CrrrilpOZHZOQWCNJ9411-44-79 20:20:001+ *ABN*(07/28/15 2:20 PM)[facility] DvlvzyvCDMPUTSRQZ3322-51-88 20:20:000.5[facility] SgfatlmPSKTNJKGDL3797-06-93 20:20:008.0[facility] QroxgqhRFDPCMGSKE1460-78-19 20:20:005.0[facility] DcywgwcCVZWPEZGMF2601-21-57 20:20:0062.9[facility] [id number] 20:20:0023.6[facility] LrxpppoKVUZWKAVCF1019-64-89 20:20:00 Normal (07/28/15 2:20 PM)[facility] [id number] 20:20:00 Negative (07/28/15 2:20 PM)[facility] [id number] 20:20:001 [facility] [id number] 20:20:00Negative (07/28/15 2:20 PM) [facility] [id number] 20:20:007.0[facility] [id number] 20:20:001.015[facility] [id number] 20:20:00 Clear (07/28/15 2:20 PM)[facility] [id number] 20:20:00 Negative (07/28/15 2:20 PM)[facility] [id number] 20:20:00 Negative *NA*(07/28/15 2:20 PM)[facility] [id number] 20:20:00 Yellow *NA*(07/28/15 2:20 PM)[facility]
[2019-11-11] MEDS ORDERED: PANTOPRAZOLE 40 MG 10ML VIAL IV STA (12:25)
[2019-11-11] MEDS ORDERED: DIATRIZOATE MEGL/DIATRIZOA SOD 30 ML BTL PO ONE (12:52)
[2019-11-11 13:09] LABS: BASOPHILS # (AUTO) 0.1 (0.0-0.1); BASOPHILS % 0.9 % (0.0-1.0); EOSINOPHILS # (AUTO) 0.3 (0.0-0.4); EOSINOPHILS % 2.3 % (0.0-6.0); HEMATOCRIT 41.5 % (38.2-49.6); HEMOGLOBIN 13.1 g/dL (14.0-18.0); LYMPHOCYTES # (AUTO) 1.3 (1.0-3.2); LYMPHOCYTES % 11.4 % (18.0-39.1); MEAN CORPUSCULAR HEMOGLOBIN 27.1 pg (28-32); MEAN CORPUSCULAR HGB CONC 31.6 g/dL (31-35); MEAN CORPUSCULAR VOLUME 85.9 fL (81-99); NEUTROPHILS # (AUTO) 8.2 (2.1-6.9); NEUTROPHILS % 73.3 % (38.7-80.0); PLATELET COUNT 262 x10e3/uL (140-360); RED BLOOD COUNT 4.83 x10e6/uL (4.3-5.7); RED CELL DISTRIBUTION WIDTH 17.4 % (11.7-14.4)
[2019-11-11 13:11] LABS: BILIRUBIN,URINE SMALL (NEGATIVE); CLARITY,URINE CLEAR (CLEAR); COLOR,URINE YELLOW (YELLOW); KETONES,URINE NEGATIVE (NEGATIVE); LEUKOCYTE ESTERASE ,URINE NEGATIVE (NEGATIVE); NITRITE,URINE NEGATIVE (NEGATIVE); PROTEIN,URINE DIPSTICK TRACE (NEGATIVE)
[2019-11-11 13:12] LABS: EPITHELIAL CELLS,URINE FEW /LPF; MUCUS,URINE FEW (RARE); RBC,URINE 0-5 /HPF (0-5); WBC,URINE (MAN) 0-5 /HPF (0-5)
[2019-11-11 13:18] LABS: INR 1.16; PROTHROMBIN TIME 15.6 seconds (11.9-14.5)
[2019-11-11 13:19] LABS: PARTIAL THROMBOPLASTIN TIME 33.3 seconds (23.8-35.5)
[2019-11-11 13:30] LABS: ALBUMIN/GLOBULIN RATIO 0.9 (0.8-2.0); ALKALINE PHOSPHATASE 100 IU/L (40-150); AMYLASE 33 U/L (25-125); ANION GAP 13.3 mmol/L (8-16); BLOOD UREA NITROGEN 15 mg/dL (7-26); BUN/CREATININE RATIO 14 (6-25); CALCIUM 9.2 mg/dL (8.4-10.2); CARBON DIOXIDE 29 mmol/L (22-29); CHLORIDE 98 mmol/L (98-107); CREATINE KINASE 28 IU/L (30-200); CREATININE, SERUM 1.08 mg/dL (0.72-1.25); EST GLOMERULAR FILTRATION RATE > 60 ML/MIN (60-); GLUCOSE 106 mg/dL (74-118); LIPASE 8 U/L (8-78); POTASSIUM 4.3 mmol/L (3.5-5.1); SODIUM 136 mmol/L (136-145)
[2019-11-11 13:32] LABS: ALANINE AMINOTRANSFERASE < 6 IU/L (0-55)
[2019-11-11] MEDS ORDERED: IOPAMIDOL 370 MG/ML 200 ML INFUS..BTL INJ ONE (14:52)
[2019-11-11] MEDS ORDERED: SODIUM CHLORIDE 0.9% 50ML 50 ML ONE (14:52)
--- NOTE | 2019-11-11 15:38 | Diagnostic Imaging Report ---
EXAMINATION: CT of the abdomen and pelvis with contrast. TECHNIQUE: Spiral CT images of the abdomen and pelvis were performed from the lung bases to the lesser trochanters after the intravenous administration of 100 cc of Isovue 370 and oral Gastrografin. Coronal and sagittal reformatted images were obtained. COMPARISON: CT abdomen/pelvis 07-30-2019. CLINICAL HISTORY: Abdominal pain, loss of appetite, history of metastatic colon cancer the lung. DISCUSSION: LOWER THORAX:Innumerable bilateral pulmonary nodules are identified in the lung bases. The largest nodules in the right lower lobe, measuring up to 2.5 cm, previously 2.3 cm. There is evolution of cavitation of some of the nodules, for example a 1.1 cm left lower lobe nodule on series 2, image 8. HEPATOBILIARY: Cirrhotic morphology to the liver. Somewhat linear hypodensity within the left hepatic lobe, measuring up to 1.1 cm, unchanged, compatible with intrahepatic portal venous thrombus. No definite mass. No evidence of bony ductal dilatation. GALLBLADDER: No radio-opaque stones or sludge. No wall thickening. SPLEEN: Mild splenomegaly, measuring up to 14 cm. PANCREAS: No focal masses or ductal dilatation. ADRENALS: No adrenal nodules. KIDNEYS/URETERS: No hydronephrosis, stones, or solid mass lesions. PELVIC ORGANS/BLADDER: Bladder is unremarkable. Dystrophic calcification in the prostate. PERITONEUM/RETROPERITONEUM: Moderate free fluid. No free air. LYMPH NODES: Unchanged 1.2 cm portacaval/celiac axis lymph node. Unchanged prominent 1.1 cm left paraaortic lymph node. VESSELS: Again noted is nonocclusive thrombus extending from the main portal vein into the left portal vein. The overall extent of thrombus is slightly decreased from the prior study. Interval clearing of thrombus within the right portal vein. Persistent filling defect in the SMV proximally, suspicious for thrombus. Splenic vein is patent, without filling defects. Moderate atherosclerotic calcifications of the abdominal aorta and branch vessels. GI TRACT: No evidence of bowel obstruction. Status post right hemicolectomy. Interval development of a soft tissue lesion which may be extrinsic or possibly within the right esophageal wall, measuring up to to 0.1 x 1.9 x 3.5 cm (series 2, image 19 and coronal series 301, image 89). There appears to be mass effect on the esophagus which is deviated leftward. Decreased mild wall thickening within the distal transverse and descending colon. Mild wall thickening in the jejunum. Moderate amount of stool in the distal colon. BONES AND SOFT TISSUE: No acute osseous abnormality. No suspicious lytic or blastic lesions. Bilateral fat and fluid containing inguinal hernias, right greater than left. IMPRESSION: Main and left portal venous thrombosis, with slightly decreased extent of thrombus compared to prior study. Persistent somewhat linear hypodensity in the left hepatic lobe likely represents thrombus in segment II portal vein branch. Interval resolution of thrombus within the right portal vein. Persistent filling defect within the proximal SMV, suspicious for thrombus. Cirrhosis with sequela of portal hypertension including splenomegaly, findings of portal enteropathy/colopathy, and ascites. Infectious or inflammatory enteritis is possible in the appropriate clinical setting. Interval development of a soft tissue lesion, measuring up to 3.5 cm along the right aspect of the distal esophagus which deviates the esophagus to the left. This may represent lymphadenopathy or possibly an esophageal mass. Recommend clinical correlation. EGD may be considered. Unchanged mildly enlarged portacaval/celiac axis lymph node and para-aortic lymph node, which may be metastatic. Innumerable metastatic pulmonary nodules, with slight interval enlargement of some nodules and cavitation of others. Signed by: Dr. Tigre Ta MD on 11/11/2019 3:35 PM
--- NOTE | 2019-11-11 15:44 | Diagnostic Imaging Report ---
EXAMINATION: CHEST SINGLE (PORTABLE) INDICATION: Abdominal pain. COMPARISON: CT abdomen/pelvis 11/11/2019. FINDINGS: TUBES and LINES: Right-sided chest port with catheter tip in the proximal right atrium. LUNGS: Lungs are hypoinflated. Bilateral nodular opacities, corresponding to metastatic disease, better seen on prior CT. No evidence of pulmonary edema. Linear opacity in the right upper lung. No evidence of lobar consolidation or pulmonary edema. PLEURA: No pleural effusion or pneumothorax. HEART AND MEDIASTINUM: The cardiomediastinal silhouette is unremarkable. There are atherosclerotic calcifications within the aorta. BONES AND SOFT TISSUES: No acute osseous lesion. Soft tissues are unremarkable. UPPER ABDOMEN: No free air under the diaphragm. IMPRESSION: Bilateral nodular opacities, corresponding to metastatic disease, better seen on prior CT. Signed by: Dr. Tigre Ta MD on 11/11/2019 3:40 PM
--- NOTE | 2019-11-11 16:19 | Emergency Department Note ---
History of Present Illnes History of Present Illness Chief Complaint: Abdominal Complaints History of Present Illness This is a 69 year old male PATIENT IN FROM HOME WITH COMPLAINTS OF ABDOMINAL PAIN AND SWELLING OVER THE LAST 10 DAYS; STATES WAS HERE A MONTH AGO AND NEEDED A PARACENTESIS. PATIENT RATES PAIN 5/10, STATES LAST BOWEL MOVEMENT WAS 2 DAYS AGO, PATIENT WITH HISTORY OF CIRRHOSIS AND COLON CANCER. Historian: Patient Arrival Mode: Car Director Medical Writing Required: No Onset (how long ago): day(s) (10) Location: ABDOMEN Quality: PAIN AND DISTENSION Radiation: non-radiation Severity: moderate Onset quality: gradual Timing of current episode: constant Progression: worsening Chronicity: recurrent Context: recent illness Relieving factors: none Exacerbating factors: none Associated symptoms: denies other symptoms Treatments prior to arrival: none Past Medical/Family History Physician Review I have reviewed the patient's past medical and family history. Any updates have been documented here. Past Medical History Recent Fever: No Clinical Suspicion of Infectio: No New/Unexplained Change in Ment: No Past Medical History: Cancer, Liver Disease Other Medical History: colon cancer mets to lungs CIRRHOSIS Past Surgical History: Colon Resection Social History Smoking Cessation: Never Smoker Counseling Performed: No Alcohol Use: Occasional Any Illegal Drug Use: No TB Exposure/Symptoms: No Physically hurt or threatened: No Family History Family history of heart diseas: No Other Last Tetanus: UNKNOWN Any Pre-Existing Lines (PICC,: No Is patient up to date on immun: Yes Last Flu: OOD Last Pneumovax: OOD Review of Systems Review of Systems Constitutional: no symptoms EENTM: no symptoms Cardiovascular: no symptoms Respiratory: no symptoms Gastrointestinal: as per HPI, abdominal pain Genitourinary: no symptoms Musculoskeletal: no symptoms Neurological: no symptoms Psychological: no symptoms Endocrine: no symptoms Hematological/Lymphatic: no symptoms Review of other systems All other systems reviewed and negative. Physical Exam Related Data Allergies: Coded Allergies: No Known Allergies (Unverified , 08/28/19) Triage Vital Signs Vital Signs Date Time Temp Pulse Resp B/P (MAP) Pulse Ox O2 Delivery O2 Flow Rate FiO2 11/11/19 12:17 97.6 81 18 154/90 96 Physical Exam CONSTITUTIONAL Constitutional: well-developed, well-nourished HENT HENT: normocephalic, atraumatic, oropharynx clear/moist, nose normal HENT L/R: left ext ear normal, right ext ear normal EYES Eyes: PERRL, conjunctivae normal NECK Neck: ROM normal PULMONARY Pulmonary: effort normal, breath sounds normal CARDIOVASCULAR Cardiovascular: regular rhythm, heart sounds normal, capillary refill normal, normal rate GASTROINTESTINAL Abdominal: bowel sounds normal, tender (FIRM, MOD DIFFUSE TENDERNESS WITHOUT R/G, POSITIVE ASCITES), other (FIRM) GENITOURINARY Genitourinary: exam deferred SKIN Skin: warm, dry MUSCULOSKELETAL Musculoskeletal: ROM normal NEUROLOGICAL Neurological: alert, oriented x 3, no gross motor or sensory deficits PSYCHOLOGICAL Psychological: mood/affect normal, judgement normal Results Laboratory Result Diagram: 11/11/19 1225 11/11/19 1225 Laboratory Laboratory Tests Test 11/11/19 12:41 11/11/19 12:25 Urine Color Yellow (YELLOW) Urine Clarity Clear (CLEAR) Urine pH 7 (5 - 7) Urine Specific [place] 1.020 (1.010-1.025) Urine Protein Trace (NEGATIVE) Urine Glucose (UA) Negative (NEGATIVE) Urine Ketones Negative (NEGATIVE) Urine Blood Negative (NEGATIVE) Urine Nitrite Negative (NEGATIVE) Urine Bilirubin Small (NEGATIVE) Urine Urobilinogen 4.0 mg/dL (0.2 - 1) Urine Leukocyte Esterase Negative (NEGATIVE) Urine RBC 0-5 /HPF (0-5) Urine WBC 0-5 /HPF (0-5) Urine Epithelial Cells Few /LPF (NONE) Urine Bacteria None /HPF (NONE) Urine Mucus Few (RARE) White Blood Count 11.14 x10e3/uL (4.8-10.8) Red Blood Count 4.83 x10e6/uL (4.3-5.7) Hemoglobin 13.1 g/dL (14.0-18.0) Hematocrit 41.5 % (38.2-49.6) Mean Corpuscular Volume 85.9 fL (81-99) Mean Corpuscular Hemoglobin 27.1 pg (28-32) Mean Corpuscular Hemoglobin Concent 31.6 g/dL (31-35) Red Cell Distribution Width 17.4 % (11.7-14.4) Platelet Count 262 x10e3/uL (140-360) Neutrophils (%) (Auto) 73.3 % (38.7-80.0) Lymphocytes (%) (Auto) 11.4 % (18.0-39.1) Monocytes (%) (Auto) 9.0 % (4.4-11.3) Eosinophils (%) (Auto) 2.3 % (0.0-6.0) Basophils (%) (Auto) 0.9 % (0.0-1.0) Neutrophils # (Auto) 8.2 (2.1-6.9) Lymphocytes # (Auto) 1.3 (1.0-3.2) Monocytes # (Auto) 1.0 (0.2-0.8) Eosinophils # (Auto) 0.3 (0.0-0.4) Basophils # (Auto) 0.1 (0.0-0.1) Absolute Immature Granulocyte (auto 0.34 x10e3/uL (0-0.1) Prothrombin Time 15.6 seconds (11.9-14.5) Prothromb Time International Ratio 1.16 Activated Partial Thromboplast Time 33.3 seconds (23.8-35.5) Sodium Level 136 mmol/L (136-145) Potassium Level 4.3 mmol/L (3.5-5.1) Chloride Level 98 mmol/L (98-107) Carbon Dioxide Level 29 mmol/L (22-29) Anion Gap 13.3 mmol/L (8-16) Blood Urea Nitrogen 15 mg/dL (7-26) Creatinine 1.08 mg/dL (0.72-1.25) Estimat Glomerular Filtration Rate > 60 ML/MIN (60-) BUN/Creatinine Ratio 14 (6-25) Glucose Level 106 mg/dL (74-118) Calcium Level 9.2 mg/dL (8.4-10.2) Magnesium Level 2.0 MG/DL (1.3-2.1) Total Bilirubin 0.9 mg/dL (0.2-1.2) Aspartate Amino Transf (AST/SGOT) 16 IU/L (5-34) Alanine Aminotransferase (ALT/SGPT) < 6 IU/L (0-55) Alkaline Phosphatase 100 IU/L (40-150) Creatine Kinase 28 IU/L (30-200) Creatine Kinase MB 0.80 ng/mL (0-5.0) Troponin I < 0.001 ng/mL (0-0.300) B-Type Natriuretic Peptide 32.7 pg/mL (0-100) Total Protein 6.3 g/dL (6.5-8.1) Albumin 3.0 g/dL (3.5-5.0) Globulin 3.3 g/dL (2.3-3.5) Albumin/Globulin Ratio 0.9 (0.8-2.0) Amylase Level 33 U/L (25-125) Lipase 8 U/L (8-78) Lab results reviewed: Yes Imaging Imaging results reviewed: Yes Impressions EXAMINATION: CHEST SINGLE (PORTABLE) INDICATION: Abdominal pain. COMPARISON: CT abdomen/pelvis 11/11/2019. FINDINGS: TUBES and LINES: Right-sided chest port with catheter tip in the proximal right atrium. LUNGS: Lungs are hypoinflated. Bilateral nodular opacities, corresponding to metastatic disease, better seen on prior CT. No evidence of pulmonary edema. Linear opacity in the right upper lung. No evidence of lobar consolidation or pulmonary edema. PLEURA: No pleural effusion or pneumothorax. HEART AND MEDIASTINUM: The cardiomediastinal silhouette is unremarkable. There are atherosclerotic calcifications within the aorta. BONES AND SOFT TISSUES: No acute osseous lesion. Soft tissues are unremarkable. UPPER ABDOMEN: No free air under the diaphragm. IMPRESSION: Bilateral nodular opacities, corresponding to metastatic disease, better seen on prior CT. Signed by: Dr. Tigre Ta MD on 11/11/2019 3:40 PM EXAMINATION: CT of the abdomen and pelvis with contrast. TECHNIQUE: Spiral CT images of the abdomen and pelvis were performed from the lung bases to the lesser trochanters after the intravenous administration of 100 cc of Isovue 370 and oral Gastrografin. Coronal and sagittal reformatted images were obtained. COMPARISON: CT abdomen/pelvis 07-30-2019. CLINICAL HISTORY: Abdominal pain, loss of appetite, history of metastatic colon cancer the lung. DISCUSSION: LOWER THORAX:Innumerable bilateral pulmonary nodules are identified in the lung bases. The largest nodules in the right lower lobe, measuring up to 2.5 cm, previously 2.3 cm. There is evolution of cavitation of some of the nodules, for example a 1.1 cm left lower lobe nodule on series 2, image 8. HEPATOBILIARY: Cirrhotic morphology to the liver. Somewhat linear hypodensity within the left hepatic lobe, measuring up to 1.1 cm, unchanged, compatible with intrahepatic portal venous thrombus. No definite mass. No evidence of bony ductal dilatation. GALLBLADDER: No radio-opaque stones or sludge. No wall thickening. SPLEEN: Mild splenomegaly, measuring up to 14 cm. PANCREAS: No focal masses or ductal dilatation. ADRENALS: No adrenal nodules. KIDNEYS/URETERS: No hydronephrosis, stones, or solid mass lesions. PELVIC ORGANS/BLADDER: Bladder is unremarkable. Dystrophic calcification in the prostate. PERITONEUM/RETROPERITONEUM: Moderate free fluid. No free air. LYMPH NODES: Unchanged 1.2 cm portacaval/celiac axis lymph node. Unchanged prominent 1.1 cm left paraaortic lymph node. VESSELS: Again noted is nonocclusive thrombus extending from the main portal vein into the left portal vein. The overall extent of thrombus is slightly decreased from the prior study. Interval clearing of thrombus within the right portal vein. Persistent filling defect in the SMV proximally, suspicious for thrombus. Splenic vein is patent, without filling defects. Moderate atherosclerotic calcifications of the abdominal aorta and branch vessels. GI TRACT: No evidence of bowel obstruction. Status post right hemicolectomy. Interval development of a soft tissue lesion which may be extrinsic or possibly within the right esophageal wall, measuring up to to 0.1 x 1.9 x 3.5 cm (series 2, image 19 and coronal series 301, image 89). There appears to be mass effect on the esophagus which is deviated leftward. Decreased mild wall thickening within the distal transverse and descending colon. Mild wall thickening in the jejunum. Moderate amount of stool in the distal colon. BONES AND SOFT TISSUE: No acute osseous abnormality. No suspicious lytic or blastic lesions. Bilateral fat and fluid containing inguinal hernias, right greater than left. IMPRESSION: Main and left portal venous thrombosis, with slightly decreased extent of thrombus compared to prior study. Persistent somewhat linear hypodensity in the left hepatic lobe likely represents thrombus in segment II portal vein branch. Interval resolution of thrombus within the right portal vein. Persistent filling defect within the proximal SMV, suspicious for thrombus. Cirrhosis with sequela of portal hypertension including splenomegaly, findings of portal enteropathy/colopathy, and ascites. Infectious or inflammatory enteritis is possible in the appropriate clinical setting. Interval development of a soft tissue lesion, measuring up to 3.5 cm along the right aspect of the distal esophagus which deviates the esophagus to the left. This may represent lymphadenopathy or possibly an esophageal mass. Recommend clinical correlation. EGD may be considered. Unchanged mildly enlarged portacaval/celiac axis lymph node and para-aortic lymph node, which may be metastatic. Innumerable metastatic pulmonary nodules, with slight interval enlargement of some nodules and cavitation of others. Signed by: Dr. Tigre Ta MD on 11/11/2019 3:35 PM Procedures 12 Lead ECG Interpretation Director Medical Writing: Interpreted by ED physician Date: Nov 11, 2019 Time: 12:20 Rhythm: sinus rhythm Ectopy: PJC's Rate: normal (78) QRS axis: left T waves flattening: I, aVL, V1, V5, V6 Clinical Impression: non-specific ECG Critical Care Time Subsequent provider I assumed direction of critical care for this patient from another provider of my specialty. Assessment & Plan Reassessment Reassessment CHECK CBC, CHEM'S, LIPASE, PT/PTT, UA/CX, CT ABD/PELVIS, BLOOD CX'S - R/O SBP, SBO, PANCREATITIS, ANEMIA, ELECTROLYTE ABNL, UTI, ASCITES, WORSENING OF CANCER, COAGULOPATHY OR BLEEDING Assessment & Plan Final Impression: (1) Ascites (2) Abdominal pain Assessment & Plan ADMIT TO DR RAH Rowan Disposition: ADMITTED Last Vital Signs Date Time Temp Pulse Resp B/P (MAP) Pulse Ox O2 Delivery O2 Flow Rate FiO2 11/11/19 12:17 97.6 81 18 154/90 96 Home Meds Reported Medications Pantoprazole Sodium* (PROTONIX) 40 Mg Tablet., 40 MG PO DAILY for 30 Days, TAB 08/31/19 Spironolactone (SPIRONOLACTONE) 25 Mg Tablet, 50 MG PO DAILY for 30 Days, TAB 08/31/19 Apixaban (Eliquis) 2.5 Mg Tablet, 2.5 MG PO BID for 30 Days 08/31/19 Furosemide (FUROSEMIDE) 40 Mg Tablet, 40 MG PO Daily for 30 Days, #30 TAB 08/31/19 Medications in the ED Pantoprazole Sodium 40 mg ONCE STAT IV Last administered on 11/11/19at 12:43; Admin Dose 40 MG; Start 11/11/19 at 12:25; Stop 11/11/19 at 12:33; Status DC Diatrizoate Meglum/ Diatrizoate Sod 30 ml STK-MED ONCE PO ; Start 11/11/19 at 12:52; Stop 11/11/19 at 12:47; Status DC Sodium Chloride 50 ml @ STK-MED ONCE .ROUTE ; Start 11/11/19 at 14:52; Stop 11/11/19 at 14:46; Status DC Iopamidol 74,000 mg STK-MED ONCE INJ ; Start 11/11/19 at 14:52; Stop 11/11/19 at 14:46; Status DC RENALDO MOORE MD Nov 11, 2019 16:19
[2019-11-11] MEDS ORDERED: ONDANSETRON HCL INJ 2MG/ML 2ML 2 MG/ML VIAL IV PRN (16:30)
[2019-11-11] MEDS ORDERED: MORPHINE SULFATE 2 MG/ML SYR 1ML IV PRN (16:30)
[2019-11-11] MEDS: CEFTRIAXONE SOD 1 GM/NS 50 ML 50 ML IV SCH (16:38)
--- OUTSIDE RECORDS SUMMARY | 2019-11-11 16:52 | XMS REPORT | Continuity of Care Document ---
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 NEOPLASM OF ASCENDING CO Active 06/12/2019 [facility] DX: 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 ASCENDIN Active 02/06/2019 [facility] C18.2 Active 10/28/2017 [facility] Malignant neoplasm of ascending colon 07/05/2017 10/06/2017 [facility] 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 Active 04/11/2017 [facility] UNK Active 0 08/04/2016 [facility] BACTERMIA Active 11/19/2015 [facility] MALIGNANT NEOPLASM OF ASCENDING COLON Active 09/10/2015 [facility] COLON CANCER Active 07/08/2015 [facility] N/A Active 0 07/08/2015 [facility] Malignant tumor of colon (disorder) Active Problem [facility], O PID Charlie,[facility] Iron deficiency anemia (disorder) Resolved Problem OPID Charlie, [place] Other nonspecific abnormal finding of lung field 10/06/2017 [facility] MALIGNANT NEOPLASM OF SIGMOID COLON Active [facility] BACTEREMIA Active [facility] MALIGNANT NEOPLASM OF ASCENDING COLON Active [facility] Medications Medication Details Route Status Patient Instructions Ordering Provider Order Date Source Omnipaque 300 injectable solution Notes: (Same as:Omnipaque 300). WASTE: F/P - Black; E - Municipal Trash Bin No Longer Active 02/12/2019 [facility] cefTRIAXone 2 g injection 2 gm , IV, Q24H, X 28 day, # 28 inj, 0 Refill(s), given to patient Active 11/24/2015 [facility] Fish Oil Notes: (Same as: Case GRACES Sweet 3 fish oil ) Non-Formulary Drug Inactive 11/24/2015 [facility] Lidocaine 25 MG/ML / Prilocaine 25 MG/ML Topical Cream [EMLA] Notes: Apply to desired area 2 hrs prior to needle insertion. (Same as: Emla) Inactive 11/22/2015 [facility] Vitamin D3 2000 intl units oral tablet Notes: Same as : Vitamin D3 No Longer Active 11/21/2015 [facility] Fish Oil 1,000 mg, PO, Daily, 0 Refill(s) Active 11/21/2015 [facility] Ceftriaxone Notes: (Same As: Jesse branch). Use with 100 mL NS and infuse over 30 min MEDICATION WASTE Product Size: 2000 mg Product Wasted: ___ mg No Longer Active 11/20/2015 [facility] ferrous sulfate Notes: Give wi th food. "Do Not Crush" No Longer Active 11/20/2015 [facility] Vitamin B12 Notes: (Same As: V itamin B12) No Longer Active 11/20/2015 [facility] Protonix Notes: Tablet should not be chewed or crushed. (Same as: Protonix) No Longer Active 11/20/2015 [facility] Fish Oil Notes: (Same as: Case GARCES, Sweet 3 fish oil ) Non-Formulary Drug No Longer Active 11/20/2015 [facility] Metoprolol Notes: (Same as: Lo pressor) Push over 2 minutes No Longer Active 11/20/2015 [facility] Nitroglycerin 0.4 MG Sublingual Tablet [Nitrostat] Notes: (Same as:Nitroquick, Nitrostat) "Do Not Crush" Sublingual tablet No Longer Active 11/20/2015 [facility] Morphine Notes: (Same as:MORPh ine Sulfate) No Longer Active 11/20/2015 [facility] Hydralazine Notes: (Same as: A presoline) Push over 5 minutes No Longer Active 11/20/2015 [facility] RN-Bring pt's own FISH OIL to pharmacy for label RN-Bring pt's own FISH OIL to pharmacy for label, Attn:RN, Drug form: MISC, Route: MISC, QSHIFT, 11/20/15 11:00:00 CDT, Duration: 30 day, Stop date: 12/20/15 8:00:00 CDT Inactive 11/20/2015 [facility] Enoxaparin Notes: (Same as: Lo venox) No Longer Active 11/20/2015 [facility] Aspirin 325 MG Oral Tablet Not es: Take with food. No Longer Active 11/20/2015 [facility] Zofran Notes: (Same as: Zofran ) MEDICATION WASTE Product Size: 4 mg Product Wasted: ___ mg No Longer Active 11/20/2015 [facility] docusate sodium 100 mg oral capsule Notes: (Same as: Colace) (Do Not Crush) No Longer Active 11/20/2015 [facility] tramadol hydrochloride 50 MG Oral Tablet Notes: Not to exceed 400mg/day. (Same As: Ultram) No Longer Active 11/20/2015 [facility] Acetaminophen Notes: Do not ex ceed 4 gm/day. (Same as: Tylenol) No Longer Active 11/20/2015 [facility] cefpodoxime 200 mg oral tablet 200 mg = 1 tab, PO, BID, 0 Refill(s) No Longer Active 11/20/2015 [facility] Fish Oil 1000 mg oral capsule 1,000 mg = 1 cap, PO, TID, 0 Refill(s) Inactive 11/20/2015 [facility] ferrous sulfate 325 mg oral enteric coated tablet 325 mg = 1 tab, PO, BID, 0 Refill(s) Active 11/20/2015 [facility] Vitamin D3 2000 intl units oral tablet 2,000 IntlUnit = 1 tab, PO, Daily, 0 Refill(s) Active 11/20/2015 [facility] Vitamin B12 500 mcg oral tablet 500 microgram = 1 tab, PO, BID, 0 Refill(s) Active 11/20/2015 [facility] Acetaminophen Notes: Do not ex ceed 4 gm/day. (Same as: Tylenol) No Longer Active 11/20/2015 [facility] Docusate Notes: (Same as: Cola ce) (Do Not Crush) No Longer Active 11/20/2015 [facility] Ondansetron Notes: (Same as: [place]) MEDICATION WASTE Product Size: 4 mg Product Wasted: ___ mg No Longer Active 11/20/2015 [facility] Rocephin Notes: (Same As: Roce phin). Use with 100 mL NS and infuse over 30 min MEDICATION WASTE Product Size: 2000 mg Product Wasted: ___ mg Inactive 11/19/2015 [facility] Aspirin 325 MG Oral Tablet See Instructions, PRN Pain, 1 tab PO Q4H 10 day, 0 Refill(s) Active 09/16/2015 [facility] Acetaminophen 325 MG / Hydrocodone Dusty trate 10 MG Oral Tablet [Ewing 10/325] 1 tab, PO, Q4H, PRN Pain Score 4-6, 0 Re fill(s) Active 08/10/2015 [facility] Morphine Notes: (Same as:MORPh ine Sulfate) Inactive 08/10/2015 [facility] Acetaminophen 325 MG / Hydrocodone Dusty trate 10 MG Oral Tablet [Ewing 10/325] Notes: Do not exceed 4gm/day of acetamin ophen. (Same as: Ewing 325/10) Inactive 08/10/2015 [facility] Acetaminophen 325 MG / Hydrocodone Dusty trate 10 MG Oral Tablet [Ewing 10/325] Notes: Do not exceed 4gm/day of acetamin ophen. (Same as: Ewing 325/10) Inactive 08/10/2015 [facility] D5W 1/2NS + KCL 20mEq/L 1000ml (Premix) 1,000 mL Notes: PREMIX IV - Do Not Alter WASTE: F/P - Sink; E - Municipal Trash Bin No Longer Active 08/09/2015 [facility] Lovenox Notes: (Same as: Loven ox) No Longer Active 08/08/2015 [facility] Entereg Notes: Same as: Entere g Maximum of 15 doses Alert Restricted medication Alvimopan (Entergen) order form must be completed prior to dispensing. No Longer Active 08/08/2015 [facility] nter ketOROLAC 15 mg/mL injectable solution 4 days. Inactive 08/08/2015 [facility] Famotidine Notes: (Same as: Pe pcid) Can be dilute in 5- 10cc NS IVP: Slow IV push over at least 2 minutes. No Longer Active 08/08/2015 [facility] Exparel Notes: (Same as: Yvonne el) NOT [...] = 30 mL [266 mg]) Inactive 08/08/2015 [facility] Ofirmev Notes: Infuse over 15 minutes Do not exceed 4gm/day of acetaminophen MEDICATION WASTE Product Size: 1000 mg Product Wasted: ___ mg No Longer Active 08/08/2015 [facility] nter Naloxone Notes: Same as Narcan No Longer Active 08/07/2015 [facility] Flumazenil Notes: (Same as: Ro mazicon) No Longer Active 08/07/2015 [facility] Hydromorphone Notes: Same as: Dilaudid Inactive 08/07/2015 [facility] Ondansetron Notes: (Same as: [place]) MEDICATION WASTE Product Size: 4 mg Product Wasted: ___ mg No Longer Active 08/07/2015 [facility] Labetalol 10 mg, 2 mL, Route: IVP, Drug form: INJ, Q5Min, Dosing Weight 102.727, kg, PRN Elevated BP, Start date: 08/07/15 17:03:00, Duration: 5 doses or times, Stop date: 08/08/15 0:00:00 No Longer Active 08/07/2015 [facility] Hydromorphone Notes: (Same as: Dilaudid) conc = 0.5 mg/ml 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: ;Delay: ;Basal: No Longer Active 08/07/2015 [facility] Naloxone Notes: Same as Narcan No Longer Active 08/07/2015 [facility] Calcium Chloride 0.0014 MEQ/ML / Potassi um Chloride 0.004 MEQ/ML / Sodium Chloride 0.103 MEQ/ML / Sodium Lactate 0.028 MEQ/ML Injectable Solution 1,000 mL, Rate: 100 ml/hr, Infuse over: 10 hr, Route: IV, Dosing Weight 102.727 kg, Total Volume: 1,000, Start date: 08/07/15 16:59:00, Stop date: 09/06/15 16:58:00 No Longer Active 08/07/2015 [facility] nter Ondansetron Notes: (Same as: [place]) MEDICATION WASTE Product Size: 4 mg Product Wasted: ___ mg No Longer Active 08/07/2015 [facility] Entereg Notes: Same as: Marya lemus Maximum of 15 doses Alert Restricted medication Alvimopan (Entergen) order form must be completed prior to dispensing. Inactive 08/07/2015 [facility] INVanz Notes: (Same as: INVanz ) Refrigerate. NOT COMPATIBLE WITH D5W. Stable in refrigerator for 24 hours MEDICATION WASTE Product Size: 1000 mg Product Wasted: ___ mg No Longer Active 08/07/2015 [facility] ferrous sulfate 325 mg oral enteric coated tablet 325 mg = 1 tab, PO, Daily, # 30 tab, 0 Refill(s) No Longer Active 07/28/2015 [facility] nter Vitamin D3 2000 intl units oral capsule 2,000 IntlUnit = 1 cap, PO, Daily, # 100 cap, 3 Refill(s) Active 07/28/2015 [facility] nter Vitamin B-12 500 mcg oral tablet 500 microgram = 1 tab, PO, Daily, # 30 tab, 0 Refill(s) Active 07/28/2015 [facility] nter Fish Oil PO, Daily, 0 Refill(s) Active 07/28/2015 [facility] Allergies, Adverse Reactions, Alerts Substance Category Reaction Severity Reaction type Status Date Reported Comments Source No Known Medication Allergies Assertion Drug aller gy [facility] Immunizations No Data Provided for This Section Results Order Name Results Value Reference Range Date Interpretation Comments Source CHEM PANEL POC Creatinine 1.2 0.5 - 1.4 10/25/2019 [facility] CHEM PANEL eGFR 60 10/25/2019 Result [...] should be multiplied by the estimated BMI. [facility] CHEM [facility] POC Creatinine 1.0 0.5 - 1.4 06/16/2019 [facility] CHEM PANEL eGFR 75 06/16/2019 Result [...] should be multiplied by the estimated BMI. [facility] CHEM [facility] POC Creatinine 0.9 0.5 - 1.4 02/12/2019 [facility] CHEM [facility] eGFR 86 02/12/2019 Result Comment: The eGFR [...] should be multiplied by the estimated BMI. [facility] CHEM PANEL Lipase Lvl 183 73 - 393 11/23/2015 [facility] CHEM PANEL Lipase Lvl 165 73 - 393 11/22/2015 [facility] CHEM PANEL Glucose Lvl 81 70 - 99 11/22/2015 [facility] CHEM PANEL BUN 14 7 - 22 11/22/2015 [facility] CHEM PANEL Calcium Lvl 8.6 8.5 - 10.5 11/22/2015 [facility] CHEM PANEL Creatinine Lvl 0.95 0.50 - 1.40 11/22/2015 [facility] CHEM PANEL Sodium Lvl 137 135 - 145 11/22/2015 [facility] CHEM PANEL Potassium Lvl 3.9 3.5 - 5.1 11/22/2015 [facility] CHEM PANEL Chloride Lvl 103 95 - 109 11/22/2015 [facility] CHEM PANEL CO2 27 24 - 32 11/22/2015 [facility] CHEM PANEL eGFR 82 11/22/2015 Result [...] should be multiplied by the estimated BMI. [facility] CHEM PANEL AGAP 10.9 10.0 - 20.0 11/22/2015 [facility] HEMATOLOGY Monocytes # 0.8 0.0 - 0.8 11/22/2015 [facility] HEMATOLOGY Lymphocytes # 1.8 1.0 - 5.5 11/22/2015 [facility] HEMATOLOGY Eosinophils # 0.3 0.0 - 0.5 11/22/2015 [facility] HEMATOLOGY Anisocyte 3+ (11/22/15 4:46 AM) None Seen 11/22/2015 [facility] HEMATOLOGY Basophils # 0.1 0.0 - 0.2 11/22/2015 [facility] HEMATOLOGY Hypochrom 1+ (11/22/15 4:46 AM) None Seen 11/22/2015 [facility] HEMATOLOGY Eosinophils 5.8 0.0 - 4.0 11/22/2015 [facility] HEMATOLOGY Segs-Bands # 2.5 1.5 - 8.1 11/22/2015 [facility] HEMATOLOGY Basophils 1.1 0.0 - 1.0 11/22/2015 [facility] HEMATOLOGY Monocytes 14.8 2.0 - 12.0 11/22/2015 [facility] Lymphocytes 32.8 20.0 - 40.0 11/22/2015 [facility] Plt Morph Dalia l (11/22/15 4:46 AM) 11/22/2015 [facility] RBC Morph See N ote (11/22/15 4:46 AM) 11/22/2015 [facility] Segs 45.5 45.0 - 75.0 11/22/2015 [facility] MCHC 31.6 32.0 - 36.0 11/22/2015 [facility] Platelet 153 133 - 450 11/22/2015 [facility] MPV 8.4 7.4 - 10.4 11/22/2015 [facility] MCH 27.7 27.0 - 31.0 11/22/2015 [facility] RDW 32.6 11.5 - 14.5 11/22/2015 [facility] WBC 5.4 3.7 - 10.4 11/22/2015 [facility] RBC 4.56 4.70 - 6.10 11/22/2015 [facility] Hgb 12.6 14.0 - 18.0 11/22/2015 [facility] Hct 39.9 42.0 - 54.0 11/22/2015 [facility] MCV 87.6 80.0 - 94.0 11/22/2015 [facility] CHEM PANEL Lipase Lvl 168 73 - 393 11/21/2015 [facility] CHEM PANEL Alk Phos 102 39 - 136 11/21/2015 [facility] CHEM PANEL ALT 26 0 - 65 11/21/2015 [facility] CHEM PANEL AST 19 0 - 37 11/21/2015 [facility] CHEM PANEL A/G Ratio 1.0 0.7 - 1.6 11/21/2015 [facility] CHEM PANEL Globulin 3.1 2.0 - 4.0 11/21/2015 [facility] CHEM PANEL Albumin Lvl 3.0 3.5 - 5.0 11/21/2015 [facility] CHEM PANEL Total Protein 6.1 6.4 - 8.4 11/21/2015 [facility] CHEM PANEL Bili Indirect 0.3 0.0 - 1.0 11/21/2015 [facility] CHEM PANEL Bili Total 0.4 0.2 - 1.3 11/21/2015 [facility] CHEM PANEL Bili Direct 0.1 0.0 - 0.3 11/21/2015 [facility] ELECTROLYTES AGAP 14.2 10.0 - 20.0 11/21/2015 [facility] ELECTROLYTES CO2 24 24 - 32 11/21/2015 [facility] ELECTROLYTES Calcium Lvl 8.6 8.5 - 10.5 11/21/2015 [facility] ELECTROLYTES Chloride Lvl 106 95 - 109 11/21/2015 [facility] ELECTROLYTES Sodium Lvl 140 135 - 145 11/21/2015 [facility] ELECTROLYTES Glucose Lvl 91 70 - 99 11/21/2015 [facility] ELECTROLYTES BUN 14 7 - 22 11/21/2015 [facility] ELECTROLYTES Potassium Lvl 4.2 3.5 - 5.1 11/21/2015 [facility] ELECTROLYTES Creatinine Lvl 0.9 9 0.50 - 1.40 11/21/2015 [facility] ELECTROLYTES eGFR 78 11/21/2015 Result Comment: [...] should be multiplied by the estimated BMI. [facility] HEMATOLOGY Eosinophils # 0.3 0.0 - 0.5 11/21/2015 [facility] HEMATOLOGY Monocytes # 0.8 0.0 - 0.8 11/21/2015 [facility] HEMATOLOGY Lymphocytes # 1.6 1.0 - 5.5 11/21/2015 [facility] HEMATOLOGY Monocytes 15.4 2.0 - 12.0 11/21/2015 [facility] HEMATOLOGY Lymphocytes 29.9 20.0 - 40.0 11/21/2015 [facility] HEMATOLOGY Basophils 0.8 0.0 - 1.0 11/21/2015 [facility] HEMATOLOGY Eosinophils 5.6 0.0 - 4.0 11/21/2015 [facility] HEMATOLOGY Segs 48.3 45.0 - 75.0 11/21/2015 [facility] Segs-Bands # 2.6 1.5 - 8.1 11/21/2015 [facility] Platelet 161 133 - 450 11/21/2015 [facility] Hgb 12.9 14.0 - 18.0 11/21/2015 [facility] RBC 4.63 4.70 - 6.10 11/21/2015 [facility] MCV 87.1 80.0 - 94.0 11/21/2015 [facility] MCH 27.8 27.0 - 31.0 11/21/2015 [facility] MCHC 32.0 32.0 - 36.0 11/21/2015 [facility] RDW 32.9 11.5 - 14.5 11/21/2015 [facility] Hct 40.3 42.0 - 54.0 11/21/2015 [facility] MPV 8.6 7.4 - 10.4 11/21/2015 [facility] WBC 5.5 3.7 - 10.4 11/21/2015 [facility] CARDIAC ENZYMES BNP 52 <=100 pg/mL 11/20/2015 [facility] CHEM PANEL Phosphorus 4.2 2.5 - 4.5 11/20/2015 [facility] CHEM PANEL Magnesium Lvl 2.3 1.8 - 2.4 11/20/2015 [facility] CHEM PANEL Phosphorus 4.0 2.5 - 4.5 11/20/2015 [facility] CHEM PANEL Magnesium Lvl 2.2 1.8 - 2.4 11/20/2015 [facility] CHEM PANEL eGFR 76 11/20/2015 Result [...] Total 3 3 30 - 100 11/20/2015 [facility] HEMATOLOGY Eosinophils 5.0 0.0 - 4.0 11/20/2015 [facility] HEMATOLOGY Monocytes 16.9 2.0 - 12.0 11/20/2015 [facility] HEMATOLOGY Lymphocytes 33.4 20.0 - 40.0 11/20/2015 [facility] HEMATOLOGY Lymphocytes # 1.7 1.0 - 5.5 11/20/2015 [facility] HEMATOLOGY Segs-Bands # 2.2 1.5 - 8.1 11/20/2015 [facility] HEMATOLOGY Basophils 0.9 0.0 - 1.0 11/20/2015 [facility] HEMATOLOGY Segs 43.8 45.0 - 75.0 11/20/2015 [facility] HEMATOLOGY Monocytes # 0.9 0.0 - 0.8 11/20/2015 [facility] HEMATOLOGY Eosinophils # 0.3 0.0 - 0.5 11/20/2015 [facility] HEMATOLOGY RDW 33.0 11.5 - 14.5 11/20/2015 [facility] HEMATOLOGY MCHC 31.6 32.0 - 36.0 11/20/2015 [facility] HEMATOLOGY MCH 27.4 27.0 - 31.0 11/20/2015 [facility] HEMATOLOGY MCV 86.5 80.0 - 94.0 11/20/2015 [facility] HEMATOLOGY MPV 8.8 7.4 - 10.4 11/20/2015 [facility] HEMATOLOGY Platelet 165 133 - 450 11/20/2015 [facility] HEMATOLOGY WBC 5.1 3.7 - 10.4 11/20/2015 [facility] HEMATOLOGY Hct 39.9 42.0 - 54.0 11/20/2015 [facility] HEMATOLOGY Hgb 12.6 14.0 - 18.0 11/20/2015 [facility] HEMATOLOGY RBC 4.61 4.70 - 6.10 11/20/2015 [facility] IMMUNOLOGY Homocyst Tot 11.6 3.7 - 13.9 11/20/2015 [facility] LIPIDS VLDL 46 11/20/2015 [facility] LIPIDS LDL (Calculated) 78 <=99 mg/dL 11/20/2015 [facility] LIPIDS HDL 35 >=61 mg/dL 11/20/2015 [facility] LIPIDS Trig 231 <=149 mg/dL 11/20/2015 [facility] LIPIDS Chol 159 <=199 mg/dL 11/20/2015 [facility] LIPIDS CHD Risk 4.54 4.00 - 7.30 11/20/2015 [facility] SPECIAL CHEMISTRY Hgb A1C 5.6 <=5.6 % 11/20/2015 [facility] CHEM PANEL Lactic Acid Lvl 1.8 0.5 - 2.2 11/20/2015 [facility] CHEM PANEL Lactic Acid Lvl 2.1 0.5 - 2.2 11/19/2015 [facility] CHEM PANEL ALT 33 0 - 65 11/19/2015 [facility] CHEM PANEL Albumin Lvl 3.4 3.5 - 5.0 11/19/2015 [facility] CHEM PANEL Total Protein 6.7 6.4 - 8.4 11/19/2015 [facility] CHEM PANEL Bili Total 0.5 0.2 - 1.3 11/19/2015 [facility] CHEM PANEL Alk Phos 98 39 - 136 11/19/2015 [facility] CHEM PANEL AST 23 0 - 37 11/19/2015 [facility] CHEM PANEL A/G Ratio 1.0 0.7 - 1.6 11/19/2015 [facility] CHEM PANEL Globulin 3.3 2.0 - 4.0 11/19/2015 [facility] CHEM PANEL B/C Ratio 13 6 - 25 11/19/2015 [facility] HEMATOLOGY Basophils # 0.1 0.0 - 0.2 11/19/2015 [facility] HEMATOLOGY Macrocyte 1+ *ABN* (11/19/15 6:18 PM) None Seen 11/19/2015 [facility] HEMATOLOGY Hypochrom 2+ (11/19/15 6:18 PM) None Seen 11/19/2015 [facility] HEMATOLOGY Microcyte 2+ *ABN* (11/19/15 6:18 PM) None Seen 11/19/2015 [facility] HEMATOLOGY Anisocyte 3+ (11/19/15 6:18 PM) None Seen 11/19/2015 [facility] HEMATOLOGY Plt Morph Dalia l (11/19/15 6:18 PM) 11/19/2015 [facility] URINE AND STOOL UA Urobilinogen <=1.0 mg/dL 0.1 - 1.0 11/19/2015 [facility] URINE AND STOOL UA Sq Epi None Seen 11/19/2015 [facility] URINE AND STOOL UA pH 5.0 5.0 - 8.0 11/19/2015 [facility] URINE AND STOOL UA Blood Negative (11/19/15 9:14 AM) Negative 11/19/2015 [facility] URINE AND STOOL UA Glucose Negative mg/dL Negative mg/dL 11/19/2015 [facility] URINE AND STOOL UA Protein Negative mg/dL Negative mg/dL 11/19/[address] [facility] URINE AND STOOL UA Ketones Negative mg/dL Negative mg/dL 11/19/2015 [facility] URINE AND STOOL UA Bili Negative *NA* (11/19/15 9:14 AM) Negative 11/19/2015 [facility] URINE AND STOOL UA Spec Grav 1.020 <=1.030 11/19/2015 [facility] URINE AND STOOL UA Leuk Est Negative (11/19/15 9:14 AM) Negative 11/19/2015 [facility] URINE AND STOOL UA Nitrite Negative (11/19/15 9:14 AM) Negative 11/19/2015 [facility] URINE AND STOOL UA RBC <1 0 - 2 11/19/2015 [facility] URINE AND STOOL UA WBC <1 0 - 5 11/19/2015 [facility] URINE AND STOOL UA Turbidity Clear (11/19/15 9:14 AM) Clear 11/19/2015 [facility] URINE AND STOOL UA Color Yellow *NA* (11/19/15 9:14 AM) Yellow 11/19/2015 [facility] HEMATOLOGY MPV 8.6 7.4 - 10.4 08/09/2015 [facility] HEMATOLOGY Platelet 220 133 - 450 08/09/2015 [facility] HEMATOLOGY RDW 27.0 11.5 - 14.5 08/09/2015 [facility] HEMATOLOGY MCHC 31.3 32.0 - 36.0 08/09/2015 [facility] HEMATOLOGY MCH 25.3 27.0 - 31.0 08/09/2015 [facility] HEMATOLOGY MCV 80.9 80.0 - 94.0 08/09/2015 [facility] HEMATOLOGY Hct 33.8 42.0 - 54.0 08/09/2015 [facility] HEMATOLOGY Hgb 10.6 14.0 - 18.0 08/09/2015 [facility] HEMATOLOGY RBC 4.17 4.70 - 6.10 08/09/2015 [facility] HEMATOLOGY WBC 10.6 3.7 - 10.4 08/09/2015 [facility] HEMATOLOGY Eosinophils 3.7 0.0 - 4.0 08/09/2015 [facility] HEMATOLOGY Segs 74.1 45.0 - 75.0 08/09/2015 [facility] HEMATOLOGY Monocytes 9.4 2.0 - 12.0 08/09/2015 [facility] HEMATOLOGY Lymphocytes 12.3 20.0 - 40.0 08/09/2015 [facility] HEMATOLOGY Basophils 0.5 0.0 - 1.0 08/09/2015 [facility] HEMATOLOGY Plt Morph Dalia l (08/09/15 4:43 AM) 08/09/2015 [facility] HEMATOLOGY Basophils # 0.1 0.0 - 0.2 08/09/2015 [facility] HEMATOLOGY Eosinophils # 0.4 0.0 - 0.5 08/09/2015 [facility] HEMATOLOGY Anisocyte 2+ *ABN* (08/09/15 4:43 AM) None Seen 08/09/2015 [facility] HEMATOLOGY Segs-Bands # 7.8 1.5 - 8.1 08/09/2015 [facility] HEMATOLOGY Monocytes # 1.0 0.0 - 0.8 08/09/2015 [facility] HEMATOLOGY Lymphocytes # 1.3 1.0 - 5.5 08/09/2015 [facility] CHEM PANEL Magnesium Lvl 1.8 1.8 - 2.4 08/08/2015 [facility] CHEM PANEL Phosphorus 3.5 2.5 - 4.5 08/08/2015 [facility] ELECTROLYTES AGAP 12.0 10.0 - 20.0 08/08/2015 [facility] ELECTROLYTES eGFR 88 08/08/2015 Result Comment: The [...] should be multiplied by the estimated BMI. [facility] ELECTROLYTES Calcium Lvl 8.4 8.5 - 10.5 08/08/2015 [facility] ELECTROLYTES Potassium Lvl 4.0 3.5 - 5.1 08/08/2015 [facility] ELECTROLYTES Chloride Lvl 107 95 - 109 08/08/2015 [facility] ELECTROLYTES CO2 26 24 - 32 08/08/2015 [facility] ELECTROLYTES BUN 13 7 - 22 08/08/2015 [facility] ELECTROLYTES Creatinine Lvl 0.8 9 0.50 - 1.40 08/08/2015 [facility] ELECTROLYTES Glucose Lvl 100 70 - 99 08/08/2015 [facility] ELECTROLYTES Sodium Lvl 141 135 - 145 08/08/2015 [facility] HEMATOLOGY Eosinophils # 0.1 0.0 - 0.5 08/08/2015 [facility] HEMATOLOGY Anisocyte 2+ *ABN* (08/08/15 4:51 AM) None Seen 08/08/2015 [facility] HEMATOLOGY Monocytes # 1.0 0.0 - 0.8 08/08/2015 [facility] HEMATOLOGY Monocytes 11.8 2.0 - 12.0 08/08/2015 [facility] HEMATOLOGY Lymphocytes 16.3 20.0 - 40.0 08/08/2015 [facility] HEMATOLOGY Segs 70.9 45.0 - 75.0 08/08/2015 [facility] HEMATOLOGY Basophils 0.4 0.0 - 1.0 08/08/2015 [facility] HEMATOLOGY Eosinophils 0.6 0.0 - 4.0 08/08/2015 [facility] HEMATOLOGY Lymphocytes # 1.4 1.0 - 5.5 08/08/2015 [facility] HEMATOLOGY Segs-Bands # 6.1 1.5 - 8.1 08/08/2015 [facility] HEMATOLOGY RBC 4.42 4.70 - 6.10 08/08/2015 [facility] HEMATOLOGY MCH 26.1 27.0 - 31.0 08/08/2015 [facility] HEMATOLOGY MCV 80.6 80.0 - 94.0 08/08/2015 [facility] HEMATOLOGY MCHC 32.3 32.0 - 36.0 08/08/2015 [facility] HEMATOLOGY Hgb 11.5 14.0 - 18.0 08/08/2015 [facility] HEMATOLOGY Hct 35.7 42.0 - 54.0 08/08/2015 [facility] HEMATOLOGY MPV 9.0 7.4 - 10.4 08/08/2015 [facility] HEMATOLOGY Platelet 216 133 - 450 08/08/2015 [facility] HEMATOLOGY RDW 27.0 11.5 - 14.5 08/08/2015 [facility] HEMATOLOGY WBC 8.5 3.7 - 10.4 08/08/2015 [facility] BLOOD BANK RESULTS Antibody Scrn Negative (08/07/15 9:35 AM) 08/07/2015 [facility] BLOOD BANK RESULTS ABO/Rh O POS 08/07/2015 [facility] CHEM PANEL B/C Ratio 14 6 - 25 07/28/2015 [facility] CHEM PANEL Globulin 3.1 2.0 - 4.0 07/28/2015 [facility] CHEM PANEL A/G Ratio 1.3 0.7 - 1.6 07/28/2015 [facility] CHEM PANEL AGAP 11.0 10.0 - 20.0 07/28/2015 [facility] CHEM PANEL eGFR 75 07/28/2015 Result Comment: [...] should be multiplied by the estimated BMI. [facility] CHEM PANEL AST 17 0 - 37 07/28/2015 [facility] CHEM PANEL Bili Total 0.9 0.2 - 1.3 07/28/2015 [facility] CHEM PANEL Alk Phos 95 39 - 136 07/28/2015 [facility] CHEM PANEL Total Protein 7.1 6.4 - 8.4 07/28/2015 [facility] CHEM PANEL Albumin Lvl 4.0 3.5 - 5.0 07/28/2015 [facility] CHEM PANEL ALT 25 0 - 65 07/28/2015 [facility] CHEM PANEL Calcium Lvl 8.8 8.5 - 10.5 07/28/2015 [facility] CHEM PANEL Chloride Lvl 104 95 - 109 07/28/2015 [facility] CHEM PANEL CO2 31 24 - 32 07/28/2015 [facility] CHEM PANEL Potassium Lvl 5.0 3.5 - 5.1 07/28/2015 [facility] CHEM PANEL Sodium Lvl 141 135 - 145 07/28/2015 [facility] CHEM PANEL Creatinine Lvl 1.03 0.50 - 1.40 07/28/2015 [facility] CHEM PANEL BUN 14 7 - 22 07/28/2015 [facility] CHEM PANEL Glucose Lvl 73 70 - 99 07/28/2015 [facility] HEMATOLOGY WBC 8.4 3.7 - 10.4 07/28/2015 [facility] HEMATOLOGY RBC 4.81 4.70 - 6.10 07/28/2015 [facility] HEMATOLOGY Hgb 12.2 14.0 - 18.0 07/28/2015 [facility] HEMATOLOGY MCV 79.1 80.0 - 94.0 07/28/2015 [facility] HEMATOLOGY MCH 25.3 27.0 - 31.0 07/28/2015 [facility] HEMATOLOGY Hct 38.1 42.0 - 54.0 07/28/2015 [facility] HEMATOLOGY MPV 9.3 7.4 - 10.4 07/28/2015 [facility] HEMATOLOGY RDW 31.4 11.5 - 14.5 07/28/2015 [facility] HEMATOLOGY Platelet 232 133 - 450 07/28/2015 [facility] HEMATOLOGY MCHC 32.0 32.0 - 36.0 07/28/2015 [facility] HEMATOLOGY PTT 30.6 22.9 - 35.8 07/28/2015 [facility] HEMATOLOGY INR 1.17 0.85 - 1.17 07/28/2015 [facility] HEMATOLOGY PT 15.2 12.0 - 14.7 07/28/2015 [facility] HEMATOLOGY Anisocyte 3+ *NA* (07/28/15 2:20 PM) None Seen 07/28/2015 [facility] HEMATOLOGY Monocytes # 0.7 0.0 - 0.8 07/28/2015 [facility] HEMATOLOGY Segs-Bands # 5.3 1.5 - 8.1 07/28/2015 [facility] HEMATOLOGY Eosinophils # 0.4 0.0 - 0.5 07/28/2015 [facility] HEMATOLOGY Lymphocytes # 2.0 1.0 - 5.5 07/28/2015 [facility] HEMATOLOGY Microcyte 1+ *ABN* (07/28/15 2:20 PM) None Seen 07/28/2015 [facility] HEMATOLOGY Basophils 0.5 0.0 - 1.0 07/28/2015 [facility] HEMATOLOGY Monocytes 8.0 2.0 - 12.0 07/28/2015 [facility] HEMATOLOGY Eosinophils 5.0 0.0 - 4.0 07/28/2015 [facility] HEMATOLOGY Segs 62.9 45.0 - 75.0 07/28/2015 [facility] HEMATOLOGY Lymphocytes 23.6 20.0 - 40.0 07/28/2015 [facility] HEMATOLOGY Plt Morph Dalia l (07/28/15 2:20 PM) 07/28/2015 [facility] URINE AND STOOL UA Urobilinogen <=1.0 mg/dL 0.1 - 1.0 07/28/2015 [facility] URINE AND STOOL UA Sq Epi None Seen 07/28/2015 [facility] URINE AND STOOL UA Mucus Few /LPF None Seen /LPF 07/28/2015 [facility] URINE AND STOOL UA Leuk Est Negative (07/28/15 2:20 PM) Negative 07/28/2015 [facility] URINE AND STOOL UA Bacteria Occasional /HPF None Seen /HPF 07/28/2015 [facility] URINE AND STOOL UA WBC 1 0 - 5 07/28/2015 [facility] URINE AND STOOL UA Protein Negative mg/dL Negative mg/dL 07/28/2015 [facility] URINE AND STOOL UA Nitrite Negative (07/28/15 2:20 PM) Negative 07/28/2015 [facility] URINE AND STOOL UA pH 7.0 5.0 - 8.0 07/28/2015 [facility] URINE AND STOOL UA Glucose Negative mg/dL Negative mg/dL 07/28/2015 [facility] URINE AND STOOL UA Ketones Negative mg/dL Negative mg/dL 07/28/2015 [facility] URINE AND STOOL UA Spec Grav 1.015 <=1.030 07/28/2015 [facility] URINE AND STOOL UA Turbidity Clear (07/28/15 2:20 PM) Clear 07/28/2015 [facility] URINE AND STOOL UA Blood Negative (07/28/15 2:20 PM) Negative 07/28/2015 [facility] URINE AND STOOL UA Bili Negative *NA* (07/28/15 2:20 PM) Negative 07/28/2015 [facility] URINE AND STOOL UA Color Yellow *NA* (07/28/15 2:20 PM) Yellow 07/28/2015 [facility] Pathology Reports No Data Provided for This [...] Prieto MD On 10/26/2019 09:21:46; [id number] 10/25/2019 [facility] Chest/Abdomen/Pelvis w IV contrast CT Radiation [...] splenomegaly. Adonay Falcon MD On 06/16/2019 13:02:08; [id number] 06/16/2019 [facility] Chest/Abdomen/Pelvis w IV contrast CT CT [...] in ch est, abdomen or pelvis. SL [id number] 02/12/[address] [facility] [address] Colorectal CA restaging Patient Name: CRISTOPHER WALTON : 1950; Age: 67 years Male MR: [id number] Study: PET CT Colorectal CA restaging 11/12/2017 [...] on metabolic activity of the tumor. SL: [id number] 11/12/2017 [facility] PET CT Colorectal CA restaging EXAM: [...] contrast can further evaluate. SL 13 06/30/2017 [facility] Shoulder series DX Exam: Righ t [...] for possible scapholunate ligament injury. 05/03/[address] [facility] [address] Colorectal CA restaging PET CT [...] chest, these would be helpful in comparison. 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 4. Annuloaortic ectasia. SL: [id number] 07/08/2016 [facility] Ext Upper Venous Doppler Unilat US [...] thrombosis of the right upper extremity. SL: [id number] 11/21/2015 [facility] Chest 2 views DX CHEST RADIOGR [...] right hemidiaphragm is incidentally noted. SL:16 11/19/2015 [facility] CVC insert tunnel w/-w/o port/pump age [...] venipuncture was placed in the patient's EMR. [place] mandril wire was advanced through the needle and into the SVC. Needle was exchanged for a 5-[place] conversion sheath. 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 SL: [id number] 09/16/2015 [facility] Chest 2 views DX CHEST PA [...] Value Date Comments Source Weight 86.364 10/24/2019 [facility] Systolic (mm Hg) 133 10/24/2019 [facility] Diastolic (mm Hg) 68 10/24/2019 [facility] Heart Rate 85 10/24/2019 [facility] Respitory Rate 20 10/24/2019 [facility] Temperature Oral (F) 98 F 10/24/2019 [facility] Systolic (mm Hg) 121 11/24/2015 [facility] Diastolic (mm Hg) 63 11/24/2015 [facility] Respitory Rate 18 11/24/2015 [facility] Heart Rate 67 11/24/2015 [facility] Temperature Oral (F) 97.9 F 11/24/2015 [facility] Systolic (mm Hg) 117 11/24/2015 [facility] Diastolic (mm Hg) 77 11/24/2015 [facility] Respitory Rate 18 11/24/2015 [facility] Temperature Oral (F) 97.6 F 11/24/2015 [facility] Heart Rate 66 11/24/2015 [facility] Temperature Oral (F) 97.2 F 11/24/2015 [facility] Respitory Rate 18 11/24/2015 [facility] Systolic (mm Hg) 132 11/24/2015 [facility] Diastolic (mm Hg) 83 11/24/2015 [facility] Heart Rate 56 11/24/2015 [facility] Weight 99.091 11/20/2015 [facility] Height 177.8 cm 11/20/2015 [facility] Height 177.8 cm 11/20/2015 [facility] BMI Calculated 31.63 11/20/2015 [facility] Weight 100 11/20/2015 [facility] Height 177.8 cm 11/19/2015 [facility] BMI Calculated 31.63 11/19/2015 [facility] Weight 100 11/19/2015 [facility] Height 177.8 cm 09/16/2015 [facility] BMI Calculated 31.63 09/16/2015 [facility] Weight 100 09/16/2015 [facility] Systolic (mm Hg) 139 08/10/2015 [facility] Diastolic (mm Hg) 66 08/10/2015 [facility] Temperature Oral (F) 97.8 F 08/10/2015 [facility] Respitory Rate 16 08/10/2015 [facility] Heart Rate 49 08/10/2015 [facility] Temperature Oral (F) 98.1 F 08/10/2015 [facility] Systolic (mm Hg) 160 08/10/2015 [facility] Diastolic (mm Hg) 73 08/10/2015 [facility] Respitory Rate 18 08/10/2015 [facility] Heart Rate 59 08/10/2015 [facility] Temperature Oral (F) 97.9 F 08/10/2015 [facility] Respitory Rate 18 08/10/2015 [facility] Heart Rate 63 08/10/2015 [facility] Systolic (mm Hg) 149 08/10/2015 [facility] Diastolic (mm Hg) 73 08/10/2015 [facility] Weight 103.636 08/08/2015 [facility] BMI Calculated 32.78 08/08/2015 [facility] Height 177.8 cm 08/08/2015 [facility] Height 177.8 cm 08/07/2015 [facility] BMI Calculated 32.5 08/07/2015 [facility] Weight 102.727 08/07/2015 [facility] Height 177.8 cm 07/28/2015 [facility] BMI Calculated 32.64 07/28/2015 [facility] Weight 103.182 07/28/2015 [facility] Encounters Location Location Details Encounter Type Encounter Number Reason For Visit Attending Provider ADM Date DC Date Status Source [facility] [place] [facility] [id number] Rene Sepulveda 06/13/2015 06/14/2015 [facility] Inpatient [id number] Louis Marteln 08/07/2015 08/10/2015 [facility] Outpatient [id number] Nancy Gonzalesdanny 09/16/2015 09/17/2015 [facility] Inpatient [id number] Vanessa Cabraliq 11/19/2015 11/24/2015 [facility] Outpatient [id number] Nancy Cruz 07/08/2016 07/09/2016 [facility] Outpatient [id number] David Arguelles 04/21/2017 04/22/2017 [facility] [place] [facility] Di[facility] Services [id number] Rene Sepulveda 05/03/2017 05/04/2017 [facility] Outpatient [id number] Lovely Childs 06/30/2017 07/01/2017 [facility] Outpatient [id number] Lovely Childs 11/12/2017 11/13/2017 [facility] Outpatient [id number] David Arguelles 02/12/2019 02/13/2019 [facility] Outpatient [id number] David Arguelles 06/16/2019 06/17/2019 [facility] Emergency [id number] Ricky Tawanda 10/24/2019 10/24/2019 [facility] Outpatient [id number] David Arguelles 10/25/2019 10/26/2019 [facility] Procedures Procedure Code Date Perfomer Comments Source Right hemicolectomy [id number] 08/07/2015 [facility] Garcia,[facility] Tonsillectomy and adenoidectomy [id number] [facility], [facility] Garcia ,[facility] Assessment and Plan Assessment and Plan Date Source Extracted from:Title: Clinical Document Author: Alyssa Wilkerson Date: 11/24/15 Internal Medicine Progress Note [facility] SUBJECTIVE No acute events. Pt denies [...] .9% INJ 100 mL 2 gm IVPB [id number] 200 ml/hr 11/21/15 cholecalciferol (Vitamin D3 200 0 intl units oral tablet) 2,000 IntlUnit PO Daily 11/20/15 cyanocobalamin (Vitamin B12) 50 0 microgram PO BID 11/20/15 enoxaparin 40 mg SUB-Q [id number] 11/20/15 ferrous sulfate 325 mg PO BID-M [...] with PCP and onc next week. 11/24/2015 [facility] Extracted from:Title: Colon and Rectal S [...] Soft diet Medications (name, dose, route, frequency): Ewing 10/325 1 tab PO q 4 hrs prn pain Follow-Up: [address] Urena for a post-operat quan visit Extracted from:Title: Colon and Rectal Surgery Author: nAdreas Smart MD Date: 3/6/16 Interval History: No acute events overnight. 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 Denies nausea or vomiting with clear liquids. [...] IVF to 50 cc/hr D/C Entereg and STERILE INSTRUMENT TECHNICIAN Start prn Ewing If patient tolerates a soft diet, he could possibly go home later this afternoon or evening 08/10/2015 [facility] Plan of Care No Data Provided for [...] No; Reg Smoking Cessation Counseling No 08/08/2015 [facility] Family History No Data Provided for This Section Advance Directives No Data Provided for This Section Functional Status No Data Provided for This Section
--- OUTSIDE RECORDS SUMMARY | 2019-11-11 16:52 | XMS REPORT | Clinical Summary ---
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
--- OUTSIDE RECORDS SUMMARY | 2019-11-11 16:53 | XMS REPORT | Continuity of Care Document ---
Author Author [facility] Organization [facility] Address [facility] [place] [address] Phone Unavailable Care Team Providers Care Ladderman Name Role Phone NO, PCP PCP Unavailable Radha MOORE Attphys Unavailable David Arguelles Attphys Ricky Neff Attphys WILSON MONREAL Attphys Unavailable Celso Childs Attphys Clint Sepulveda Attphys Tosha Cruz Attphys Jules, Severino Adnan Attphys Andreea Urena Attphys [phone] WILSON MONREAL Admphys Unavailable Jules, Severino Adnan Admphys Andreea Urena Admphys [phone] Payers Payer Name Policy Type Policy Number Effective Date Expiration Date Celso Cohen [id number] 2019 00:00:00 JOY Hilliard [facility] Problems Condition Name Condition Details Condition Category Status Onset Date Resolution Date Last Treatment Date Treating Clinician Comments Source TESTICLE PAIN TEST ICLE PAIN Active 10/24/2019 [facility] Active 2019-10-24 00:00:00 2019-10-24 16:12:00 [facility] DX: C78.02=SECONDARY MALIGNANT NEOPLASM DX: C78.02=SECONDARY MALIGNANT NEOPLASM Active 10/22/2019 [facility] Active 2019-10-22 00:00:00 2019-10-25 08:20:00 [facility] C18.2-MALIGNANT NEOPLASM OF ASCENDING CO C18.2-MALIGNANT NEOPLASM OF ASCENDING CO Active 06/12/2019 [facility] Ac tive 2019-06-12 00:00:00 2019-06-16 07:49:00 [facility] DX: 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 ASCENDIN DX: 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 ASCENDIN Active 02/06/2019 [facility] Active 2019-02-06 00:00:00 2019-02-12 07:17:00 [facility] C18.2 C18. 2 Active 10/28/2017 [facility] Active 2017-10-28 00:00:00 2017-11-12 09:53:00 [facility] 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 Active 04/11/2017 [facility] Ac tive 2017-04-11 00:00:00 2017-04-21 13:06:00 [facility] UNK UNK Active 08/04/2016 [facility] Active 2016-08-04 00:00:00 2016-08-13 07:14:[facility] [place] BACTERMIA BACT ERMIA Active 11/19/2015 [facility] Active 2015-11-19 00:00:00 2015-11-28 22:05:00 [facility] COLON CANCER COLO N CANCER Active 07/08/2015 [facility] Diagnosis Active 2015-07-08 00:00:00 2015-08-08 12:39:00 [facility] N/A N/A Active 07/08/2015 [facility] Diagnosis Active 2015-07-08 00:00:00 2015-07-16 15:49:00 [facility] Other nonspecific abnormal finding of lung field Other nonspecific abnormal finding of lung field 10/06/2017 [facility] Problem 2017-10-06 16:16:07 [facility] catrina Iron deficiency anemia (disorder) Iron deficiency anemia (disorder) Resolved Problem 10/27/2019 MANOJ Garcia [facility] Problem Resolved 2019-10-27 22:33:44 [facility] Malignant tumor of colon (disorder) Malignant tumor of colon (disorder) Active Problem 10/27/2019 [facility], OPID [place], [facility] Problem Active 2019-10-27 22:33:44 Marika Garay 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 Active [facility] Active 201 11-08-11 08:52:00 Marika Garay BACTEREMIA BACT EREMIA Active [facility] Active 2015-11-28 22:05:00 [facility] [place] MALIGNANT NEOPLASM OF ASCENDING COLON MALIGNANT NEOPLASM OF ASCENDING COLON Active [facility], [facility] Active 2017-06-30 09:16:00 Marika Garay Malignant neoplasm of ascending colon Malignant neoplasm of ascending colon 07/05/2017 10/06/2017 [facility] Problem 2017-07-05 05:12:57 2017-10-06 16:16:07 2017-10-06 16:16:07 M matti Garay Allergies, Adverse Reactions, Alerts Allergy Name Allergy Type Status Severity Reaction(s) Onset Date Inacti ve Date Treating Clinician Comments Source No Known Allergies DA Active U 2018-10-13 00:00:00 [facility] No Known Allergies DA Active U 2017-11-03 00:00:00 [facility] No Known Medication Allergies No Known Medication [...] 00:00:00 Current non-drinker of alcohol (finding) Jamarcus Singh Social History 2016-08-09 20:26:27 2016-08-09 20:26:27 Marika [...] 2015-11-24 14:00:00 No Notes: (Same as: MaxEPA, [place] 3 fish oil ) Non-Formulary Drug Marika [...] 2015-11-20 18:00:00 No Notes: (Same as: MaxEPA, [place] 3 fish oil ) Non-Formulary Drug Marika Garay Metoprolol 2015-11-20 16:22:00 No Notes: (Same as: Lopressor) Push over 2 minutes Marika Garay Nitroglycerin 0.4 MG Sublingual Tablet [Nitrostat] 2015-11-05 6 16:22:00 No Notes: (Same as:Nitroquick, Nitr ostat) "Do Not Crush" Sublingual tablet Marika Garay Morphine 2015-11-20 16:22:00 No Not es: (Same as:MORPhine Sulfate) Marika Garay Hydralazine 2015-11-20 16:22:00 No Notes: (Same as: Apresoline) Push over 5 minutes [facility] [place] RN-Bring pt's own FISH OIL to pharmacy for label 2015-11-20 16:00:00 No RN-Bring pt's own FISH OIL to pharmacy for label, Attn:RN, Drug form: MISC, Route: MISC, QSHIFT, 11/20/15 11:00:00 CDT, Duration: 30 day, Stop date: 12/20/15 8:00:00 CDT [facility] Neftaly velasco Enoxaparin 2015-11-20 16:00:00 No Notes: (S cara as: Lovenox) Marika Higginbothamann Aspirin 325 MG Oral Tablet 2015-11-20 15:30:00 No Notes: Take with food. Marika Garay Zofran 2015-11-20 15:12:00 No Notes: (Same as: Zofran) MEDICATION WASTE Product Size: 4 mg Product Wasted: ___ mg Marika Garay docusate sodium 100 mg oral capsule 2015-11-20 15:12:00 No Notes: (Same as: Colace) (Do Not Crush) Cheli Garay tramadol hydrochloride 50 MG Oral Tablet 2015-11-20 15:11:00 No Notes: Not to exceed 400mg/day. (Same As: Ultram) [facility] [place] Acetaminophen 2015-11-20 15:11:00 No Notes: Do not exceed 4 gm/day. (Same as: Tylenol) Marika Higginbothamann cefpodoxime 200 mg oral tablet 2015-11-20 08:46:00 No 200 mg = 1 tab, PO, BID, 0 Refill(s) Marika Jennifer nn Fish Oil 1000 mg oral capsule 2015-11-20 08:46:00 No 1,000 mg = 1 cap, PO, TID, 0 Refill(s) Marika Jennifer nn ferrous sulfate 325 mg oral [...] Hydrocodone Bitartrate 10 MG Or al Tablet [[place] 10/325] 2015-08-10 15:58:00 Yes 1 ta b, PO, Q4H, PRN Pain Score 4-6, 0 Refill(s) Marika Garay Morphine 2015-08-10 14:09:00 No Not es: (Same as:MORPhine Sulfate) Marika Garay Acetaminophen 325 MG / Hydrocodone Bitartrate 10 MG Or al Tablet [[place] 10/325] 2015-08-10 14:08:00 No Note s: Do not exceed 4gm/day of acetaminophen. (Same as: [place] 325/10) Marika Garay Acetaminophen 325 MG / Hydrocodone Bitartrate 10 MG Or al Tablet [[place] 10/325] 2015-08-10 14:07:00 No Note s: Do not exceed 4gm/day of acetaminophen. (Same as: [place] 325/10) Marika Garay D5W 1/2NS + KCL 20mEq/L 1000ml (Premix) 1,000 mL 2015-08-09 16:1 8:00 No Notes: PREMIX IV - Do Not Alter WASTE: F/P - Sink; E - Municipal Trash Bin Marika Higginbothamann Lovenox 2015-08-08 15:00:00 No Notes: (Same as: Lovenox) [facility] [place] Entereg 2015-08-08 15:00:00 No Notes: Same as: [...] = 30 mL [266 mg]) Marika Garay [facility] 2015-08-08 00:00:00 No Notes: Infuse over 15 minutes Do not exceed 4gm/day of acetaminophen MEDICATION WASTE Product Size: 1000 mg Product Wasted: ___ mg [facility] Neftaly velasco Naloxone 2015-08-07 23:03:00 No Notes: Same as Narcan [facility] [place] Flumazenil 2015-08-07 23:03:00 No Notes: (S cara as: Romazicon) [facility] [place] Hydromorphone 2015-08-07 23:03:00 No Notes: Same as: Dilaudid [facility] Ondansetron 2015-08-07 23:03:00 No Notes: (Same as: Mando) MEDICATION WASTE Product Size: 4 mg Product Wasted: ___ mg [facility] Labetalol 2015-08-07 23:03:00 No 10 mg, 2 mL, Route: IVP, Drug form: INJ, Q5Min, Dosing Weight 102.727, kg, PRN Elevated BP, Start date: 08/07/15 17:03:00, Duration: 5 doses or times, Stop date: 08/08/15 0:00:00 [facility] Hydromorphone 2015-08-07 23:00:00 No Notes: (Same as: Dilaudid) conc = 0.5 mg/ml Hydromorphone DRILL PRESS HAND Dose: ;Delay: ;Basal: Marika Garay Naloxone 2015-08-07 22:59:00 No Notes: Same as Narcan [facility] Calcium Chloride 0.0014 MEQ/ML / Potassi um Chloride 0.004 MEQ/ML / Sodium Chloride 0.103 MEQ/ML / Sodium Lactate 0.028 MEQ/ML Injectable Solution 2015-08-07 22:59:00 No 1,000 mL, Rate: 100 ml/hr, Infuse over: 10 hr, Route: IV, Dosing Weight 102.727 kg, Total Volume: 1,000, Start date: 08/07/15 16:59:00, Stop date: 09/06/15 16:58:00 [facility] 2015-08-07 22:59:00 No Notes: (Same as: Mando) MEDICATION WASTE Product Size: 4 mg Product Wasted: ___ mg [facility] Entereg 2015-08-07 16:01:00 No Notes: Same as: Enterpaloma Maximum of 15 doses Alert Restricted medication Alvimopan (Entergen) order form must be completed prior to dispensing. [facility] [place] INVanz 2015-08-07 10:00:00 No Notes: (Same as: Breana) Refrigerate. NOT COMPATIBLE WITH D5W. Stable in refrigerator for 24 hours MEDICATION WASTE Product Size: 1000 mg Product Wasted: ___ mg [facility] ferrous sulfate 325 mg oral enteric coated tablet 2015-07-28 19:08:00 No 325 mg = 1 tab, PO, Daily, # 30 tab, 0 Refill(s ) Marika Garay Vitamin D3 2000 intl units oral capsule 2015-07-28 19:08:00 Yes 2,000 IntlUnit = 1 cap, PO, Daily, # 100 cap, 3 Refill(s) [facility] Vitamin B-12 500 mcg oral tablet 2015-07-28 19:08:00 Yes 500 microgram = 1 tab, PO, Daily, # 30 tab, 0 Refill(s) [facility] [place] Fish Oil 2015-07-28 19:08:00 Yes PO, Daily, 0 Refill(s) [facility] Apixaban (Eliquis) 2.5 Mg Tablet Apixaban (Eliquis) 2.5 Mg Tablet Yes 2.5 Twice A Day [facility] Furosemide 40 Mg Tablet Furosemide 40 Mg Tablet Yes 40 Daily [facility] Pantoprazole Sodium (Protonix) 40 Mg Tablet. Pantopr azole Sodium (Protonix) 40 Mg Tablet. Yes 40 Daily [facility] Spironolactone 25 Mg Tablet Spironolactone 25 Mg Tablet Yes 50 Daily [facility] Vital Signs Vital Name Observation Time Observation Value Comments Source Weight 2019-10-24 21:01:00 [facility] Systolic (mm Hg) 2019-10-24 21:01:00 [facility] [place] Diastolic (mm Hg) 2019-10-24 21:01:00 [facility] [place] Heart Rate 2019-10-24 21:01:00 [facility] [place] Respitory Rate 2019-10-24 21:01:00 Ryanori al [place] Temperature Oral (F) 2019-10-24 21:01:00 98 F [facility] [place] Systolic (mm Hg) 2015-11-24 21:00:00 [facility] [place] Diastolic (mm Hg) 2015-11-24 21:00:00 [facility] [place] Respitory Rate 2015-11-24 21:00:00 [facility] [place] Heart Rate 2015-11-24 21:00:00 [facility] Temperature Oral (F) 2015-11-24 21:00:00 97.9 F [facility] [place] Systolic (mm Hg) 2015-11-24 16:00:00 [facility] [place] Diastolic (mm Hg) 2015-11-24 16:00:00 [facility] [place] Respitory Rate 2015-11-24 16:00:00 [facility] [place] Temperature Oral (F) 2015-11-24 16:00:00 97.6 F [facility] Heart Rate 2015-11-24 16:00:00 [facility] [place] Temperature Oral (F) 2015-11-24 13:00:00 97.2 F [facility] [place] Respitory Rate 2015-11-24 13:00:00 [facility] [place] Systolic (mm Hg) 2015-11-24 13:00:00 [facility] [place] Diastolic (mm Hg) 2015-11-24 13:00:00 [facility] [place] Heart Rate 2015-11-24 13:00:00 [facility] [place] Weight 2015-11-20 16:25:00 [facility] [place] Height 2015-11-20 08:30:00 177.8 cm [facility] [place] Height 2015-11-20 08:23:00 177.8 cm [facility] BMI Calculated 2015-11-20 08:23:00 [facility] [place] Weight 2015-11-20 08:23:00 [facility] Height 2015-11-19 22:59:00 177.8 cm [facility] BMI Calculated 2015-11-19 22:59:00 [facility] [place] Weight 2015-11-19 22:59:00 [facility] [place] Height 2015-09-16 14:51:00 177.8 cm [facility] BMI Calculated 2015-09-16 14:51:00 [facility] [place] Weight 2015-09-16 14:51:00 [facility] Systolic (mm Hg) 2015-08-10 14:07:00 [facility] [place] Diastolic (mm Hg) 2015-08-10 14:07:00 [facility] [place] Temperature Oral (F) 2015-08-10 14:07:00 97.8 F [facility] Respitory Rate 2015-08-10 14:07:00 [facility] Heart Rate 2015-08-10 14:07:00 [facility] [place] Temperature Oral (F) 2015-08-10 09:00:00 98.1 F [facility] [place] Systolic (mm Hg) 2015-08-10 09:00:00 [facility] [place] Diastolic (mm Hg) 2015-08-10 09:00:00 [facility] [place] Respitory Rate 2015-08-10 09:00:00 [facility] [place] Heart Rate 2015-08-10 09:00:00 [facility] [place] Temperature Oral (F) 2015-08-10 05:00:00 97.9 F [facility] Respitory Rate 2015-08-10 05:00:00 [facility] [place] Heart Rate 2015-08-10 05:00:00 [facility] Systolic (mm Hg) 2015-08-10 05:00:00 [facility] [place] Diastolic (mm Hg) 2015-08-10 05:00:00 [facility] [place] Weight 2015-08-08 04:36:00 [facility] BMI Calculated 2015-08-08 04:36:00 [facility] [place] Height 2015-08-08 04:36:00 177.8 cm [facility] Height 2015-08-07 16:48:00 177.8 cm [facility] BMI Calculated 2015-08-07 16:48:00 [facility] [place] Weight 2015-08-07 16:48:00 [facility] [place] Height 2015-07-28 20:42:00 177.8 cm [facility] BMI Calculated 2015-07-28 20:42:00 [facility] [place] Weight 2015-07-28 20:42:00 [facility] [place] Procedures Procedure Date / Time Performed Performing Clinician [facility] e US guided paracentesis 2019-08-30 00:00:00 WILSON MONREAL [facility] Computed tomography of abdomen and pelvis with contrast 2019 00:00:00 JAYSON KUMAR [facility] Right hemicolectomy 2015-08-07 06:00:00 [facility] Tonsillectomy and adenoidectomy [facility] Plan of Care Planned Activity Planned Date Details Comments Source Future Scheduled Test 2026-08-13 00:00:00 COLONOSCOPY SCREEN ING [code = COLONOSCOPY SCREENING] [facility] Future Scheduled Test 2020-01-05 00:00:00 INFLUENZA VACCINE [code = INFLUENZA VACCINE] [facility] Future Scheduled Test 2013-01-19 00:00:00 65+ PNEUMOCOCCAL V ACCINE (1 of 2 - PCV13) [code = 65+ PNEUMOCOCCAL VACCINE (1 of 2 - PCV13)] [facility] Future Scheduled Test 1998-01-19 00:00:00 SHINGLES VACCINES (#1) [code = SHINGLES VACCINES (#1)] [facility] Encounters Start Date/Time End Date/Time [facility] Source 2019-10-25 08:12:00 2019-10-25 23:59:00 Outpatient David Arguelles [facility] [id number] 2019-10-25 08:12:00 2019-10-25 08:12:00 Outpatient [id number] 2019-10-24 15:56:05 2019-10-24 16:08:00 Outpatient Radha Neff [facility] [id number] 2019-08-28 15:04:00 2019-08-31 10:50:00 Discharged Inpatient 1 [facility] [id number] [facility] 2019-06-16 07:40:00 2019-06-16 23:59:00 Outpatient David Arguelles [facility] [id number] 2019-06-16 07:40:00 2019-06-16 07:40:00 Outpatient MHSE [id number] 2019-02-12 07:07:00 2019-02-12 23:59:00 Outpatient David Arguelles [facility] [id number] 2019-02-12 07:07:00 2019-02-12 07:07:00 Outpatient MHSE [id number] 2017-11-12 09:53:00 2017-11-12 23:59:00 Outpatient Lovely Childs HSE [facility] [id number] 2017-06-30 09:14:00 2017-06-30 23:59:00 Outpatient Lovely Childs HSE [facility] [id number] 2017-05-03 12:27:00 2017-05-03 23:59:00 Outpatient Adam Sepulveda HOIP [facility] [id number] 2017-04-21 12:59:00 2017-04-21 23:59:00 Outpatient David Arguelles [facility] [id number] 2016-07-08 09:37:00 2016-07-08 23:59:00 Outpatient Nancy Cruz [facility] [id number] 2015-11-19 17:48:00 2015-11-24 18:30:00 Outpatient Irwin Vicente [facility] [id number] 2015-09-16 08:52:00 2015-09-16 23:59:00 [id number] 2015-08-07 07:42:00 2015-08-10 14:40:00 Outpatient Mercedes Urena [facility] [id number] 2015-06-13 10:27:00 2015-06-13 23:59:00 Outpatient Adam Sepulveda HOIP HOIP [id number] Results Test Description Test Time Test Comments Results Result Comments Source CHEST SINGLE (PORTABLE) 2019-11-11 15:35:00 [place] [address] Patient Name: CRISTOPHER JACOB MR #: [id number] : 1950 Age/Sex: 69/M Req #: [id number] Adm Physician: Ordered by: RENALDO MOORE MD Report #: [id number] Location: ER Room/Bed: Procedure: [id number] DX/CHEST SINGLE (PORTABLE) Exam Date: 11/11/19 Exam Time: 1502 REPORT STATUS: Signed EXAMINATION: CHEST SINGLE (PORTABLE) INDICATION: Abdominal pain. COMPARISON: CT abdomen/pelvis 11/11/2019. FINDINGS: TUBES and LINES: Right-sided chest port with catheter tip in the proximal right atrium. LUNGS: Lungs are hypoinflated. Bilateral nodular opacities, corresponding to metastatic disease, better seen on prior CT. No evidence of pulmonary edema. Linear opacity in the right upper lung. No evidence of lobar consolidation or pulmonary edema. PLEURA: No pleural effusion or pneumothorax. HEART AND MEDIASTINUM: The cardiomediastinal silhouette is unremarkable. There are atherosclerotic calcifications within the aorta. BONES AND SOFT TISSUES: No acute osseous lesion. Soft tissues are unremarkable. UPPER ABDOMEN: No free air under the diaphragm. IMPRESSION: Bilateral nodular op acities, corresponding to metastatic disease, better seen on prior CT. Signed by: Dr. Renee Seymour MD on 11/11/2019 3:40 PM Dictated By: RENEE SEYMOUR MD 39 Transcribed By: HERIBERTO on 11/11/19 154 COPY TO: RENALDO MOORE MD CT ABDOMEN/PELVIS W 2019-11-11 15:15:00 [place] [address] Patient Name: CRISTOPHER JACOB MR #: [id number] : 1950 Age/Sex: 69/M Req #: [id number] Adm Physician: Ordered by: RENALDO MOORE MD Report #: [id number] Location: ER Room/Bed: Procedure: [id number] CT/CT ABDOMEN/PELVIS W Exam Date: 11/11/19 Exam Time: 1502 REPORT STATUS: Signed EXAMINATION: CT of the abdomen and pelvis with contrast. TECHNIQUE: Spiral CT images of the abdomen and pelvis were performed from the lung bases to the lesser trochanters after the intravenous administration of 100 cc of Isovue 370 and oral Gastrografin. Co greg and sagittal reformatted images were obtained. COMPARISON: CT abdomen/pelvis 07-30-2019. CLINICAL HISTORY: Abdominal pain, loss of appetite, history of metastatic colon cancer the lung. DISCUSSION: LOWER THORAX:Innumerable bilateral pulmonary nodules are identified in the lung bases. The largest nodules in the right lower lobe, measuring up to 2.5 cm, previously 2.3 cm. There is evolution of cavitation of some of the nodules, for example a 1.1 cm left lower lobe nodule on series 2, image 8. HEPATOBILIARY: Cirrhotic morphology to the liver. Somewhat linear hypodensity within the left hepatic lobe, measuring up to 1.1 cm, unchanged, compatible with intrahepatic portal venous thrombus. No definite mass. No evidence of bony ductal dilatation. GALLBLADDER: No radio-opaque stones or sludge. No wall thickening. SPLEEN: Mild splenomegaly, measuring up to 14 cm. PANCREAS: No focal masses or ductal dilatation. ADRENALS: No adrenal nodu les. KIDNEYS/URETERS: No hydronephrosis, stones, or solid mass lesions. PELVIC ORGANS/BLADDER: Bladder is unremarkable. Dystrophic calcification in the prostate. PERITONEUM/RETROPERITONEUM: Moderate free fluid. No free air. LYMPH NODES: Unchanged 1.2 cm portacaval/celiac axis lymph node. Unchanged prominent 1.1 cm left paraaortic lymph node. VESSELS: Again noted is nonocc lusive thrombus extending from the main portal vein into the left portal vein. The overall extent of thrombus is slightly decreased from the prior study. Interval clearing of thrombus within the right portal vein. Persistent filling defect in the SMV proximally, suspicious for thrombus. Splenic vein is patent, without filling defects. Moderate atherosclerotic calcifications of the abdominal aorta and branch vessels. GI TRACT: No evidence of bowel obstruction. Status post right hemicolectomy. Interval development of a soft tissue lesion which may be extrinsic or possibly within the right esophageal wall, measuring up to to 0.1 x 1.9 x 3.5 cm (series 2, image 19 and coronal series 301, image 89). There appears to be mass effect on the esophagus which is deviated leftward. Decreased mild wall thickening within the distal transverse and descending colon. Mild wall thickening in the jejunum. Moderate amount of stool in the distal colon. BONES AND SOFT TISSUE: No acute osseous abnormality. No suspicious lytic or blastic lesions. Bilateral fat and fluid containing inguinal hernias, right greater than left. IMPRESSION: Main and left portal venous thrombosis, with slightly decreased extent of thrombus compared to prior study. Persistent somewhat linear hypodensity in the left hepatic lobe likely represents thrombus in segment II portal vein branch. Interval resolution of thrombus within the right portal vein. Persistent filling defect within the proximal SMV, suspicious for thrombus. Cirrhosis with sequela of portal hypertension including splenomegaly, findings of portal enteropathy/colopathy, and ascites. Infectious or inflammatory enteritis is possible in the appropriate clinical setting. Interval development of a soft tissue lesion, measuring up to 3.5 cm along the right aspect of the distal esophagus which deviates the esophagus to the left. This may represent lymphadenopathy or possibly an esophageal mass. Recommend clinical correlation. EGD may be considered. Unchanged mildly enlarged portacaval/celiac axis lymph node and para-aortic lymph node, which may be metastatic. Innumerable metastatic pulmonary nodules, with slight interval enlargement of some nodules and cavitation of others. Signed by: Dr. Renee Seymour MD on 11/11/2019 3:35 PM Dictated By: RENEE SEYMOUR MD [id number] Transcribed By: HERIBERTO on 11/11/19 1535 COPY TO: RENALDO MOORE MD CHEM PANEL 2019-10-25 14:12:00 1.2 Ariadna Garay CHEM PANEL 2019-10-25 14:12:00 60 Ariadna Garay Prothrombin Time 2019-08-31 06:52:00 Test Item Prothrombin Time (test code = 5902-2) 16.2 11.9-14.5 [facility] International Ratio 2019-08-31 06:52:00* Test Item Value Reference Range Interpretation Comments Prothromb Time International Ratio (test code = 6301-6) 1.22 Oral Anticoagulant Therapy INR Values:1. Low Intensity Therapy 1.5 - 2.02 . Moderate Intensity Therapy 2.0 - 3.03. High Intensity Therapy(1) 2.5 - 3. 54. High Intensity Therapy(2) 3.0 - 4.05. Panic Value INR > 5.0 [facility] [id number] 16:56:00 * Test Item Value Reference Range Interpretation Comments Body Fluid Neutrophils (test code = 63552-4) 37 [facility] [id number] 16:56:00 * Test Item Value Reference Range Interpretation Comments Body Fluid Lymphocytes (test code = 96690217) 42 [facility] Fluid [id number] 16:56:00* Test Item Value Reference Range Interpretation Comments Body Fluid Monocytes (test code = 67575-6) 21 [facility] Fluid Total Cells [id number] 16:56:00* Test Item Value Reference Range Interpretation Comments Body Fluid Total Cells Counted (test code = 41300-1) 100 [facility] Total [id number] 15:45:00* Test Item Value Reference Range Interpretation Comments Body Fluid Total Protein (test code = 2881-1) 1.8 [facility] Fluid Lactate Dehydrogenase 2019-08-30 15:45:00* Test Item Value Reference Range Interpretation Comments Body Fluid Lactate Dehydrogenase (test code = 026172076) 52 No reference range has been established for this specimen type.[facility] [id number] 15:33:00* Test Item Value Reference Range Interpretation Comments Body Fluid WBC (test code = 6743-9) 86 [facility] [place] [facility] [id number] 15:33:00* Test Item Value Reference Range Interpretation Comments Body Fluid RBC (test code = 6741-3) 23 [facility] Fluid Vcog0663-55-45 14:54:00* Test Item Value Reference Range Interpretation Comments Body Fluid Type (test code = 09533-4) PERITONEAL [facility]viewBody Fluid Jjhdu1775-01-56 14:54:00* Test Item Value Reference Range Interpretation Comments Body Fluid Color (test code = 6824-7) WHITE [facility] [place] [facility] Zxcvlopsgq7218-96-72 14:54:00 * Test Item Value Reference Range Interpretation Comments Body Fluid Appearance (test code = 9335-1) TURBID [facility]view[facility] GUIDED JKSLYCHXRMOZ8607-49-90 14:33:00 [facility] [address] [address] Patient Name: CRISTOPHER JACOB MR #: [id number] : 1950 Age/Sex: 69/M Req #: [id number] [facility] Physician: WILSON MONREAL MD Ordered by: WILSON MONREAL MD Report #: [id number] Location: MED/SURG R oom/Bed: [facility] Procedure: [id number] US/US G UIDED PARACENTESIS Exam Date: 08/30/19 Exam Time: 13 52 REPORT STATUS: Signed Procedu re: Ultrasound-guided paracentesis flat folding machine operator: Jayson Arredondo M.D. Pre-operative diagnosis: Ascites [...] 2:34 PM Dictated By: JAYSON ARREDONDO MD 1434 COPY TO: WILSON MONREAL MD Lactate Xwlwwoxcxbaac4189-84-60 06:25:00* Test Item Value Reference Range Interpretation Comments Lactate Dehydrogenase (test code = 009043937) 168 125-220 [facility] Tdjpj8237-05-24 06:10:00* Test Item Value Reference Range Interpretation Comments Sodium Level (test code = 2951-2) 135 136-145 L [facility]viewPotassium Imiqj6148-71-77 06:10:00* Test Item Value Reference Range Interpretation Comments Potassium Level (test code = 2823-3) 3.8 3.5-5.1 [facility]viewChloride Azfel5600-69-30 06:10:00* Test Item Value Reference Range Interpretation Comments Chloride Level (test code = 2075-0) 104 98-107 [facility] LongviewCarbon Dioxide Xvmwn7187-96-53 06:10:00* Test Item Value Reference Range Interpretation Comments Carbon Dioxide Level (test code = 2028-9) 27 22-29 [facility] LongviewAnion Vix2291-76-20 06:10:00* Test Item Value Reference Range Interpretation Comments Anion Gap (test code = 20191-2) 7.8 8-16 L [facility] LongviewBlood Urea Bdzoaasa0169-94-80 06:10:00* Test Item Value Reference Range Interpretation Comments Blood Urea Nitrogen (test code = 3094-0) 11 - [facility] LongviewCreatinine2020-03-26 06:10:00* Test Item Value Reference Range Interpretation Comments Creatinine (test code = 2160-0) 0.91 0.72-1.25 [facility] LongviewBUN/Creatinine Xnoeu4299-77-30 06:10:00* Test Item Value Reference Range Interpretation Comments BUN/Creatinine Ratio (test code = 3097-3) 12 11-28 [facility] LongviewEstimat Glomerular Filtration Rate 2019-08-30 06:10:00* Test Item Value Reference Range Interpretation Comments Estimat Glomerular Filtration Rate (test code = 856938241) > 60 >60 Ranges were taken from the National Kidney Disease Education Program and the [facility] literature.Reference ranges:60 or greater: Mwbnzr30-39 ( for 3 consecutive months): Chronic kidney disease 15 or less: Kidney failureCHRISTUS Good Shepherd Medical Center – LongviewGlucose Fojei1899-40-88 06:10:00* Test Item Value Reference Range Interpretation Comments Glucose Level (test code = YPQ0562) 89 74-118 [facility] LongviewCalcium Uelgh3419-89-97 06:10:00* Test Item Value Reference Range Interpretation Comments Calcium Level (test code = 84026-2) 8.3 8.4-10.2 L [facility] LongviewTotal Dapdbacmk1558-23-75 06:10:00* Test Item Value Reference Range Interpretation Comments Total Bilirubin (test code = 1975-2) 1.0 0.2-1.2 [facility] LongviewAspartate Amino Transf (AST/SGOT) 2019-08-30 06:10:00* Test Item Value Reference Range Interpretation Comments Aspartate Amino Transf (AST/SGOT) (test code = Aspartate Amino Transf (AST/SGOT)) 16 5-34 [facility] LongviewAlanine Aminotransferase (ALT/SGPT) 2019-08-30 06:10:00* Test Item Value Reference Range Interpretation Comments Alanine Aminotransferase (ALT/SGPT) (test code = 1742-6) 11 0-55 [facility] LongviewTotal Iadafjm8337-19-34 06:10:00* Test Item Value Reference Range Interpretation Comments Total Protein (test code = 2885-2) 5.2 6.5-8.1 L [facility] LongviewAlbumin2020-03-26 06:10:00* Test Item Value Reference Range Interpretation Comments Albumin (test code = 1751-7) 2.8 3.5-5.0 L [facility] LongviewGlobulin2020-03-26 06:10:00* Test Item Value Reference Range Interpretation Comments Globulin (test code = 54467-8) 2.4 2.3-3.5 [facility] LongviewAlbumin/Globulin Wnroa6731-87-12 06:10:00 * Test Item Value Reference Range Interpretation Comments Albumin/Globulin Ratio (test code = 1759-0) 1.2 0.8-2.0 [facility] LongviewAlkaline Imtghczwjng5036-23-88 06:10:00* Test Item Value Reference Range Interpretation Comments Alkaline Phosphatase (test code = 6768-6) 85 40-150 [facility] LongviewWhite Blood Kkvvo7025-30-19 05:45:00* Test Item Value Reference Range Interpretation Comments White Blood Count (test code = 6690-2) 3.29 4.8-10.8 L [facility] LongviewRed Blood Xgiue8568-02-47 05:45:00* Test Item Value Reference Range Interpretation Comments Red Blood Count (test code = 789-8) 3.89 4.3-5.7 L [facility] LongviewHemoglobin2020-03-26 05:45:00* Test Item Value Reference Range Interpretation Comments Hemoglobin (test code = 00156-9) 11.3 14.0-18.0 L [facility] LongviewHematocrit2020-03-26 05:45:00* Test Item Value Reference Range Interpretation Comments Hematocrit (test code = 4544-3) 35.5 38.2-49.6 L [facility] LongviewMean Corpuscular Qxrvog8383-20-07 05:45:00* Test Item Value Reference Range Interpretation Comments Mean Corpuscular Volume (test code = 787-2) 91.3 81-99 [facility] LongviewMean Corpuscular Efsnlhhsvv8609-16-51 05:45:00* Test Item Value Reference Range Interpretation Comments Mean Corpuscular Hemoglobin (test code = 785-6) 29.0 28-32 [facility] LongviewMean Corpuscular Hemoglobin Concent 2019-08-30 05:45:00* Test Item Value Reference Range Interpretation Comments Mean Corpuscular Hemoglobin Concent (test code = 786-4) 31.8 31-35 [facility] LongviewRed Cell Distribution Jxkew5452-81-13 05:45:00* Test Item Value Reference Range Interpretation Comments Red Cell Distribution Width (test code = 62432-8) 19.6 11.7 -14.4 H [facility] LongviewPlatelet Ctltz5292-30-49 05:45:00* Test Item Value Reference Range Interpretation Comments Platelet Count (test code = 777-3) 142 140-360 [facility] LongviewNeutrophils (%) (Auto)2019-08-30 05:45:00 * Test Item Value Reference Range Interpretation Comments Neutrophils (%) (Auto) (test code = 25573-0) 50.1 38.7-80.0 [facility] LongviewLymphocytes (%) (Auto)2019-08-30 05:45:00 * Test Item Value Reference Range Interpretation Comments Lymphocytes (%) (Auto) (test code = 736-9) 22.8 18.0-39.1 [facility] LongviewMonocytes (%) (Auto)2019-08-30 05:45:00* Test Item Value Reference Range Interpretation Comments Monocytes (%) (Auto) (test code = 5905-5) 19.8 4.4-11.3 H [facility] LongviewEosinophils (%) (Auto)2019-08-30 05:45:00 * Test Item Value Reference Range Interpretation Comments Eosinophils (%) (Auto) (test code = 713-8) 6.1 0.0-6.0 H [facility] LongviewBasophils (%) (Auto)2019-08-30 05:45:00* Test Item Value Reference Range Interpretation Comments Basophils (%) (Auto) (test code = 706-2) 0.6 0.0-1.0 [facility] LongviewIM GRANULOCYTES %2019-08-30 05:45:00* Test Item Value Reference Range Interpretation Comments IM GRANULOCYTES % (test code = IM GRANULOCYTES %) 0.6 0.0- 1.0 [facility] LongviewNeutrophils # (Auto)2019-08-30 05:45:00* Test Item Value Reference Range Interpretation Comments Neutrophils # (Auto) (test code = 751-8) 1.7 2.1-6.9 L [facility] LongviewLymphocytes # (Auto)2019-08-30 05:45:00* Test Item Value Reference Range Interpretation Comments Lymphocytes # (Auto) (test code = 12613-9) 0.8 1.0-3.2 L [facility] LongviewMonocytes # (Auto)2019-08-30 05:45:00* Test Item Value Reference Range Interpretation Comments Monocytes # (Auto) (test code = 742-7) 0.7 0.2-0.8 [facility]viewEosinophils # (Auto)2019-08-30 05:45:00* Test Item Value Reference Range Interpretation Comments Eosinophils # (Auto) (test code = 711-2) 0.2 0.0-0.4 [facility]viewBasophils # (Auto)2019-08-30 05:45:00* Test Item Value Reference Range Interpretation Comments Basophils # (Auto) (test code = 704-7) 0.0 0.0-0.1 [facility] LongviewAbsolute Immature Granulocyte (auto 2019-08-30 05:45:00* Test Item Value Reference Range Interpretation Comments Absolute Immature Granulocyte (auto (salazar t code = Absolute Immature Granulocyte (auto) 0.02 0-0.1 [facility] LongviewCarcinoembryonic Jejdjbz8261-69-40 05:08:00* Test Item Value Reference Range Interpretation Comments Carcinoembryonic Antigen (test code = 2039-6) 16.0 0.0-4.7 H Nonsmokers <3.9 Smokers <5.6[employer] Electrochemiluminescence Immunoassay(ECLIA)Values obtained with different assay methods or kitscannot be used interchangeably. Results cannot beinterpreted as absolute evidence of the presence orabsence of malignant disease.Performed at: - [address] [id number] Director: Anderson Reich MD, Phone: [phone] Good Shepherd Medical Center – LongviewAlpha Lgjhfobjuws4405-07-08 13:53:00* Test Item Value Reference Range Interpretation Comments Alpha Fetoprotein (test code = 91957-0) 2.0 0.0-8.3 [employer] Electrochemiluminescence Immunoassay(ECLIA)Values obtained wit h different assay methods or kits cannotbe used interchangeably. Results cannot be interpreted asabsolute evidence of the presence or absence of malignantdisea se.This test is not interpretable in females.Performed at: [address] [id number] Director: Anderson Reich MD, Phone: [phone] [facility] CenterD-Dimer Quantitative (PE/DVT)2019-08-28 18:01:00* Test Item Value Reference Range Interpretation Comments D-Dimer Quantitative (PE/DVT) (test code = 67647-0) 3.37 0. 00-0.45 H [facility] LongviewAmylase Yzqfr1030-97-62 17:43:00* Test Item Value Reference Range Interpretation Comments Amylase Level (test code = 1798-8) 24 25-125 L [facility] LongviewCT ABDOMEN/PELVIS B8448-88-01 14:32:00 [facility] [address] [address] Patient Name: CRISTOPHER JACOB MR #: [id number] : 1950 Age/Sex: 69/M Req #: [id number] Adm Physician: Ordered by: JAYSON KUMAR PROJECTS MANAGER Report #: [id number] Location: ER Room/Bed: Procedure: [id number] CT /CT ABDOMEN/PELVIS W Exam Date: 08/28/19 [...] COPY TO: JAYSON KUMAR NP B-Type Natriuretic Wznsycx8457-78-85 12:56:00* Test Item Value Reference Range Interpretation Comments B-Type Natriuretic Peptide (test code = 90684-4) 56.2 0-100 [facility] LongviewCreatine Kinase UJ4720-11-73 12:56:00* Test Item Value Reference Range Interpretation Comments Creatine Kinase MB (test code = 03153-8) 1.10 0-5.0 [facility] LongviewTroponin N0330-20-24 12:56:00* Test Item Value Reference Range Interpretation Comments Troponin I (test code = WPX6549) 0.001 0-0.300 [facility] LongviewCreatine Zvbonn9883-59-58 12:47:00* Test Item Value Reference Range Interpretation Comments Creatine Kinase (test code = 2157-6) 42 30-200 [facility] LongviewLipase2020-03-24 12:47:00* Test Item Value Reference Range Interpretation Comments Lipase (test code = 3040-3) 4 8-78 L [facility] LongviewCHEM BAIET5631-69-50 15:10:001.0[facility] HermannCHEM AIWWJ8732-75-01 15:10:0075[facility] HermannCHEM DSZNO9211-83-29 13:54:000.9[facility] HermannCHEM KPEXD6423-08-56 13:54:0086Memorial HermannCBC W/MANUAL SVXI2035-51-41 21:42:00* Test Item Value Reference Range Interpretation [...] = IMMAT) 0 % 0-0 N PATHOLOGISTS DKJETDGE2049-90-64 21:42:00* Test Item Value Reference Range Interpretation Comments PATHOLOGISTS FINDINGS (test code = PATH) PATH NOTES LEFT SHIFT GRANULOCYTES, LYMPHOPENIA WITH A FEW REACTIVE LYPHOCYTES SEEN. NORMOCYTIC ANEMIA, THRMBOCYTOPENIA.REVIEWED BY OSMAN HOOPER M.D.10/20/18 CBC W/MANUAL ISYS2222-67-66 05:37:00* Test Item Value Reference Range Interpretation [...] = IMMAT) 0 % 0-0 N PATHOLOGISTS YJUPHGZI8375-04-84 05:37:00* Test Item Value Reference Range Interpretation Comments PATHOLOGISTS FINDINGS (test code = PATH) PATH NOTES CBC W/MANUAL XIOX1143-40-61 05:33:00* Test Item Value Reference Range Interpretation [...] PLATELET MORPHOLOGY (test code = PLTMORPH) PATHOLOGISTS CFUNQAON9937-65-75 05:33:00* Test Item Value Reference Range Interpretation Comments PATHOLOGISTS FINDINGS (test code = PATH) PATH NOTES CBC W/MANUAL HHGR0212-46-51 05:03:00* Test Item Value Reference Range Interpretation [...] MORPHOLOGY (test code = PLTMORPH) CBC W/MANUAL TZXH5553-14-38 05:03:00* Test Item Value Reference Range Interpretation [...] MORPHOLOGY (test code = PLTMORPH) CBC W/MANUAL IFBA1655-94-88 05:03:00* Test Item Value Reference Range Interpretation [...] MORPHOLOGY (test code = PLTMORPH) CBC W/MANUAL TINU0572-54-69 05:02:00* Test Item Value Reference Range Interpretation [...] MORPHOLOGY (test code = PLTMORPH) CBC W/MANUAL OEDB8583-73-20 05:02:00* Test Item Value Reference Range Interpretation [...] into account the patients history. CBC W/MANUAL TZMM1523-31-26 05:03:00* Test Item Value Reference Range Interpretation [...] 35 K/mm3 150-450 LL Results called to LEELEE/QSL0541 by ARIELKNG1 10/17/18 0441Critical results verified and [...] IMMAT) 0 % 0-0 N BASIC METABOLIC ASIJE9365-00-47 04:54:00* Test Item Value Reference Range Interpretation [...] CA) 7.6 mg/dL 8.5-10.1 L CBC W/MANUAL JQNJ2443-86-22 04:44:00* Test Item Value Reference Range Interpretation [...] 35 K/mm3 150-450 LL Results called to LEELEE/TJA0881 by ARIELKNG1 10/17/18 0441Critical results verified and [...] MORPHOLOGY (test code = PLTMORPH) CBC W/MANUAL XRYQ7402-75-01 04:44:00* Test Item Value Reference Range Interpretation [...] 35 K/mm3 150-450 LL Results called to LEELEE/LZA5190 by ARIELKNPayton 10/17/18 0441Critical results verified and [...] MORPHOLOGY (test code = PLTMORPH) CBC W/MANUAL JHYM6224-60-69 04:44:00* Test Item Value Reference Range Interpretation [...] 35 K/mm3 150-450 LL Results called to LEELEE/IVR2812 by ARIELKNPayton 10/17/18 0441Critical results verified and [...] MORPHOLOGY (test code = PLTMORPH) CBC W/MANUAL RXUO9887-35-11 04:44:00* Test Item Value Reference Range Interpretation [...] 35 K/mm3 150-450 LL Results called to LEELEE/DOV5469 by MALIA 10/17/18 0441Critical results verified and [...] MORPHOLOGY (test code = PLTMORPH) CBC W/MANUAL BLHQ2971-35-56 04:44:00* Test Item Value Reference Range Interpretation [...] 35 K/mm3 150-450 LL Results called to LEELEE/JTP9137 by MALIA 10/17/18 0441Critical results verified and [...] into account the patients history. BASIC METABOLIC LWXFZ3209-50-06 15:57:00* Test Item Value Reference Range Interpretation [...] CA) 8.1 mg/dL 8.5-10.1 L BASIC METABOLIC FQXAX8399-50-73 15:51:00* Test Item Value Reference Range Interpretation [...] = CA) 8.1 mg/dL 8.5-10.1 L VANCOMYCIN NLGZZP0376-23-67 05:46:00* Test Item Value Reference Range Interpretation [...] account the patients history. CREATININE W ESTIMATED NJN2513-28-30 15:16:00* Test Item Value Reference Range Interpretation Comments GLOMERULAR FILTRATION RATE (test code = GFR) 60 mL/min >=60 Estimated GFR by using Modified MDRD formula.Chronic kidney disease is defined as either kidney damageor GFR <60 mL/min/1.73 m2 for >3 months. CREATININE (test code = CREAT) 1.20 mg/dL 0.7-1.3 N - CT ABD PELVIS W/O NFJB8961-46-34 18:51:00 Name: CRISTOPHER JACOB [facility] : 1950 Age/S: 68 / M [address] [facility] Unit #: [id number] Loc: [place] [address] Phys: Jason Singleton MD Acct: [id number] Dis Date: Status: ADM IN PHONE #: [phone] Exam Date: 10/14/2018 175 FAX #: [phone] Reason: fever EXAMS: CPT CODE: [id number] CT ABD PELVIS W/O CONT 67850 HISTORY: Pneumonia and metastatic cancer and fever. [...] foraminal stenosis. IMPRESSION: PAGE 1 Signed Report ([facility]) Name: CRISTOPHER JACOB [facility] : 1950 Age/S: 68 / M [address] [facility]: [id number] Loc: [place] [address] Phys: Jason Singleton MD Acct: [id number] Dis Date: Status: ADM IN PHONE #: [phone] Exam Date: 10/14/2018 1756 FAX #: Reason: fever EXAMS: CPT CODE: [id number] CT ABD PE LVIS W/O CONT 23284 <Continued> Patient is post right hemicolectomy with [...] RT(R),CT; CTDI: DLP: Trnscb Date/Time: 10/14/2018 (1850) [email or web address] Orig Print D/T: S: 10/14/2018 (1855) PAGE 2 Signed Report - CT CHEST W/O CONTRAST 2018-10-14 18:24:00 Name: CRISTOPHER JACOB [facility] : 1950 Age/S: 68 / M [address] [facility] Unit #: [id number] Loc: [place] [address] Phys: Jason Singleton MD Acct: [id number] Dis Date: Status: ADM IN PHONE #: [phone] Exam Date: 10/14/2018 1756 FAX #: [phone] Reason: fever EXAMS: CPT CODE: [id number] CT CHEST W/O CONTRAST 02419 HISTORY: Fever. COMPARISON: Chest CT from March [...] o acute infiltrates, effusion or congestion. at 3638 Reported and s igned by: Zacarias Fernandez M.D. PAGE 1 Signed Repor t (CONTINUED) Name: CRISTOPHER JACOB [facility] : 1950 Age/S: 68 / M [address] Unit #: [id number] Loc: [place] [address] Phys: Jason Singleton MD Acct: [id number] Dis Date: Status: ADM IN PHONE #: [phone] Exam Date: 10/14/2018 1756 FAX #: [phone] Reason: fever EXAMS: CPT CODE: [id number] CT CHEST W/O CONTRAST 37605 < Continued> CC: Jason Singleton MD; Huong De Anda MD Technologist:Maria Esther Saeed RT(R),CT; CTDI: DLP: Trnscb Date/Time: 10/14/2018 (1823) t.SDR.TH4 Orig Print D/T: S: 10/14/2018 (1827) PAGE 2 Signed Report URINALYSIS CWQMTZTT6997-03-67 17:21:00* Test Item Value Reference Range Interpretation [...] FEW #/LPF FEW Urine Source? Clean CatchURINALYSIS XOQJAMNE7281-76-20 17:20:00* Test Item Value Reference Range Interpretation [...] the patients history. - XR CHEST 1 C3339-16-95 16:28:00 FAX: Judd Ryan DO [place]: St: REG Name: CRISTOPHER SCHNEIDER [facility] : [birth year] Age/S: 68/M [address] [facility] Unit #: [id number] Loc: [place] [address] Phys: Judd Ryan DO Acct: [id number] Dis Date: Status: REG ER PHONE #: [phone] Exam Date: 10/13/2018 1606 FAX #: [phone] Reason: CODE SEPSIS EXAMS: CPT CODE: [id number] XR CHEST 1 V 15093 REASON FOR EXAM: CODE SEPSIS EXAM ORDER DATE: 10/13/2018 3:39 PM Ordering Sharon: Judd Ryan DO PROCEDURE: - XR CHEST [...] Signed by Sharon Ross on 10/13/2018 at 6905 R eported and signed by: Umair Ross M.D. CC: Judd Ryan DO Technologist: Jesse McallisterR; ... Trnscrd Date/Time/By: 10/13/2018 (7106) : By: Mara BABINL Orig Print D/T: S: 10/13/2018 (2340) PAGE 1 Signed Report LACTIC ACID 2018-10-13 16:24:00* Test Item Value Reference Range Interpretation Comments LACTIC ACID (test code = LACT) 1.8 mmol/L 0.4-1.9 N BASIC METABOLIC BRALC5752-35-05 16:07:00* Test Item Value Reference Range Interpretation [...] CA) 8.2 mg/dL 8.5-10.1 L HEPATIC FUNCTION HDYKQ6450-76-45 16:07:00* Test Item Value Reference Range Interpretation [...] due to change in reagent. CBC W/AUTO BSHV5528-12-52 16:07:00* Test Item Value Reference Range Interpretation [...] REQUIRED (test code = MDIFF) NO CHEM OKCXG2775-67-48 11:26:86567Muybtudj HermannCHEM WJQYX7677-45-97 09:46:81456 [facility]annCHEM TENVS7572-30-43 09:46:0081Mem[facility] HermannCHEM PANEL 2015-11-22 09:46:0014Memorial HermannCHEM WPTXC5347-30-70 09:46:008.6[facility] HermannCHEM ZQQWF5293-50-40 09:46:000.95[facility] HermannCHEM GWHOV6575-62-05 09:46:05113Yjaelonp HermannCHEM JFDCU3218-53-22 09:46:003.9[facility] HermannCHEM WOIAN8610-60-14 09:46:69961Vclsukln HermannCHEM ZWSOF0249-45-21 09:46:0027 [facility] HermannCHEM VFUWF6441-08-87 09:46:0082[facility] HermannCHEM PANEL 2015-11-22 09:46:0010.9[facility] KinmfbaLZNJCGXOHC4696-55-61 09:46:000.8[facility] EmoawfoNDZYSNLVVI7142-64-45 09:46:001.8[facility] OncbgjlNCITVYZMGI0985-40-63 09:46:000.3[facility]orial YjggweaVQKUSMNWYT6731-84-78 09:46:003+ (11/22/15 4:46 AM) [facility] TurmctrYPQOWJRTTW1434-27-01 09:46:000.1[facility] HermannHEMATOLOGY 2015-11-22 09:46:001+ (11/22/15 4:46 AM)[facility] KjxvngmUXAFKDRNOT7464-36-28 09:46:005.8[facility] QoblkruIMTVYZVERN3015-72-79 09:46:002.5[facility] [place] DLKUWXFGAB9860-34-41 09:46:001.1[facility] TmotmxiHPEUYZVLPQ7611-47-49 09:46:00 14.8[facility] CgwanbjNEHQOHVGQO6430-41-94 09:46:0032.8[facility] HermannHEMATOLOGY 2015-11-22 09:46:00Normal (11/22/15 4:46 AM)[facility] KobqqmoWXLJKWIIOE5681-23-40 09:46:00See Note (11/22/15 4:46 AM)[facility] KafnugpLRCFANFXCN9794-71-30 09:46:00 45.5[facility] MgchlcmLPXRJTIOLC3589-42-20 09:46:0031.6[facility] HermannHEMATOLOGY 2015-11-22 09:46:83684Zszoxrfy EvjlwteRDBWMTTBIW6051-42-34 09:46:008.4[facility] HaaumvrPKKUCWYUSI5237-28-30 09:46:00* Test Item Value Reference Range Interpretation Comments MCH (test code = MCH) 27.7 pg 27.0-31.0 [facility] AvbtharUQQAWRIAIT1984-00-33 09:46:0032.6[facility] HermannHEMATOLOGY 2015-11-22 09:46:005.4[facility] OnvjijdTAWNMCKPRP8532-72-40 09:46:004.56[facility] QyqobknDXUQZKNRFA0314-60-41 09:46:0012.6[facility] VjgijrmKDJYDRKSXT9860-84-27 09:46:0039.9[facility] XomdsvmYABZYYZOMX5926-48-42 09:46:0087.6[facility] [place] CHEM MPFKG2276-05-95 09:06:59182Xqqrlmkw HermannCHEM ESFFI0169-76-51 09:06:06476 [facility] HermannCHEM KIRHC0084-45-42 09:06:0026[facility] HermannCHEM PANEL 2015-11-21 09:06:0019[facility] HermannCHEM UPQBB7243-45-29 09:06:001.0[facility] HermannCHEM MZNSU6316-61-76 09:06:003.1[facility] HermannCHEM OEQVF1662-39-49 09:06:003.0[facility] HermannCHEM KUWXS5975-69-28 09:06:006.1[facility] HermannCHEM KRJAW7062-01-09 09:06:000.3[facility] HermannCHEM KQSSI0419-31-66 09:06:000.4 [facility] HermannCHEM HNSNV8286-96-14 09:06:000.1[facility] HermannELECTROLYTES 2015-11-21 09:06:0014.2[facility] ZpkmuzyQAJRQVXBQPNC4044-56-11 09:06:0024[facility] HcfnbffRPRBAATHNBVJ7645-66-88 09:06:008.6[facility] KeyqxjpTGWNFVFVKWMM2171-73-23 09:06:41825Jfbaxjgs DvxhannNBBKASEBWZEY5270-46-17 09:06:79449Hgmmtwpr [place] CLRYCZVBHMPQ9364-31-03 09:06:0091[facility] OwvbdrlCXDLPKHSHXCD0392-40-95 09:06:00 14[facility] MqmnqvxPNVBGAHCTWWV8132-89-63 09:06:004.2[facility] HermannELECTROLYTES 2015-11-21 09:06:000.99[facility] LpklxjwUXXZXRVTHJRR1677-26-49 09:06:0078[facility] UpvhtoqSGDZNKVDHR0586-30-64 09:06:000.3[facility] RvqxvuuKEPEJMORLW9884-84-71 09:06:000.8[facility] KpkaykyGSRWFUZBDN8644-68-38 09:06:001.6[facility] [place] VRKPNZUAHD4197-86-17 09:06:0015.4[facility] NztsujpRBRCVGZKUZ9408-86-23 09:06:00 29.9[facility] TmsupgjQILCLRSEOD4362-33-71 09:06:000.8[facility]ann[facility]OLOG[facility] 2015-11-21 09:06:005.6[facility] HxugjgoQECFMEDBYK9896-83-44 09:06:0048.3[facility] BxbnvytQRBKWFCIIA9313-67-12 09:06:002.6[facility] KpjhfnxFTXJALGFXA0778-99-58 09:06:76805Iiuezpfe ObpjapgBXWYDWWKQN0508-51-68 09:06:0012.9[facility] SBXDXJLFLT4152-24-70 09:06:004.63[facility] YkbvonlGSFNVHOSUJ7574-81-12 09:06:00 87.1[facility] VustxrjYCSNZVDLVA8876-37-39 09:06:00* Test Item Value Reference Range Interpretation Comments MCH (test code = MCH) 27.8 pg 27.0-31.0 [facility] ZvibimfDCYRFFISTK2882-15-43 09:06:0032.0[facility]annHEMATOLOGY 2015-11-21 09:06:0032.9[facility] FymdwswMXDKPBBWHH7768-74-35 09:06:0040.3[facility] MztqzdfJIZVDAUVKN8492-66-20 09:06:008.6[facility] IvsrdkyKYMPKWKMDL5490-80-18 09:06:005.5[facility] HermannCARDIAC TENIPOC5037-15-55 09:33:0052[facility] CHEM KQZUJ3878-38-62 09:33:004.2[facility] HermannCHEM KMRAK9511-59-13 09:33:002.3 [facility]annCHEM RGGKF3035-15-34 09:33:004.0[facility]annCHEM PANEL 2015-11-20 09:33:002.2[facility]annCHEM TPFZD6397-99-15 09:33:0076[facility]annCHEM UTYSC9767-44-38 09:33:000.5[facility]annCHEM ELLOH8253-97-15 09:33:0093[facility]annCHEM VHOED3276-74-26 09:33:0079[facility]annCHEM ECSDW3473-38-09 09:33:47196Jhktclas HermannCHEM ZQEAM6342-71-12 09:33:0015 [facility]annCHEM CVUEQ0742-28-46 09:33:001.02[facility]annCHEM PANEL 2015-11-20 09:33:59550Xffleqix HermannCHEM DGLKN5745-74-71 09:33:004.1[facility]annCHEM JFHII8816-81-76 09:33:0016.1[facility]annCHEM TLSVY4886-69-32 09:33:008.8[facility]annCHEM LFYEG2906-29-42 09:33:005.9[facility]annCHEM IIUVA0277-62-05 09:33:002.6[facility]annCHEM BPWCW8244-90-60 09:33:0027 [facility]annCHE[facility] YKOEO2894-63-19 09:33:0015[facility]annCHEM PANEL 2015-11-20 09:33:003.3[facility]annCHEM NXXKA9222-97-50 09:33:0020[facility]annCHEM BXFTZ5150-08-46 09:33:001.3[facility]annCHEM YBGNG6197-21-59 09:33:0027[facility]annCHEM TPERX6736-85-14 09:33:004.9[facility]annCHEM BWWWY3634-59-43 09:33:0033[facility] NmkgnxgWCUYJBDBXC4765-13-15 09:33:005.0 [facility] VyetrhoTBHWVZAWGD9335-15-72 09:33:0016.9[facility]annHEMATOLOGY 2015-11-20 09:33:0033.4[facility] TywucbwZCMWSLOSTN2778-35-11 09:33:001.7[facility] OoojwqpCYFENRVLRN2370-45-73 09:33:002.2[facility] PlfidmuWGRNAUCYIT6245-35-73 09:33:000.9[facility] PecjvhzQDYIPUQTSW0624-92-63 09:33:0043.8[facility] KKWBNSTPSU6687-64-65 09:33:000.9[facility] YxfkvirWBEMYPHVCA9128-89-41 09:33:000.3 [facility] RvxuksjARDKVKUEFN5377-62-21 09:33:0033.0[facility]annHEMATOLOGY 2015-11-20 09:33:0031.6[facility] DfubzogSJRTHGACEF1167-71-10 09:33:00* Test Item Value Reference Range Interpretation Comments MCH (test code = MCH) 27.4 pg 27.0-31.0 [facility] ZpbebhyPFPWEZOJRU3239-42-92 09:33:0086.5[facility]annHEMATOLOGY 2015-11-20 09:33:008.8[facility] HrwbtvhVSNXPRFXTD4960-10-20 09:33:44960Nrmkngry GngzrqnMVCDQDAKLJ8241-30-22 09:33:005.1[facility] VzadjceYFBQMEOPHS2004-81-49 09:33:0039.9[facility] EwikrnvOABFGKIDYI1538-93-57 09:33:0012.6[facility] IPRCEFRFLU4043-58-61 09:33:004.61[facility] VuhfsgoVXHOESLOJF7019-85-56 09:33:00 11.6[facility] NnymgiuPCLDRC8123-58-01 09:33:0046[facility] OansumjOOMESH9861-52-27 09:33:0078[facility] QvcxrdtPWGAZA8178-44-84 09:33:0035[facility] HermannLIPIDS 2015-11-20 09:33:67305Trckidoj QcoqywhSFPLMS6127-95-25 09:33:36175Dwazmxkx OdcanshUUPLHZ3006-18-28 09:33:004.54[facility] HermannSPECIAL FJKQZJDWC5357-33-28 09:33:005.6[facility] HermannCHEM DPKSZ6675-04-26 08:00:001.8[facility]annCHEM YUWRR0163-38-72 23:18:002.1[facility]annCHEM EOPDZ6434-00-71 23:18:0033 [facility]annCHEM MIOFF4923-95-56 23:18:003.4[facility]annCHEM PANEL 2015-11-19 23:18:006.7[facility] HermannCHEM JDPXI2118-29-64 23:18:000.5[facility]annCHEM ZTYCM7573-11-00 23:18:0098[facility]annCHEM IQUKX0688-75-68 23:18:0023[facility]annCHEM PDLWX2027-18-03 23:18:001.0[facility]annCHEM QOBST0569-10-64 23:18:003.3[facility]annCHEM YTVOW7785-43-98 23:18:0013 [facility] NwmwuolICEHCESRVL9836-20-23 23:18:000.1[facility]annHEMATOLOGY 2015-11-19 23:18:001+ *ABN*(11/19/15 6:18 PM)[facility] KywhpjrSDDMAEERUW9192-89-33 23:18:002+ (11/19/15 6:18 PM)[facility] GgjsgnxXLWEBILQVJ0572-37-28 23:18:002+ *ABN*(11/19/15 6:18 PM)[facility] MddinicGVWJHXLRNH5658-57-97 23:18:003+ (11/19/15 6:18 PM)[facility] QjfdbitZKCPOELVFG6550-22-95 23:18:00Normal (11/19/15 6:18 PM) [facility] DLHNW5987-72-28 14:14:285.0[facility] MQJSB6877-07-58 14:14:28Negative (11/19/15 9:14 AM)[facility] YTNAC6204-98-72 14:14:28Negative *NA*(11/19/15 9:14 AM)[facility] YXWSI7880-84-66 14:14:281.020[facility] CORUR3792-72-23 14:14:28 Negative (11/19/15 9:14 AM)[facility] QOHXI6864-82-58 14:14:28 Negative (11/19/15 9:14 AM)[facility] QVHBU2149-25-42 14:14:28<1 [facility] HOQET8446-86-68 14:14:28<1[facility] CEVVI8109-84-60 14:14:28Clear (11/19/15 9:14 AM)[facility] STOOL 2015-11-19 14:14:28Yellow *NA*(11/19/15 9:14 AM)[facility]annHEMATOLOGY 2015-08-09 10:43:008.6[facility] VsetngxXRISICLZWP1536-26-01 10:43:05305Cjytfvze RjfzvzaJDFYLKZSVP4558-14-13 10:43:0027.0[facility] HwhokioABRNTIGJLH5067-66-23 10:43:0031.3[facility] WtainslLYMITUUHYG6771-51-12 10:43:00* Test Item Value Reference Range Interpretation Comments MCH (test code = MCH) 25.3 pg 27.0-31.0 [facility] IcvdoxnSSKJZWJYLX8485-56-69 10:43:0080.9[facility]annHEMATOLOGY 2015-08-09 10:43:0033.8[facility] BfoctaeNPQLQSSROL2950-24-95 10:43:0010.6[facility] MwuaturRGTOKGLYFC0290-76-55 10:43:004.17[facility] MdtnglaSJFUNBOEQJ2079-61-60 10:43:0010.6[facility] VotepnqAUCZGIHNJD1771-62-05 10:43:003.7[facility] ZYPQDJAEVX6123-73-78 10:43:0074.1[facility] DevzzgnOMZGYNXMSM3347-47-14 10:43:00 9.4[facility] AfkozqjILEZSXJAVZ7032-21-28 10:43:0012.3[facility]annHEMATOLOGY 2015-08-09 10:43:000.5[facility] NfedrykWOHTFXWFZO8302-31-24 10:43:00Normal (08/09/15 4:43 AM)[facility] TjgkdvuVIGETTLXYQ7625-75-37 10:43:000.1[facility] RCSCIPAVFQ2458-31-74 10:43:000.4[facility] KzgbaqcBEHHHVKJEX3363-74-93 10:43:002+ *ABN*(08/09/15 4:43 AM)[facility] VnqhquqMBMIZNTWSV8320-83-74 10:43:007.8[facility] QylrpomRTRYXKWHIE9875-06-93 10:43:001.0[facility] WwunzmrNDJQWOYQNT0612-49-90 10:43:001.3[facility] HermannCHEM RVKMS5917-13-76 10:51:001.8[facility] HermannCHEM JPYWJ9611-92-69 10:51:003.5[facility] KxgfqujBPSFBNFTJFWP6362-15-09 10:51:0012.0 [facility] VfgwxihFQMBWQFLBKQO0870-11-53 10:51:0088[facility] HermannELECTROLYTES 2015-08-08 10:51:008.4[facility] PdmcdtkTMSEJSAOTYBO7633-42-98 10:51:004.0[facility] GeszthkLQHUXVXNCMHJ3444-87-63 10:51:91194Hxbhvqgi LeovjrhQCHJPKMPFIST3736-64-08 10:51:0026[facility] HwkpfmyKFDBQIBOWGIH5301-57-86 10:51:0013[facility] PSNKKUJAOFLN1892-48-17 10:51:000.89[facility] PpdesyeBLWFPNKXFETZ6095-53-38 10:51:37029Xuunjday AmjqpyzGFWLKGPLRJZZ9323-91-42 10:51:38041Mjgspugm [place] IZXHMRKQKG3413-92-84 10:51:000.1[facility] XftyokhFCDVGXBPYQ1868-16-98 10:51:002+ *ABN*(08/08/15 4:51 AM)[facility] OfowfevUDFHGQOGAE4714-57-86 10:51:001.0[facility] OztekztMAIPBHNZGE8299-00-24 10:51:0011.8[facility] GnhnktoBKGNETRKZD0916-98-02 10:51:0016.3[facility] MyxgzjmLLIHXHNQHJ7999-76-92 10:51:0070.9[facility] IONTDETUAM2035-13-49 10:51:000.4[facility] SbqmnlyUOOFRICGXA1163-12-26 10:51:000.6 [facility] KtztfvwDDPCZPTHWW4909-04-59 10:51:001.4[facility]annHEMATOLOGY 2015-08-08 10:51:006.1[facility] YpgkuyvYUABUSBJOO2923-79-40 10:51:004.42[facility] PbgjmyzHVRNAYEIUG6023-94-75 10:51:00* Test Item Value Reference Range Interpretation Comments MCH (test code = MCH) 26.1 pg 27.0-31.0 [facility] HtkdenwUQUTWYIAMQ1483-70-84 10:51:0080.6[facility]annHEMATOLOGY 2015-08-08 10:51:0032.3[facility] DgysrdeCDUEFCDCWD4605-41-91 10:51:0011.5[facility] DhkjriuFWBTQICCYV1943-86-24 10:51:0035.7[facility] XvrjcixUFLMJNDDOY8473-92-07 10:51:009.0[facility] RvpxagpJURNJJGPCL9215-00-27 10:51:65173Fmljznwb [place] PRVTKWXSHO7448-58-10 10:51:0027.0[facility] KywtwaqOBNDVLWJEA4022-35-47 10:51:00 8.5[facility] HermannBLOOD BANK KDFUAMM7585-96-28 15:35:00Negative (08/07/15 9:35 AM)[facility]annCHEM HJDWP3809-43-96 20:20:0014[facility]annCHEM PANEL 2015-07-28 20:20:003.1[facility]annCHEM SFBPR4231-67-17 20:20:001.3[facility]annCHEM FDYSN8897-04-00 20:20:0011.0[facility]annCHEM APQAG2807-96-03 20:20:0075[facility]annCHEM AOPCZ5042-79-45 20:20:0017[facility]annCHEM RAQQB8103-75-06 20:20:000.9[facility] HermannCHEM JXWYC6657-01-35 20:20:0095 [facility]annCHEM URFAE0223-27-74 20:20:007.1[facility]annCHEM PANEL 2015-07-28 20:20:004.0[facility] HermannCHEM THOEN7109-36-97 20:20:0025[facility]annCHEM BYFOM4052-96-13 20:20:008.8[facility] HermannCHEM AJQDK1850-15-60 20:20:84217Icopvsny HermannCHEM ODLOG0622-66-11 20:20:0031[facility]annCHEM XVFKU2900-63-11 20:20:005.0[facility] HermannCHEM BLOKW3818-29-92 20:20:18373 [facility]annCHEM VYCSL3516-65-17 20:20:001.03[facility]annCHEM PANEL 2015-07-28 20:20:0014[facility]annCHEM KRQMR3423-50-70 20:20:0073[facility] NjsgxmfFEUQWNPQUE4745-23-03 20:20:008.4[facility] DsyngesRLZQERDIPT1908-27-13 20:20:004.81[facility] NkheeneRLHJXDPZAX4615-92-22 20:20:0012.2[facility] EUSGDEBGPT7272-75-42 20:20:0079.1[facility] ZwkaknjSMPPTPPEPH2542-64-81 20:20:00* Test Item Value Reference Range Interpretation Comments MCH (test code = MCH) 25.3 pg 27.0-31.0 [facility] CnbwarwBQVFHKFRDA2064-87-36 20:20:0038.1[facility]annHEMATOLOGY 2015-07-28 20:20:009.3[facility] JzqinwgEZOPKZBYRO5380-82-80 20:20:0031.4[facility] ZqxdjvkWPCDPXZOQF8916-85-70 20:20:15603Tcodbhnk KswyplhROQBSWEBHY9770-15-21 20:20:0032.0[facility] BwmsqidYUHLCZQPUW9526-49-80 20:20:00* Test Item Value Reference Range Interpretation Comments PTT (test code = PTT) 30.6 s 22.9-35.8 [facility] WlwzhctYQMYRDGZMW2527-40-86 20:20:001.17[facility]annHEMATOLOGY 2015-07-28 20:20:00* Test Item Value Reference Range Interpretation Comments PT (test code = PT) 15.2 s 12.0-14.7 [facility] DwtegnfREWRDOYFQC8167-09-07 20:20:003+ *NA*(07/28/15 2:20 PM)[facility] PppjntvMIYWXKVNSZ1275-11-13 20:20:000.7[facility] PfqpobuUKJMLMAWQM0571-40-42 20:20:005.3[facility] ZpxagbpDHPQLLPMPM2612-99-47 20:20:000.4[facility] ARXRVLDGPM0475-92-65 20:20:002.0[facility] AgagkgrMNMUZFENME8791-38-36 20:20:001+ *ABN*(07/28/15 2:20 PM)[facility] PaskniwGQHFLGEFKD0149-85-45 20:20:000.5[facility] QqnibbfIKRDECVHHD1132-30-51 20:20:008.0[facility] CdmzribOONJBKCWCQ3601-90-86 20:20:005.0[facility] WkdeilnTCPBCJNCVP7826-61-38 20:20:0062.9[facility] KILERMUKRJ8097-18-97 20:20:0023.6[facility] YuisdotYXZIRNUIYP7540-94-19 20:20:00 Normal (07/28/15 2:20 PM)[facility] BPRQA8216-18-72 20:20:00 Negative (07/28/15 2:20 PM)[facility] BBPGV7678-16-89 20:20:001 [facility] VEMPL4204-64-21 20:20:00Negative (07/28/15 2:20 PM) [facility] YJGPO4675-95-44 20:20:007.0[facility] NMWNU5555-08-12 20:20:001.015[facility] SMVWN5784-16-35 20:20:00 Clear (07/28/15 2:20 PM)[facility] CZRSJ4019-13-96 20:20:00 Negative (07/28/15 2:20 PM)[facility] QDOPI4519-18-02 20:20:00 Negative *NA*(07/28/15 2:20 PM)[facility] QSWTK9594-14-55 20:20:00 Yellow *NA*(07/28/15 2:20 PM)[facility]
[2019-11-11 18:04] VITALS: BP 139/75
[2019-11-11 20:00] VITALS: BP 139/78
[2019-11-12] VITALS (7 sets, daily range): BP systolic 104–139; BP diastolic 69–79
[2019-11-12 02:03] LABS: CREATINE KINASE 25 IU/L (30-200)
[2019-11-12] MEDS ORDERED: SODIUM CHLORIDE 0.9% 250ML 250 ML ONE (04:18)
[2019-11-12] MEDS: CEFTRIAXONE SOD 1 GM/NS 50 ML 50 ML IV SCH (04:29)
[2019-11-12 05:53] LABS: BASOPHILS # (AUTO) 0.1 (0.0-0.1); BASOPHILS % 0.9 % (0.0-1.0); EOSINOPHILS # (AUTO) 0.3 (0.0-0.4); EOSINOPHILS % 2.9 % (0.0-6.0); HEMATOCRIT 35.4 % (38.2-49.6); HEMOGLOBIN 11.2 g/dL (14.0-18.0); LYMPHOCYTES % 10.5 % (18.0-39.1); MEAN CORPUSCULAR HEMOGLOBIN 27.3 pg (28-32); MEAN CORPUSCULAR HGB CONC 31.6 g/dL (31-35); MEAN CORPUSCULAR VOLUME 86.3 fL (81-99); MONOCYTES % 10.4 % (4.4-11.3); NEUTROPHILS # (AUTO) 6.8 (2.1-6.9); NEUTROPHILS % 72.8 % (38.7-80.0); PLATELET COUNT 224 x10e3/uL (140-360); RED CELL DISTRIBUTION WIDTH 17.4 % (11.7-14.4)
[2019-11-12 06:24] LABS: ALANINE AMINOTRANSFERASE 6 IU/L (0-55); ALBUMIN 2.6 g/dL (3.5-5.0); ALBUMIN/GLOBULIN RATIO 0.9 (0.8-2.0); ALKALINE PHOSPHATASE 87 IU/L (40-150); ANION GAP 12.5 mmol/L (8-16); BLOOD UREA NITROGEN 13 mg/dL (7-26); BUN/CREATININE RATIO 13 (6-25); CALCIUM 8.8 mg/dL (8.4-10.2); CARBON DIOXIDE 30 mmol/L (22-29); CHLORIDE 98 mmol/L (98-107); CREATININE, SERUM 1.02 mg/dL (0.72-1.25); EST GLOMERULAR FILTRATION RATE > 60 ML/MIN (60-); GLUCOSE 89 mg/dL (74-118); POTASSIUM 4.5 mmol/L (3.5-5.1); SODIUM 136 mmol/L (136-145)
[2019-11-12 06:37] LABS: CREATINE KINASE 21 IU/L (30-200)
--- NOTE | 2019-11-12 06:51 | NUR ---
REPORT GIVEN TO DAYSHIFT NURSE. RESTING IN BED. AAOX3. NO SIGNS IV INFILTRATION. BED LOCKED AND IN LOW POSITION. CALL LIGHT WITHIN REACH. BED ALARM ACTIVATED.
[2019-11-12] MEDS ORDERED: SPIRONOLACTONE 25 MG TAB PO SCH (10:30)
[2019-11-12] MEDS ORDERED: PANTOPRAZOLE SOD 40 MG TABEC PO SCH (10:45)
[2019-11-12] MEDS ORDERED: FUROSEMIDE 40 MG TAB PO SCH (10:45)
--- NOTE | 2019-11-12 14:06 | Diagnostic Imaging Report ---
Procedure: Ultrasound-guided paracentesis stock preparation operator: Austin Miner MD Pre-operative diagnosis: Ascites Post-operative diagnosis: Ascites Conscious Sedation: None. The patient's heart rate and pulse oximetry were continuously monitored by the IR nurse. Additional Medications: Lidocaine 1% for local anesthesia Estimated blood loss: Less than 1 cc. Specimen: 5400 cc of cloudy yellow fluid Implants: None TECHNIQUE/FINDINGS: Informed consent was obtained from the patient and documented in the medical record. The patient was placed in the supine position. Initial ultrasound demonstrated ascites. The right upper abdomen was prepped and draped in standard sterile fashion. 1% lidocaine was infiltrated into the skin and subcutaneous tissues for local anesthesia. Then under continuous sonographic guidance, a 5 Fr catheter was advanced into the peritoneal space. The catheter was connected to vacuum bottle with subsequent evacuation of 5400 cc of cloudy, chylous-appearing fluid. The catheter was removed and sterile dressing was applied. The patient tolerated the procedure well. IMPRESSION: Successful ultrasound-guided paracentesis. Signed by: Dr. Austin Miner MD on 11/12/2019 2:03 PM
== END 2019-11-12 17:05 | disposition home or self-care (01) ==
LOC: ER 12:05 → ERHOLD 16:19 → MED/SURG2 17:43
PROVIDERS: ADMIT Internal Medicine; ATTEND Internal Medicine
DX: R18.8 Other ascites (principal); C18.9 Malignant neoplasm of colon, unspecified; C78.02 Secondary malignant neoplasm of left lung; C78.01 Secondary malignant neoplasm of right lung; C78.7 Secondary malignant neoplasm of liver and intrahepatic bile duct
CPT/HCPCS: 36415 ×2; 49083 ×2; 71045; 74177; 74470; 80053 ×2; 81001; 82150; 82550 ×2; 82553 ×2; 83690; 83735; 83880; 84484 ×2; 85025 ×2; 85610; 85730; 87086; 87635; 93005; 99284; C9113; G0378 ×2; J0696 ×2; J7050; Q9967; S0164; C1729